=== PATIENT | female | born 1975 | race Caucasian/White ===

== ENCOUNTER 2016-07-15 13:41 | Emergency (ER) | payer BC ==
[~2016-07-15] VITALS: Ht 162.6 cm; Wt 75.0 kg
[~2016-07-15 13:41] MED LIST: ALBU6.7H INH; CLON0.1T PO; DARU800T PO; EPZITAB3 PO; GABA300C5 PO; LISI-515 PO; MACR100C2 PO; PRAV20TA PO; RITO100 PO; ZOLP1SPR PO
[2016-07-15 13:43] VITALS: BP 115/71; PULSE 71; RESP 12; TEMP 98.4; O2SAT 99
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
[2016-07-15 17:33] LABS: BASOPHIL % 0.3 % (0.0-2.0); EOSINOPHIL # 0.1 TH/MM3 (0-0.4); EOSINOPHIL % 1.8 % (0.0-4.0); HEMATOCRIT 33.3 % (35.0-46.0); HEMO FLAGS DIFF FINAL; LYMPH % 37.5 % (9.0-44.0); LYMPHOCYTE # 2.1 TH/MM3 (1.0-4.8); MEAN CELL VOLUME 86.9 FL (80.0-100.0); MEAN CORPUSCULAR HGB CONC 33.3 % (32.0-36.0); MONO % 6.3 % (0.0-8.0); NEUT % 54.1 % (16.0-70.0); PLATELET COUNT 224 TH/MM3 (150-450); RED BLOOD COUNT 3.83 MIL/MM3 (4.00-5.30); RED CELL DISTRIBUTION WIDTH 16.6 % (11.6-17.2); WHITE BLOOD COUNT 5.6 TH/MM3 (4.0-11.0)
[2016-07-15 17:50] LABS: ALT (GPT) 20 U/L (10-53); ANION GAP 5 MEQ/L (5-15); AST (GOT) 16 U/L (15-37); BICARBONATE 27.8 MEQ/L (21.0-32.0); BLOOD UREA NITROGEN 10 MG/DL (7-18); CHLORIDE 106 MEQ/L (98-107); GLOMERULAR FILTRATION RATE 59 ML/MIN (>89); POTASSIUM 3.9 MEQ/L (3.5-5.1); SODIUM (NA) 139 MEQ/L (136-145)
[2016-07-15 17:53] LABS: ALKALINE PHOSPHATASE 84 U/L (45-117); TOTAL BILIRUBIN ADULT 0.8 MG/DL (0.2-1.0)
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
[2016-07-15 22:48] VITALS: BP 134/86; PULSE 73; RESP 18; TEMP 98; O2SAT 96
[2016-07-15] MEDS ORDERED: ATOR20TA15 PO (23:07)
[2016-07-15] MEDS ORDERED: ACETAMINOPHEN/HYDROcodone 325 MG/5 MG TAB PO ONE (23:30)
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
[2016-07-16] MEDS ORDERED: TRAM50TA PO (00:21)
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
[2016-07-16 07:05] VITALS: BP 128/87
[2016-07-27] MEDS ORDERED: HYDR-3516 PO (13:21)
== END 2016-07-16 07:07 | disposition home or self-care (01) ==
LOC: NEPC 13:41 → NEPB 07-16 07:07
DX: S02.2XXA Fracture of nasal bones, initial encounter for closed fracture (principal); S02.40EA Zygomatic fracture, right side, initial encounter for closed fracture; M54.2 Cervicalgia; R07.89 Other chest pain; R10.9 Unspecified abdominal pain; I10 Essential (primary) hypertension; E78.5 Hyperlipidemia, unspecified; E78.00 Pure hypercholesterolemia, unspecified; Z21 Asymptomatic human immunodeficiency virus [HIV] infection status; Z86.59 Personal history of other mental and behavioral disorders; Z87.09 Personal history of other diseases of the respiratory system; Y04.2XXA Assault by strike against or bumped into by another person, initial encounter
CPT/HCPCS: 70450; 70486; 71010; 72125; 80053; 85025

== ENCOUNTER → 2016-07-27 | Day surgery (SDC) | payer BC ==
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
[~2016-07-27] VITALS: Ht 160 cm; Wt 69.8 kg
[~2016-07-27] MED LIST changes: +ATOR20TA15 PO; +DARU1TAB2 PO; +DIPH25CA PO; +DO NOT ADM ANY ANTICOAGULANT DRUGS XX PRN; +DOLU1TAB PO; +HYDR-3516 PO; +INSULIN HUMAN REGULAR 1,000 UNITS/10 ML VIAL SQ PRN; +KETOROLAC TROMETHAMINE 60 MG/2 ML (IM) VIAL IM ONE; +LACTATED RINGER'S 1000 ML IV SCH; +LEVA750T PO; +LIDOCAINE 2%/EPINEPHrine 1:100,000 30ML MDV ONE; +METOPROLOL TARTRATE 25 MG TAB PO PRN; +MIDAZOLAM HCL 2 MG/2 ML VIAL ONE; +ONDANSETRON HCL 4 MG/2 ML VIAL IV PUSH ONE; -PRAV20TA PO; +PRED10 PO; +PRED20 PO; +PRED50 PO; +PROPOFOL 200 MG/20 ML AMP IV ONE; +SODIUM CHLORID 0.9% 500 ML IV SCH; +SODIUM CHLORIDE 0.9% INJ 100 ML ONE; +TRAM50TA PO; +ZIAG300T3 PO; +ceFAZolin 1,000 MG/NS 100 ML IV SCH; +ceFAZolin INJ 1,000 MG VIAL ONE
[2016-07-27 13:27] VITALS: BP 118/77; PULSE 63; RESP 16; TEMP 98; O2SAT 100
[2016-07-27 13:42] LABS: AUTOMATED NEUTROPHIL # 3.5 TH/MM3 (1.8-7.7); BASOPHIL % 0.5 % (0.0-2.0); EOSINOPHIL # 0.1 TH/MM3 (0-0.4); EOSINOPHIL % 1.7 % (0.0-4.0); HEMATOCRIT 33.7 % (35.0-46.0); HEMO FLAGS DIFF FINAL; LYMPH % 33.2 % (9.0-44.0); LYMPHOCYTE # 2.1 TH/MM3 (1.0-4.8); MEAN CELL VOLUME 87.3 FL (80.0-100.0); MEAN CORPUSCULAR HGB CONC 33.2 % (32.0-36.0); MONO % 9.3 % (0.0-8.0); NEUT % 55.3 % (16.0-70.0); PLATELET COUNT 211 TH/MM3 (150-450); RED BLOOD COUNT 3.86 MIL/MM3 (4.00-5.30); RED CELL DISTRIBUTION WIDTH 16.5 % (11.6-17.2); WHITE BLOOD COUNT 6.3 TH/MM3 (4.0-11.0)
--- NOTE | 2016-07-27 14:49 | HHI.PR ---
Immediate Post Op Note Procedure Date: Jul 27, 2016 Pre Op Diagnosis: bilateral nasal bone fractures Post Op Diagnosis: lillian Surgeon: Phillip Dubois Mat Maker(s): nitin burns Procedure: closed reduction of bilateral nasal bone fractures Complications: none Specimen(s) removed: none Estimated blood loss: minimal Anesthesia: General, Local (2%lidocaine with 1:100,000 epi approx 2.5 cc) Drains: None Patient to: PACU Patient Condition: Good Date/Time of Procedure: SEE SURGICAL CARE RECORD Phillip Dubois DMD Jul 27, 2016 14:49
[2016-07-27 16:15] VITALS: BP 124/80; PULSE 82; RESP 16; TEMP 97; O2SAT 98
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
== END | disposition home or self-care (01) ==
LOC: HSDC 11:21
PROVIDERS: ATTEND Dentist Oral and Maxillofacial Surgery
DX: S02.2XXA Fracture of nasal bones, initial encounter for closed fracture (principal); Y09 Assault by unspecified means
CPT/HCPCS: 00160; 21337; 85025; J0690; J1885; J2250; J2405; J3010; J7120

== ENCOUNTER 2016-09-11 14:29 | Emergency (ER) | payer BC ==
[~2016-09-11] VITALS: Ht 162.6 cm; Wt 69.0 kg
[~2016-09-11 14:29] MED LIST changes: -DARU1TAB2 PO; -DIPH25CA PO; -DO NOT ADM ANY ANTICOAGULANT DRUGS XX PRN; -DOLU1TAB PO; -INSULIN HUMAN REGULAR 1,000 UNITS/10 ML VIAL SQ PRN; -KETOROLAC TROMETHAMINE 60 MG/2 ML (IM) VIAL IM ONE; -LACTATED RINGER'S 1000 ML IV SCH; -LEVA750T PO; -LIDOCAINE 2%/EPINEPHrine 1:100,000 30ML MDV ONE; -MACR100C2 PO; -METOPROLOL TARTRATE 25 MG TAB PO PRN; -MIDAZOLAM HCL 2 MG/2 ML VIAL ONE; -ONDANSETRON HCL 4 MG/2 ML VIAL IV PUSH ONE; -PRED10 PO; -PRED20 PO; -PRED50 PO; -PROPOFOL 200 MG/20 ML AMP IV ONE; -SODIUM CHLORID 0.9% 500 ML IV SCH; -SODIUM CHLORIDE 0.9% INJ 100 ML ONE; -ZIAG300T3 PO; -ZOLP1SPR PO; -ceFAZolin 1,000 MG/NS 100 ML IV SCH; -ceFAZolin INJ 1,000 MG VIAL ONE
[2016-09-11 14:41] VITALS: BP 144/96; PULSE 85; RESP 18; TEMP 98.1; O2SAT 98
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
[2016-09-11] MEDS ORDERED: KETOROLAC TROMETHAMINE 60 MG/2 ML (IM) VIAL IM ONE (16:00)
== END 2016-09-11 16:42 | disposition home or self-care (01) ==
LOC: NEPD 14:29
DX: S46.001A Unspecified injury of muscle(s) and tendon(s) of the rotator cuff of right shoulder, initial encounter (principal); I10 Essential (primary) hypertension; E78.00 Pure hypercholesterolemia, unspecified; Z21 Asymptomatic human immunodeficiency virus [HIV] infection status; Z86.59 Personal history of other mental and behavioral disorders; Z86.79 Personal history of other diseases of the circulatory system; Z87.09 Personal history of other diseases of the respiratory system; Y93.K9 Activity, other involving animal care
CPT/HCPCS: 29240; 96372; J1885

== ENCOUNTER 2016-09-13 00:01 | Inpatient (IN) | payer BC ==
[~2016-09-13] VITALS: Ht 160 cm; Wt 66.0 kg
[2016-09-13 00:03] VITALS: BP 160/76; PULSE 98; RESP 20; TEMP 98; O2SAT 96
[2016-09-13] MEDS ORDERED: ORPHENADRINE INJ 60 MG/2 ML AMP IM ONE (01:45)
[2016-09-13] MEDS ORDERED: KETOROLAC TROMETHAMINE 30 MG/ML (IVP) VIAL IVP ONE (01:45)
[2016-09-13] MEDS ORDERED: SODIUM CHLOR 0.9% 1000 ML INJ 1,000 ML IV ONE (01:45)
[2016-09-13] MEDS ORDERED: IOHEXOL 350 MG/ML 10 ML VIAL (for RAD DIAG) IV ONE (01:59)
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
--- NOTE | 2016-09-13 02:35 | RADRPT ---
EXAM DATE/TIME: 09/13/2016 02:06 [facility] COMPARISON: No previous studies available for comparison. INDICATIONS : Fall from a horse. MEDICAL HISTORY : HIV Hypertension SURGICAL HISTORY : Hysterectomy. Cholecystectomy. ENCOUNTER: Initial ACUITY: 1 day PAIN SCORE: 9/10 LOCATION: Right shoulder FINDINGS: Two view examination of the right shoulder demonstrates no evidence of fracture or dislocation. The glenohumeral and acromioclavicular joints are maintained. Bony mineralization is normal. CONCLUSION: No acute disease. Moises Jackson MD on September 13, 2016 at 2:33 Board Certified Radiologist. This report was verified electronically.
[2016-09-13 02:37] LABS: AUTOMATED NEUTROPHIL # 9.9 TH/MM3 (1.8-7.7); BASOPHIL % 0.1 % (0.0-2.0); EOSINOPHIL % 0.1 % (0.0-4.0); HEMATOCRIT 27.2 % (35.0-46.0); HEMO FLAGS DIFF FINAL; LYMPHOCYTE # 1.5 TH/MM3 (1.0-4.8); MEAN CELL VOLUME 82.1 FL (80.0-100.0); MEAN CORPUSCULAR HEMOGLOBIN 27.9 PG (27.0-34.0); MONO % 5.9 % (0.0-8.0); NEUT % 81.9 % (16.0-70.0); PLATELET COUNT 378 TH/MM3 (150-450); RED BLOOD COUNT 3.32 MIL/MM3 (4.00-5.30); RED CELL DISTRIBUTION WIDTH 14.3 % (11.6-17.2); WHITE BLOOD COUNT 12.2 TH/MM3 (4.0-11.0)
[2016-09-13 02:51] LABS: ALT (GPT) 17 U/L (10-53); ANION GAP 8 MEQ/L (5-15); AST (GOT) 14 U/L (15-37); BICARBONATE 28.5 MEQ/L (21.0-32.0); BLOOD UREA NITROGEN 9 MG/DL (7-18); CHLORIDE 103 MEQ/L (98-107); GLOMERULAR FILTRATION RATE 98 ML/MIN (>89); POTASSIUM 3.3 MEQ/L (3.5-5.1); SODIUM (NA) 139 MEQ/L (136-145)
[2016-09-13 02:52] LABS: ALKALINE PHOSPHATASE 76 U/L (45-117); TOTAL BILIRUBIN ADULT 0.6 MG/DL (0.2-1.0)
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
[2016-09-13] MEDS ORDERED: VANCOMYCIN INJ 1,050 MG in SODIUM CHLOR 0.9% 250 ML INJ 250 ML IV ONE (03:30)
[2016-09-13] MEDS ORDERED: SODIUM CHLORIDE 0.9% FLUSH 10 ML FLUSH IV FLUSH PRN (03:30)
[2016-09-13] MEDS ORDERED: Vancomycin Consult Pharmacy 1 EA OTHER SCH (03:30)
[2016-09-13] MEDS ORDERED: BISACODYL 10 MG SUPP RECTAL PRN (03:30)
[2016-09-13] MEDS: SODIUM CHLOR 0.9% 1000 ML INJ 1,000 ML IV SCH ×3 (03:56→16:29)
[2016-09-13] MEDS ORDERED: ALBUTEROL SULFATE 90 MCG/ACT HFA 18 GM INHALER INH PRN (04:00)
--- NOTE | 2016-09-13 04:01 | HHI.HP ---
HPI Service [facility] Primary Care Physician Moises Phelan MD Admission Diagnosis infection first costochondral joint Diagnoses: (1) Rotator cuff injury Diagnosis: Principal (2) Costochondral joint sprain Diagnosis: Principal (3) Pectoralis muscle strain Diagnosis: Principal (4) Hypokalemia Diagnosis: Principal (5) HIV (human immunodeficiency virus infection) Diagnosis: Principal (6) IVDU (intravenous drug user) Diagnosis: Principal Travel History International Travel<30 Days: No Contact w/Intl Traveler <30 Da: No Traveled to Known Affected Are: No History of Present Illness This is a 40-year-old female with a PMH of HIV (CD4 1092 on 11/20/14), IVDU, Anxiety, Depression, HTN and Hyperlipidemia presented to ER with complaints of right shoulder pain in addition to subjective fever and chills. States she had injury to right shoulder approx 2wk ago while riding a horse, got arm caught in ropes and got dragged a few feet by horse. States she was referred for MRI by PCP however presented to [facility] 09/10/16 w/ worsening pain. Shoulder X-ray reportedly negative and given Rx for Percocet. MRI currently pending, scheduled for this week. Seen in [place] ER 09/11/16 for ongoing pain complaints , concern for rotator cuff injury and instructed to follow w/ PCP and obtain outpatient MRI as scheduled. Today, states pain worse and now w/ fever/chills. Denies recent IVDU, last use 2mo ago. On arrival, BP 144/96, HR 85, O2 sat 98 % on RA, Afebrile. WBC 12.2. K+ 3.3. CRP 15. ESR >140. Shoulder X-ray with no acute findings. On exam, pt noted to have redness/swelling over right clavicle, CT Chest w/ thickening and anterior bulging of medial aspect of right pectoralis muscle likely from injury and increased density around first costochondral junction with questionable fracturing. ER physician spoke with Radiologist who indicated his may be due to early costochondral infection. S/p Vanc in ER. Review of Systems Except as stated in HPI: all other systems reviewed are Neg ROS: 14 point review of systems otherwise negative. Past Family Social History Past Medical History PMH: HIV (CD4 1092 on 11/20/14), IVDU, Anxiety, Depression, HTN and Hyperlipidemia Past Surgical History PAST SURGICAL HISTORY: Cholecystectomy, Hysterectomy, Closed Reduction of Bilateral Nasal Bone Fractures Allergies: Uncoded Allergies: ATRIPLA (Allergy, Severe, 07/27/16) Family History PAST FAMILY HISTORY: Reviewed. No h/o DM or CAD Social History PAST SOCIAL HISTORY: Negative for alcohol or tobacco. Positive for Marijuana, IVDU w/ Dilaudid. Physical Exam Vital Signs Vital Signs Date Time Temp Pulse Resp B/P Pulse Ox O2 Delivery O2 Flow Rate FiO2 09/13/16 00:03 98.0 98 20 160/76 96 Room Air Physical Exam PE: GENERAL: Middle-aged white female in no acute distress. HEENT: PERRLA, EOMI. No scleral icterus or conjunctival pallor. No lid lag or facial droop. CARDIOVASCULAR: Regular rate and rhythm. No obvious murmurs to auscultation. No chest tenderness to palpation. Right clavicle w/ swelling. RESPIRATORY: No obvious rhonchi or wheezing. Clear to auscultation. Breath sounds equal bilaterally. GASTROINTESTINAL: Abdomen soft, non-tender, nondistended. BS normal. MUSCULOSKELETAL: Extremities without clubbing, cyanosis, or edema. No obvious deformities. Decreased ROM of right shoulder due to injury. NEUROLOGICAL: Awake, alert and oriented x4. No focal neurologic deficits. Moving both upper and lower extremities spontaneously. Laboratory Laboratory Tests Test 09/13/16 02:20 White Blood Count 12.2 Red Blood Count 3.32 Hemoglobin 9.3 Hematocrit 27.2 Mean Corpuscular Volume 82.1 Mean Corpuscular Hemoglobin 27.9 Mean Corpuscular Hemoglobin 34.0 Concent Red Cell Distribution Width 14.3 Platelet Count 378 Mean Platelet Volume 8.6 Neutrophils (%) (Auto) 81.9 Lymphocytes (%) (Auto) 12.0 Monocytes (%) (Auto) 5.9 Eosinophils (%) (Auto) 0.1 Basophils (%) (Auto) 0.1 Neutrophils # (Auto) 9.9 Lymphocytes # (Auto) 1.5 Monocytes # (Auto) 0.7 Eosinophils # (Auto) 0.0 Basophils # (Auto) 0.0 CBC Comment DIFF FINAL Differential Comment Erythrocyte Sedimentation Rate GREATER THAN 140 Sodium Level 139 Potassium Level 3.3 Chloride Level 103 Carbon Dioxide Level 28.5 Anion Gap 8 Blood Urea Nitrogen 9 Creatinine 0.66 Estimat Glomerular Filtration 98 Rate Random Glucose 90 Calcium Level 8.6 Total Bilirubin 0.6 Aspartate Amino Transf 14 (AST/SGOT) Alanine Aminotransferase 17 (ALT/SGPT) Alkaline Phosphatase 76 C-Reactive Protein 15.00 Total Protein 7.2 Albumin 2.8 Result Diagram: 09/13/1621909/13/16219 Assessment and Plan Problem List: (1) Rotator cuff injury ICD Code: S46.009A Status: Acute (2) Costochondral joint sprain ICD Code: S23.41XA Status: Acute (3) Pectoralis muscle strain ICD Code: S29.011A Status: Acute (4) Hypokalemia ICD Code: E87.6 Status: Acute (5) HIV (human immunodeficiency virus infection) ICD Code: Z21 Status: Acute (6) IVDU (intravenous drug user) ICD Code: F19.90 Status: Acute Assessment and Plan A/P: 1. Right Rotator Cuff Injury: sustained approx 2wks ago while riding horse, s/ p eval at [facility] w/ Shoulder x-ray reportedly normal, referred by PCP for MRI , not completed as of yet. Seen in ER 09/11/16 for same, suspected rotator cuff injury. Shoulder X-ray w/ no acute findings, images reviewed by me. MRI ordered by ER physician, currently pending. Analgesics/antiemetics. 2. Costochondral Joint Sprain/Infection: CT Chest w/ increased density around first costochondral junction with questionable fracturing at medial first costochondral junction, ER physician spoke with Radiologist who indicated this may be due to early infection/phlegmon. WBC 12, afebrile but subjective fever/ chills. S/p Vanc and Blood Cultures in ER. Will follow up cultures, continue w / IV Abx. May need Gen Sx eval for possible biopsy. 3. Pectoralis Muscle Strain/Injury: s/p reported injury while riding horse, CT Chest w/ thickening/bulging of right pectoralis muscle likely from injury, images reviewed by me. Analgesics/antiemetics. 4. Hypokalemia: K+ 3.3, will replace and recheck. 5. HIV: CD4 1092 on 11/20/14, on HAART, reports compliance. 6. IVDU: w/ Dilaudid, last use 07/15/16. Check U/a, UDS. Ativan if needed. 7. DVT Prophylaxis: SCD/Teds. 8. Social work for d/c planning as needed. 9. Case discussed w/ ER physician at length. Physician Certification 2 Midnight Certification Type: Admission for Inpatient Services Order for Inpatient Services The services are ordered in accordance with Medicare regulations or non- Medicare payer requirements, as applicable. In the case of services not specified as inpatient-only, they are appropriately provided as inpatient services in accordance with the 2-midnight benchmark. Estimated LOS (days): 2 days is the estimated time the patient will need to remain in the hospital, assuming treatment plan goals are met and no additional complications. Post-Hospital Plan: Not yet determined Yissel Poon MD Sep 13, 2016 04:01
[2016-09-13] MEDS: CEFEPIME INJ 1,000 MG in SODIUM CHLORIDE 0.9% INJ 100 ML IV SCH ×2 (06:15→16:18)
[2016-09-13 06:16] LABS: AMPHETAMINE, URINE NEG (NEG); BARBITURATES, URINE NEG (NEG); COCAINE, URINE NEG (NEG)
[2016-09-13 06:32] LABS: BACTERIA, URINE OCC /hpf; BLOOD, URINE NEG (NEG); COMMENT (UR) CULT NOT INDICATED; CULTURE IF INDICATED CULT NOT INDICATED; GLUCOSE,URINE NEG (NEG); KETONE, URINE 40 mg/dL (NEG); MUCUS URINE FEW /lpf (OCC); NITRITE,URINE NEG (NEG); SQUAMOUS EPITHELIAL CELL URINE 21 /hpf (0-5); URINE COLOR YELLOW (YELLW/STRAW)
[2016-09-13 08:00] VITALS: BP 142/88; PULSE 89; RESP 18; TEMP 99.2; O2SAT 97
[2016-09-13] MEDS ORDERED: GADODIAMIDE PF 287 MG/ML 5 ML VIAL (for RAD MRI) IV ONE (08:48)
[2016-09-13] MEDS ORDERED: LISINOPRIL 20 MG TAB PO SCH (09:00)
[2016-09-13] MEDS ORDERED: NON-FORMULARY DRUG (Abacavir-Lamivudine (Epzicom) 1 TAB) PO SCH (09:00)
[2016-09-13] MEDS ORDERED: ABACAVIR SULFATE 300 MG TAB PO SCH (09:00)
[2016-09-13] MEDS ORDERED: RITONAVIR 100 MG TAB PO SCH (09:00)
[2016-09-13] MEDS: GABAPENTIN 300 MG CAP PO SCH ×2 (09:01→21:00)
[2016-09-13] MEDS: cloNIDine HCL 0.1 MG TAB PO SCH ×2 (09:01→21:00)
[2016-09-13] MEDS: SODIUM CHLORIDE 0.9% FLUSH 10 ML FLUSH IV FLUSH SCH ×2 (09:03→21:27)
--- NOTE | 2016-09-13 09:19 | RADRPT ---
EXAM DATE/TIME: 09/13/2016 07:27 [place] COMPARISON: CT THORAX W CONTRAST, September 13, 2016, 1:58. INDICATIONS : Infection first costochondral joint. CONTRAST: 14 cc Omniscan (gadodiamide) IV MEDICAL HISTORY : Hypertension. SURGICAL HISTORY : Cholecystectomy. Hysterectomy. ENCOUNTER: Initial ACUITY: 1 week PAIN SCORE: 7/10 LOCATION: Right shoulder/chest TECHNIQUE: Multiplanar, multisequence MRI examination was performed with and without contrast. FINDINGS: Imaging of the right upper chest demonstrates significant soft tissue edema involving the right chest wall and extending into the supraclavicular soft tissues. There is enhancement of the soft tissues s urrounding the right sternoclavicular joint. There is no evidence of discrete abscess. The marrow dem onstrates normal enhancement without focal abnormality seen to suggest osteomyelitis. The imaged portion of the lung demonstrates layering increased T2 signal identified within the basal aspect of the right lower lung consistent with a small right-sided pleural effusion. CONCLUSION: Extensive soft tissue edema and enhancement consistent with infection surrounding the region of the f irst costochondral margin and sternoclavicular joint. However, no evidence of discrete abscess and no abnormal enhancement of the marrow to suggest osteomyelitis. There is a small right-sided pleural ef fusion noted.. Jessica Bran MD on September 13, 2016 at 9:07 Board Certified Radiologist. This report was verified electronically.
--- NOTE | 2016-09-13 10:35 | HHI.PR ---
Subjective Remarks follow up right shoulder injury/infection 09/13/16-patient seen and examined; still complain of right shoulder pain. Afebrile. MRI shoulder report pending Objective Vitals Vital Signs Date Time Temp Pulse Resp B/P Pulse Ox O2 Delivery O2 Flow Rate FiO2 09/13/16 08:00 99.2 89 18 142/88 97 09/13/16 00:03 98.0 98 20 160/76 96 Room Air Result Diagram: 09/13/16 0220 09/13/16 0220 Imaging Last Impressions Shoulder X-Ray 09/13/16 0000 Signed Impressions: Service Date/Time: Tuesday, September 13, 2016 02:06 - CONCLUSION: No acute disease. Moises Jackson MD Shoulder MRI 09/13/16 0000 Signed Impressions: Service Date/Time: Tuesday, September 13, 2016 07:27 - CONCLUSION: Extensive soft tissue edema and enhancement consistent with infection surrounding the region of the first costochondral margin and sternoclavicular joint. However, no evidence of discrete abscess and no abnormal enhancement of the marrow to suggest osteomyelitis. There is a small right-sided pleural effusion noted.. Jessica Bran MD Chest CT 09/13/16 0000 Signed Impressions: Service Date/Time: Tuesday, September 13, 2016 01:58 - CONCLUSION: 1. Thickening and anterior bulging of the medial aspect of the right pectoralis muscle likely from injury. There is also increased density around the first costochondral junction with some questionable fracturing at the medial first costochondral junction. 2. Minimal right effusion. Moises Jackson MD ADDENDUM: I have been told the patient potentially has inflammatory change in the right upper chest. The soft tissue density at the medial pectoralis muscle and around the first costochondral junction can also be postinflammatory. The increased density also is seen around the medial right clavicle. Involvement of the sternoclavicular joint could be present although the sternoclavicular joints appear relatively symmetric. Early involvement cannot be excluded. A focal fluid collection or abscess is not clearly seen on this examination. Also in reviewing the case the patient does appear to have some minimal loss of height at the superior aspect of T8 although acute fracturing is not seen. There is a Schmorl's node seen at this level. Moises Jackson MD Objective Remarks GENERAL: NAD SKIN: Warm and dry. HEAD: Normocephalic. EYES: No scleral icterus. No injection or drainage. NECK: Supple, trachea midline. No JVD or lymphadenopathy. CARDIOVASCULAR: Regular rate and rhythm without murmurs, gallops, or rubs. RESPIRATORY: Breath sounds equal bilaterally. No accessory muscle use. GASTROINTESTINAL: Abdomen soft, non-tender, nondistended. MUSCULOSKELETAL: No cyanosis, or edema. Limited ROM Right shoulder BACK: Nontender without obvious deformity. No CVA tenderness. A/P Problem List: (1) Rotator cuff injury ICD Code: S46.009A Status: Acute (2) Costochondral joint sprain ICD Code: S23.41XA Status: Acute (3) Pectoralis muscle strain ICD Code: S29.011A Status: Acute (4) Hypokalemia ICD Code: E87.6 Status: Acute (5) HIV (human immunodeficiency virus infection) ICD Code: Z21 Status: Acute (6) IVDU (intravenous drug user) ICD Code: F19.90 Status: Acute Assessment and Plan 40 years old female with 1. Right Rotator Cuff Injury: sustained approx 2wks ago while riding horse, s/ p eval at [facility] w/ Shoulder x-ray reportedly normal, referred by PCP for MRI , not completed as of yet. Seen in ER 09/11/16 for same, suspected rotator cuff injury. Shoulder X-ray w/ no acute findings. MRI shoulder pending. Analgesics /antiemetics. 2. Costochondral Joint Sprain/Infection: CT Chest w/ increased density around first costochondral junction with questionable fracturing at medial first costochondral junction. S/p Vanc and Blood Cultures in ER. Will follow up cultures, continue w/ IV Abx. May need Gen Sx eval for possible biopsy pending Shoulder MRI 3. Pectoralis Muscle Strain/Injury: s/p reported injury while riding horse, CT Chest w/ thickening/bulging of right pectoralis muscle likely from injury. Analgesics/antiemetics. 4. Hypokalemia: Replace electrolyte and monitor 5. HIV: CD4 1092 on 11/20/14, continue HAART 6. IVDU: w/ Dilaudid, last use 07/15/16. UDS noted. Ativan if needed. 7. DVT Prophylaxis: SCD/Teds. 8. Social work for d/c planning as needed. Gigi Meléndez MD Sep 13, 2016 10:35
[2016-09-13 12:00] VITALS: BP 111/63; PULSE 89; RESP 18; TEMP 99; O2SAT 94
[2016-09-13] MEDS: DARUNAVIR 800 MG TAB PO SCH ×2 (12:11→21:00)
[2016-09-13] MEDS: ONDANSETRON HCL 4 MG/2 ML VIAL IVP PRN (13:09)
[2016-09-13 16:00] VITALS: BP 105/64; PULSE 78; RESP 18; TEMP 99.9; O2SAT 99
[2016-09-13 19:30] VITALS: BP 103/62; PULSE 77; RESP 16; TEMP 98.8; O2SAT 98
[2016-09-13] MEDS: ATORVASTATIN 20 MG TAB PO SCH (21:25)
[2016-09-14 00:30] VITALS: BP 117/73; PULSE 83; RESP 16; TEMP 96.7; O2SAT 95
[2016-09-14 03:30] VITALS: BP 115/65; PULSE 84; RESP 17; TEMP 99.5; O2SAT 92
[2016-09-14] MEDS: CEFEPIME INJ 1,000 MG in SODIUM CHLORIDE 0.9% INJ 100 ML IV SCH ×2 (05:11→16:18)
[2016-09-14 06:25] LABS: AUTOMATED NEUTROPHIL # 6.1 TH/MM3 (1.8-7.7); BASOPHIL % 0.3 % (0.0-2.0); EOSINOPHIL # 0.1 TH/MM3 (0-0.4); EOSINOPHIL % 0.9 % (0.0-4.0); HEMATOCRIT 28.4 % (35.0-46.0); HEMO FLAGS DIFF FINAL; LYMPH % 24.6 % (9.0-44.0); LYMPHOCYTE # 2.2 TH/MM3 (1.0-4.8); MEAN CELL VOLUME 84.4 FL (80.0-100.0); MEAN CORPUSCULAR HEMOGLOBIN 27.6 PG (27.0-34.0); MEAN CORPUSCULAR HGB CONC 32.7 % (32.0-36.0); MONO % 7.5 % (0.0-8.0); NEUT % 66.7 % (16.0-70.0); PLATELET COUNT 410 TH/MM3 (150-450); RED BLOOD COUNT 3.36 MIL/MM3 (4.00-5.30); RED CELL DISTRIBUTION WIDTH 14.4 % (11.6-17.2); WHITE BLOOD COUNT 9.1 TH/MM3 (4.0-11.0)
[2016-09-14 06:49] LABS: ALT (GPT) 16 U/L (10-53); ANION GAP 12 MEQ/L (5-15); AST (GOT) 16 U/L (15-37); BICARBONATE 24.8 MEQ/L (21.0-32.0); CHLORIDE 104 MEQ/L (98-107); GLOMERULAR FILTRATION RATE 81 ML/MIN (>89); POTASSIUM 3.8 MEQ/L (3.5-5.1); SODIUM (NA) 141 MEQ/L (136-145)
[2016-09-14 06:51] LABS: ALKALINE PHOSPHATASE 70 U/L (45-117); TOTAL BILIRUBIN ADULT 0.5 MG/DL (0.2-1.0)
[2016-09-14 06:52] LABS: BLOOD UREA NITROGEN 8 MG/DL (7-18)
[2016-09-14 08:00] VITALS: BP 114/65; PULSE 82; RESP 21; TEMP 99.4; O2SAT 92
[2016-09-14] MEDS: SODIUM CHLORIDE 0.9% FLUSH 10 ML FLUSH IV FLUSH SCH ×2 (09:00→21:00)
[2016-09-14] MEDS: cloNIDine HCL 0.1 MG TAB PO SCH ×2 (09:24→21:00)
[2016-09-14] MEDS: GABAPENTIN 300 MG CAP PO SCH ×2 (09:24→21:03)
[2016-09-14] MEDS ORDERED: VANCOMYCIN INJ 1,250 MG in SODIUM CHLOR 0.9% 250 ML INJ 250 ML IV SCH (09:45)
[2016-09-14] MEDS ORDERED: VANCOMYCIN 1,000 MG/NS 250 ML IV SCH ×2 (10:00)
[2016-09-14 12:00] VITALS: BP 103/69; PULSE 79; RESP 18; TEMP 97.7; O2SAT 92
--- NOTE | 2016-09-14 13:02 | HHI.PR ---
Subjective Remarks follow up right shoulder injury/infection 09/13/16-patient seen and examined; still complain of right shoulder pain. Afebrile. MRI shoulder report pending 09/14/16-patient seen and examined; +severe rigth shoulder pain. + 3#4 blood culture. Afebrile Objective Vitals Vital Signs Date Time Temp Pulse Resp B/P Pulse Ox O2 Delivery O2 Flow Rate FiO2 09/14/16 08:00 99.4 82 21 114/65 92 09/14/16 03:30 99.5 84 17 115/65 92 09/14/16 00:30 96.7 83 16 117/73 95 09/13/16 19:30 98.8 77 16 103/62 98 09/13/16 18:24 99 Nasal Cannula 2.00 09/13/16 16:00 99.9 78 18 105/64 99 I/O 09/13/16 09/13/16 09/13/16 09/14/16 09/14/16 09/14/16 07:00 15:00 23:00 07:00 15:00 23:00 Intake Total 480 ml 360 ml 240 ml Balance 480 ml 360 ml 240 ml Intake Oral 480 ml 360 ml 240 ml # Voids 1 3 2 # Bowel Movements 0 0 0 Result Diagram: 09/14/16 0546 09/14/16 0546 Imaging Last Impressions Shoulder X-Ray 09/13/16 0000 Signed Impressions: Service Date/Time: Tuesday, September 13, 2016 02:06 - CONCLUSION: No acute disease. Moises Jackson MD Shoulder MRI 09/13/16 0000 Signed Impressions: Service Date/Time: Tuesday, September 13, 2016 07:27 - CONCLUSION: Extensive soft tissue edema and enhancement consistent with infection surrounding the region of the first costochondral margin and sternoclavicular joint. However, no evidence of discrete abscess and no abnormal enhancement of the marrow to suggest osteomyelitis. There is a small right-sided pleural effusion noted.. Jessica Bran MD Chest CT 09/13/16 0000 Signed Impressions: Service Date/Time: Tuesday, September 13, 2016 01:58 - CONCLUSION: 1. Thickening and anterior bulging of the medial aspect of the right pectoralis muscle likely from injury. There is also increased density around the first costochondral junction with some questionable fracturing at the medial first costochondral junction. 2. Minimal right effusion. Moises Jackson MD ADDENDUM: I have been told the patient potentially has inflammatory change in the right upper chest. The soft tissue density at the medial pectoralis muscle and around the first costochondral junction can also be postinflammatory. The increased density also is seen around the medial right clavicle. Involvement of the sternoclavicular joint could be present although the sternoclavicular joints appear relatively symmetric. Early involvement cannot be excluded. A focal fluid collection or abscess is not clearly seen on this examination. Also in reviewing the case the patient does appear to have some minimal loss of height at the superior aspect of T8 although acute fracturing is not seen. There is a Schmorl's node seen at this level. Moises Jackson MD Objective Remarks GENERAL: NAD SKIN: Warm and dry. HEAD: Normocephalic. EYES: No scleral icterus. No injection or drainage. NECK: Supple, trachea midline. No JVD or lymphadenopathy. CARDIOVASCULAR: Regular rate and rhythm without murmurs, gallops, or rubs. RESPIRATORY: Breath sounds equal bilaterally. No accessory muscle use. GASTROINTESTINAL: Abdomen soft, non-tender, nondistended. MUSCULOSKELETAL: No cyanosis, or edema. Limited ROM Right shoulder BACK: Nontender without obvious deformity. No CVA tenderness. A/P Problem List: (1) Rotator cuff injury ICD Code: S46.009A Status: Acute (2) Costochondral joint sprain ICD Code: S23.41XA Status: Acute (3) Pectoralis muscle strain ICD Code: S29.011A Status: Acute (4) Hypokalemia ICD Code: E87.6 Status: Acute (5) HIV (human immunodeficiency virus infection) ICD Code: Z21 Status: Acute (6) IVDU (intravenous drug user) ICD Code: F19.90 Status: Acute (7) Bacteremia due to Gram-positive bacteria ICD Code: A49.9 Status: Acute Assessment and Plan 40 years old female with 1. Bacteremia: 3#4 positive Blood culture; start Vancomycin and continue with Cefepime. Consult Infectious Disease specialist and repeat Blood culture 2. Right Rotator Cuff Injury: sustained approx 2wks ago while riding horse, s/ p eval at [facility] w/ Shoulder x-ray reportedly normal, referred by PCP for MRI. Shoulder X-ray w/ no acute findings. MRI shoulder noted without any abscess. Analgesics/antiemetics. 3. Costochondral Joint Sprain/Infection: CT Chest w/ increased density around first costochondral junction with questionable fracturing at medial first costochondral junction. S/p Vanc and Blood Cultures in ER. Will follow up cultures, continue w/ IV Abx. Shoulder MRI noted without any abscess 4. Pectoralis Muscle Strain/Injury: s/p reported injury while riding horse, CT Chest w/ thickening/bulging of right pectoralis muscle likely from injury. Analgesics/antiemetics. 5. Hypokalemia: Replace electrolyte and monitor 6. HIV: CD4 1092 on 11/20/14, continue HAART 7. IVDU: w/ Dilaudid, last use 07/15/16. UDS noted. Ativan if needed. 8. DVT Prophylaxis: SCD/Teds. 9. Social work for d/c planning as needed. Gigi Meléndez MD Sep 14, 2016 13:02
[2016-09-14 16:00] VITALS: BP 111/62; PULSE 89; RESP 18; TEMP 98.1; O2SAT 98
[2016-09-14] MEDS: VANCOMYCIN 1,000 MG/NS 250 ML IV SCH ×2 (16:19)
--- NOTE | 2016-09-14 16:42 | PD.ID.CON ---
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 ESR > 140 On vanco, cefepime Admitted to IVDU; last time 6 mos ago Review of Systems Except as stated in HPI: all other systems reviewed are Neg Past Family Social History Allergies: Uncoded Allergies: ATRIPLA (Allergy, Severe, 07/27/16) Past Medical History HIV HTN Past Surgical History hystrectomy Active Ordered Medications Prezista/r ABC Epivir cefepime vanco Family History Non-Contributory. Social History IVDU - injected dilaudid MJ no tobacco occ ETOH Physical Exam Vital Signs Vital Signs Date Time Temp Pulse Resp B/P Pulse Ox O2 Delivery O2 Flow Rate FiO2 09/14/16 08:00 99.4 82 21 114/65 92 09/14/16 03:30 99.5 84 17 115/65 92 09/14/16 00:30 96.7 83 16 117/73 95 09/13/16 19:30 98.8 77 16 103/62 98 09/13/16 18:24 99 Nasal Cannula 2.00 Physical Exam CONSTITUTIONAL/GENERAL: This is an adequately nourished patient, in no apparent distress. TUBES/LINES/DRAINS: SKIN: No jaundice, rashes, or lesions. Ecchymoses on upper extremities. No wounds seen anteriorly. Skin temperature appropriate. Not diaphoretic. HEAD: Atraumatic. Normocephalic. EYES: Pupils equal and round and reactive. Extraocular motions intact. No scleral icterus. No injection or drainage. Fundi not examined. ENT: Hearing grossly normal. Nose without bleeding or purulent drainage. Oral mucosae without visible erythema, exudates, masses, or lesions. Edentulous NECK: Trachea midline. Supple, nontender. No palpable thyroid enlargement or nodularity. CARDIOVASCULAR: Regular rate and rhythm without murmurs, gallops, or rubs. No JVD. Peripheral pulses symmetric. RESPIRATORY/CHEST: Symmetric, unlabored respirations. Clear to auscultation. Breath sounds equal bilaterally. No wheezes, rales, or rhonchi. GASTROINTESTINAL: Abdomen soft, non-tender, nondistended. No hepato-splenomegaly , or palpable masses. No guarding. Bowel sounds present. GENITOURINARY: Without palpable bladder distension. MUSCULOSKELETAL: Extremities without clubbing, cyanosis, or edema. No joint tenderness or effusion noted. No calf tenderness. No mottling or clubbing. Pain to palpation to R stenoclavicular area, R shoulder and upper chest NEUROLOGICAL: Awake and alert. Motor and sensory grossly within normal limits. Follows commands. Cognitively sharp. Moves all extremities. PSYCHIATRIC: No obvious anxiety/depression. no apparent hallucinations or other psychotic thought process. Laboratory Laboratory Tests Test 09/14/16 05:46 White Blood Count 9.1 Red Blood Count 3.36 Hemoglobin 9.3 Hematocrit 28.4 Mean Corpuscular Volume 84.4 Mean Corpuscular Hemoglobin 27.6 Mean Corpuscular Hemoglobin 32.7 Concent Red Cell Distribution Width 14.4 Platelet Count 410 Mean Platelet Volume 9.3 Neutrophils (%) (Auto) 66.7 Lymphocytes (%) (Auto) 24.6 Monocytes (%) (Auto) 7.5 Eosinophils (%) (Auto) 0.9 Basophils (%) (Auto) 0.3 Neutrophils # (Auto) 6.1 Lymphocytes # (Auto) 2.2 Monocytes # (Auto) 0.7 Eosinophils # (Auto) 0.1 Basophils # (Auto) 0.0 CBC Comment DIFF FINAL Differential Comment Sodium Level 141 Potassium Level 3.8 Chloride Level 104 Carbon Dioxide Level 24.8 Anion Gap 12 Blood Urea Nitrogen 8 Creatinine 0.78 Estimat Glomerular Filtration 81 Rate Random Glucose 89 Calcium Level 8.8 Total Bilirubin 0.5 Aspartate Amino Transf 16 (AST/SGOT) Alanine Aminotransferase 16 (ALT/SGPT) Alkaline Phosphatase 70 Total Protein 6.6 Albumin 2.7 Date/Time Procedure Status Source Growth 09/14/16 10:20 Aerobic Blood Culture Received Blood Peripheral Pending 09/14/16 10:20 Anaerobic Blood Culture Received Blood Peripheral Pending 09/13/16 04:05 Aerobic Blood Culture - Preliminary Resulted Blood Peripheral Staph Sp Coagulase Negative 09/13/16 04:05 Anaerobic Blood Culture - Preliminary Resulted Gram Positive Cocci Result Diagram: 09/14/16 0546 09/14/16 0546 Imaging Last Impressions Shoulder X-Ray 09/13/16 0000 Signed Impressions: Service Date/Time: Tuesday, September 13, 2016 02:06 - CONCLUSION: No acute disease. Moises Jackson MD Shoulder MRI 09/13/16 0000 Signed Impressions: Service Date/Time: Tuesday, September 13, 2016 07:27 - CONCLUSION: Extensive soft tissue edema and enhancement consistent with infection surrounding the region of the first costochondral margin and sternoclavicular joint. However, no evidence of discrete abscess and no abnormal enhancement of the marrow to suggest osteomyelitis. There is a small right-sided pleural effusion noted.. Jessica Bran MD Chest CT 09/13/16 0000 Signed Impressions: Service Date/Time: Tuesday, September 13, 2016 01:58 - CONCLUSION: 1. Thickening and anterior bulging of the medial aspect of the right pectoralis muscle likely from injury. There is also increased density around the first costochondral junction with some questionable fracturing at the medial first costochondral junction. 2. Minimal right effusion. Moises Jackson MD ADDENDUM: I have been told the patient potentially has inflammatory change in the right upper chest. The soft tissue density at the medial pectoralis muscle and around the first costochondral junction can also be postinflammatory. The increased density also is seen around the medial right clavicle. Involvement of the sternoclavicular joint could be present although the sternoclavicular joints appear relatively symmetric. Early involvement cannot be excluded. A focal fluid collection or abscess is not clearly seen on this examination. Also in reviewing the case the patient does appear to have some minimal loss of height at the superior aspect of T8 although acute fracturing is not seen. There is a Schmorl's node seen at this level. Moises Jackson MD Assessment and Plan Assessment and Plan HIV dz Coag negative staph bacterm,ia R sternoclavicular joint infection in the settings of IVDU cont vancomycin dc cefelime cont HAART - 2 D echo - consult ortho Jodi Colmenares MD Sep 14, 2016 16:42
[2016-09-14 20:00] VITALS: BP 100/65; PULSE 83; RESP 18; TEMP 96.6; O2SAT 96
[2016-09-14] MEDS: ABACAVIR SULFATE 300 MG TAB PO SCH (21:02)
[2016-09-14] MEDS: DARUNAVIR 800 MG TAB PO SCH (21:02)
[2016-09-14] MEDS: ATORVASTATIN 20 MG TAB PO SCH (21:03)
[2016-09-14] MEDS: RITONAVIR 100 MG TAB PO SCH (21:03)
[2016-09-14] MEDS: LISINOPRIL 20 MG TAB PO SCH (21:03)
[2016-09-14] MEDS: ONDANSETRON HCL 4 MG/2 ML VIAL IVP PRN (21:07)
[2016-09-14] MEDS: SODIUM CHLOR 0.9% 1000 ML INJ 1,000 ML IV SCH (21:44)
[2016-09-15] VITALS: BP 126/78; PULSE 78; RESP 17; TEMP 98.7; O2SAT 94
[2016-09-15] MEDS ORDERED: PHARMACY ORDERED LAB ONE (04:45)
[2016-09-15] MEDS: VANCOMYCIN 1,000 MG/NS 250 ML IV SCH ×2 (05:05)
[2016-09-15] MEDS: ONDANSETRON HCL 4 MG/2 ML VIAL IVP PRN ×2 (06:13→21:07)
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
[2016-09-15 07:57] VITALS: BP 117/64; PULSE 72; RESP 18; TEMP 99; O2SAT 96
[2016-09-15] MEDS: GABAPENTIN 300 MG CAP PO SCH ×2 (07:59→21:12)
[2016-09-15] MEDS: cloNIDine HCL 0.1 MG TAB PO SCH ×2 (07:59→21:12)
[2016-09-15] MEDS: SODIUM CHLORIDE 0.9% FLUSH 10 ML FLUSH IV FLUSH SCH ×2 (08:47→21:00)
--- NOTE | 2016-09-15 10:59 | HHI.PR ---
Subjective Remarks follow up right shoulder injury/infection 09/13/16-patient seen and examined; still complain of right shoulder pain. Afebrile. MRI shoulder report pending 09/14/16-patient seen and examined; +severe rigth shoulder pain. + 3#4 blood culture. Afebrile 09/15/16-patient seen and examined; still complains of right shoulder pain. Afebrile. Objective Vitals Vital Signs Date Time Temp Pulse Resp B/P Pulse Ox O2 Delivery O2 Flow Rate FiO2 09/15/16 07:57 99.0 72 18 117/64 96 09/15/16 00:00 98.7 78 17 126/78 94 09/14/16 20:00 96 Nasal Cannula 2.00 09/14/16 20:00 96.6 83 18 100/65 96 09/14/16 16:00 98.1 89 18 111/62 98 09/14/16 12:00 97.7 79 18 103/69 92 I/O 09/14/16 09/14/16 09/14/16 09/15/16 09/15/16 09/15/16 07:00 15:00 23:00 07:00 15:00 23:00 Intake Total 240 ml 668 ml 637 ml Balance 240 ml 668 ml 637 ml Intake Oral 240 ml 240 ml 240 ml IV Total 428 ml 397 ml # Voids 2 1 3 # Bowel Movements 0 0 0 Result Diagram: 09/14/16 0546 09/14/16 0546 Imaging Last Impressions Shoulder X-Ray 09/13/16 0000 Signed Impressions: Service Date/Time: Tuesday, September 13, 2016 02:06 - CONCLUSION: No acute disease. Moises Jackson MD Shoulder MRI 09/13/16 0000 Signed Impressions: Service Date/Time: Tuesday, September 13, 2016 07:27 - CONCLUSION: Extensive soft tissue edema and enhancement consistent with infection surrounding the region of the first costochondral margin and sternoclavicular joint. However, no evidence of discrete abscess and no abnormal enhancement of the marrow to suggest osteomyelitis. There is a small right-sided pleural effusion noted.. Jessica Bran MD Chest CT 09/13/16 0000 Signed Impressions: Service Date/Time: Tuesday, September 13, 2016 01:58 - CONCLUSION: 1. Thickening and anterior bulging of the medial aspect of the right pectoralis muscle likely from injury. There is also increased density around the first costochondral junction with some questionable fracturing at the medial first costochondral junction. 2. Minimal right effusion. Moises Jackson MD ADDENDUM: I have been told the patient potentially has inflammatory change in the right upper chest. The soft tissue density at the medial pectoralis muscle and around the first costochondral junction can also be postinflammatory. The increased density also is seen around the medial right clavicle. Involvement of the sternoclavicular joint could be present although the sternoclavicular joints appear relatively symmetric. Early involvement cannot be excluded. A focal fluid collection or abscess is not clearly seen on this examination. Also in reviewing the case the patient does appear to have some minimal loss of height at the superior aspect of T8 although acute fracturing is not seen. There is a Schmorl's node seen at this level. Moises Jackson MD Objective Remarks GENERAL: NAD SKIN: Warm and dry. HEAD: Normocephalic. EYES: No scleral icterus. No injection or drainage. NECK: Supple, trachea midline. No JVD or lymphadenopathy. CARDIOVASCULAR: Regular rate and rhythm without murmurs, gallops, or rubs. RESPIRATORY: Breath sounds equal bilaterally. No accessory muscle use. GASTROINTESTINAL: Abdomen soft, non-tender, nondistended. MUSCULOSKELETAL: No cyanosis, or edema. Limited ROM Right shoulder BACK: Nontender without obvious deformity. No CVA tenderness. A/P Problem List: (1) Rotator cuff injury ICD Code: S46.009A Status: Acute (2) Costochondral joint sprain ICD Code: S23.41XA Status: Acute (3) Pectoralis muscle strain ICD Code: S29.011A Status: Acute (4) Hypokalemia ICD Code: E87.6 Status: Acute (5) HIV (human immunodeficiency virus infection) ICD Code: Z21 Status: Acute (6) IVDU (intravenous drug user) ICD Code: F19.90 Status: Acute (7) Bacteremia due to Gram-positive bacteria ICD Code: A49.9 Status: Acute Assessment and Plan 40 years old female with 1. Bacteremia: Currently on Vancomycin and s/p Cefepime. Appreciate input from Infectious Disease specialist and repeat Blood culture report pending. 2D echo pending to r/o endocarditis 2. Right Rotator Cuff Injury: sustained approx 2wks ago while riding horse, s/ p eval at [facility] w/ Shoulder x-ray reportedly normal, referred by PCP for MRI. Shoulder X-ray w/ no acute findings. MRI shoulder noted without any abscess. Appreciate input from orthopedic surgery and continue with Analgesics/ antiemetics. 3. Costochondral Joint Sprain/Infection: CT Chest w/ increased density around first costochondral junction with questionable fracturing at medial first costochondral junction. follow up cultures, continue w/ IV vancomycin. Shoulder MRI noted without any abscess. Appreciate input from orthopedic surgery 4. Pectoralis Muscle Strain/Injury: s/p reported injury while riding horse, CT Chest w/ thickening/bulging of right pectoralis muscle likely from injury. Analgesics/antiemetics. . PT consult to treat 5. Hypokalemia: Resolved. 6. HIV: CD4 1092 on 11/20/14, continue HAART 7. IVDU: w/ Dilaudid, last use 07/15/16. UDS noted. Ativan if needed. In the setting of bacteremia and IVDU, 2-D echo pending to rule out endocarditis 8. DVT Prophylaxis: SCD/Teds. 9. Social work for d/c planning as needed. Gigi Meléndez MD Sep 15, 2016 10:59
[2016-09-15 11:36] VITALS: BP 101/59; PULSE 72; RESP 16; TEMP 98.8; O2SAT 92
--- NOTE | 2016-09-15 13:56 | ECHLIM ---
Study Study Date:09/15/2016 STUDY CONCLUSIONS SUMMARY LEFT VENTRICLE: The cavity size was normal. Wall thickness was normal. Systolic function was normal. The estimated ejection fraction was in the range of 60% to 65%. Wall motion was normal; there were no regional wall motion abnormalities. If LV function is below 40, please consider prescribing an ACEI or ARB or document rationale for non-use. PROCEDURE DATA STUDY STATUS: Elective. Procedure: Transthoracic echocardiography. Image quality was good. Scanning was performed from the parasternal, apical, and subcostal acoustic windows. Study completion: The patient tolerated the procedure well. Transthoracic echocardiography. M-mode, complete 2D, complete spectral Doppler, and color Doppler. Height: Height: 63in. Weight: Weight: 156.7lb. Body mass index: BMI: 27.8kg/m^2. Body surface area: BSA: 1.74m^2. Patient status: Inpatient. CARDIAC ANATOMY LEFT VENTRICLE: The cavity size was normal. Wall thickness was normal. Systolic function was normal. The estimated ejection fraction was in the range of 60% to 65%. Wall motion was normal; there were no regional wall motion abnormalities. AORTIC VALVE: Trileaflet; normal thickness leaflets. Doppler: Transvalvular velocity was within the normal range. There was no stenosis. No regurgitation. AORTA: Aortic root: The aortic root was normal in size. MITRAL VALVE: Structurally normal valve. Doppler: Transvalvular velocity was within the normal range. There was no evidence for stenosis. No regurgitation. LEFT ATRIUM: The atrium was normal in size. RIGHT VENTRICLE: The cavity size was normal. Wall thickness was normal. PULMONIC VALVE: Doppler: Transvalvular velocity was within the normal range. There was no evidence for stenosis. No regurgitation. TRICUSPID VALVE: Structurally normal valve. Doppler: Transvalvular velocity was within the normal range. No regurgitation. PULMONARY ARTERY: The main pulmonary artery was normal-sized. Systolic pressure was within the normal range. RIGHT ATRIUM: The atrium was normal in size. PERICARDIUM: There was no pericardial effusion. SYSTEMIC VEINS: Inferior vena cava: The vessel was normal in size. Patient weight: 156.7lb _Ejection fraction:_ 65-75% _Fractional shortening:_ 32% up to 5Kg 5-11.5Kg 11.6-22.9Kg 23-45Kg 45-57Kg Aortic Root 7-13 <17 13-22 17-27 17-27 LA diam 6-13 <23 24-38 33-47 37-40 RVID 10-17 7-15 7-15 7-18 8-17 LVIDd 12-22 <32 24-38 33-47 37-40 LVPW 2-4 3-6 5-7 6-8 7-8 IVS 2-4 3-6 5-7 6-8 7-8 BASIC MEASUREMENTS ADULT NORMAL Left ventricle LV internal dimension, ED, chordal level, 46 mm 43-52 PLAX LV internal dimension, ES, chordal level, 28 mm 23-38 PLAX Fractional shortening, chordal level, PLAX 39 % >29 LV posterior wall thickness, ED 9.34 mm IVS/LVPW ratio, ED 1.09 <1.3 Ventricular septum Septal thickness, ED 10.2 mm Left atrium Anterior-posterior dimension 37 mm Anterior-posterior dimension index 2.13 cm/m^2 <2.2 LEGEND: Mean values are shown as u=mean value. Asterisk (*) live values outside specified normal range. Prepared and signed by Yousif Gomez [id number]
[2016-09-15] MEDS: SODIUM CHLOR 0.9% 1000 ML INJ 1,000 ML IV SCH (14:26)
[2016-09-15 16:13] VITALS: BP 118/73; PULSE 74; RESP 16; TEMP 97.9; O2SAT 94
[2016-09-15] MEDS: VANCOMYCIN INJ 1,500 MG in SODIUM CHLORID 0.9% 500 ML INJ 500 ML IV SCH (17:00)
[2016-09-15 20:10] VITALS: BP 101/58; PULSE 91; RESP 16; TEMP 99; O2SAT 95
[2016-09-15] MEDS: ABACAVIR SULFATE 300 MG TAB PO SCH (21:08)
[2016-09-15] MEDS: ATORVASTATIN 20 MG TAB PO SCH (21:08)
[2016-09-15] MEDS: DARUNAVIR 800 MG TAB PO SCH (21:08)
[2016-09-15] MEDS: RITONAVIR 100 MG TAB PO SCH (21:11)
[2016-09-15] MEDS: LISINOPRIL 20 MG TAB PO SCH (21:12)
[2016-09-15] MEDS: RESP: ALBUTEROL 2.5 MG/IPRATROPIUM 0.5 MG NEB (PRN) NEB (23:40)
[2016-09-15 23:46] VITALS: O2SAT 90
[2016-09-16] VITALS (7 sets, daily range): BP systolic 102–122; BP diastolic 54–75; PULSE 81–90; RESP 16–18; TEMP 96.8–99; O2SAT 92–99
[2016-09-16] MEDS: SODIUM CHLOR 0.9% 1000 ML INJ 1,000 ML IV SCH ×2 (01:52→17:03)
[2016-09-16] MEDS: VANCOMYCIN INJ 1,500 MG in SODIUM CHLORID 0.9% 500 ML INJ 500 ML IV SCH ×2 (05:48→17:34)
[2016-09-16] MEDS: GABAPENTIN 300 MG CAP PO SCH ×2 (08:16→21:18)
[2016-09-16] MEDS: cloNIDine HCL 0.1 MG TAB PO SCH ×2 (08:20→21:00)
[2016-09-16] MEDS: SODIUM CHLORIDE 0.9% FLUSH 10 ML FLUSH IV FLUSH SCH ×2 (08:22→21:00)
[2016-09-16] MEDS: RESP: ALBUTEROL 2.5 MG/IPRATROPIUM 0.5 MG NEB (PRN) NEB (08:30)
--- NOTE | 2016-09-16 12:11 | HHI.PR ---
Subjective Remarks follow up right shoulder injury/infection 09/13/16-patient seen and examined; still complain of right shoulder pain. Afebrile. MRI shoulder report pending 09/14/16-patient seen and examined; +severe rigth shoulder pain. + 3#4 blood culture. Afebrile 09/15/16-patient seen and examined; still complains of right shoulder pain. Afebrile. 09/16/16-patient seen and examined; afebrile,she was up and ambulated with physical therapy. Patient still complains of right shoulder pain Objective Vitals Vital Signs Date Time Temp Pulse Resp B/P Pulse Ox O2 Delivery O2 Flow Rate FiO2 09/16/16 11:50 96.8 89 17 107/58 92 09/16/16 08:31 99 21 09/16/16 07:43 99.0 85 18 114/61 94 09/16/16 04:40 97.4 90 16 122/75 98 09/16/16 00:20 99.0 89 16 118/67 95 09/15/16 23:46 90 Nasal Cannula 21 09/15/16 20:10 99.0 91 16 101/58 95 09/15/16 16:13 97.9 74 16 118/73 94 I/O 09/15/16 09/15/16 09/15/16 09/16/16 09/16/16 09/16/16 07:00 15:00 23:00 07:00 15:00 23:00 Intake Total 637 ml 480 ml 240 ml Balance 637 ml 480 ml 240 ml Intake Oral 240 ml 480 ml 240 ml IV Total 397 ml # Voids 3 5 5 # Bowel Movements 0 0 0 Result Diagram: 09/14/16 0546 09/16/16 0709 Objective Remarks GENERAL: NAD SKIN: Warm and dry. HEAD: Normocephalic. EYES: No scleral icterus. No injection or drainage. NECK: Supple, trachea midline. No JVD or lymphadenopathy. CARDIOVASCULAR: Regular rate and rhythm without murmurs, gallops, or rubs. RESPIRATORY: Breath sounds equal bilaterally. No accessory muscle use. GASTROINTESTINAL: Abdomen soft, non-tender, nondistended. MUSCULOSKELETAL: No cyanosis, or edema. Limited ROM Right shoulder BACK: Nontender without obvious deformity. No CVA tenderness. A/P Problem List: (1) Rotator cuff injury ICD Code: S46.009A Status: Acute (2) Costochondral joint sprain ICD Code: S23.41XA Status: Acute (3) Pectoralis muscle strain ICD Code: S29.011A Status: Acute (4) Hypokalemia ICD Code: E87.6 Status: Resolved (5) HIV (human immunodeficiency virus infection) ICD Code: Z21 Status: Chronic (6) IVDU (intravenous drug user) ICD Code: F19.90 Status: Chronic (7) Bacteremia due to Gram-positive bacteria ICD Code: A49.9 Status: Acute Assessment and Plan 40 years old female with 1. Bacteremia: Currently on Vancomycin and s/p Cefepime. Appreciate input from Infectious Disease specialist and repeat Blood culture report pending. 2D echo pending to r/o endocarditis 2. Right Rotator Cuff Injury: Shoulder X-ray w/ no acute findings. MRI shoulder noted without any abscess. Appreciate input from orthopedic surgery and continue with Analgesics/antiemetics. 3. Costochondral Joint Sprain/Infection: CT Chest w/ increased density around first costochondral junction with questionable fracturing at medial first costochondral junction. continue w/ IV vancomycin. Shoulder MRI noted without any abscess. Appreciate input from orthopedic surgery 4. Pectoralis Muscle Strain/Injury: s/p reported injury while riding horse, CT Chest w/ thickening/bulging of right pectoralis muscle likely from injury. Analgesics/antiemetics. . PT consult to treat. May consider repeat shoulder MRI 5. Hypokalemia: Resolved. 6. HIV: CD4 1092 on 11/20/14, continue HAART 7. IVDU: w/ Dilaudid, last use 07/15/16. UDS noted. Ativan if needed. In the setting of bacteremia and IVDU, 2-D echo pending to rule out endocarditis 8. DVT Prophylaxis: SCD/Teds. Gigi Meléndez MD Sep 16, 2016 12:11
--- NOTE | 2016-09-16 16:03 | HHI.IDPN ---
Subjective Subjective Remarks co worsening chest pain BC with different strains of coag negative staph afebrile 2 D echo negative Antibiotics vancomycin Allergies: Uncoded Allergies: ATRIPLA (Allergy, Severe, 07/27/16) Objective . Vital Signs Date Time Temp Pulse Resp B/P Pulse Ox O2 Delivery O2 Flow Rate FiO2 09/16/16 15:31 98.9 81 17 116/70 93 09/16/16 11:50 96.8 89 17 107/58 92 09/16/16 08:31 99 21 09/16/16 07:43 99.0 85 18 114/61 94 09/16/16 04:40 97.4 90 16 122/75 98 09/16/16 00:20 99.0 89 16 118/67 95 09/15/16 23:46 90 Nasal Cannula 21 09/15/16 20:10 99.0 91 16 101/58 95 09/15/16 16:13 97.9 74 16 118/73 94 09/15/16 09/15/16 09/16/16 15:00 23:00 07:00 Intake Total 480 ml 240 ml Balance 480 ml 240 ml Intake Oral 480 ml 240 ml # Voids 5 5 # Bowel Movements 0 0 . Laboratory Tests Test 09/16/16 07:09 Creatinine 0.81 MG/DL Estimat Glomerular Filtration 78 ML/MIN Rate Microbiology Date/Time Procedure Status Source Growth 09/14/16 10:05 Aerobic Blood Culture - Preliminary Resulted Blood Peripheral NO GROWTH IN 2 DAYS 09/14/16 10:05 Anaerobic Blood Culture - Preliminary Resulted Blood Peripheral NO GROWTH IN 2 DAYS 09/14/16 10:20 Aerobic Blood Culture - Preliminary Resulted Blood Peripheral NO GROWTH IN 2 DAYS 09/14/16 10:20 Anaerobic Blood Culture - Preliminary Resulted Blood Peripheral NO GROWTH IN 2 DAYS Imaging Last Impressions Shoulder X-Ray 09/13/16 0000 Signed Impressions: Service Date/Time: Tuesday, September 13, 2016 02:06 - CONCLUSION: No acute disease. Moises Jackson MD Shoulder MRI 09/13/16 0000 Signed Impressions: Service Date/Time: Tuesday, September 13, 2016 07:27 - CONCLUSION: Extensive soft tissue edema and enhancement consistent with infection surrounding the region of the first costochondral margin and sternoclavicular joint. However, no evidence of discrete abscess and no abnormal enhancement of the marrow to suggest osteomyelitis. There is a small right-sided pleural effusion noted.. Jessica Bran MD Chest CT 09/13/16 0000 Signed Impressions: Service Date/Time: Tuesday, September 13, 2016 01:58 - CONCLUSION: 1. Thickening and anterior bulging of the medial aspect of the right pectoralis muscle likely from injury. There is also increased density around the first costochondral junction with some questionable fracturing at the medial first costochondral junction. 2. Minimal right effusion. Moises Jackson MD ADDENDUM: I have been told the patient potentially has inflammatory change in the right upper chest. The soft tissue density at the medial pectoralis muscle and around the first costochondral junction can also be postinflammatory. The increased density also is seen around the medial right clavicle. Involvement of the sternoclavicular joint could be present although the sternoclavicular joints appear relatively symmetric. Early involvement cannot be excluded. A focal fluid collection or abscess is not clearly seen on this examination. Also in reviewing the case the patient does appear to have some minimal loss of height at the superior aspect of T8 although acute fracturing is not seen. There is a Schmorl's node seen at this level. Moises Jackson MD Physical Exam CONSTITUTIONAL/GENERAL: This is an adequately nourished patient, in no apparent distress. TUBES/LINES/DRAINS: SKIN: No jaundice, rashes, or lesions. NECK: Trachea midline. Supple, nontender. No palpable thyroid enlargement or nodularity. CARDIOVASCULAR: Regular rate and rhythm without murmurs, gallops, or rubs. No JVD. Peripheral pulses symmetric. RESPIRATORY/CHEST: Symmetric, unlabored respirations. Clear to auscultation. Breath sounds equal bilaterally. No wheezes, rales, or rhonchi. GASTROINTESTINAL: Abdomen soft, non-tender, nondistended. No hepato-splenomegaly , or palpable masses. No guarding. Bowel sounds present. GENITOURINARY: Without palpable bladder distension. MUSCULOSKELETAL: Extremities without clubbing, cyanosis, or edema. No joint tenderness or effusion noted. No calf tenderness. No mottling or clubbing. Much worse pain to palpation to R stenoclavicular area R shoulder and upper chest NEUROLOGICAL: Awake and alert. Motor and sensory grossly within normal limits. Follows commands. Normal speech. Moves all extremities. PSYCHIATRIC: No obvious anxiety/depression. no apparent hallucinations or other psychotic thought process. Assessment & Plan Remarks HIV dz Coag negative staph bacterm,ia - multiple strains, cw contaminant CULTURE GROWING STAPH SP COAGULASE NEGATIVE OTHER THAN S. EPIDERMIDIS AND S. LUGDUNENSIS- - negative 2 D echo R sternoclavicular joint infection in the settings of IVDU cont vancomycin cont HAART - consult IR for bx for culture Jodi Colmenares MD Sep 16, 2016 16:03
[2016-09-16] MEDS: LISINOPRIL 20 MG TAB PO SCH (21:00)
[2016-09-16] MEDS: ABACAVIR SULFATE 300 MG TAB PO SCH (21:18)
[2016-09-16] MEDS: DARUNAVIR 800 MG TAB PO SCH (21:19)
[2016-09-16] MEDS: ATORVASTATIN 20 MG TAB PO SCH (21:19)
[2016-09-16] MEDS: RITONAVIR 100 MG TAB PO SCH (21:19)
[2016-09-16] MEDS: ONDANSETRON HCL 4 MG/2 ML VIAL IVP PRN (21:23)
[2016-09-17 00:45] VITALS: BP 104/71; PULSE 100; RESP 16; TEMP 98; O2SAT 93
[2016-09-17] MEDS ORDERED: KETOROLAC TROMETHAMINE 60 MG/2 ML (IM) VIAL IM ONE (01:15)
[2016-09-17 04:10] VITALS: BP 114/80; PULSE 58; RESP 17; TEMP 97.4; O2SAT 94
[2016-09-17] MEDS ORDERED: PHARMACY ORDERED LAB ONE (04:45)
--- NOTE | 2016-09-17 07:00 | PD.ORT.PN ---
Subjective Subjective Remarks s/p right SC joint infection doing well. pain controlled. reports that Tramadol helping pain. nurse reports patient has pulled IV out and difficult to reaccess IV. reports Pt working on motion Objective Vitals Vital Signs Date Time Temp Pulse Resp B/P Pulse Ox O2 Delivery O2 Flow Rate FiO2 09/17/16 04:10 97.4 58 17 114/80 94 09/17/16 00:45 98.0 100 16 104/71 93 09/16/16 19:43 98.5 83 16 102/54 95 09/16/16 15:31 98.9 81 17 116/70 93 09/16/16 11:50 96.8 89 17 107/58 92 09/16/16 08:31 99 21 09/16/16 07:43 99.0 85 18 114/61 94 I/O 09/16/16 09/16/16 09/16/16 09/17/16 09/17/16 09/17/16 07:00 15:00 23:00 07:00 15:00 23:00 Intake Total 240 ml 480 ml 460 ml 720 ml Balance 240 ml 480 ml 460 ml 720 ml Intake Oral 240 ml 480 ml 460 ml 720 ml # Voids 5 2 3 4 # Bowel Movements 0 0 0 0 Result Diagram: 09/14/16 0546 09/16/16 0709 Imaging Last 72 hours Impressions Shoulder X-Ray 09/13/16 0000 Signed Impressions: Service Date/Time: Tuesday, September 13, 2016 02:06 - CONCLUSION: No acute disease. Moises Jackson MD Shoulder MRI 09/13/16 0000 Signed Impressions: Service Date/Time: Tuesday, September 13, 2016 07:27 - CONCLUSION: Extensive soft tissue edema and enhancement consistent with infection surrounding the region of the first costochondral margin and sternoclavicular joint. However, no evidence of discrete abscess and no abnormal enhancement of the marrow to suggest osteomyelitis. There is a small right-sided pleural effusion noted.. Jessica Bran MD Chest CT 09/13/16 0000 Signed Impressions: Service Date/Time: Tuesday, September 13, 2016 01:58 - CONCLUSION: 1. Thickening and anterior bulging of the medial aspect of the right pectoralis muscle likely from injury. There is also increased density around the first costochondral junction with some questionable fracturing at the medial first costochondral junction. 2. Minimal right effusion. Moises Jackson MD ADDENDUM: I have been told the patient potentially has inflammatory change in the right upper chest. The soft tissue density at the medial pectoralis muscle and around the first costochondral junction can also be postinflammatory. The increased density also is seen around the medial right clavicle. Involvement of the sternoclavicular joint could be present although the sternoclavicular joints appear relatively symmetric. Early involvement cannot be excluded. A focal fluid collection or abscess is not clearly seen on this examination. Also in reviewing the case the patient does appear to have some minimal loss of height at the superior aspect of T8 although acute fracturing is not seen. There is a Schmorl's node seen at this level. Moises Jackson MD Objective Remarks RUE: Tenderness with palpation to Right SC joint. minimal swelling. full passive motion of shoulder. NVI Assessment & Plan Assessment and Plan 1) Right SC joint infection Medical management with antibiotics. If abscess develops surgical debridement may be necessary. Physical therapy for passive and active range of motion of shoulder. continue conservative management Ruddy Gonzalez Sep 17, 2016 07:00
[2016-09-17] MEDS: SODIUM CHLOR 0.9% 1000 ML INJ 1,000 ML IV SCH ×2 (07:21→21:39)
[2016-09-17 08:00] VITALS: BP 119/78; PULSE 93; RESP 18; TEMP 96.7; O2SAT 98
[2016-09-17] MEDS: GABAPENTIN 300 MG CAP PO SCH ×2 (08:47→20:52)
[2016-09-17] MEDS: cloNIDine HCL 0.1 MG TAB PO SCH ×2 (08:47→20:51)
[2016-09-17] MEDS: SODIUM CHLORIDE 0.9% FLUSH 10 ML FLUSH IV FLUSH SCH (08:49)
[2016-09-17] MEDS ORDERED: VANCOMYCIN INJ 1,500 MG in SODIUM CHLORID 0.9% 500 ML INJ 500 ML IV SCH (09:00)
[2016-09-17] MEDS: KETOROLAC TROMETHAMINE 60 MG/2 ML (IM) VIAL IM SCH ×4 (09:44→23:14)
--- NOTE | 2016-09-17 10:24 | HHI.PR ---
Subjective Remarks follow up right shoulder injury/infection 09/13/16-patient seen and examined; still complain of right shoulder pain. Afebrile. MRI shoulder report pending 09/14/16-patient seen and examined; +severe rigth shoulder pain. + 3#4 blood culture. Afebrile 09/15/16-patient seen and examined; still complains of right shoulder pain. Afebrile. 09/16/16-patient seen and examined; afebrile,she was up and ambulated with physical therapy. Patient still complains of right shoulder pain 09/17/16-patient seen and examined; states that Toradol works best for her. Able to move more her right shoulder Objective Vitals Vital Signs Date Time Temp Pulse Resp B/P Pulse Ox O2 Delivery O2 Flow Rate FiO2 09/17/16 08:00 96.7 93 18 119/78 98 09/17/16 04:10 97.4 58 17 114/80 94 09/17/16 00:45 98.0 100 16 104/71 93 09/16/16 19:43 98.5 83 16 102/54 95 09/16/16 15:31 98.9 81 17 116/70 93 09/16/16 11:50 96.8 89 17 107/58 92 I/O 09/16/16 09/16/16 09/16/16 09/17/16 09/17/16 09/17/16 07:00 15:00 23:00 07:00 15:00 23:00 Intake Total 240 ml 480 ml 460 ml 720 ml Balance 240 ml 480 ml 460 ml 720 ml Intake Oral 240 ml 480 ml 460 ml 720 ml # Voids 5 2 3 4 # Bowel Movements 0 0 0 0 Result Diagram: 09/14/16 0546 09/16/16 0709 Imaging Last Impressions Shoulder X-Ray 09/13/16 0000 Signed Impressions: Service Date/Time: Tuesday, September 13, 2016 02:06 - CONCLUSION: No acute disease. Moises Jackson MD Shoulder MRI 09/13/16 0000 Signed Impressions: Service Date/Time: Tuesday, September 13, 2016 07:27 - CONCLUSION: Extensive soft tissue edema and enhancement consistent with infection surrounding the region of the first costochondral margin and sternoclavicular joint. However, no evidence of discrete abscess and no abnormal enhancement of the marrow to suggest osteomyelitis. There is a small right-sided pleural effusion noted.. Jessica Bran MD Chest CT 09/13/16 0000 Signed Impressions: Service Date/Time: Tuesday, September 13, 2016 01:58 - CONCLUSION: 1. Thickening and anterior bulging of the medial aspect of the right pectoralis muscle likely from injury. There is also increased density around the first costochondral junction with some questionable fracturing at the medial first costochondral junction. 2. Minimal right effusion. Moises Jackson MD ADDENDUM: I have been told the patient potentially has inflammatory change in the right upper chest. The soft tissue density at the medial pectoralis muscle and around the first costochondral junction can also be postinflammatory. The increased density also is seen around the medial right clavicle. Involvement of the sternoclavicular joint could be present although the sternoclavicular joints appear relatively symmetric. Early involvement cannot be excluded. A focal fluid collection or abscess is not clearly seen on this examination. Also in reviewing the case the patient does appear to have some minimal loss of height at the superior aspect of T8 although acute fracturing is not seen. There is a Schmorl's node seen at this level. Moises Jackson MD Objective Remarks GENERAL: NAD SKIN: Warm and dry. HEAD: Normocephalic. EYES: No scleral icterus. No injection or drainage. NECK: Supple, trachea midline. No JVD or lymphadenopathy. CARDIOVASCULAR: Regular rate and rhythm without murmurs, gallops, or rubs. RESPIRATORY: Breath sounds equal bilaterally. No accessory muscle use. GASTROINTESTINAL: Abdomen soft, non-tender, nondistended. MUSCULOSKELETAL: No cyanosis, or edema. Limited ROM Right shoulder BACK: Nontender without obvious deformity. No CVA tenderness. A/P Problem List: (1) Rotator cuff injury ICD Code: S46.009A Status: Acute (2) Costochondral joint sprain ICD Code: S23.41XA Status: Acute (3) Pectoralis muscle strain ICD Code: S29.011A Status: Acute (4) Hypokalemia ICD Code: E87.6 Status: Resolved (5) HIV (human immunodeficiency virus infection) ICD Code: Z21 Status: Chronic (6) IVDU (intravenous drug user) ICD Code: F19.90 Status: Chronic (7) Bacteremia due to Gram-positive bacteria ICD Code: A49.9 Status: Acute Assessment and Plan 40 years old female with 1. Bacteremia-gram negative: Currently on Vancomycin and s/p Cefepime. Appreciate input from Infectious Disease specialist and repeat Blood culture NTD. 2D echo r/o endocarditis. IR consulted for Bx for culture 2. Right Rotator Cuff Injury: Shoulder X-ray w/ no acute findings. MRI shoulder noted without any abscess. Appreciate input from orthopedic surgery and continue with Analgesics/antiemetics. 3. Costochondral Joint Sprain/Infection: CT Chest w/ increased density around first costochondral junction with questionable fracturing at medial first costochondral junction. continue w/ IV vancomycin. Shoulder MRI noted without any abscess. Appreciate input from orthopedic surgery. IR consulted for Bx for culture 4. Pectoralis Muscle Strain/Injury: s/p reported injury while riding horse, CT Chest w/ thickening/bulging of right pectoralis muscle likely from injury. Analgesics/antiemetics. . PT consult to treat. May consider repeat shoulder MRI 5. Hypokalemia: Resolved. 6. HIV: CD4 1092 on 11/20/14, continue HAART 7. IVDU: w/ Dilaudid, last use 07/15/16. UDS noted. Ativan if needed. In the setting of bacteremia and IVDU, 2-D echo ruled out endocarditis 8. DVT Prophylaxis: SCD/Teds. Gigi Meléndez MD Sep 17, 2016 10:24
[2016-09-17 12:00] VITALS: BP 98/69; PULSE 84; RESP 18; TEMP 97.6; O2SAT 95
[2016-09-17] MEDS ORDERED: MAGNESIUM HYDROXIDE SUSP 30 ML CUP PO PRN (15:15)
[2016-09-17] MEDS: VANCOMYCIN 1,000 MG/NS 250 ML IV SCH ×2 (15:35)
[2016-09-17 16:00] VITALS: BP 107/66; PULSE 74; RESP 20; TEMP 98.6; O2SAT 89
[2016-09-17 20:00] VITALS: BP 127/64; PULSE 72; RESP 20; TEMP 97.6; O2SAT 93
[2016-09-17] MEDS: DARUNAVIR 800 MG TAB PO SCH (20:51)
[2016-09-17] MEDS: SENNOSIDES 8.6 MG TAB PO SCH (20:52)
[2016-09-17] MEDS: ATORVASTATIN 20 MG TAB PO SCH (20:53)
[2016-09-17] MEDS: LISINOPRIL 20 MG TAB PO SCH (20:53)
[2016-09-17] MEDS: RITONAVIR 100 MG TAB PO SCH (20:54)
[2016-09-17] MEDS: ABACAVIR SULFATE 300 MG TAB PO SCH (20:54)
[2016-09-17] MEDS: ONDANSETRON HCL 4 MG/2 ML VIAL IVP PRN (23:42)
[2016-09-18] MEDS: VANCOMYCIN 1,000 MG/NS 250 ML IV SCH ×4 (03:13→16:09)
[2016-09-18] MEDS: SODIUM CHLORIDE 0.9% FLUSH 10 ML FLUSH IV FLUSH SCH ×3 (03:14→20:35)
[2016-09-18 04:00] VITALS: BP 102/65; PULSE 84; RESP 18; TEMP 98.9; O2SAT 95
[2016-09-18] MEDS: KETOROLAC TROMETHAMINE 60 MG/2 ML (IM) VIAL IM SCH ×3 (06:32→18:05)
[2016-09-18 08:00] VITALS: BP 113/66; PULSE 88; RESP 18; TEMP 98.8; O2SAT 93
[2016-09-18] MEDS: cloNIDine HCL 0.1 MG TAB PO SCH ×2 (08:39→20:33)
[2016-09-18] MEDS: GABAPENTIN 300 MG CAP PO SCH ×2 (08:39→20:34)
[2016-09-18] MEDS: RESP: ALBUTEROL 2.5 MG/IPRATROPIUM 0.5 MG NEB (PRN) NEB (08:43)
--- NOTE | 2016-09-18 11:10 | HHI.PR ---
Subjective Remarks follow up right shoulder injury/infection 09/13/16-patient seen and examined; still complain of right shoulder pain. Afebrile. MRI shoulder report pending 09/14/16-patient seen and examined; +severe rigth shoulder pain. + 3#4 blood culture. Afebrile 09/15/16-patient seen and examined; still complains of right shoulder pain. Afebrile. 09/16/16-patient seen and examined; afebrile,she was up and ambulated with physical therapy. Patient still complains of right shoulder pain 09/17/16-patient seen and examined; states that Toradol works best for her. Able to move more her right shoulder 09/18/16-patient seen and examined, had multiple episodes of loose stool overnight however results in this morning. Currently afebrile. Able to move more right shoulder Objective Vitals Vital Signs Date Time Temp Pulse Resp B/P Pulse Ox O2 Delivery O2 Flow Rate FiO2 09/18/16 08:00 98.8 88 18 113/66 93 09/18/16 04:00 98.9 84 18 102/65 95 09/17/16 20:00 97.6 72 20 127/64 93 09/17/16 16:00 98.6 74 20 107/66 89 09/17/16 12:00 97.6 84 18 98/69 95 I/O 09/17/16 09/17/16 09/17/16 09/18/16 09/18/16 09/18/16 07:00 15:00 23:00 07:00 15:00 23:00 Intake Total 720 ml 1500 ml 780 ml Balance 720 ml 1500 ml 780 ml Intake Oral 720 ml 1500 ml 780 ml # Voids 4 5 1 # Bowel Movements 0 0 5 Result Diagram: 09/14/16 0546 09/18/16 0616 Objective Remarks GENERAL: NAD SKIN: Warm and dry. HEAD: Normocephalic. EYES: No scleral icterus. No injection or drainage. NECK: Supple, trachea midline. No JVD or lymphadenopathy. CARDIOVASCULAR: Regular rate and rhythm without murmurs, gallops, or rubs. RESPIRATORY: Breath sounds equal bilaterally. No accessory muscle use. GASTROINTESTINAL: Abdomen soft, non-tender, nondistended. MUSCULOSKELETAL: No cyanosis, or edema. Limited ROM Right shoulder BACK: Nontender without obvious deformity. No CVA tenderness. A/P Problem List: (1) Rotator cuff injury ICD Code: S46.009A Status: Acute (2) Costochondral joint sprain ICD Code: S23.41XA Status: Acute (3) Pectoralis muscle strain ICD Code: S29.011A Status: Acute (4) Hypokalemia ICD Code: E87.6 Status: Resolved (5) HIV (human immunodeficiency virus infection) ICD Code: Z21 Status: Chronic (6) IVDU (intravenous drug user) ICD Code: F19.90 Status: Chronic (7) Bacteremia due to Gram-positive bacteria ICD Code: A49.9 Status: Acute Assessment and Plan 40 years old female with 1. Bacteremia-gram negative: Currently on Vancomycin and s/p Cefepime. Appreciate input from Infectious Disease specialist and repeat Blood culture NTD. 2D echo r/o endocarditis. May consider IR consultation for Bx for culture 2. Right Rotator Cuff Injury: Improving. Shoulder X-ray w/ no acute findings. MRI shoulder noted without any abscess. Appreciate input from orthopedic surgery and continue with Analgesics/antiemetics. 3. Costochondral Joint Sprain/Infection: CT Chest w/ increased density around first costochondral junction with questionable fracturing at medial first costochondral junction. continue w/ IV vancomycin. Shoulder MRI noted without any abscess. Appreciate input from orthopedic surgery.May consider IR consultation for Bx for culture 4. Pectoralis Muscle Strain/Injury: CT Chest w/ thickening/bulging of right pectoralis muscle likely from injury. Analgesics/antiemetics. . PT consult to treat. 5. Hypokalemia: Resolved. 6. HIV: CD4 1092 on 11/20/14, continue HAART 7. IVDU: w/ Dilaudid, last use 07/15/16. UDS noted. Ativan if needed. 2-D echo ruled out endocarditis 8. DVT Prophylaxis: SCD/Teds. Gigi Meléndez MD Sep 18, 2016 11:10
[2016-09-18] MEDS: SODIUM CHLOR 0.9% 1000 ML INJ 1,000 ML IV SCH (11:29)
[2016-09-18 12:00] VITALS: BP 93/55; PULSE 90; RESP 18; TEMP 97.5; O2SAT 93
[2016-09-18 16:00] VITALS: BP 101/69; PULSE 79; RESP 18; TEMP 97.5; O2SAT 97
[2016-09-18 20:00] VITALS: BP 98/52; PULSE 84; RESP 20; TEMP 96.7; O2SAT 95
[2016-09-18] MEDS: SENNOSIDES 8.6 MG TAB PO SCH (20:00)
[2016-09-18] MEDS: DARUNAVIR 800 MG TAB PO SCH (20:31)
[2016-09-18] MEDS: ABACAVIR SULFATE 300 MG TAB PO SCH (20:33)
[2016-09-18] MEDS: ONDANSETRON HCL 4 MG/2 ML VIAL IVP PRN (20:33)
[2016-09-18] MEDS: LISINOPRIL 20 MG TAB PO SCH (20:34)
[2016-09-18] MEDS: ATORVASTATIN 20 MG TAB PO SCH (20:35)
[2016-09-19] MEDS: KETOROLAC TROMETHAMINE 60 MG/2 ML (IM) VIAL IM SCH ×5 (00:19→19:49)
[2016-09-19] MEDS: RITONAVIR 100 MG TAB PO SCH ×2 (01:03→19:50)
[2016-09-19] MEDS: SODIUM CHLOR 0.9% 1000 ML INJ 1,000 ML IV SCH ×3 (02:15→19:52)
[2016-09-19] MEDS ORDERED: PHARMACY ORDERED LAB ONE (02:45)
[2016-09-19 04:00] VITALS: BP 101/61; PULSE 85; RESP 24; TEMP 99; O2SAT 95
[2016-09-19] MEDS: VANCOMYCIN 1,000 MG/NS 250 ML IV SCH ×2 (05:35)
[2016-09-19 06:31] LABS: VANCOMYCIN TROUGH 15.4 MCG/ML (5.0-10.0)
[2016-09-19 07:28] VITALS: BP 99/55; PULSE 92; RESP 17; TEMP 98.3; O2SAT 92
[2016-09-19] MEDS: SODIUM CHLORIDE 0.9% FLUSH 10 ML FLUSH IV FLUSH SCH ×2 (09:00→19:51)
[2016-09-19] MEDS: cloNIDine HCL 0.1 MG TAB PO SCH ×2 (09:00→19:50)
[2016-09-19] MEDS: GABAPENTIN 300 MG CAP PO SCH ×2 (09:16→19:50)
[2016-09-19 12:00] VITALS: BP 118/73; PULSE 100; RESP 18; TEMP 101.8; O2SAT 94
--- NOTE | 2016-09-19 12:19 | HHI.PR ---
Subjective Remarks follow up right shoulder injury/infection 09/13/16-patient seen and examined; still complain of right shoulder pain. Afebrile. MRI shoulder report pending 09/14/16-patient seen and examined; +severe rigth shoulder pain. + 3#4 blood culture. Afebrile 09/15/16-patient seen and examined; still complains of right shoulder pain. Afebrile. 09/16/16-patient seen and examined; afebrile,she was up and ambulated with physical therapy. Patient still complains of right shoulder pain 09/17/16-patient seen and examined; states that Toradol works best for her. Able to move more her right shoulder 09/18/16-patient seen and examined, had multiple episodes of loose stool overnight however results in this morning. Currently afebrile. Able to move more right shoulder 09/19/16-patient seen and examined, complains of chills and multiple episodes diarrhea Objective Vitals Vital Signs Date Time Temp Pulse Resp B/P Pulse Ox O2 Delivery O2 Flow Rate FiO2 09/19/16 07:28 98.3 92 17 99/55 92 09/19/16 04:00 99.0 85 24 101/61 95 09/18/16 20:00 96.7 84 20 98/52 95 09/18/16 16:00 97.5 79 18 101/69 97 I/O 09/18/16 09/18/16 09/18/16 09/19/16 09/19/16 09/19/16 07:00 15:00 23:00 07:00 15:00 23:00 Intake Total 780 ml 1320 ml 780 ml 400 ml Balance 780 ml 1320 ml 780 ml 400 ml Intake Oral 780 ml 1320 ml 780 ml IV Total 400 ml # Voids 1 7 1 # Bowel Movements 5 0 1 Result Diagram: 09/19/16 0526 Imaging Last Impressions Shoulder X-Ray 09/13/16 0000 Signed Impressions: Service Date/Time: Tuesday, September 13, 2016 02:06 - CONCLUSION: No acute disease. Moises Jackson MD Shoulder MRI 09/13/16 0000 Signed Impressions: Service Date/Time: Tuesday, September 13, 2016 07:27 - CONCLUSION: Extensive soft tissue edema and enhancement consistent with infection surrounding the region of the first costochondral margin and sternoclavicular joint. However, no evidence of discrete abscess and no abnormal enhancement of the marrow to suggest osteomyelitis. There is a small right-sided pleural effusion noted.. Jessica Bran MD Chest CT 09/13/16 0000 Signed Impressions: Service Date/Time: Tuesday, September 13, 2016 01:58 - CONCLUSION: 1. Thickening and anterior bulging of the medial aspect of the right pectoralis muscle likely from injury. There is also increased density around the first costochondral junction with some questionable fracturing at the medial first costochondral junction. 2. Minimal right effusion. Moises Jackson MD ADDENDUM: I have been told the patient potentially has inflammatory change in the right upper chest. The soft tissue density at the medial pectoralis muscle and around the first costochondral junction can also be postinflammatory. The increased density also is seen around the medial right clavicle. Involvement of the sternoclavicular joint could be present although the sternoclavicular joints appear relatively symmetric. Early involvement cannot be excluded. A focal fluid collection or abscess is not clearly seen on this examination. Also in reviewing the case the patient does appear to have some minimal loss of height at the superior aspect of T8 although acute fracturing is not seen. There is a Schmorl's node seen at this level. Moises Jackson MD Objective Remarks GENERAL: NAD SKIN: Warm and dry. HEAD: Normocephalic. EYES: No scleral icterus. No injection or drainage. NECK: Supple, trachea midline. No JVD or lymphadenopathy. CARDIOVASCULAR: Regular rate and rhythm without murmurs, gallops, or rubs. RESPIRATORY: Breath sounds equal bilaterally. No accessory muscle use. GASTROINTESTINAL: Abdomen soft, non-tender, nondistended. MUSCULOSKELETAL: No cyanosis, or edema. Limited ROM Right shoulder BACK: Nontender without obvious deformity. No CVA tenderness. A/P Problem List: (1) Rotator cuff injury ICD Code: S46.009A Status: Acute (2) Costochondral joint sprain ICD Code: S23.41XA Status: Acute (3) Pectoralis muscle strain ICD Code: S29.011A Status: Acute (4) Hypokalemia ICD Code: E87.6 Status: Resolved (5) HIV (human immunodeficiency virus infection) ICD Code: Z21 Status: Chronic (6) IVDU (intravenous drug user) ICD Code: F19.90 Status: Chronic (7) Bacteremia due to Gram-positive bacteria ICD Code: A49.9 Status: Acute (8) Diarrhea ICD Code: R19.7 Status: Acute Assessment and Plan 40 years old female with 1. Bacteremia-gram negative: Currently on Vancomycin and s/p Cefepime. Appreciate input from Infectious Disease specialist and repeat Blood culture NTD. 2D echo r/o endocarditis. May consider IR consultation for Bx for culture 2. Right Rotator Cuff Injury: Improving. Shoulder X-ray w/ no acute findings. MRI shoulder noted without any abscess. Appreciate input from orthopedic surgery and continue with Analgesics/antiemetics. 3. Costochondral Joint Sprain/Infection: CT Chest w/ increased density around first costochondral junction with questionable fracturing at medial first costochondral junction. continue w/ IV vancomycin. Shoulder MRI noted without any abscess. Appreciate input from orthopedic surgery.May consider IR consultation for Bx for culture 4. Pectoralis Muscle Strain/Injury: CT Chest w/ thickening/bulging of right pectoralis muscle likely from injury. Analgesics/antiemetics. . PT consult to treat. 5. Hypokalemia: Resolved. 6. HIV: CD4 1092 on 11/20/14, continue HAART 7. IVDU: w/ Dilaudid, last use 07/15/16. UDS noted. Ativan if needed. 2-D echo ruled out endocarditis 8. DVT Prophylaxis: SCD/Teds. 9. Diarrhea: Rule out C. difficile C. difficile PCR and treat accordingly Gigi Meléndez MD Sep 19, 2016 12:19
[2016-09-19] MEDS: ACETAMINOPHEN 325 MG TAB PO PRN (12:36)
[2016-09-19] MEDS: LACTOBACILLUS ACIDOPHILUS TAB PO SCH ×2 (12:36→16:50)
[2016-09-19 16:00] VITALS: BP 96/59; PULSE 78; RESP 16; TEMP 98.9; O2SAT 93
[2016-09-19] MEDS: DARUNAVIR 800 MG TAB PO SCH (19:49)
[2016-09-19] MEDS: ATORVASTATIN 20 MG TAB PO SCH (19:50)
[2016-09-19] MEDS: ABACAVIR SULFATE 300 MG TAB PO SCH (19:50)
[2016-09-19] MEDS: LISINOPRIL 20 MG TAB PO SCH (19:51)
[2016-09-19] MEDS: SENNOSIDES 8.6 MG TAB PO SCH (19:51)
[2016-09-19 20:00] VITALS: BP 95/58; PULSE 85; RESP 18; TEMP 97.7; O2SAT 95
[2016-09-20] VITALS (7 sets, daily range): BP systolic 92–132; BP diastolic 54–66; PULSE 63–87; RESP 16–18; TEMP 97.9–102.4; O2SAT 92–97
[2016-09-20] MEDS: KETOROLAC TROMETHAMINE 60 MG/2 ML (IM) VIAL IM SCH ×4 (00:48→19:50)
[2016-09-20] MEDS: VANCOMYCIN INJ 1,250 MG in SODIUM CHLOR 0.9% 250 ML INJ 250 ML IV SCH (05:02)
[2016-09-20] MEDS: cloNIDine HCL 0.1 MG TAB PO SCH ×2 (09:00→19:52)
[2016-09-20] MEDS: GABAPENTIN 300 MG CAP PO SCH ×2 (09:23→19:51)
[2016-09-20] MEDS: SODIUM CHLORIDE 0.9% FLUSH 10 ML FLUSH IV FLUSH SCH ×2 (09:23→19:51)
[2016-09-20] MEDS: LACTOBACILLUS ACIDOPHILUS TAB PO SCH ×3 (09:23→18:15)
--- NOTE | 2016-09-20 11:33 | HHI.PR ---
Subjective Remarks follow up right shoulder injury/infection 09/13/16-patient seen and examined; still complain of right shoulder pain. Afebrile. MRI shoulder report pending 09/14/16-patient seen and examined; +severe rigth shoulder pain. + 3#4 blood culture. Afebrile 09/15/16-patient seen and examined; still complains of right shoulder pain. Afebrile. 09/16/16-patient seen and examined; afebrile,she was up and ambulated with physical therapy. Patient still complains of right shoulder pain 09/17/16-patient seen and examined; states that Toradol works best for her. Able to move more her right shoulder 09/18/16-patient seen and examined, had multiple episodes of loose stool overnight however results in this morning. Currently afebrile. Able to move more right shoulder 09/19/16-patient seen and examined, complains of chills and multiple episodes diarrhea 09/20/16-patient seen and examined, still with multiple episode of diarrhea. Currently afebrile however patient is complaining of feeling chills and sweaty Objective Vitals Vital Signs Date Time Temp Pulse Resp B/P Pulse Ox O2 Delivery O2 Flow Rate FiO2 09/20/16 08:32 98.2 83 18 110/55 96 09/20/16 04:00 98.4 77 18 114/66 95 09/20/16 00:00 98.9 80 18 100/59 95 09/19/16 20:00 97.7 85 18 95/58 95 09/19/16 16:00 98.9 78 16 96/59 93 09/19/16 12:00 101.8 100 18 118/73 94 I/O 09/19/16 09/19/16 09/19/16 09/20/16 09/20/16 09/20/16 07:00 15:00 23:00 07:00 15:00 23:00 Intake Total 780 ml 760 ml 1420 ml Balance 780 ml 760 ml 1420 ml Intake Oral 780 ml 360 ml 720 ml IV Total 400 ml 700 ml # Voids 1 3 6 # Bowel Movements 1 1 0 Result Diagram: 09/20/16 0627 Objective Remarks GENERAL: NAD SKIN: Warm and dry. HEAD: Normocephalic. EYES: No scleral icterus. No injection or drainage. NECK: Supple, trachea midline. No JVD or lymphadenopathy. CARDIOVASCULAR: Regular rate and rhythm without murmurs, gallops, or rubs. RESPIRATORY: Breath sounds equal bilaterally. No accessory muscle use. GASTROINTESTINAL: Abdomen soft, non-tender, nondistended. MUSCULOSKELETAL: No cyanosis, or edema. Limited ROM Right shoulder BACK: Nontender without obvious deformity. No CVA tenderness. A/P Problem List: (1) Rotator cuff injury ICD Code: S46.009A Status: Acute (2) Costochondral joint sprain ICD Code: S23.41XA Status: Acute (3) Pectoralis muscle strain ICD Code: S29.011A Status: Acute (4) Hypokalemia ICD Code: E87.6 Status: Resolved (5) HIV (human immunodeficiency virus infection) ICD Code: Z21 Status: Chronic (6) IVDU (intravenous drug user) ICD Code: F19.90 Status: Chronic (7) Bacteremia due to Gram-positive bacteria ICD Code: A49.9 Status: Acute (8) Diarrhea ICD Code: R19.7 Status: Acute Assessment and Plan 40 years old female with 1. Bacteremia-gram negative: Currently on Vancomycin and s/p Cefepime. Appreciate input from Infectious Disease specialist and repeat Blood culture NTD. 2D echo r/o endocarditis. 2. Right Rotator Cuff Injury: Improving. Shoulder X-ray w/ no acute findings. MRI shoulder noted without any abscess. Appreciate input from orthopedic surgery and continue with Analgesics/antiemetics. 3. Costochondral Joint Sprain/Infection: CT Chest w/ increased density around first costochondral junction with questionable fracturing at medial first costochondral junction. continue w/ IV vancomycin. Shoulder MRI noted without any abscess. Appreciate input from orthopedic surgery. 4. Pectoralis Muscle Strain/Injury: CT Chest w/ thickening/bulging of right pectoralis muscle likely from injury. Analgesics/antiemetics. . PT consult to treat. 5. Hypokalemia: Resolved. 6. HIV: CD4 1092 on 11/20/14, continue HAART 7. IVDU: w/ Dilaudid, last use 07/15/16. UDS noted. Ativan if needed. 2-D echo ruled out endocarditis 8. DVT Prophylaxis: SCD/Teds. 9. Diarrhea: C. difficile PCR pending and treat accordingly Gigi Meléndez MD Sep 20, 2016 11:33
[2016-09-20] MEDS: ACETAMINOPHEN 325 MG TAB PO PRN (13:01)
[2016-09-20] MEDS: ONDANSETRON HCL 4 MG/2 ML VIAL IVP PRN ×2 (13:54→21:33)
[2016-09-20] MEDS: SODIUM CHLOR 0.9% 1000 ML INJ 1,000 ML IV SCH (18:48)
[2016-09-20] MEDS: ABACAVIR SULFATE 300 MG TAB PO SCH (19:50)
[2016-09-20] MEDS: RITONAVIR 100 MG TAB PO SCH (19:50)
[2016-09-20] MEDS: DARUNAVIR 800 MG TAB PO SCH (19:51)
[2016-09-20] MEDS: SENNOSIDES 8.6 MG TAB PO SCH (19:51)
[2016-09-20] MEDS: ATORVASTATIN 20 MG TAB PO SCH (19:51)
[2016-09-20] MEDS: LISINOPRIL 20 MG TAB PO SCH (19:52)
[2016-09-21] VITALS (9 sets, daily range): BP systolic 103–140; BP diastolic 59–78; PULSE 70–110; RESP 16–22; TEMP 96.2–103.9; O2SAT 93–98
[2016-09-21] MEDS: KETOROLAC TROMETHAMINE 60 MG/2 ML (IM) VIAL IM SCH ×2 (00:44→05:37)
[2016-09-21 01:50] LABS: C. DIFF EPI 027 PRESUMPTIVE NEGATIVE (NEGATIVE); C. DIFF TOXIN PCR NEGATIVE (NEGATIVE)
[2016-09-21] MEDS: VANCOMYCIN INJ 1,250 MG in SODIUM CHLOR 0.9% 250 ML INJ 250 ML IV SCH (05:38)
--- NOTE | 2016-09-21 07:32 | PD.ORT.PN ---
Subjective Subjective Remarks s/p right SC joint infection doing well. pain controlled. reports that Tramadol helping pain. working with PT. states steadily improving Objective Vitals Vital Signs Date Time Temp Pulse Resp B/P Pulse Ox O2 Delivery O2 Flow Rate FiO2 09/21/16 04:00 98.3 70 19 127/78 98 09/21/16 00:00 97.7 80 19 116/75 94 09/20/16 20:00 98.6 79 16 92/55 92 09/20/16 15:42 97.9 87 16 92/54 94 09/20/16 13:00 99.3 09/20/16 12:30 102.4 63 18 132/57 97 09/20/16 08:32 98.2 83 18 110/55 96 I/O 09/20/16 09/20/16 09/20/16 09/21/16 09/21/16 09/21/16 07:00 15:00 23:00 07:00 15:00 23:00 Intake Total 1420 ml 720 ml 283 ml 642 ml Balance 1420 ml 720 ml 283 ml 642 ml Intake Oral 720 ml 720 ml IV Total 700 ml 283 ml 642 ml # Voids 6 4 4 # Bowel Movements 0 3 Result Diagram: 09/20/16 0627 Imaging Last 72 hours Impressions Shoulder X-Ray 09/13/16 0000 Signed Impressions: Service Date/Time: Tuesday, September 13, 2016 02:06 - CONCLUSION: No acute disease. Moises Jackson MD Shoulder MRI 09/13/16 0000 Signed Impressions: Service Date/Time: Tuesday, September 13, 2016 07:27 - CONCLUSION: Extensive soft tissue edema and enhancement consistent with infection surrounding the region of the first costochondral margin and sternoclavicular joint. However, no evidence of discrete abscess and no abnormal enhancement of the marrow to suggest osteomyelitis. There is a small right-sided pleural effusion noted.. Jessica Bran MD Chest CT 09/13/16 0000 Signed Impressions: Service Date/Time: Tuesday, September 13, 2016 01:58 - CONCLUSION: 1. Thickening and anterior bulging of the medial aspect of the right pectoralis muscle likely from injury. There is also increased density around the first costochondral junction with some questionable fracturing at the medial first costochondral junction. 2. Minimal right effusion. Moises Jackson MD ADDENDUM: I have been told the patient potentially has inflammatory change in the right upper chest. The soft tissue density at the medial pectoralis muscle and around the first costochondral junction can also be postinflammatory. The increased density also is seen around the medial right clavicle. Involvement of the sternoclavicular joint could be present although the sternoclavicular joints appear relatively symmetric. Early involvement cannot be excluded. A focal fluid collection or abscess is not clearly seen on this examination. Also in reviewing the case the patient does appear to have some minimal loss of height at the superior aspect of T8 although acute fracturing is not seen. There is a Schmorl's node seen at this level. Moises Jackson MD Objective Remarks RUE: Tenderness with palpation to Right SC joint. minimal swelling. full passive motion of shoulder. NVI Assessment & Plan Assessment and Plan 1) Right SC joint infection Medical management with antibiotics. If abscess develops surgical debridement may be necessary. Physical therapy for passive and active range of motion of shoulder. continue conservative management Ruddy Gonzalez Sep 21, 2016 07:32
[2016-09-21] MEDS: cloNIDine HCL 0.1 MG TAB PO SCH ×2 (08:48→21:00)
[2016-09-21] MEDS: LACTOBACILLUS ACIDOPHILUS TAB PO SCH ×3 (08:50→16:53)
[2016-09-21] MEDS: GABAPENTIN 300 MG CAP PO SCH (08:50)
[2016-09-21] MEDS: SODIUM CHLORIDE 0.9% FLUSH 10 ML FLUSH IV FLUSH SCH (09:00)
--- NOTE | 2016-09-21 10:31 | HHI.PR ---
Subjective Remarks follow up right shoulder injury/infection 09/13/16-patient seen and examined; still complain of right shoulder pain. Afebrile. MRI shoulder report pending 09/14/16-patient seen and examined; +severe rigth shoulder pain. + 3#4 blood culture. Afebrile 09/15/16-patient seen and examined; still complains of right shoulder pain. Afebrile. 09/16/16-patient seen and examined; afebrile,she was up and ambulated with physical therapy. Patient still complains of right shoulder pain 09/17/16-patient seen and examined; states that Toradol works best for her. Able to move more her right shoulder 09/18/16-patient seen and examined, had multiple episodes of loose stool overnight however results in this morning. Currently afebrile. Able to move more right shoulder 09/19/16-patient seen and examined, complains of chills and multiple episodes diarrhea 09/20/16-patient seen and examined, still with multiple episode of diarrhea. Currently afebrile however patient is complaining of feeling chills and sweaty 09/21/16-patient seen and examined, afebrile. Diarrheal episode improved. Patient able to move more right upper arm Objective Vitals Vital Signs Date Time Temp Pulse Resp B/P Pulse Ox O2 Delivery O2 Flow Rate FiO2 09/21/16 07:18 97.3 71 16 114/69 94 09/21/16 04:00 98.3 70 19 127/78 98 09/21/16 00:00 97.7 80 19 116/75 94 09/20/16 20:00 98.6 79 16 92/55 92 09/20/16 15:42 97.9 87 16 92/54 94 09/20/16 13:00 99.3 09/20/16 12:30 102.4 63 18 132/57 97 I/O 09/20/16 09/20/16 09/20/16 09/21/16 09/21/16 09/21/16 07:00 15:00 23:00 07:00 15:00 23:00 Intake Total 1420 ml 720 ml 283 ml 642 ml Balance 1420 ml 720 ml 283 ml 642 ml Intake Oral 720 ml 720 ml IV Total 700 ml 283 ml 642 ml # Voids 6 4 4 # Bowel Movements 0 3 Result Diagram: 09/20/16 0627 Imaging Last Impressions Shoulder X-Ray 09/13/16 0000 Signed Impressions: Service Date/Time: Tuesday, September 13, 2016 02:06 - CONCLUSION: No acute disease. Moises Jackson MD Shoulder MRI 09/13/16 0000 Signed Impressions: Service Date/Time: Tuesday, September 13, 2016 07:27 - CONCLUSION: Extensive soft tissue edema and enhancement consistent with infection surrounding the region of the first costochondral margin and sternoclavicular joint. However, no evidence of discrete abscess and no abnormal enhancement of the marrow to suggest osteomyelitis. There is a small right-sided pleural effusion noted.. Jessica Bran MD Chest CT 09/13/16 0000 Signed Impressions: Service Date/Time: Tuesday, September 13, 2016 01:58 - CONCLUSION: 1. Thickening and anterior bulging of the medial aspect of the right pectoralis muscle likely from injury. There is also increased density around the first costochondral junction with some questionable fracturing at the medial first costochondral junction. 2. Minimal right effusion. Moises Jackson MD ADDENDUM: I have been told the patient potentially has inflammatory change in the right upper chest. The soft tissue density at the medial pectoralis muscle and around the first costochondral junction can also be postinflammatory. The increased density also is seen around the medial right clavicle. Involvement of the sternoclavicular joint could be present although the sternoclavicular joints appear relatively symmetric. Early involvement cannot be excluded. A focal fluid collection or abscess is not clearly seen on this examination. Also in reviewing the case the patient does appear to have some minimal loss of height at the superior aspect of T8 although acute fracturing is not seen. There is a Schmorl's node seen at this level. Moises Jackson MD Objective Remarks GENERAL: NAD SKIN: Warm and dry. HEAD: Normocephalic. EYES: No scleral icterus. No injection or drainage. NECK: Supple, trachea midline. No JVD or lymphadenopathy. CARDIOVASCULAR: Regular rate and rhythm without murmurs, gallops, or rubs. RESPIRATORY: Breath sounds equal bilaterally. No accessory muscle use. GASTROINTESTINAL: Abdomen soft, non-tender, nondistended. MUSCULOSKELETAL: No cyanosis, or edema. Increase ROM Right shoulder BACK: Nontender without obvious deformity. No CVA tenderness. Procedures none A/P Problem List: (1) Rotator cuff injury ICD Code: S46.009A Status: Acute (2) Costochondral joint sprain ICD Code: S23.41XA Status: Acute (3) Pectoralis muscle strain ICD Code: S29.011A Status: Acute (4) Hypokalemia ICD Code: E87.6 Status: Resolved (5) HIV (human immunodeficiency virus infection) ICD Code: Z21 Status: Chronic (6) IVDU (intravenous drug user) ICD Code: F19.90 Status: Chronic (7) Bacteremia due to Gram-positive bacteria ICD Code: A49.9 Status: Acute (8) Diarrhea ICD Code: R19.7 Status: Resolved Assessment and Plan 40 years old female with 1. Bacteremia-gram negative: Currently on Vancomycin and s/p Cefepime. Appreciate input from Infectious Disease specialist and repeat Blood culture NTD 5 days. 2D echo r/o endocarditis. 2. Right Rotator Cuff Injury: Improving. Shoulder X-ray w/ no acute findings. MRI shoulder noted without any abscess. Appreciate input from orthopedic surgery and continue with Analgesics/antiemetics. 3. Costochondral Joint Sprain/Infection: CT Chest w/ increased density around first costochondral junction with questionable fracturing at medial first costochondral junction. continue w/ IV vancomycin and repeat culture negative to date 5 days. Shoulder MRI noted without any abscess. Appreciate input from orthopedic surgery as well as infectious disease specialist 4. Pectoralis Muscle Strain/Injury: Improving with Analgesics/antiemetics. . PT to treat. 5. Hypokalemia: Resolved. 6. HIV: CD4 1092 on 11/20/14, continue HAART 7. IVDU: w/ Dilaudid, last use 07/15/16. UDS noted. Ativan if needed. 2-D echo ruled out endocarditis 8. DVT Prophylaxis: SCD/Teds. 9. Diarrhea: C. difficile PCR negative Gigi Meléndez MD Sep 21, 2016 10:31
[2016-09-21] MEDS: SODIUM CHLOR 0.9% 1000 ML INJ 1,000 ML IV SCH (11:27)
[2016-09-21 12:28] LABS: AUTOMATED NEUTROPHIL # 2.5 TH/MM3 (1.8-7.7); BASOPHIL % 0.3 % (0.0-2.0); EOSINOPHIL # 0.2 TH/MM3 (0-0.4); EOSINOPHIL % 4.7 % (0.0-4.0); HEMATOCRIT 27.2 % (35.0-46.0); HEMO FLAGS DIFF FINAL; LYMPH % 31.3 % (9.0-44.0); LYMPHOCYTE # 1.4 TH/MM3 (1.0-4.8); MEAN CELL VOLUME 83.3 FL (80.0-100.0); MEAN CORPUSCULAR HEMOGLOBIN 27.6 PG (27.0-34.0); MEAN CORPUSCULAR HGB CONC 33.2 % (32.0-36.0); MONO % 9.7 % (0.0-8.0); PLATELET COUNT 508 TH/MM3 (150-450); RED BLOOD COUNT 3.26 MIL/MM3 (4.00-5.30); RED CELL DISTRIBUTION WIDTH 14.7 % (11.6-17.2); WHITE BLOOD COUNT 4.6 TH/MM3 (4.0-11.0)
[2016-09-21] MEDS: ACETAMINOPHEN 325 MG TAB PO PRN ×2 (12:46→20:57)
[2016-09-21 13:05] LABS: POTASSIUM 4.5 MEQ/L (3.5-5.1)
--- NOTE | 2016-09-21 15:22 | PD.RAD ---
Post Procedure Progress Note Pre Procedure Diagnosis: (1) Sternoclavicular joint pain (2) HIV (human immunodeficiency virus infection) Post Procedure Diagnosis: (1) Sternoclavicular joint pain (2) HIV (human immunodeficiency virus infection) (3) Bacteremia due to Gram-positive bacteria Procedure Date: Sep 21, 2016 Supervising Radiologist: Hung Sheridan Proceduralist/Assist: Digna Mcelroy, RT(R)(CV), Bozena Craig RT(R) Anesthesia: Local Plan of Activity Patient to Unit: Nursing Unit Patient Condition: Good See PACS Report for procedural detail/treatment Drainage Procedure Procedure 1 Imaging Guidance: Fluoroscopy, Ultrasound Procedure Type: Aspiration (Right SC jt region) Findings: No drainable fluid identified. Complex area in region of SC jt aspirate and placed in sterile container for C&S Hung Sheridan MD Sep 21, 2016 15:22
[2016-09-21] MEDS: SENNOSIDES 8.6 MG TAB PO SCH (20:00)
[2016-09-21] MEDS: LISINOPRIL 20 MG TAB PO SCH (21:00)
--- NOTE | 2016-09-21 22:02 | RADRPT ---
EXAM DATE/TIME: 09/21/2016 21:32 [facility] COMPARISON: CT THORAX W CONTRAST, September 13, 2016, 1:58. INDICATIONS : Fever Previous fall from horse, right side chest pain MEDICAL HISTORY : HIV Hypertension SURGICAL HISTORY : Hysterectomy. Cholecystectomy. ENCOUNTER: Initial ACUITY: 4 - 6 days PAIN SCORE: 8/10 LOCATION: Bilateral chest FINDINGS: The lungs are clear. No pleural effusion. No pneumothorax. Mild haziness projects over the right uppe r lung related to chest wall swelling. CONCLUSION: No evidence of acute cardiopulmonary disease. Right upper chest wall anterior soft tissue swelling. Moises Miller MD on September 21, 2016 at 21:59 Board Certified Radiologist. This report was verified electronically.
[2016-09-22] VITALS (10 sets, daily range): BP systolic 91–115; BP diastolic 51–72; PULSE 84–104; RESP 17–20; TEMP 98.7–102.2; O2SAT 90–96
[2016-09-22] MEDS: RITONAVIR 100 MG TAB PO SCH ×2 (00:27→20:56)
[2016-09-22] MEDS: ABACAVIR SULFATE 300 MG TAB PO SCH ×2 (00:27→20:56)
[2016-09-22] MEDS: GABAPENTIN 300 MG CAP PO SCH ×3 (00:28→20:56)
[2016-09-22] MEDS: ATORVASTATIN 20 MG TAB PO SCH ×2 (00:28→20:56)
[2016-09-22] MEDS: DARUNAVIR 800 MG TAB PO SCH ×2 (00:29→20:56)
[2016-09-22] MEDS: SODIUM CHLORIDE 0.9% FLUSH 10 ML FLUSH IV FLUSH SCH ×3 (00:29→20:57)
[2016-09-22 01:08] LABS: BLOOD, URINE NEG (NEG); GLUCOSE,URINE NEG (NEG); KETONE, URINE NEG (NEG); NITRITE,URINE NEG (NEG); RENAL EPITHELIAL CELLS <1 /hpf; SQUAMOUS EPITHELIAL CELL URINE <1 /hpf (0-5); URINE COLOR LIGHT-YELLOW (YELLW/STRAW)
[2016-09-22 01:10] LABS: COMMENT (UR) CULT NOT INDICATED; CULTURE IF INDICATED CULT NOT INDICATED
[2016-09-22] MEDS: SODIUM CHLOR 0.9% 1000 ML INJ 1,000 ML IV SCH ×2 (01:45→16:22)
[2016-09-22] MEDS: ACETAMINOPHEN 325 MG TAB PO PRN ×3 (04:00→17:40)
[2016-09-22] MEDS: VANCOMYCIN INJ 1,250 MG in SODIUM CHLOR 0.9% 250 ML INJ 250 ML IV SCH (05:58)
--- NOTE | 2016-09-22 06:33 | PD.ORT.PN ---
Subjective Subjective Remarks Madai continues to complain of pain around her right clavicle. She had an aspiration of the sternoclavicular joint yesterday. She has pain with shoulder motion or palpation of the sternoclavicular joint. she does not feel that the pain is improving. Objective Vitals Vital Signs Date Time Temp Pulse Resp B/P Pulse Ox O2 Delivery O2 Flow Rate FiO2 09/22/16 05:57 99.9 09/22/16 04:34 102.2 91 19 104/72 94 09/22/16 02:20 101.5 09/22/16 00:59 101.1 09/22/16 00:44 84 17 102/66 94 09/21/16 22:59 100.8 09/21/16 20:00 103.5 09/21/16 19:00 103.9 95 16 109/68 95 09/21/16 16:05 98.5 100 16 103/59 93 09/21/16 11:50 100.8 94 18 118/76 96 09/21/16 07:18 97.3 71 16 114/69 94 I/O 09/21/16 09/21/16 09/21/16 09/22/16 09/22/16 09/22/16 07:00 15:00 23:00 07:00 15:00 23:00 Intake Total 642 ml 1611 ml 480 ml Balance 642 ml 1611 ml 480 ml Intake Oral 960 ml 480 ml IV Total 642 ml 651 ml # Voids 4 4 4 # Bowel Movements 3 0 Result Diagram: 09/21/16 1210 09/21/16 1210 Imaging Last 72 hours Impressions Shoulder X-Ray 09/13/16 0000 Signed Impressions: Service Date/Time: Tuesday, September 13, 2016 02:06 - CONCLUSION: No acute disease. Moises Jackson MD Shoulder MRI 09/13/16 0000 Signed Impressions: Service Date/Time: Tuesday, September 13, 2016 07:27 - CONCLUSION: Extensive soft tissue edema and enhancement consistent with infection surrounding the region of the first costochondral margin and sternoclavicular joint. However, no evidence of discrete abscess and no abnormal enhancement of the marrow to suggest osteomyelitis. There is a small right-sided pleural effusion noted.. Jessica Bran MD Chest CT 09/13/16 0000 Signed Impressions: Service Date/Time: Tuesday, September 13, 2016 01:58 - CONCLUSION: 1. Thickening and anterior bulging of the medial aspect of the right pectoralis muscle likely from injury. There is also increased density around the first costochondral junction with some questionable fracturing at the medial first costochondral junction. 2. Minimal right effusion. Moises Jackson MD ADDENDUM: I have been told the patient potentially has inflammatory change in the right upper chest. The soft tissue density at the medial pectoralis muscle and around the first costochondral junction can also be postinflammatory. The increased density also is seen around the medial right clavicle. Involvement of the sternoclavicular joint could be present although the sternoclavicular joints appear relatively symmetric. Early involvement cannot be excluded. A focal fluid collection or abscess is not clearly seen on this examination. Also in reviewing the case the patient does appear to have some minimal loss of height at the superior aspect of T8 although acute fracturing is not seen. There is a Schmorl's node seen at this level. Moises Jackson MD Objective Remarks RUE: Tenderness with palpation to Right SC joint. Mild swelling swelling. Pain with active and passive motion of shoulder. NVI. Skin is intact Assessment & Plan Assessment and Plan Right SC joint infection--not improving significantly clinically with antibiotics --Nothing by mouth after midnight--possible surgery tomorrow if no clinical improvement --Physical therapy for passive and active range of motion of shoulder. Mayank Ureña MD Sep 22, 2016 06:33
[2016-09-22] MEDS: LACTOBACILLUS ACIDOPHILUS TAB PO SCH ×3 (08:24→17:40)
[2016-09-22] MEDS: cloNIDine HCL 0.1 MG TAB PO SCH ×2 (08:25→20:56)
--- NOTE | 2016-09-22 10:45 | HHI.PR ---
Subjective Remarks follow up right shoulder injury/infection 09/13/16-patient seen and examined; still complain of right shoulder pain. Afebrile. MRI shoulder report pending 09/14/16-patient seen and examined; +severe rigth shoulder pain. + 3#4 blood culture. Afebrile 09/15/16-patient seen and examined; still complains of right shoulder pain. Afebrile. 09/16/16-patient seen and examined; afebrile,she was up and ambulated with physical therapy. Patient still complains of right shoulder pain 09/17/16-patient seen and examined; states that Toradol works best for her. Able to move more her right shoulder 09/18/16-patient seen and examined, had multiple episodes of loose stool overnight however results in this morning. Currently afebrile. Able to move more right shoulder 09/19/16-patient seen and examined, complains of chills and multiple episodes diarrhea 09/20/16-patient seen and examined, still with multiple episode of diarrhea. Currently afebrile however patient is complaining of feeling chills and sweaty 09/21/16-patient seen and examined, afebrile. Diarrheal episode improved. Patient able to move more right upper arm 09/22/16-patient seen and examined, continue to complain of right shoulder pain. She had aspiration of sternoclavicular joints yesterday 09/21/16. MAXIMUM TEMPERATURE 102.2 at 4 PM however currently afebrile. Objective Vitals Vital Signs Date Time Temp Pulse Resp B/P Pulse Ox O2 Delivery O2 Flow Rate FiO2 09/22/16 08:00 98.7 84 18 91/51 94 09/22/16 05:57 99.9 09/22/16 04:34 102.2 91 19 104/72 94 09/22/16 02:20 101.5 09/22/16 00:59 101.1 09/22/16 00:44 84 17 102/66 94 09/21/16 22:59 100.8 09/21/16 20:00 103.5 09/21/16 19:00 103.9 95 16 109/68 95 09/21/16 16:05 98.5 100 16 103/59 93 09/21/16 11:50 100.8 94 18 118/76 96 I/O 09/21/16 09/21/16 09/21/16 09/22/16 09/22/16 09/22/16 07:00 15:00 23:00 07:00 15:00 23:00 Intake Total 642 ml 1611 ml 480 ml Balance 642 ml 1611 ml 480 ml Intake Oral 960 ml 480 ml IV Total 642 ml 651 ml # Voids 4 4 4 # Bowel Movements 3 0 Result Diagram: 09/21/16 1210 09/22/16 0652 Imaging Last Impressions Chest X-Ray 09/21/16 0000 Signed Impressions: Service Date/Time: Wednesday, September 21, 2016 21:32 - CONCLUSION: No evidence of acute cardiopulmonary disease. Right upper chest wall anterior soft tissue swelling. Moises Miller MD Shoulder X-Ray 09/13/16 0000 Signed Impressions: Service Date/Time: Tuesday, September 13, 2016 02:06 - CONCLUSION: No acute disease. Moises Jackson MD Shoulder MRI 09/13/16 0000 Signed Impressions: Service Date/Time: Tuesday, September 13, 2016 07:27 - CONCLUSION: Extensive soft tissue edema and enhancement consistent with infection surrounding the region of the first costochondral margin and sternoclavicular joint. However, no evidence of discrete abscess and no abnormal enhancement of the marrow to suggest osteomyelitis. There is a small right-sided pleural effusion noted.. Jessica Bran MD Chest CT 09/13/16 0000 Signed Impressions: Service Date/Time: Tuesday, September 13, 2016 01:58 - CONCLUSION: 1. Thickening and anterior bulging of the medial aspect of the right pectoralis muscle likely from injury. There is also increased density around the first costochondral junction with some questionable fracturing at the medial first costochondral junction. 2. Minimal right effusion. Moises Jackson MD ADDENDUM: I have been told the patient potentially has inflammatory change in the right upper chest. The soft tissue density at the medial pectoralis muscle and around the first costochondral junction can also be postinflammatory. The increased density also is seen around the medial right clavicle. Involvement of the sternoclavicular joint could be present although the sternoclavicular joints appear relatively symmetric. Early involvement cannot be excluded. A focal fluid collection or abscess is not clearly seen on this examination. Also in reviewing the case the patient does appear to have some minimal loss of height at the superior aspect of T8 although acute fracturing is not seen. There is a Schmorl's node seen at this level. Moises Jackson MD Objective Remarks GENERAL: NAD SKIN: Warm and dry. HEAD: Normocephalic. EYES: No scleral icterus. No injection or drainage. NECK: Supple, trachea midline. No JVD or lymphadenopathy. CARDIOVASCULAR: Regular rate and rhythm without murmurs, gallops, or rubs. RESPIRATORY: Breath sounds equal bilaterally. No accessory muscle use. GASTROINTESTINAL: Abdomen soft, non-tender, nondistended. MUSCULOSKELETAL: No cyanosis, or edema. Increase ROM Right shoulder BACK: Nontender without obvious deformity. No CVA tenderness. Procedures none A/P Problem List: (1) Rotator cuff injury ICD Code: S46.009A Status: Acute (2) Costochondral joint sprain ICD Code: S23.41XA Status: Acute (3) Pectoralis muscle strain ICD Code: S29.011A Status: Acute (4) Hypokalemia ICD Code: E87.6 Status: Resolved (5) HIV (human immunodeficiency virus infection) ICD Code: Z21 Status: Chronic (6) IVDU (intravenous drug user) ICD Code: F19.90 Status: Chronic (7) Bacteremia due to Gram-positive bacteria ICD Code: A49.9 Status: Acute (8) Diarrhea ICD Code: R19.7 Status: Resolved Assessment and Plan 40 years old female with 1. Bacteremia-gram negative: Currently on Vancomycin and s/p Cefepime. Appreciate input from Infectious Disease specialist and repeat Blood culture NTD 5 days. 2D echo r/o endocarditis. Status post aspiration sternoclavicular joints 09/21/16 pending culture report 2. Right Rotator Cuff Injury: Shoulder X-ray w/ no acute findings. MRI shoulder noted without any abscess. Appreciate input from orthopedic surgery and continue with Analgesics/antiemetics. 3. Costochondral Joint Sprain/Infection: CT Chest w/ increased density around first costochondral junction with questionable fracturing at medial first costochondral junction. continue w/ IV vancomycin and repeat culture negative to date 6 days. Shoulder MRI noted without any abscess and patient is status post aspiration sternoclavicular joints 09/21/16 pending report. Appreciate input from orthopedic surgery as well as infectious disease specialist. Per orthopedic surgery if no improvement, patient may likely be taken to the OR on 09/23/16 for possible evaluation for incision and drainage 4. Pectoralis Muscle Strain/Injury: Improving with Analgesics/antiemetics. . PT to treat. 5. Hypokalemia: Resolved. 6. HIV: CD4 1092 on 11/20/14, continue HAART 7. IVDU: w/ Dilaudid, last use 07/15/16. UDS noted. Ativan if needed. 2-D echo ruled out endocarditis 8. DVT Prophylaxis: SCD/Teds. 9. Diarrhea: C. difficile PCR negative. Improving Gigi Meléndez MD Sep 22, 2016 10:45
--- NOTE | 2016-09-22 12:41 | RADRPT ---
EXAM DATE/TIME: 09/21/2016 14:21 [facility] COMPARISON: No previous studies available for comparison. INDICATIONS : Patient with sternoclavicular joint infection in need of aspiration. MEDICAL HISTORY : HIV, IVDU, HTN, HLD SURGICAL HISTORY : Cholecystectomy, Hysterectomy ENCOUNTER: Initial ACUITY: 3 weeks PAIN SCORE: 10/10 LOCATION: Right Shoulder FLUORO TIME: 0.4 minutes IMAGE SERIES: 2 DEVICE(S): 18 gauge needle was placed into the right SC joint. RESPONSE: Pre procedure pain level was 10/10 Post procedure pain level was 10/10 FLUID: Total volume of0.5 cc of clear redtissue and fluid was removed. Fluid specimen was submitted to the lab for evaluation. PROCEDURE : 1. Fluoroscopically guided right sternoclavicular aspiration. The risks, benefits and alternatives to the procedure were explained and verbal and written consent w as obtained. The site was prepped in sterile fashion. Full sterile technique was used, including ca p, mask, sterile gloves and gown and a large sterile sheet. Hand hygiene and 2% chlorhexidine and/or betadine/alcohol prep was utilized per protocol for cutaneous antisepsis. The skin and subcutaneous tissues were infiltrated with local anesthetic solution. Ultrasound fluoroscopic guidance was used to identified the right sternoclavicular joint. On ultrasou nd, there was no discrete fluid collection some complex hypoechoic region in the vicinity of the join t. This area was targeted. FNA was obtained and sent to laboratory for analysis. The patient tolerat ed the procedure well and there were no complications. CONCLUSION: Uncomplicated aspiration as above. Hung Sheridan MD on September 22, 2016 at 12:38 Board Certified Radiologist. This report was verified electronically.
[2016-09-22] MEDS: RESP: ALBUTEROL 2.5 MG/IPRATROPIUM 0.5 MG NEB (PRN) NEB ×2 (16:29→21:57)
[2016-09-22] MEDS: SENNOSIDES 8.6 MG TAB PO SCH (20:57)
[2016-09-22] MEDS: LISINOPRIL 20 MG TAB PO SCH (20:57)
[2016-09-23] VITALS (11 sets, daily range): BP systolic 103–129; BP diastolic 57–81; PULSE 95–110; RESP 17–22; TEMP 98.1–104; O2SAT 93–96
[2016-09-23] MEDS: ACETAMINOPHEN 325 MG TAB PO PRN ×3 (00:26→17:57)
[2016-09-23] MEDS ORDERED: PHARMACY ORDERED LAB ONE (04:45)
[2016-09-23] MEDS: VANCOMYCIN INJ 1,250 MG in SODIUM CHLOR 0.9% 250 ML INJ 250 ML IV SCH (04:49)
[2016-09-23] MEDS: SODIUM CHLOR 0.9% 1000 ML INJ 1,000 ML IV SCH ×2 (05:14→20:26)
--- NOTE | 2016-09-23 07:09 | PD.ORT.PN ---
Subjective Subjective Remarks s/p right SC joint infection doing well. pain controlled.. working with PT. states pain is not improving Objective Vitals Vital Signs Date Time Temp Pulse Resp B/P Pulse Ox O2 Delivery O2 Flow Rate FiO2 09/23/16 04:43 101.5 09/23/16 04:42 102.0 96 17 109/63 95 09/23/16 02:22 99.9 09/23/16 01:24 103.6 09/23/16 01:19 103.6 09/23/16 00:31 104.0 09/23/16 00:30 103.9 110 17 118/59 95 09/22/16 20:06 100.6 104 20 107/57 95 09/22/16 16:29 90 21 09/22/16 16:22 99.4 97 20 101/55 96 09/22/16 12:00 99.7 96 18 115/66 95 09/22/16 08:00 98.7 84 18 91/51 94 I/O 09/22/16 09/22/16 09/22/16 09/23/16 09/23/16 09/23/16 07:00 15:00 23:00 07:00 15:00 23:00 Intake Total 480 ml 240 ml Balance 480 ml 240 ml Intake Oral 480 ml 240 ml # Voids 2 2 2 # Bowel Movements 1 1 0 Result Diagram: 09/21/16 1210 09/22/16 0652 Imaging Last 72 hours Impressions Shoulder X-Ray 09/13/16 0000 Signed Impressions: Service Date/Time: Tuesday, September 13, 2016 02:06 - CONCLUSION: No acute disease. Moises Jackson MD Shoulder MRI 09/13/16 0000 Signed Impressions: Service Date/Time: Tuesday, September 13, 2016 07:27 - CONCLUSION: Extensive soft tissue edema and enhancement consistent with infection surrounding the region of the first costochondral margin and sternoclavicular joint. However, no evidence of discrete abscess and no abnormal enhancement of the marrow to suggest osteomyelitis. There is a small right-sided pleural effusion noted.. Jessica Bran MD Chest CT 09/13/16 0000 Signed Impressions: Service Date/Time: Tuesday, September 13, 2016 01:58 - CONCLUSION: 1. Thickening and anterior bulging of the medial aspect of the right pectoralis muscle likely from injury. There is also increased density around the first costochondral junction with some questionable fracturing at the medial first costochondral junction. 2. Minimal right effusion. Moises Jackson MD ADDENDUM: I have been told the patient potentially has inflammatory change in the right upper chest. The soft tissue density at the medial pectoralis muscle and around the first costochondral junction can also be postinflammatory. The increased density also is seen around the medial right clavicle. Involvement of the sternoclavicular joint could be present although the sternoclavicular joints appear relatively symmetric. Early involvement cannot be excluded. A focal fluid collection or abscess is not clearly seen on this examination. Also in reviewing the case the patient does appear to have some minimal loss of height at the superior aspect of T8 although acute fracturing is not seen. There is a Schmorl's node seen at this level. Moises Jackson MD Objective Remarks RUE: Tenderness with palpation to Right SC joint. Mild swelling swelling. Pain with active and passive motion of shoulder. NVI. Skin is intact Assessment & Plan Assessment and Plan Right SC joint infection--not improving significantly clinically with antibiotics --plan for possible surgery today if OR schedule allows. if not, then tomorrow Ruddy Gonzalez Sep 23, 2016 07:09
[2016-09-23] MEDS: cloNIDine HCL 0.1 MG TAB PO SCH ×2 (08:00→21:00)
[2016-09-23] MEDS: LACTOBACILLUS ACIDOPHILUS TAB PO SCH ×3 (08:00→17:57)
[2016-09-23] MEDS: GABAPENTIN 300 MG CAP PO SCH ×2 (08:01→21:00)
[2016-09-23] MEDS: ONDANSETRON HCL 4 MG/2 ML VIAL IVP PRN ×2 (08:08→15:36)
[2016-09-23] MEDS ORDERED: SODIUM CHLOR 0.9% 250 ML INJ 250 ML IV ONE (08:30)
[2016-09-23] MEDS ORDERED: ONDANSETRON HCL 4 MG/2 ML VIAL IV PUSH ONE (08:30)
[2016-09-23] MEDS ORDERED: PROPOFOL 200 MG/20 ML AMP IV ONE (08:30)
[2016-09-23] MEDS: SODIUM CHLORIDE 0.9% FLUSH 10 ML FLUSH IV FLUSH SCH ×2 (09:00→22:08)
[2016-09-23] MEDS ORDERED: GENTAMICIN SULFATE 80 MG/2 ML VIAL ONE (11:49)
[2016-09-23] MEDS ORDERED: ceFAZolin 2 GM PREMIX 50 ML ONE (11:53)
--- NOTE | 2016-09-23 12:06 | HHI.PR ---
Subjective Remarks follow up right shoulder injury/infection 09/13/16-patient seen and examined; still complain of right shoulder pain. Afebrile. MRI shoulder report pending 09/14/16-patient seen and examined; +severe rigth shoulder pain. + 3#4 blood culture. Afebrile 09/15/16-patient seen and examined; still complains of right shoulder pain. Afebrile. 09/16/16-patient seen and examined; afebrile,she was up and ambulated with physical therapy. Patient still complains of right shoulder pain 09/17/16-patient seen and examined; states that Toradol works best for her. Able to move more her right shoulder 09/18/16-patient seen and examined, had multiple episodes of loose stool overnight however results in this morning. Currently afebrile. Able to move more right shoulder 09/19/16-patient seen and examined, complains of chills and multiple episodes diarrhea 09/20/16-patient seen and examined, still with multiple episode of diarrhea. Currently afebrile however patient is complaining of feeling chills and sweaty 09/21/16-patient seen and examined, afebrile. Diarrheal episode improved. Patient able to move more right upper arm 09/22/16-patient seen and examined, continue to complain of right shoulder pain. She had aspiration of sternoclavicular joints yesterday 09/21/16. MAXIMUM TEMPERATURE 102.2 at 4 PM however currently afebrile. 09/23/16-patient seen and examined, spiking fevers. Currently nothing by mouth pending right shoulder joint possible debridement and irrigation Objective Vitals Vital Signs Date Time Temp Pulse Resp B/P Pulse Ox O2 Delivery O2 Flow Rate FiO2 09/23/16 11:52 100.5 100 18 103/57 93 09/23/16 08:15 Room Air 09/23/16 08:00 102.1 99 18 129/81 96 09/23/16 04:43 101.5 09/23/16 04:42 102.0 96 17 109/63 95 09/23/16 02:22 99.9 09/23/16 01:24 103.6 09/23/16 01:19 103.6 09/23/16 00:31 104.0 09/23/16 00:30 103.9 110 17 118/59 95 09/22/16 20:06 100.6 104 20 107/57 95 09/22/16 16:29 90 21 09/22/16 16:22 99.4 97 20 101/55 96 I/O 09/22/16 09/22/16 09/22/16 09/23/16 09/23/16 09/23/16 07:00 15:00 23:00 07:00 15:00 23:00 Intake Total 480 ml 240 ml Balance 480 ml 240 ml Intake Oral 480 ml 240 ml # Voids 2 2 2 # Bowel Movements 1 1 0 Result Diagram: 09/21/16 1210 09/22/16 0652 Objective Remarks GENERAL: NAD SKIN: Warm and dry. HEAD: Normocephalic. EYES: No scleral icterus. No injection or drainage. NECK: Supple, trachea midline. No JVD or lymphadenopathy. CARDIOVASCULAR: Regular rate and rhythm without murmurs, gallops, or rubs. RESPIRATORY: Breath sounds equal bilaterally. No accessory muscle use. GASTROINTESTINAL: Abdomen soft, non-tender, nondistended. MUSCULOSKELETAL: No cyanosis, or edema. Increase ROM Right shoulder BACK: Nontender without obvious deformity. No CVA tenderness. Procedures none A/P Problem List: (1) Rotator cuff injury ICD Code: S46.009A Status: Acute (2) Costochondral joint sprain ICD Code: S23.41XA Status: Acute (3) Pectoralis muscle strain ICD Code: S29.011A Status: Acute (4) Hypokalemia ICD Code: E87.6 Status: Resolved (5) HIV (human immunodeficiency virus infection) ICD Code: Z21 Status: Chronic (6) IVDU (intravenous drug user) ICD Code: F19.90 Status: Chronic (7) Bacteremia due to Gram-positive bacteria ICD Code: A49.9 Status: Acute (8) Diarrhea ICD Code: R19.7 Status: Resolved Assessment and Plan 40 years old female with 1. Bacteremia-gram negative: Currently on Vancomycin and s/p Cefepime. Appreciate input from Infectious Disease specialist and repeat Blood culture NTD 1 day. 2D echo r/o endocarditis. Status post aspiration sternoclavicular joints 09/21/16 pending culture report. Patient spiking fevers, chest x-ray, UA or negative 09/22/16 pending repeat blood culture. 2. Right Rotator Cuff Injury: Shoulder X-ray w/ no acute findings. MRI shoulder noted without any abscess. Appreciate input from orthopedic surgery however plan to take patient to the OR today for possible treatment and drainage ; continue with Analgesics/antiemetics. 3. Costochondral Joint Sprain/Infection: CT Chest w/ increased density around first costochondral junction with questionable fracturing at medial first costochondral junction. continue w/ IV vancomycin and repeat culture negative to date 6 days. Shoulder MRI noted without any abscess and patient is status post aspiration sternoclavicular joints 09/21/16 pending report. Appreciate input from orthopedic surgery as well as infectious disease specialist. Patient heading to the OR today 09/23/16 for possible debridement and drainage 4. Pectoralis Muscle Strain/Injury: Improving with Analgesics/antiemetics. Patient heading to the OR today 09/23/16 for possible debridement and drainage 5. Hypokalemia: Resolved. 6. HIV: CD4 1092 on 11/20/14, continue HAART 7. IVDU: w/ Dilaudid, last use 07/15/16. UDS noted. 2-D echo ruled out endocarditis 8. DVT Prophylaxis: SCD/Teds. 9. Diarrhea: C. difficile PCR negative. Improving Gigi Meléndez MD Sep 23, 2016 12:06
[2016-09-23] MEDS ORDERED: SODIUM CHLORIDE 0.9% FLUSH 5 ML FLUSH IVF PRN (12:15)
[2016-09-23] MEDS ORDERED: diphenhydrAMINE HCL 25 MG CAP PO PRN (12:15)
[2016-09-23] MEDS ORDERED: MORPHINE SULFATE 4 MG/ML INJ IV PUSH PRN (12:15)
[2016-09-23] MEDS: VANCOMYCIN HCL 1000 MG VIAL ONE ×2 (12:38→12:43)
--- NOTE | 2016-09-23 12:50 | PD.OP ---
cc: Mayank Machado MD Operative Report Date of Surgery: Sep 23, 2016 Preoperative Diagnosis: Right sternoclavicular joint infection Postoperative Diagnosis: Procedure: Irrigation debridement of right sternoclavicular joint with partial resection of distal clavicle Anesthesia: LMA Surgeon: Mayank Machado Pens And Pencils Repairer(s): SHAWNA Biswas PA-C The surgical procedure was assisted by my physician psychiatric assistant. My P.A. presence was necessary throughout this case for the manipulation and positioning of the surgical extremity. My P.A. was assisting me throughout the duration of this procedure. The skill set of a physician psychiatric assistant was medically necessary to complete this procedure. During the surgical case the surgical instrument repair specialist was working at the back table and the physician psychiatric assistant was directly assisting me. Operation and Findings: Madai was admitted to the hospital with complaints of right shoulder and clavicle pain. MRI revealed some infection of the sternal clavicular joint. Patient failed a course of nonoperative treatment with antibiotics. Informed as it was obtained as marked. She is brought to operating. She is given IV sedation and general anesthesia. The sternoclavicular region was prepped with alcohol Hibiclens and draped in usual sterile fashion. Timeout procedure was performed. Procedure began with a 3 inch incision over the right sternal clavicular joint. Subcutaneous tissue dissected with Bovie. The sternoclavicular joint was opened. There was purulent drainage present. Culture swabs were obtained from this fluid. Additional tissue cultures were obtained from the capsule of the joint which was also thickened and appeared to be infected. The joint was thoroughly irrigated. There did appear to be some abnormal bone around the distal clavicle. Using a Rounger the distal clavicle was debrided. Wound was now thoroughly irrigated. A drain was placed deep. Capsule was closed with 3- 0 PDS, subcutaneous tissues closed with 3-0 PDS, and skin was closed with tramaine. Dressings were applied. Patient was awakened and transferred to recovery in stable condition. Needle and Sponge counts were correct. Mayank Machado MD Sep 23, 2016 12:50
[2016-09-23] MEDS ORDERED: fentaNYL CITRATE 250 MCG/5 ML AMP ONE (13:13)
[2016-09-23] MEDS ORDERED: *morphine SULFATE 8 MG/ML PERIprocedure ONLY ONE (13:16)
[2016-09-23] MEDS: ACETAMINOPHEN/HYDROcodone 325 MG/10 MG TAB PO PRN ×2 (15:36→22:09)
[2016-09-23] MEDS: SENNOSIDES 8.6 MG TAB PO SCH (20:00)
[2016-09-23] MEDS: LISINOPRIL 20 MG TAB PO SCH (21:00)
[2016-09-23] MEDS ORDERED: SODIUM CHLORIDE 0.9% FLUSH 5 ML FLUSH IVF SCH (21:00)
[2016-09-23] MEDS: ABACAVIR SULFATE 300 MG TAB PO SCH (22:06)
[2016-09-23] MEDS: ATORVASTATIN 20 MG TAB PO SCH (22:07)
[2016-09-23] MEDS: RITONAVIR 100 MG TAB PO SCH (22:07)
[2016-09-23] MEDS: DARUNAVIR 800 MG TAB PO SCH (22:07)
--- NOTE | 2016-09-23 22:50 | HHI.IDPN ---
Subjective Subjective Remarks Delayed entry: pt was seen around 1800 Progress, event noted Pt initially was improving on empiric abx however got worse and cont to have relentless pain Aspiration clx neg @ 48 hrs S/p I+D today for D rMccall pt states dramatic improvement Op report reviewed: purulence was noted in sternoclavicular joint Also pt is having a fever up to 103 F in the last 24 hrs Antibiotics vancomycin HAART: epivir, prezista, abacavir Past Medical History HIV Allergies: Uncoded Allergies: ATRIPLA (Allergy, Severe, 07/27/16) Objective . Vital Signs Date Time Temp Pulse Resp B/P Pulse Ox O2 Delivery O2 Flow Rate FiO2 09/23/16 19:58 98.1 95 18 111/65 95 09/23/16 16:41 103.0 103 22 117/68 96 09/23/16 14:00 Nasal Cannula 2.00 09/23/16 13:40 98 16 110/58 94 Nasal Cannula 2 09/23/16 13:30 98 16 98/60 93 Nasal Cannula 2 09/23/16 13:15 99 16 109/66 91 Nasal Cannula 2 09/23/16 13:08 98.6 105 16 115/57 94 Nasal Cannula 2 09/23/16 11:52 100.5 100 18 103/57 93 09/23/16 08:15 Room Air 09/23/16 08:00 102.1 99 18 129/81 96 09/23/16 04:43 101.5 09/23/16 04:42 102.0 96 17 109/63 95 09/23/16 02:22 99.9 09/23/16 01:24 103.6 09/23/16 01:19 103.6 09/23/16 00:31 104.0 09/23/16 00:30 103.9 110 17 118/59 95 09/22/16 09/22/16 09/23/16 15:00 23:00 07:00 Intake Total 480 ml 240 ml Balance 480 ml 240 ml Intake Oral 480 ml 240 ml # Voids 2 2 2 # Bowel Movements 1 1 0 . Laboratory Tests Test 09/22/16 06:52 Creatinine 1.22 MG/DL Estimat Glomerular Filtration 48 ML/MIN Rate Microbiology Date/Time Procedure Status Source Growth 09/21/16 14:38 Gram Stain - Final Resulted Wound Other 09/21/16 14:38 Wound Culture - Preliminary Resulted Wound Other NO GROWTH IN 48 HOURS. 09/22/16 04:50 Aerobic Blood Culture - Preliminary Resulted Blood Peripheral NO GROWTH IN 1 DAY 09/22/16 04:50 Anaerobic Blood Culture - Preliminary Resulted Blood Peripheral NO GROWTH IN 1 DAY 09/22/16 04:56 Aerobic Blood Culture - Preliminary Resulted Blood Peripheral NO GROWTH IN 1 DAY 09/22/16 04:56 Anaerobic Blood Culture - Preliminary Resulted Blood Peripheral NO GROWTH IN 1 DAY 09/23/16 12:45 Gram Stain Received Wound Other Pending 09/23/16 12:45 Wound Culture Received Wound Other Pending 09/23/16 12:45 Acid Fast Stain Received Wound Other Pending 09/23/16 12:45 Mycobacterial Culture Received Wound Other Pending 09/23/16 12:45 Fungal Smear Received Wound Other Pending 09/23/16 12:45 Fungal Culture Received Wound Other Pending 09/23/16 12:45 Gram Stain Received Wound Other Pending 09/23/16 12:45 Wound Culture Received Wound Other Pending 09/23/16 12:45 Acid Fast Stain Received Wound Other Pending 09/23/16 12:45 Mycobacterial Culture Received Wound Other Pending 09/23/16 12:45 Fungal Smear Received Wound Other Pending 09/23/16 12:45 Fungal Culture Received Wound Other Pending Imaging Last Impressions Joint Aspiration/Injection 09/21/16 1103 Signed Impressions: Service Date/Time: Wednesday, September 21, 2016 14:21 - CONCLUSION: Uncomplicated aspiration as above. Hung Sheridan MD Chest X-Ray 09/21/16 0000 Signed Impressions: Service Date/Time: Wednesday, September 21, 2016 21:32 - CONCLUSION: No evidence of acute cardiopulmonary disease. Right upper chest wall anterior soft tissue swelling. Moises Miller MD Shoulder X-Ray 09/13/16 0000 Signed Impressions: Service Date/Time: Tuesday, September 13, 2016 02:06 - CONCLUSION: No acute disease. Moises Jackson MD Shoulder MRI 09/13/16 0000 Signed Impressions: Service Date/Time: Tuesday, September 13, 2016 07:27 - CONCLUSION: Extensive soft tissue edema and enhancement consistent with infection surrounding the region of the first costochondral margin and sternoclavicular joint. However, no evidence of discrete abscess and no abnormal enhancement of the marrow to suggest osteomyelitis. There is a small right-sided pleural effusion noted.. Jessica Bran MD Chest CT 09/13/16 0000 Signed Impressions: Service Date/Time: Tuesday, September 13, 2016 01:58 - CONCLUSION: 1. Thickening and anterior bulging of the medial aspect of the right pectoralis muscle likely from injury. There is also increased density around the first costochondral junction with some questionable fracturing at the medial first costochondral junction. 2. Minimal right effusion. Moises Jackson MD ADDENDUM: I have been told the patient potentially has inflammatory change in the right upper chest. The soft tissue density at the medial pectoralis muscle and around the first costochondral junction can also be postinflammatory. The increased density also is seen around the medial right clavicle. Involvement of the sternoclavicular joint could be present although the sternoclavicular joints appear relatively symmetric. Early involvement cannot be excluded. A focal fluid collection or abscess is not clearly seen on this examination. Also in reviewing the case the patient does appear to have some minimal loss of height at the superior aspect of T8 although acute fracturing is not seen. There is a Schmorl's node seen at this level. Moises Jackson MD Physical Exam CONSTITUTIONAL/GENERAL: This is an adequately nourished patient, in no apparent distress. TUBES/LINES/DRAINS: SKIN: No jaundice, rashes, or lesions. NECK: Trachea midline. Supple, nontender. No palpable thyroid enlargement or nodularity. CHEST: surg dressing in place over R chest CARDIOVASCULAR: Regular rate and rhythm without murmurs, gallops, or rubs. No JVD. Peripheral pulses symmetric. RESPIRATORY/CHEST: Symmetric, unlabored respirations. Clear to auscultation. Breath sounds equal bilaterally. No wheezes, rales, or rhonchi. GASTROINTESTINAL: Abdomen soft, non-tender, nondistended. No hepato-splenomegaly , or palpable masses. No guarding. Bowel sounds present. GENITOURINARY: Without palpable bladder distension. MUSCULOSKELETAL: Extremities without clubbing, cyanosis, or edema NEUROLOGICAL: Awake and alert. Motor and sensory grossly within normal limits. Follows commands. Normal speech. Moves all extremities. PSYCHIATRIC: No obvious anxiety/depression. no apparent hallucinations or other psychotic thought process. Assessment & Plan Remarks HIV dz Coag negative staph bacterm,ia - multiple strains, cw contaminant CULTURE GROWING STAPH SP COAGULASE NEGATIVE OTHER THAN S. EPIDERMIDIS AND S. LUGDUNENSIS- - negative 2 D echo R sternoclavicular septic joint infection in the settings of IVDU - sp I+D cont vancomycin cont HAART - fu op culture Jodi Colmenares MD Sep 23, 2016 22:50
[2016-09-24] VITALS: BP 150/67; PULSE 86; RESP 19; TEMP 98.6; O2SAT 97
[2016-09-24] MEDS: ONDANSETRON HCL 4 MG/2 ML VIAL IVP PRN (00:09)
[2016-09-24] MEDS: VANCOMYCIN 1,000 MG/NS 250 ML IV SCH ×4 (01:56→14:19)
[2016-09-24 04:00] VITALS: BP 132/68; PULSE 96; RESP 19; TEMP 101.2; O2SAT 93
[2016-09-24] MEDS: ACETAMINOPHEN 325 MG TAB PO PRN ×2 (06:09→23:47)
--- NOTE | 2016-09-24 06:31 | PD.ORT.PN ---
Subjective Subjective Remarks POD 1 s/p I&D right SC joint doign well. pain improving. reports pain meds making her nauseaous Objective Vitals Vital Signs Date Time Temp Pulse Resp B/P Pulse Ox O2 Delivery O2 Flow Rate FiO2 09/24/16 04:00 101.2 96 19 132/68 93 09/24/16 00:00 98.6 86 19 150/67 97 09/23/16 19:58 98.1 95 18 111/65 95 09/23/16 16:41 103.0 103 22 117/68 96 09/23/16 14:00 Nasal Cannula 2.00 09/23/16 13:40 98 16 110/58 94 Nasal Cannula 2 09/23/16 13:30 98 16 98/60 93 Nasal Cannula 2 09/23/16 13:15 99 16 109/66 91 Nasal Cannula 2 09/23/16 13:08 98.6 105 16 115/57 94 Nasal Cannula 2 09/23/16 11:52 100.5 100 18 103/57 93 09/23/16 08:15 Room Air 09/23/16 08:00 102.1 99 18 129/81 96 I/O 09/23/16 09/23/16 09/23/16 09/24/16 09/24/16 09/24/16 07:00 15:00 23:00 07:00 15:00 23:00 Intake Total 350 ml 240 ml 600 ml Output Total 20 ml 0 ml 0 ml Balance 330 ml 240 ml 600 ml Intake Oral 240 ml 600 ml IV Total 150 ml Other 200 ml Drainage Total 0 ml 0 ml 0 ml Estimated Blood Loss 20 ml # Voids 2 4 1 3 # Bowel Movements 0 1 0 2 Result Diagram: 09/21/16 1210 09/22/16 0652 Imaging Last 72 hours Impressions Shoulder X-Ray 09/13/16 0000 Signed Impressions: Service Date/Time: Tuesday, September 13, 2016 02:06 - CONCLUSION: No acute disease. Moises Jackson MD Shoulder MRI 09/13/16 0000 Signed Impressions: Service Date/Time: Tuesday, September 13, 2016 07:27 - CONCLUSION: Extensive soft tissue edema and enhancement consistent with infection surrounding the region of the first costochondral margin and sternoclavicular joint. However, no evidence of discrete abscess and no abnormal enhancement of the marrow to suggest osteomyelitis. There is a small right-sided pleural effusion noted.. Jessica Bran MD Chest CT 09/13/16 0000 Signed Impressions: Service Date/Time: Tuesday, September 13, 2016 01:58 - CONCLUSION: 1. Thickening and anterior bulging of the medial aspect of the right pectoralis muscle likely from injury. There is also increased density around the first costochondral junction with some questionable fracturing at the medial first costochondral junction. 2. Minimal right effusion. Moises Jackson MD ADDENDUM: I have been told the patient potentially has inflammatory change in the right upper chest. The soft tissue density at the medial pectoralis muscle and around the first costochondral junction can also be postinflammatory. The increased density also is seen around the medial right clavicle. Involvement of the sternoclavicular joint could be present although the sternoclavicular joints appear relatively symmetric. Early involvement cannot be excluded. A focal fluid collection or abscess is not clearly seen on this examination. Also in reviewing the case the patient does appear to have some minimal loss of height at the superior aspect of T8 although acute fracturing is not seen. There is a Schmorl's node seen at this level. Moises Jackson MD Objective Remarks RUE: dressings clean and dry. +drain. Assessment & Plan Assessment and Plan 1) Right SC joint infection s/p I&d and clavicle resection - POD 1 -WBAT -PT for motion -maintain drain x 3 days -monitor cultures -dressing changes POD 2 Ruddy Gonzalez Sep 24, 2016 06:31
[2016-09-24 07:35] VITALS: BP 107/57; PULSE 85; RESP 17; TEMP 96.4; O2SAT 94
[2016-09-24] MEDS: LACTOBACILLUS ACIDOPHILUS TAB PO SCH ×3 (08:04→16:49)
[2016-09-24] MEDS: GABAPENTIN 300 MG CAP PO SCH ×2 (08:04→20:49)
[2016-09-24] MEDS: cloNIDine HCL 0.1 MG TAB PO SCH ×2 (08:05→20:49)
[2016-09-24] MEDS: SODIUM CHLORIDE 0.9% FLUSH 10 ML FLUSH IV FLUSH SCH ×2 (08:06→20:50)
--- NOTE | 2016-09-24 10:08 | HHI.PR ---
Subjective Remarks follow up right shoulder injury/infection 09/13/16-patient seen and examined; still complain of right shoulder pain. Afebrile. MRI shoulder report pending 09/14/16-patient seen and examined; +severe rigth shoulder pain. + 3#4 blood culture. Afebrile 09/15/16-patient seen and examined; still complains of right shoulder pain. Afebrile. 09/16/16-patient seen and examined; afebrile,she was up and ambulated with physical therapy. Patient still complains of right shoulder pain 09/17/16-patient seen and examined; states that Toradol works best for her. Able to move more her right shoulder 09/18/16-patient seen and examined, had multiple episodes of loose stool overnight however results in this morning. Currently afebrile. Able to move more right shoulder 09/19/16-patient seen and examined, complains of chills and multiple episodes diarrhea 09/20/16-patient seen and examined, still with multiple episode of diarrhea. Currently afebrile however patient is complaining of feeling chills and sweaty 09/21/16-patient seen and examined, afebrile. Diarrheal episode improved. Patient able to move more right upper arm 09/22/16-patient seen and examined, continue to complain of right shoulder pain. She had aspiration of sternoclavicular joints yesterday 09/21/16. MAXIMUM TEMPERATURE 102.2 at 4 PM however currently afebrile. 09/23/16-patient seen and examined, spiking fevers. Currently nothing by mouth pending right shoulder joint possible debridement and irrigation 09/24/16-patient seen and examined, reports significant improvement of right shoulder pain since the surgery yesterday. Although She is currently afebrile, patient continued to spike fevers Objective Vitals Vital Signs Date Time Temp Pulse Resp B/P Pulse Ox O2 Delivery O2 Flow Rate FiO2 09/24/16 07:35 96.4 85 17 107/57 94 09/24/16 04:00 101.2 96 19 132/68 93 09/24/16 00:00 98.6 86 19 150/67 97 09/23/16 19:58 98.1 95 18 111/65 95 09/23/16 16:41 103.0 103 22 117/68 96 09/23/16 14:00 Nasal Cannula 2.00 09/23/16 13:40 98 16 110/58 94 Nasal Cannula 2 09/23/16 13:30 98 16 98/60 93 Nasal Cannula 2 09/23/16 13:15 99 16 109/66 91 Nasal Cannula 2 09/23/16 13:08 98.6 105 16 115/57 94 Nasal Cannula 2 09/23/16 11:52 100.5 100 18 103/57 93 I/O 09/23/16 09/23/16 09/23/16 09/24/16 09/24/16 09/24/16 07:00 15:00 23:00 07:00 15:00 23:00 Intake Total 350 ml 240 ml 600 ml Output Total 20 ml 0 ml 0 ml Balance 330 ml 240 ml 600 ml Intake Oral 240 ml 600 ml IV Total 150 ml Other 200 ml Drainage Total 0 ml 0 ml 0 ml Estimated Blood Loss 20 ml # Voids 2 4 1 3 # Bowel Movements 0 1 0 2 Result Diagram: 09/21/16 1210 09/24/16 0547 Objective Remarks GENERAL: NAD SKIN: Warm and dry. HEAD: Normocephalic. EYES: No scleral icterus. No injection or drainage. NECK: Supple, trachea midline. No JVD or lymphadenopathy. CARDIOVASCULAR: Regular rate and rhythm without murmurs, gallops, or rubs. RESPIRATORY: Breath sounds equal bilaterally. No accessory muscle use. GASTROINTESTINAL: Abdomen soft, non-tender, nondistended. MUSCULOSKELETAL: No cyanosis, or edema. Increase ROM Right shoulder BACK: Nontender without obvious deformity. No CVA tenderness. Procedures Irrigation debridement of right sternoclavicular joint with partial resection of distal clavicle 09/23/16 A/P Problem List: (1) Rotator cuff injury ICD Code: S46.009A Status: Acute (2) Costochondral joint sprain ICD Code: S23.41XA Status: Acute (3) Pectoralis muscle strain ICD Code: S29.011A Status: Acute (4) Hypokalemia ICD Code: E87.6 Status: Resolved (5) HIV (human immunodeficiency virus infection) ICD Code: Z21 Status: Chronic (6) IVDU (intravenous drug user) ICD Code: F19.90 Status: Chronic (7) Bacteremia due to Gram-positive bacteria ICD Code: A49.9 Status: Acute (8) Diarrhea ICD Code: R19.7 Status: Resolved Assessment and Plan 40 years old female with 1. Bacteremia-gram negative: Currently on Vancomycin and s/p Cefepime. Appreciate input from Infectious Disease specialist and repeat Blood culture NTD 2 day. 2D echo r/o endocarditis. Status post aspiration sternoclavicular joints 09/21/16 2. Right Rotator Cuff Injury: Shoulder X-ray w/ no acute findings. MRI shoulder noted without any abscess. Patient is now status post Irrigation debridement of right sternoclavicular joint with partial resection of distal clavicle 09/23/16; continue with Analgesics/antiemetics. 3. Costochondral Joint Sprain/Infection: CT Chest w/ increased density around first costochondral junction with questionable fracturing at medial first costochondral junction. continue w/ IV vancomycin and repeat culture negative to date 6 days. Shoulder MRI noted without any abscess and patient is status post aspiration sternoclavicular joints 09/21/16 pending report. Appreciate input from orthopedic surgery as well as infectious disease specialist. Patient is now status post Irrigation debridement of right sternoclavicular joint with partial resection of distal clavicle 09/23/16 pending wound culture report 4. Pectoralis Muscle Strain/Injury: Improving with Analgesics/antiemetics. Patient is now status post Irrigation debridement of right sternoclavicular joint with partial resection of distal clavicle 09/23/16 5. Hypokalemia: Resolved. 6. HIV: CD4 1092 on 11/20/14, continue HAART 7. IVDU: w/ Dilaudid, last use 07/15/16. UDS noted. 2-D echo ruled out endocarditis 8. DVT Prophylaxis: SCD/Teds. 9. Diarrhea: C. difficile PCR negative. Resolved Gigi Meléndez MD Sep 24, 2016 10:08
[2016-09-24 11:35] VITALS: BP 98/58; PULSE 76; RESP 17; TEMP 98.3; O2SAT 94
[2016-09-24 15:24] VITALS: BP 137/60; PULSE 79; RESP 17; TEMP 98.7; O2SAT 93
[2016-09-24] MEDS: LEVOFLOXACIN 750 MG TAB PO SCH (16:48)
[2016-09-24] MEDS: CEFEPIME INJ 2,000 MG in SODIUM CHLORIDE 0.9% INJ 100 ML IV SCH ×2 (19:42→23:47)
[2016-09-24 20:40] VITALS: BP 122/71; PULSE 84; RESP 17; TEMP 99.5; O2SAT 95
[2016-09-24] MEDS: ABACAVIR SULFATE 300 MG TAB PO SCH (20:48)
[2016-09-24] MEDS: SENNOSIDES 8.6 MG TAB PO SCH (20:49)
[2016-09-24] MEDS: LISINOPRIL 20 MG TAB PO SCH (20:49)
[2016-09-24] MEDS: ATORVASTATIN 20 MG TAB PO SCH (20:49)
[2016-09-24] MEDS: DARUNAVIR 800 MG TAB PO SCH (20:49)
[2016-09-24] MEDS: RITONAVIR 100 MG TAB PO SCH (20:49)
--- NOTE | 2016-09-24 23:02 | HHI.IDPN ---
Subjective Subjective Remarks Delayed entry: pt was seen today around 1500 better fever improved less chest pain clx growing Pseudomonas Antibiotics vancomycin HAART: epivir, prezista, abacavir Past Medical History HIV Allergies: Uncoded Allergies: ATRIPLA (Allergy, Severe, 07/27/16) Objective . Vital Signs Date Time Temp Pulse Resp B/P Pulse Ox O2 Delivery O2 Flow Rate FiO2 09/24/16 20:40 99.5 84 17 122/71 95 09/24/16 17:47 18 09/24/16 15:24 98.7 79 17 137/60 93 09/24/16 11:35 98.3 76 17 98/58 94 09/24/16 09:05 18 09/24/16 07:35 96.4 85 17 107/57 94 09/24/16 04:00 101.2 96 19 132/68 93 09/24/16 00:00 98.6 86 19 150/67 97 09/23/16 09/23/16 09/24/16 15:00 23:00 07:00 Intake Total 350 ml 240 ml 600 ml Output Total 20 ml 0 ml 0 ml Balance 330 ml 240 ml 600 ml Intake Oral 240 ml 600 ml IV Total 150 ml Other 200 ml Drainage Total 0 ml 0 ml 0 ml Estimated Blood Loss 20 ml # Voids 4 1 3 # Bowel Movements 1 0 2 . Laboratory Tests Test 09/24/16 05:47 Creatinine 0.96 MG/DL Estimat Glomerular Filtration 63 ML/MIN Rate Microbiology Date/Time Procedure Status Source Growth 09/22/16 04:50 Aerobic Blood Culture - Preliminary Resulted Blood Peripheral NO GROWTH IN 2 DAYS 09/22/16 04:50 Anaerobic Blood Culture - Preliminary Resulted Blood Peripheral NO GROWTH IN 2 DAYS 09/22/16 04:56 Aerobic Blood Culture - Preliminary Resulted Blood Peripheral NO GROWTH IN 2 DAYS 09/22/16 04:56 Anaerobic Blood Culture - Preliminary Resulted Blood Peripheral NO GROWTH IN 2 DAYS 09/23/16 12:45 Gram Stain - Final Resulted Wound Other 09/23/16 12:45 Wound Culture - Preliminary Resulted Pseudomonas Species 09/23/16 12:45 Acid Fast Stain - Final Resulted Wound Other NO ACID FAST BACILLI SEEN 09/23/16 12:45 Mycobacterial Culture Resulted Wound Other Pending 09/23/16 12:45 Fungal Smear - Final Resulted Wound Other NO FUNGAL ELEMENTS SEEN. 09/23/16 12:45 Fungal Culture Resulted Wound Other Pending 09/23/16 12:45 Gram Stain - Final Resulted Wound Other 09/23/16 12:45 Wound Culture - Preliminary Resulted Pseudomonas Species 09/23/16 12:45 Acid Fast Stain - Final Resulted Wound Other NO ACID FAST BACILLI SEEN 09/23/16 12:45 Mycobacterial Culture Resulted Wound Other Pending 09/23/16 12:45 Fungal Smear - Final Resulted Wound Other NO FUNGAL ELEMENTS SEEN. 09/23/16 12:45 Fungal Culture Resulted Wound Other Pending Imaging Last Impressions Joint Aspiration/Injection 09/21/16 1103 Signed Impressions: Service Date/Time: Wednesday, September 21, 2016 14:21 - CONCLUSION: Uncomplicated aspiration as above. Hung Sheridan MD Chest X-Ray 09/21/16 0000 Signed Impressions: Service Date/Time: Wednesday, September 21, 2016 21:32 - CONCLUSION: No evidence of acute cardiopulmonary disease. Right upper chest wall anterior soft tissue swelling. Moises Miller MD Shoulder X-Ray 09/13/16 0000 Signed Impressions: Service Date/Time: Tuesday, September 13, 2016 02:06 - CONCLUSION: No acute disease. Moises Jackson MD Shoulder MRI 09/13/16 0000 Signed Impressions: Service Date/Time: Tuesday, September 13, 2016 07:27 - CONCLUSION: Extensive soft tissue edema and enhancement consistent with infection surrounding the region of the first costochondral margin and sternoclavicular joint. However, no evidence of discrete abscess and no abnormal enhancement of the marrow to suggest osteomyelitis. There is a small right-sided pleural effusion noted.. Jessica Bran MD Chest CT 09/13/16 0000 Signed Impressions: Service Date/Time: Tuesday, September 13, 2016 01:58 - CONCLUSION: 1. Thickening and anterior bulging of the medial aspect of the right pectoralis muscle likely from injury. There is also increased density around the first costochondral junction with some questionable fracturing at the medial first costochondral junction. 2. Minimal right effusion. Moises Jackson MD ADDENDUM: I have been told the patient potentially has inflammatory change in the right upper chest. The soft tissue density at the medial pectoralis muscle and around the first costochondral junction can also be postinflammatory. The increased density also is seen around the medial right clavicle. Involvement of the sternoclavicular joint could be present although the sternoclavicular joints appear relatively symmetric. Early involvement cannot be excluded. A focal fluid collection or abscess is not clearly seen on this examination. Also in reviewing the case the patient does appear to have some minimal loss of height at the superior aspect of T8 although acute fracturing is not seen. There is a Schmorl's node seen at this level. Moises Jackson MD Physical Exam CONSTITUTIONAL/GENERAL: This is an adequately nourished patient, in no apparent distress. TUBES/LINES/DRAINS: SKIN: No jaundice, rashes, or lesions. CHEST: surg dressing in place over R chest CARDIOVASCULAR: Regular rate and rhythm without murmurs, gallops, or rubs. No JVD. Peripheral pulses symmetric. RESPIRATORY/CHEST: Symmetric, unlabored respirations. Clear to auscultation. Breath sounds equal bilaterally. No wheezes, rales, or rhonchi. GASTROINTESTINAL: Abdomen soft, non-tender, nondistended. No hepato-splenomegaly , or palpable masses. No guarding. Bowel sounds present. MUSCULOSKELETAL: Extremities without clubbing, cyanosis, or edema NEUROLOGICAL: Awake and alert. Motor and sensory grossly within normal limits. Follows commands. Normal speech. Moves all extremities. PSYCHIATRIC: No obvious anxiety/depression. no apparent hallucinations or other psychotic thought process. Assessment & Plan Remarks HIV dz, on therapy Coag negative staph bacterm,ia - multiple strains, cw contaminant CULTURE GROWING STAPH SP COAGULASE NEGATIVE OTHER THAN S. EPIDERMIDIS AND S. LUGDUNENSIS- - negative 2 D echo R sternoclavicular septic joint infection in the settings of IVDU, PSAE - sp I+D dc vancomycin - start cefepime, levaquine cont HAART Jodi Colmenares MD Sep 24, 2016 23:02
[2016-09-24] MEDS: SODIUM CHLOR 0.9% 1000 ML INJ 1,000 ML IV SCH (23:48)
[2016-09-25 00:40] VITALS: BP 101/50; PULSE 82; RESP 17; TEMP 102.2; O2SAT 95
[2016-09-25 04:25] VITALS: BP 105/63; PULSE 77; RESP 17; TEMP 98.8; O2SAT 96
--- NOTE | 2016-09-25 06:34 | PD.ORT.PN ---
Subjective Subjective Remarks POD 2 s/p I&D right SC joint doing well. pain improving. out of bed to bathroom Objective Vitals Vital Signs Date Time Temp Pulse Resp B/P Pulse Ox O2 Delivery O2 Flow Rate FiO2 09/25/16 04:25 98.8 77 17 105/63 96 09/25/16 00:40 102.2 82 17 101/50 95 09/24/16 20:40 99.5 84 17 122/71 95 09/24/16 20:00 95 Room Air 09/24/16 17:47 18 09/24/16 15:24 98.7 79 17 137/60 93 09/24/16 11:35 98.3 76 17 98/58 94 09/24/16 09:05 18 09/24/16 07:35 96.4 85 17 107/57 94 I/O 09/24/16 09/24/16 09/24/16 09/25/16 09/25/16 09/25/16 07:00 15:00 23:00 07:00 15:00 23:00 Intake Total 600 ml 220 ml 372 ml Output Total 0 ml 0 ml Balance 600 ml 220 ml 372 ml Intake Oral 600 ml 220 ml 240 ml IV Total 132 ml Drainage Total 0 ml 0 ml # Voids 3 3 2 # Bowel Movements 2 1 0 Result Diagram: 09/21/16 1210 09/24/16 0547 Imaging Last 72 hours Impressions Shoulder X-Ray 09/13/16 0000 Signed Impressions: Service Date/Time: Tuesday, September 13, 2016 02:06 - CONCLUSION: No acute disease. Moises Jackson MD Shoulder MRI 09/13/16 0000 Signed Impressions: Service Date/Time: Tuesday, September 13, 2016 07:27 - CONCLUSION: Extensive soft tissue edema and enhancement consistent with infection surrounding the region of the first costochondral margin and sternoclavicular joint. However, no evidence of discrete abscess and no abnormal enhancement of the marrow to suggest osteomyelitis. There is a small right-sided pleural effusion noted.. Jessica Bran MD Chest CT 09/13/16 0000 Signed Impressions: Service Date/Time: Tuesday, September 13, 2016 01:58 - CONCLUSION: 1. Thickening and anterior bulging of the medial aspect of the right pectoralis muscle likely from injury. There is also increased density around the first costochondral junction with some questionable fracturing at the medial first costochondral junction. 2. Minimal right effusion. Moises Jackson MD ADDENDUM: I have been told the patient potentially has inflammatory change in the right upper chest. The soft tissue density at the medial pectoralis muscle and around the first costochondral junction can also be postinflammatory. The increased density also is seen around the medial right clavicle. Involvement of the sternoclavicular joint could be present although the sternoclavicular joints appear relatively symmetric. Early involvement cannot be excluded. A focal fluid collection or abscess is not clearly seen on this examination. Also in reviewing the case the patient does appear to have some minimal loss of height at the superior aspect of T8 although acute fracturing is not seen. There is a Schmorl's node seen at this level. Moises Jackson MD Objective Remarks RUE: dressings clean and dry. +drain. Assessment & Plan Assessment and Plan 1) Right SC joint infection s/p I&d and clavicle resection - POD 2 -WBAT -PT for motion -maintain drain x 3 days; plan for DC of drain tomorrow -monitor cultures -dressing changes POD 2 Ruddy Gonzalez Sep 25, 2016 06:34
[2016-09-25 07:30] VITALS: BP 102/57; PULSE 75; RESP 17; TEMP 97.9; O2SAT 93
[2016-09-25] MEDS: cloNIDine HCL 0.1 MG TAB PO SCH ×2 (09:00→21:00)
[2016-09-25] MEDS: SODIUM CHLORIDE 0.9% FLUSH 10 ML FLUSH IV FLUSH SCH ×2 (09:00→21:00)
[2016-09-25] MEDS: CEFEPIME INJ 2,000 MG in SODIUM CHLORIDE 0.9% INJ 100 ML IV SCH ×3 (09:00→23:58)
[2016-09-25] MEDS: GABAPENTIN 300 MG CAP PO SCH ×2 (09:00→21:13)
[2016-09-25] MEDS: LACTOBACILLUS ACIDOPHILUS TAB PO SCH ×3 (09:00→17:23)
--- NOTE | 2016-09-25 09:26 | HHI.PR ---
Subjective Remarks follow up right shoulder injury/infection 09/13/16-patient seen and examined; still complain of right shoulder pain. Afebrile. MRI shoulder report pending 09/14/16-patient seen and examined; +severe rigth shoulder pain. + 3#4 blood culture. Afebrile 09/15/16-patient seen and examined; still complains of right shoulder pain. Afebrile. 09/16/16-patient seen and examined; afebrile,she was up and ambulated with physical therapy. Patient still complains of right shoulder pain 09/17/16-patient seen and examined; states that Toradol works best for her. Able to move more her right shoulder 09/18/16-patient seen and examined, had multiple episodes of loose stool overnight however results in this morning. Currently afebrile. Able to move more right shoulder 09/19/16-patient seen and examined, complains of chills and multiple episodes diarrhea 09/20/16-patient seen and examined, still with multiple episode of diarrhea. Currently afebrile however patient is complaining of feeling chills and sweaty 09/21/16-patient seen and examined, afebrile. Diarrheal episode improved. Patient able to move more right upper arm 09/22/16-patient seen and examined, continue to complain of right shoulder pain. She had aspiration of sternoclavicular joints yesterday 09/21/16. MAXIMUM TEMPERATURE 102.2 at 4 PM however currently afebrile. 09/23/16-patient seen and examined, spiking fevers. Currently nothing by mouth pending right shoulder joint possible debridement and irrigation 09/24/16-patient seen and examined, reports significant improvement of right shoulder pain since the surgery yesterday. Although She is currently afebrile, patient continued to spike fevers 09/25/16-patient seen and examined; Tmax 102.2 @00:40AM however currently afebrile. Patient states she's not feeling well and complains of soreness to her right shoulder. She complains of total body achiness Objective Vitals Vital Signs Date Time Temp Pulse Resp B/P Pulse Ox O2 Delivery O2 Flow Rate FiO2 09/25/16 07:30 97.9 75 17 102/57 93 09/25/16 04:25 98.8 77 17 105/63 96 09/25/16 00:40 102.2 82 17 101/50 95 09/24/16 20:40 99.5 84 17 122/71 95 09/24/16 20:00 95 Room Air 09/24/16 17:47 18 09/24/16 15:24 98.7 79 17 137/60 93 09/24/16 11:35 98.3 76 17 98/58 94 I/O 09/24/16 09/24/16 09/24/16 09/25/16 09/25/16 09/25/16 07:00 15:00 23:00 07:00 15:00 23:00 Intake Total 600 ml 220 ml 372 ml 376 ml Output Total 0 ml 0 ml 0 ml Balance 600 ml 220 ml 372 ml 376 ml Intake Oral 600 ml 220 ml 240 ml 120 ml IV Total 132 ml 256 ml Drainage Total 0 ml 0 ml 0 ml # Voids 3 3 2 1 # Bowel Movements 2 1 0 1 Result Diagram: 09/21/16 1210 09/24/16 0547 Imaging Last Impressions Joint Aspiration/Injection 09/21/16 1103 Signed Impressions: Service Date/Time: Wednesday, September 21, 2016 14:21 - CONCLUSION: Uncomplicated aspiration as above. Hung hSeridan MD Chest X-Ray 09/21/16 0000 Signed Impressions: Service Date/Time: Wednesday, September 21, 2016 21:32 - CONCLUSION: No evidence of acute cardiopulmonary disease. Right upper chest wall anterior soft tissue swelling. Moises Miller MD Shoulder X-Ray 09/13/16 0000 Signed Impressions: Service Date/Time: Tuesday, September 13, 2016 02:06 - CONCLUSION: No acute disease. Moises Jackson MD Shoulder MRI 09/13/16 0000 Signed Impressions: Service Date/Time: Tuesday, September 13, 2016 07:27 - CONCLUSION: Extensive soft tissue edema and enhancement consistent with infection surrounding the region of the first costochondral margin and sternoclavicular joint. However, no evidence of discrete abscess and no abnormal enhancement of the marrow to suggest osteomyelitis. There is a small right-sided pleural effusion noted.. Jessica Bran MD Chest CT 09/13/16 0000 Signed Impressions: Service Date/Time: Tuesday, September 13, 2016 01:58 - CONCLUSION: 1. Thickening and anterior bulging of the medial aspect of the right pectoralis muscle likely from injury. There is also increased density around the first costochondral junction with some questionable fracturing at the medial first costochondral junction. 2. Minimal right effusion. Moises Jackson MD ADDENDUM: I have been told the patient potentially has inflammatory change in the right upper chest. The soft tissue density at the medial pectoralis muscle and around the first costochondral junction can also be postinflammatory. The increased density also is seen around the medial right clavicle. Involvement of the sternoclavicular joint could be present although the sternoclavicular joints appear relatively symmetric. Early involvement cannot be excluded. A focal fluid collection or abscess is not clearly seen on this examination. Also in reviewing the case the patient does appear to have some minimal loss of height at the superior aspect of T8 although acute fracturing is not seen. There is a Schmorl's node seen at this level. Moises Jackson MD Objective Remarks GENERAL: NAD SKIN: Warm and dry. HEAD: Normocephalic. EYES: No scleral icterus. No injection or drainage. NECK: Supple, trachea midline. No JVD or lymphadenopathy. CARDIOVASCULAR: Regular rate and rhythm without murmurs, gallops, or rubs. RESPIRATORY: Breath sounds equal bilaterally. No accessory muscle use. GASTROINTESTINAL: Abdomen soft, non-tender, nondistended. MUSCULOSKELETAL: No cyanosis, or edema. dressing over right shoulder with drain in place. Limited ROM and tender TP BACK: Nontender without obvious deformity. No CVA tenderness. Procedures Irrigation debridement of right sternoclavicular joint with partial resection of distal clavicle 09/23/16 A/P Problem List: (1) Rotator cuff injury ICD Code: S46.009A Status: Acute (2) Costochondral joint sprain ICD Code: S23.41XA Status: Acute (3) Pectoralis muscle strain ICD Code: S29.011A Status: Acute (4) Hypokalemia ICD Code: E87.6 Status: Resolved (5) HIV (human immunodeficiency virus infection) ICD Code: Z21 Status: Chronic (6) IVDU (intravenous drug user) ICD Code: F19.90 Status: Chronic (7) Bacteremia due to Gram-positive bacteria ICD Code: A49.9 Status: Acute (8) Diarrhea ICD Code: R19.7 Status: Resolved (9) Pseudomonas infection ICD Code: B96.5 Status: Acute Assessment and Plan 40 years old female with 1. Bacteremia-gram negative: Currently on Cefepime IV and Levaquin by mouth. Appreciate input from Infectious Disease specialist and repeat Blood culture NTD 3 days however wound culture positive for Pseudomonas. 2D echo r/o endocarditis. Status post aspiration sternoclavicular joints 09/21/16 2. Right Rotator Cuff Injury: Initial MRI shoulder noted without any abscess. Patient is now status post Irrigation debridement of right sternoclavicular joint with partial resection of distal clavicle 09/23/16 with wound culture positive for Pseudomonas; continue with Analgesics/antiemetics. 3. Costochondral Joint Sprain/Infection/Pseudomonas wound infection: Initial Shoulder MRI noted without any abscess and patient is status post aspiration sternoclavicular joints 09/21/16 with wound culture positive for Pseudomonas. Appreciate input from orthopedic surgery as well as infectious disease specialist. Patient is now status post Irrigation debridement of right sternoclavicular joint with partial resection of distal clavicle 09/23/16 with wound culture positive for Pseudomonas. Continue with cefepime 2 g IV every 8 and Levaquin 750 mg daily per infectious disease specialist 4. Pectoralis Muscle Strain/Injury: Improving with Analgesics/antiemetics. Patient is now status post Irrigation debridement of right sternoclavicular joint with partial resection of distal clavicle 09/23/16 5. Hypokalemia: Resolved. 6. HIV: CD4 1092 on 11/20/14, continue HAART 7. IVDU: w/ Dilaudid, last use 07/15/16. UDS noted. 2-D echo ruled out endocarditis 8. DVT Prophylaxis: SCD/Teds. 9. Diarrhea: C. difficile PCR negative. Resolved Gigi Meléndez MD Sep 25, 2016 09:26
[2016-09-25 11:21] VITALS: BP 94/54; PULSE 71; RESP 17; TEMP 98.5; O2SAT 92
[2016-09-25] MEDS ORDERED: PHARMACY ORDERED LAB ONE (12:45)
[2016-09-25 15:19] VITALS: BP 95/54; PULSE 67; RESP 17; TEMP 99.4; O2SAT 95
[2016-09-25] MEDS: SODIUM CHLOR 0.9% 1000 ML INJ 1,000 ML IV SCH (15:33)
[2016-09-25] MEDS: LEVOFLOXACIN 750 MG TAB PO SCH (17:22)
[2016-09-25] MEDS: LISINOPRIL 20 MG TAB PO SCH (21:00)
[2016-09-25] MEDS: ABACAVIR SULFATE 300 MG TAB PO SCH (21:12)
[2016-09-25] MEDS: RITONAVIR 100 MG TAB PO SCH (21:12)
[2016-09-25] MEDS: ATORVASTATIN 20 MG TAB PO SCH (21:13)
[2016-09-25] MEDS: DARUNAVIR 800 MG TAB PO SCH (21:13)
[2016-09-25] MEDS: SENNOSIDES 8.6 MG TAB PO SCH (21:13)
[2016-09-25 22:09] VITALS: BP 102/58; PULSE 55; RESP 16; TEMP 96.6; O2SAT 97
[2016-09-26] VITALS: BP 96/51; PULSE 64; RESP 18; TEMP 98.8; O2SAT 94
[2016-09-26] MEDS: RESP: ALBUTEROL 2.5 MG/IPRATROPIUM 0.5 MG NEB (PRN) NEB (00:14)
[2016-09-26 00:15] VITALS: O2SAT 92
[2016-09-26] MEDS: SODIUM CHLOR 0.9% 1000 ML INJ 1,000 ML IV SCH (05:51)
[2016-09-26 06:00] LABS: AUTOMATED NEUTROPHIL # 1.4 TH/MM3 (1.8-7.7); BASOPHIL % 0.5 % (0.0-2.0); EOSINOPHIL % 1.3 % (0.0-4.0); HEMATOCRIT 27.7 % (35.0-46.0); HEMO FLAGS DIFF FINAL; LYMPH % 42.9 % (9.0-44.0); LYMPHOCYTE # 1.5 TH/MM3 (1.0-4.8); MEAN CELL VOLUME 82.8 FL (80.0-100.0); MEAN CORPUSCULAR HEMOGLOBIN 26.6 PG (27.0-34.0); MEAN CORPUSCULAR HGB CONC 32.1 % (32.0-36.0); MONO % 14.2 % (0.0-8.0); NEUT % 41.1 % (16.0-70.0); PLATELET COUNT 431 TH/MM3 (150-450); RED BLOOD COUNT 3.34 MIL/MM3 (4.00-5.30); RED CELL DISTRIBUTION WIDTH 15.4 % (11.6-17.2); WHITE BLOOD COUNT 3.4 TH/MM3 (4.0-11.0)
[2016-09-26 06:14] LABS: BICARBONATE 21.3 MEQ/L (21.0-32.0); POTASSIUM 3.6 MEQ/L (3.5-5.1)
--- NOTE | 2016-09-26 07:23 | HHI.PR ---
Subjective Remarks Follow up for right shoulder injury/infection. 09/13/16-patient seen and examined; still complain of right shoulder pain. Afebrile. MRI shoulder report pending 09/14/16-patient seen and examined; +severe rigth shoulder pain. + 3#4 blood culture. Afebrile 09/15/16-patient seen and examined; still complains of right shoulder pain. Afebrile. 09/16/16-patient seen and examined; afebrile,she was up and ambulated with physical therapy. Patient still complains of right shoulder pain 09/17/16-patient seen and examined; states that Toradol works best for her. Able to move more her right shoulder 09/18/16-patient seen and examined, had multiple episodes of loose stool overnight however results in this morning. Currently afebrile. Able to move more right shoulder 09/19/16-patient seen and examined, complains of chills and multiple episodes diarrhea 09/20/16-patient seen and examined, still with multiple episode of diarrhea. Currently afebrile however patient is complaining of feeling chills and sweaty 09/21/16-patient seen and examined, afebrile. Diarrheal episode improved. Patient able to move more right upper arm 09/22/16-patient seen and examined, continue to complain of right shoulder pain. She had aspiration of sternoclavicular joints yesterday 09/21/16. MAXIMUM TEMPERATURE 102.2 at 4 PM however currently afebrile. 09/23/16-patient seen and examined, spiking fevers. Currently nothing by mouth pending right shoulder joint possible debridement and irrigation 09/24/16-patient seen and examined, reports significant improvement of right shoulder pain since the surgery yesterday. Although She is currently afebrile, patient continued to spike fevers 09/25/16-patient seen and examined; Tmax 102.2 @00:40AM however currently afebrile. Patient states she's not feeling well and complains of soreness to her right shoulder. She complains of total body achiness 09/26/16-patient seen and examined, AFVSS. Last fever at 00:40 AM on 09/25. C/o continued soreness in the right shoulder this AM. Well controlled with pain medication. Otherwise feeling well. Ambulating. Denies any CP/SOB. Objective Vitals Vital Signs Date Time Temp Pulse Resp B/P Pulse Ox O2 Delivery O2 Flow Rate FiO2 09/26/16 00:15 92 21 09/26/16 00:00 98.8 64 18 96/51 94 09/25/16 22:09 96.6 55 16 102/58 97 09/25/16 20:00 97 Room Air 09/25/16 18:52 18 09/25/16 15:19 99.4 67 17 95/54 95 09/25/16 11:21 98.5 71 17 94/54 92 09/25/16 07:30 97.9 75 17 102/57 93 I/O 09/25/16 09/25/16 09/25/16 09/26/16 09/26/16 09/26/16 07:00 15:00 23:00 07:00 15:00 23:00 Intake Total 376 ml 480 ml 146 ml Output Total 0 ml Balance 376 ml 480 ml 146 ml Intake Oral 120 ml 480 ml IV Total 256 ml 146 ml Drainage Total 0 ml # Voids 1 2 1 # Bowel Movements 1 1 Result Diagram: 09/26/16 0511 09/26/16 0511 Objective Remarks GENERAL: lying in bed. In NAD. SKIN: Warm and dry. No rash or lesions. HEAD: Normocephalic. EYES: No scleral icterus. No injection or drainage. NECK: Supple, trachea midline. No JVD or lymphadenopathy. CARDIOVASCULAR: Regular rate and rhythm without murmurs, gallops, or rubs. RESPIRATORY: Breath sounds equal bilaterally. No accessory muscle use. Anterior breath sounds CTAB. GASTROINTESTINAL: Abdomen soft, non-tender, nondistended. +bs. MUSCULOSKELETAL: No cyanosis, or edema. Dressing over right shoulder with hemovac in place. No drainage noted. Wound site c/d/i. BACK: Nontender without obvious deformity. No CVA tenderness. Procedures Irrigation debridement of right sternoclavicular joint with partial resection of distal clavicle 09/23/16 A/P Problem List: (1) Rotator cuff injury ICD Code: S46.009A Status: Acute (2) Costochondral joint sprain ICD Code: S23.41XA Status: Acute (3) Pectoralis muscle strain ICD Code: S29.011A Status: Acute (4) Hypokalemia ICD Code: E87.6 Status: Resolved (5) HIV (human immunodeficiency virus infection) ICD Code: Z21 Status: Chronic (6) IVDU (intravenous drug user) ICD Code: F19.90 Status: Chronic (7) Bacteremia due to Gram-positive bacteria ICD Code: A49.9 Status: Acute (8) Diarrhea ICD Code: R19.7 Status: Resolved (9) Pseudomonas infection ICD Code: B96.5 Status: Acute Assessment and Plan 40 years old female with 1. Costochondral Joint Sprain/Infection/Pseudomonas wound infection: Initial Shoulder MRI noted without any abscess and patient is status post aspiration sternoclavicular joints 09/21/16 with wound culture positive for Pseudomonas. Appreciate input from orthopedic surgery as well as infectious disease specialist. Patient is now status post Irrigation debridement of right sternoclavicular joint with partial resection of distal clavicle 09/23/16 with wound culture positive for Pseudomonas. Continue with cefepime 2 g IV every 8 and Levaquin 750 mg daily (09/24-). Anticipate will need at least 3 weeks total antibiotic therapy. Defer to ID. 2. Right Rotator Cuff Injury: Initial MRI shoulder noted without any abscess. Patient is now status post Irrigation debridement of right sternoclavicular joint with partial resection of distal clavicle 09/23/16 with wound culture positive for Pseudomonas; continue with Analgesics/antiemetics. 3. Bacteremia-coag negative staph, consistent with contaminant: Antibiotics, as above. Appreciate input from Infectious Disease specialist and repeat Blood culture NTD 3 days however wound culture positive for Pseudomonas. 2D echo r/o endocarditis. Status post aspiration sternoclavicular joints 09/21/16 4. Pectoralis Muscle Strain/Injury: Improving with Analgesics/antiemetics. Patient is now status post Irrigation debridement of right sternoclavicular joint with partial resection of distal clavicle 09/23/16 5. Hypokalemia: Resolved. 6. HIV: CD4 1092 on 11/20/14, continue HAART 7. IVDU: w/ Dilaudid, last use 07/15/16. UDS noted. 2-D echo ruled out endocarditis 8. DVT Prophylaxis: Ambulatory. SCD/Teds. 9. Diarrhea: C. difficile PCR negative. Resolved Remi Ruiz MD R3 Sep 26, 2016 07:23
[2016-09-26 08:00] VITALS: BP 93/52; PULSE 70; RESP 18; TEMP 98.8; O2SAT 94
[2016-09-26] MEDS: CEFEPIME INJ 2,000 MG in SODIUM CHLORIDE 0.9% INJ 100 ML IV SCH ×2 (08:21→14:53)
[2016-09-26] MEDS: LACTOBACILLUS ACIDOPHILUS TAB PO SCH ×3 (08:22→17:05)
[2016-09-26] MEDS: GABAPENTIN 300 MG CAP PO SCH ×2 (08:26→20:29)
[2016-09-26] MEDS: cloNIDine HCL 0.1 MG TAB PO SCH ×2 (08:27→20:26)
[2016-09-26] MEDS: SODIUM CHLORIDE 0.9% FLUSH 10 ML FLUSH IV FLUSH SCH ×2 (08:29→20:28)
[2016-09-26 12:00] VITALS: BP 98/59; PULSE 73; RESP 19; TEMP 98.9; O2SAT 94
[2016-09-26] MEDS: LEVOFLOXACIN 750 MG TAB PO SCH (14:54)
[2016-09-26 16:00] VITALS: BP 91/57; PULSE 82; RESP 18; TEMP 98.6; O2SAT 94
[2016-09-26] MEDS: SENNOSIDES 8.6 MG TAB PO SCH (20:00)
[2016-09-26 20:20] VITALS: BP 102/60; PULSE 66; RESP 16; TEMP 96.9; O2SAT 95
[2016-09-26] MEDS: ATORVASTATIN 20 MG TAB PO SCH (20:28)
[2016-09-26] MEDS: LISINOPRIL 20 MG TAB PO SCH (20:29)
[2016-09-26] MEDS: ABACAVIR SULFATE 300 MG TAB PO SCH (20:31)
[2016-09-26] MEDS: RITONAVIR 100 MG TAB PO SCH (20:31)
[2016-09-26] MEDS: DARUNAVIR 800 MG TAB PO SCH (20:31)
[2016-09-26] MEDS: ONDANSETRON HCL 4 MG/2 ML VIAL IVP PRN (20:35)
[2016-09-27] MEDS: CEFEPIME INJ 2,000 MG in SODIUM CHLORIDE 0.9% INJ 100 ML IV SCH ×4 (00:19→23:03)
[2016-09-27 00:40] VITALS: BP 100/62; PULSE 79; RESP 16; TEMP 96.8; O2SAT 97
[2016-09-27 04:00] VITALS: BP 98/61; PULSE 80; RESP 16; TEMP 97.5; O2SAT 95
[2016-09-27 05:50] LABS: AUTOMATED NEUTROPHIL # 1.7 TH/MM3 (1.8-7.7); BASOPHIL % 0.9 % (0.0-2.0); EOSINOPHIL # 0.1 TH/MM3 (0-0.4); EOSINOPHIL % 2.6 % (0.0-4.0); HEMATOCRIT 27.5 % (35.0-46.0); HEMO FLAGS DIFF FINAL; LYMPH % 45.9 % (9.0-44.0); LYMPHOCYTE # 1.9 TH/MM3 (1.0-4.8); MEAN CELL VOLUME 82.9 FL (80.0-100.0); MEAN CORPUSCULAR HEMOGLOBIN 26.8 PG (27.0-34.0); MEAN CORPUSCULAR HGB CONC 32.3 % (32.0-36.0); MONO % 11.5 % (0.0-8.0); NEUT % 39.1 % (16.0-70.0); PLATELET COUNT 415 TH/MM3 (150-450); RED BLOOD COUNT 3.32 MIL/MM3 (4.00-5.30); RED CELL DISTRIBUTION WIDTH 15.1 % (11.6-17.2); WHITE BLOOD COUNT 4.2 TH/MM3 (4.0-11.0)
[2016-09-27 06:01] LABS: BICARBONATE 20.3 MEQ/L (21.0-32.0); POTASSIUM 3.9 MEQ/L (3.5-5.1)
[2016-09-27] MEDS: ONDANSETRON HCL 4 MG/2 ML VIAL IVP PRN ×3 (06:04→22:27)
[2016-09-27 08:00] VITALS: BP 95/58; PULSE 70; RESP 18; TEMP 96.2; O2SAT 95
[2016-09-27] MEDS: LACTOBACILLUS ACIDOPHILUS TAB PO SCH ×3 (08:21→18:23)
[2016-09-27] MEDS: SODIUM CHLORIDE 0.9% FLUSH 10 ML FLUSH IV FLUSH SCH ×2 (08:24→20:57)
[2016-09-27] MEDS: cloNIDine HCL 0.1 MG TAB PO SCH ×2 (08:25→20:54)
[2016-09-27] MEDS: GABAPENTIN 300 MG CAP PO SCH ×2 (08:25→20:56)
[2016-09-27] MEDS: SODIUM CHLOR 0.9% 1000 ML INJ 1,000 ML IV SCH (08:25)
--- NOTE | 2016-09-27 08:50 | HHI.PR ---
Subjective Remarks The patient Was seen and examined this morning. Her vitals are stable and she is afebrile. She is resting comfortably this am. Does not want to participate in exam because she states shes tired and did not get much rest last night. She denies CP or difficulty breathing. No complaints or concerns this am. Objective Vital Signs Date Time Temp Pulse Resp B/P Pulse Ox O2 Delivery O2 Flow Rate FiO2 09/27/16 04:00 97.5 80 16 98/61 95 09/27/16 00:40 96.8 79 16 100/62 97 09/26/16 20:20 96.9 66 16 102/60 95 09/26/16 16:00 98.6 82 18 91/57 94 09/26/16 15:53 18 09/26/16 12:00 98.9 73 19 98/59 94 I/O 09/26/16 09/26/16 09/26/16 09/27/16 09/27/16 09/27/16 07:00 15:00 23:00 07:00 15:00 23:00 Intake Total 120 ml 1000 ml 620 ml Output Total 0 ml 0 ml 0 ml Balance 120 ml 1000 ml 620 ml Intake Oral 120 ml 1000 ml 620 ml Drainage Total 0 ml 0 ml 0 ml # Voids 2 6 3 # Bowel Movements 0 0 Result Diagram: 09/27/16 0443 09/27/16 0443 Imaging Last Impressions Joint Aspiration/Injection 09/21/16 1103 Signed Impressions: Service Date/Time: Wednesday, September 21, 2016 14:21 - CONCLUSION: Uncomplicated aspiration as above. Hung Sheridan MD Chest X-Ray 09/21/16 0000 Signed Impressions: Service Date/Time: Wednesday, September 21, 2016 21:32 - CONCLUSION: No evidence of acute cardiopulmonary disease. Right upper chest wall anterior soft tissue swelling. Moises Miller MD Shoulder X-Ray 09/13/16 0000 Signed Impressions: Service Date/Time: Tuesday, September 13, 2016 02:06 - CONCLUSION: No acute disease. Moises Jackson MD Shoulder MRI 09/13/16 0000 Signed Impressions: Service Date/Time: Tuesday, September 13, 2016 07:27 - CONCLUSION: Extensive soft tissue edema and enhancement consistent with infection surrounding the region of the first costochondral margin and sternoclavicular joint. However, no evidence of discrete abscess and no abnormal enhancement of the marrow to suggest osteomyelitis. There is a small right-sided pleural effusion noted.. Jessica Bran MD Chest CT 09/13/16 0000 Signed Impressions: Service Date/Time: Tuesday, September 13, 2016 01:58 - CONCLUSION: 1. Thickening and anterior bulging of the medial aspect of the right pectoralis muscle likely from injury. There is also increased density around the first costochondral junction with some questionable fracturing at the medial first costochondral junction. 2. Minimal right effusion. Moises Jackson MD ADDENDUM: I have been told the patient potentially has inflammatory change in the right upper chest. The soft tissue density at the medial pectoralis muscle and around the first costochondral junction can also be postinflammatory. The increased density also is seen around the medial right clavicle. Involvement of the sternoclavicular joint could be present although the sternoclavicular joints appear relatively symmetric. Early involvement cannot be excluded. A focal fluid collection or abscess is not clearly seen on this examination. Also in reviewing the case the patient does appear to have some minimal loss of height at the superior aspect of T8 although acute fracturing is not seen. There is a Schmorl's node seen at this level. Moises Jackson MD Procedures Irrigation debridement of right sternoclavicular joint with partial resection of distal clavicle 09/23/16 Objective Remarks GENERAL: lying in bed. In NAD. SKIN: Warm and dry. No rash or lesions. HEAD: Normocephalic. EYES: No scleral icterus. No injection or drainage. NECK: Supple, trachea midline. No JVD or lymphadenopathy. CARDIOVASCULAR: Regular rate and rhythm without murmurs, gallops, or rubs. RESPIRATORY: Breath sounds equal bilaterally. No accessory muscle use. Anterior breath sounds CTAB. MUSCULOSKELETAL: No cyanosis, or edema. Dressing over right shoulder with hemovac in place. No drainage noted. Wound site c/d/i. A/P Problem List: (1) Human immunodeficiency virus (HIV) positive ICD Code: V08 (2) Chronic pain ICD Code: 780.99 (3) Pectoralis muscle strain ICD Code: S29.011A (4) Diarrhea ICD Code: R19.7 (5) Pseudomonas infection ICD Code: B96.5 (6) IVDU (intravenous drug user) ICD Code: F19.90 Assessment and Plan 40 years old female with 1. Costochondral Joint Sprain/Infection/Pseudomonas wound infection: Initial Shoulder MRI noted without any abscess and patient is status post aspiration sternoclavicular joints 09/21/16 with wound culture positive for Pseudomonas. Appreciate input from orthopedic surgery as well as infectious disease specialist. Patient is now status post Irrigation debridement of right sternoclavicular joint with partial resection of distal clavicle 09/23/16 with wound culture positive for Pseudomonas. Continue with cefepime 2 g IV every 8 and Levaquin 750 mg daily (09/24-). Anticipate will need at least 3 weeks total antibiotic therapy. Defer to ID. 2. Right Rotator Cuff Injury: Initial MRI shoulder noted without any abscess. Patient is now status post Irrigation debridement of right sternoclavicular joint with partial resection of distal clavicle 09/23/16 with wound culture positive for Pseudomonas; continue with Analgesics/antiemetics. 3. Bacteremia-coag negative staph, consistent with contaminant: Antibiotics, as above. Appreciate input from Infectious Disease specialist and repeat Blood culture NTD 3 days however wound culture positive for Pseudomonas. 2D echo r/o endocarditis. Status post aspiration sternoclavicular joints 09/21/16 4. Pectoralis Muscle Strain/Injury: Improving with Analgesics/antiemetics. Patient is now status post Irrigation debridement of right sternoclavicular joint with partial resection of distal clavicle 09/23/16 5. Hypokalemia: Resolved. 6. HIV: CD4 1092 on 11/20/14, continue HAART 7. IVDU: w/ Dilaudid, last use 07/15/16. UDS noted. 2-D echo ruled out endocarditis 8. DVT Prophylaxis: Ambulatory. SCD/Teds. 9. Diarrhea: C. difficile PCR negative. Resolved Discharge Planning D/C pending: clearance by ID with d.c abx recommendations, clearance by ortho. D /C complicated by the fact the patient likely will require prolonged iV abx and has a recent hx of IV drug use. Chantelle Mayen MD R3 Sep 27, 2016 08:49
[2016-09-27 12:00] VITALS: BP 98/60; PULSE 89; RESP 18; TEMP 97.4; O2SAT 96
[2016-09-27] MEDS: LEVOFLOXACIN 750 MG TAB PO SCH (14:34)
[2016-09-27 16:00] VITALS: BP 94/57; PULSE 72; RESP 18; TEMP 96.2; O2SAT 95
[2016-09-27] MEDS: SENNOSIDES 8.6 MG TAB PO SCH (20:00)
[2016-09-27 20:35] VITALS: BP 95/59; PULSE 76; RESP 16; TEMP 96.5; O2SAT 97
[2016-09-27] MEDS: ATORVASTATIN 20 MG TAB PO SCH (20:54)
[2016-09-27] MEDS: LISINOPRIL 20 MG TAB PO SCH (20:54)
[2016-09-27] MEDS: DARUNAVIR 800 MG TAB PO SCH (20:55)
[2016-09-27] MEDS: ABACAVIR SULFATE 300 MG TAB PO SCH (20:56)
[2016-09-27] MEDS: RITONAVIR 100 MG TAB PO SCH (20:56)
[2016-09-28 00:15] VITALS: BP 94/60; PULSE 80; RESP 16; TEMP 96.8; O2SAT 97
[2016-09-28] MEDS: SODIUM CHLOR 0.9% 1000 ML INJ 1,000 ML IV SCH ×2 (00:45→22:38)
[2016-09-28 04:30] VITALS: BP 103/59; PULSE 80; RESP 15; TEMP 97.1; O2SAT 97
[2016-09-28] MEDS: GABAPENTIN 300 MG CAP PO SCH ×2 (07:36→20:40)
[2016-09-28] MEDS: LACTOBACILLUS ACIDOPHILUS TAB PO SCH ×3 (07:36→18:48)
[2016-09-28] MEDS: cloNIDine HCL 0.1 MG TAB PO SCH ×2 (07:36→20:40)
[2016-09-28 07:37] VITALS: BP 113/63; PULSE 80; RESP 16; TEMP 96.1; O2SAT 96
[2016-09-28] MEDS: CEFEPIME INJ 2,000 MG in SODIUM CHLORIDE 0.9% INJ 100 ML IV SCH ×3 (08:54→22:38)
[2016-09-28] MEDS: SODIUM CHLORIDE 0.9% FLUSH 10 ML FLUSH IV FLUSH SCH ×2 (09:00→20:41)
[2016-09-28 11:26] LABS: AUTOMATED NEUTROPHIL # 3.1 TH/MM3 (1.8-7.7); BASOPHIL # 0.1 TH/MM3 (0-0.2); BASOPHIL % 1.2 % (0.0-2.0); EOSINOPHIL # 0.3 TH/MM3 (0-0.4); EOSINOPHIL % 4.6 % (0.0-4.0); HEMATOCRIT 28.2 % (35.0-46.0); HEMO FLAGS DIFF FINAL; LYMPH % 32.9 % (9.0-44.0); LYMPHOCYTE # 1.9 TH/MM3 (1.0-4.8); MEAN CELL VOLUME 82.1 FL (80.0-100.0); MEAN CORPUSCULAR HEMOGLOBIN 26.6 PG (27.0-34.0); MEAN CORPUSCULAR HGB CONC 32.4 % (32.0-36.0); MONO % 8.2 % (0.0-8.0); NEUT % 53.1 % (16.0-70.0); PLATELET COUNT 392 TH/MM3 (150-450); RED BLOOD COUNT 3.44 MIL/MM3 (4.00-5.30); WHITE BLOOD COUNT 5.9 TH/MM3 (4.0-11.0)
[2016-09-28 11:49] LABS: POTASSIUM 3.7 MEQ/L (3.5-5.1)
[2016-09-28 12:17] VITALS: BP 94/51; PULSE 72; RESP 16; TEMP 97.5; O2SAT 94
[2016-09-28] MEDS ORDERED: traZODone HCL 50 MG TAB PO PRN (12:30)
--- NOTE | 2016-09-28 12:34 | HHI.PR ---
Subjective Remarks Here related to a costochondral joint infection. Complaints of pain and insomnia today. Pain treatments are already at an appropriate level. We discussed resuming her home treatment of trazodone. Objective Vital Signs Date Time Temp Pulse Resp B/P Pulse Ox O2 Delivery O2 Flow Rate FiO2 09/28/16 08:00 16 09/28/16 07:37 96.1 80 16 113/63 96 09/28/16 04:30 97.1 80 15 103/59 97 09/28/16 00:15 96.8 80 16 94/60 97 09/27/16 20:35 96.5 76 16 95/59 97 09/27/16 16:00 96.2 72 18 94/57 95 I/O 09/27/16 09/27/16 09/27/16 09/28/16 09/28/16 09/28/16 07:00 15:00 23:00 07:00 15:00 23:00 Intake Total 620 ml 960 ml 480 ml 480 ml Output Total 0 ml 0 ml 0 ml 0 ml Balance 620 ml 960 ml 480 ml 480 ml Intake Oral 620 ml 960 ml 480 ml 480 ml Drainage Total 0 ml 0 ml 0 ml 0 ml # Voids 3 3 3 4 # Bowel Movements 0 2 2 0 Result Diagram: 09/28/16 1052 09/28/16 1052 Procedures Irrigation debridement of right sternoclavicular joint with partial resection of distal clavicle 09/23/16 Objective Remarks GENERAL: NAD, A&Ox3 SKIN: Warm and dry. HEAD: Normocephalic. EYES: No scleral icterus. No injection or drainage. NECK: Supple, trachea midline. No JVD or lymphadenopathy. CARDIOVASCULAR: Regular rate and rhythm without murmurs, gallops, or rubs. RESPIRATORY: Breath sounds equal bilaterally. No accessory muscle use. GASTROINTESTINAL: Abdomen soft, non-tender, nondistended. MUSCULOSKELETAL: No cyanosis, or edema. Right superior chest has a well healing surgical wound. BACK: Nontender without obvious deformity. No CVA tenderness. Medications and IVs Administered Medications Medications (Trade) Dose Ordered Sig/Yolande Route PRN Reason Start Time Stop Time Status Last Admin Dose Admin Sodium Chloride (NS 1000 ml Inj) 1,000 ml @ 70 mls/hr [id number] IV 09/13/16 03:24 09/26/16 05:51 Sodium Chloride (NS Flush) 2 ml UNSCH PRN IV FLUSH FLUSH AFTER USING IV ACCESS 09/13/16 03:30 09/23/16 15:36 Sodium Chloride (NS Flush) 2 ml BID IV FLUSH 09/13/16 09:00 09/28/16 09:00 Ondansetron HCl (Zofran Inj) 4 mg Q6H PRN IVP NAUSEA OR VOMITING 09/13/16 03:30 09/27/16 22:27 Bisacodyl (Dulcolax Supp) 10 mg DAILY PRN RECTAL CONSTIPATION 09/13/16 03:30 09/15/16 07:58 Acetaminophen (Tylenol) 650 mg Q6H PRN PO FEVER/PAIN SCALE 1 TO 2 09/13/16 03:30 09/24/16 23:47 Albuterol Sulfate (Ventolin Hfa Inh) 2 puff Q4H PRN INH SHORTNESS OF BREATH 09/13/16 04:00 09/15/16 23:00 Atorvastatin Calcium (Lipitor) 20 mg HS PO 09/13/16 21:00 09/25/16 21:13 Clonidine (Catapres) 0.1 mg BID PO 09/13/16 09:00 09/25/16 09:00 Gabapentin (Neurontin) 300 mg BID PO 09/13/16 09:00 09/25/16 21:13 Lamivudine (Epivir) 300 mg HS PO 09/14/16 21:00 09/27/16 20:55 Abacavir Sulfate (Ziagen) 600 mg HS PO 09/14/16 21:00 09/27/16 20:56 Ritonavir (Norvir) 100 mg HS PO 09/14/16 21:00 09/27/16 20:56 Lisinopril (Prinivil) 20 mg HS PO 09/14/16 21:00 09/24/16 20:49 Darunavir (Prezista) 800 mg HS PO 09/14/16 21:00 09/27/16 20:55 Sennosides (Senokot) 2 mg DAILY@2000 PO 09/17/16 20:00 09/25/16 21:13 Magnesium Hydroxide (Milk Of Magnesia Liq) 30 ml DAILY PRN PO BOWEL MOVEMENT 09/17/16 15:15 09/17/16 15:36 Lactobacillus Acidophilus (Lactinex) 1 tab TID PO 09/19/16 13:00 09/28/16 08:56 Oxycodone HCl (Roxicodone) 5 mg Q4H PRN PO pain 1-5 09/24/16 06:45 09/24/16 11:18 Oxycodone HCl 10 mg 10 mg Q4H PRN PO pain 6-10 09/24/16 06:45 09/28/16 06:59 Cefepime HCl/ Sodium Chloride (Maxipime Inj/NS Inj) 100 ml @ 200 mls/hr Q8H IV 09/24/16 16:00 09/28/16 08:54 Levofloxacin (Levaquin) 750 mg Q24H PO 09/24/16 15:00 09/27/16 14:34 A/P Problem List: (1) HIV (human immunodeficiency virus infection) ICD Code: Z21 (2) Diarrhea ICD Code: R19.7 (3) Sternoclavicular joint pain ICD Code: M25.519 (4) Pseudomonas infection ICD Code: B96.5 (5) Hypokalemia ICD Code: E87.6 (6) Pectoralis muscle strain ICD Code: S29.011A (7) Costochondral joint sprain ICD Code: S23.41XA (8) Rotator cuff injury ICD Code: S46.009A (9) Insomnia ICD Code: G47.00 Assessment and Plan Costochondral Infection (right) Pseudomonal wound infection (right sternoclavicular joint debridement) Pectoralis Muscle Strain Cefepime Levaquin 3 weeks of antibiotics planned per ID PRN pain treatments] No endocarditis on echo from 09/14 Hypokalemia Resolved. Follow potassium levels HIV Continue HAART treatments CD4 1092 on 11/20/14 Hx of IV Drug Abuse Abuse of Dilaudid in the past Risk for discharge with IV access Insomnia Chronic problem Trazodone resumed Diarrhea Resolved DVT Prophylaxis SCDs Ambulatory Discharge Planning May need IV antibiotics, but has a history of IV drug abuse. Thuan Aguero MD Sep 28, 2016 12:34
[2016-09-28] MEDS: LEVOFLOXACIN 750 MG TAB PO SCH (15:00)
[2016-09-28 15:46] VITALS: BP 106/59; PULSE 79; RESP 16; TEMP 96.1; O2SAT 95
--- NOTE | 2016-09-28 19:27 | HHI.PR ---
Addendum to Inpatient Note Additional Information chart reviewed afebrile PAOLO Sandoval anticipate dc on po abx (levaquine) x 4 weeks from day of surgery avoid IV abx 2/2 Jodi Mcrae MD Sep 28, 2016 19:27
[2016-09-28] MEDS: SENNOSIDES 8.6 MG TAB PO SCH (20:00)
[2016-09-28] MEDS: ONDANSETRON HCL 4 MG/2 ML VIAL IVP PRN (20:08)
[2016-09-28] MEDS: ABACAVIR SULFATE 300 MG TAB PO SCH (20:39)
[2016-09-28] MEDS: RITONAVIR 100 MG TAB PO SCH (20:39)
[2016-09-28] MEDS: DARUNAVIR 800 MG TAB PO SCH (20:39)
[2016-09-28] MEDS: ATORVASTATIN 20 MG TAB PO SCH (20:40)
[2016-09-28] MEDS: LISINOPRIL 20 MG TAB PO SCH (20:41)
[2016-09-28 22:27] VITALS: BP 99/55; PULSE 84; RESP 18; TEMP 97.4; O2SAT 98
[2016-09-29 00:12] VITALS: BP 103/56; PULSE 82; RESP 17; TEMP 97.6; O2SAT 96
[2016-09-29] MEDS: SODIUM CHLOR 0.9% 1000 ML INJ 1,000 ML IV SCH (06:18)
[2016-09-29 08:00] VITALS: BP 101/57; PULSE 84; RESP 17; TEMP 96.2; O2SAT 94
[2016-09-29] MEDS: GABAPENTIN 300 MG CAP PO SCH (08:58)
[2016-09-29] MEDS: SODIUM CHLORIDE 0.9% FLUSH 10 ML FLUSH IV FLUSH SCH (08:58)
[2016-09-29] MEDS: cloNIDine HCL 0.1 MG TAB PO SCH (08:58)
[2016-09-29] MEDS: CEFEPIME INJ 2,000 MG in SODIUM CHLORIDE 0.9% INJ 100 ML IV SCH ×2 (08:59→15:49)
[2016-09-29] MEDS: LACTOBACILLUS ACIDOPHILUS TAB PO SCH ×3 (09:00→18:00)
[2016-09-29] MEDS ORDERED: methylPREDNISolone SOD SUCC 125 MG/2 ML VIAL IV PUSH ONE (09:45)
[2016-09-29] MEDS ORDERED: CETIRIZINE HCL 10 MG TAB PO ONE (10:00)
[2016-09-29 12:00] VITALS: BP 97/60; PULSE 71; RESP 16; TEMP 98.9; O2SAT 94
--- NOTE | 2016-09-29 13:47 | HHI.PR ---
Subjective Remarks Follow-up for infection Patient complaining about a rash on her back and neck. Otherwise no complaints. Denies any shortness of breathing, chest pain or palpitations. No acute events overnight. She remained afebrile. Objective Vitals Vital Signs Date Time Temp Pulse Resp B/P Pulse Ox O2 Delivery O2 Flow Rate FiO2 09/29/16 12:00 98.9 71 16 97/60 94 09/29/16 11:20 18 09/29/16 08:50 94 Room Air 09/29/16 08:00 96.2 84 17 101/57 94 09/29/16 00:12 97.6 82 17 103/56 96 09/28/16 22:27 97.4 84 18 99/55 98 09/28/16 15:46 96.1 79 16 106/59 95 I/O 09/28/16 09/28/16 09/28/16 09/29/16 09/29/16 09/29/16 07:00 15:00 23:00 07:00 15:00 23:00 Intake Total 480 ml 480 ml 0 ml 500 ml Output Total 0 ml Balance 480 ml 480 ml 0 ml 500 ml Intake Oral 480 ml 480 ml 280 ml IV Total 0 ml 220 ml Drainage Total 0 ml # Voids 4 5 2 # Bowel Movements 0 0 Result Diagram: 09/28/16 1052 09/28/16 1052 Objective Remarks GENERAL: in NAD SKIN: Macular rash on the neck area and the back. NECK: Supple, trachea midline. No JVD or lymphadenopathy. CARDIOVASCULAR: Regular rate and rhythm without murmurs, gallops, or rubs. wound on chest dry clean and intact with tramaine in place. No drainage noted. Erythema around the tramaine. RESPIRATORY: Breath sounds equal bilaterally. No accessory muscle use. GASTROINTESTINAL: Abdomen soft, non-tender, nondistended. Procedures Irrigation debridement of right sternoclavicular joint with partial resection of distal clavicle 09/23/16 Medications and IVs Current Medications Ketorolac Tromethamine (Toradol Inj) 30 mg ONCE ONCE IVP Last administered on 09/13/16 02:25; Start 09/13/16 at 01:45; Stop 09/13/16 at 01:46; Status DC Orphenadrine Citrate 60 mg 60 mg ONCE ONCE IM Last administered on 09/13/16 02 :24; Start 09/13/16 at 01:45; Stop 09/13/16 at 01:46; Status DC Sodium Chloride (NS 1000 ml Inj) 1,000 ml @ 999 mls/hr BOLUS ONCE IV Last administered on 09/13/16 02:24; Start 09/13/16 at 01:45; Stop 09/13/16 at 02:45; Status DC Iohexol 70 ml 70 ml STK-MED ONCE IV Last administered on 09/13/16 01:59; Start 09/13/16 at 01:59; Stop 09/13/16 at 02:00; Status DC Vancomycin HCl 1050 mg/Sodium Chloride 260.5 ml @ 250 mls/hr ONCE ONCE IV Last administered on 09/13/16 04:31; Start 09/13/16 at 03:30; Stop 09/13/16 at 04: 32; Status DC Pharmacy Profile Note 0 ml @ 0 mls/hr UNSCH OTHER ; Start 09/13/16 at 03:30; Stop 09/24/16 at 14:43; Status DC Cefepime HCl 1000 mg/Sodium Chloride 100 ml @ 200 mls/hr Q12H IV Last administered on 09/14/16 16:18; Start 09/13/16 at 04:00; Stop 09/14/16 at 22:58 ; Status DC Sodium Chloride (NS 1000 ml Inj) 1,000 ml @ 70 mls/hr [id number] IV Last administered on 09/29/16 06:18; Start 09/13/16 at 03:24 Sodium Chloride (NS Flush) 2 ml UNSCH PRN IV FLUSH FLUSH AFTER USING IV ACCESS Last administered on 09/23/16 15:36; Start 09/13/16 at 03:30 Sodium Chloride (NS Flush) 2 ml BID IV FLUSH Last administered on 09/28/16 09: 00; Start 09/13/16 at 09:00 Ondansetron HCl (Zofran Inj) 4 mg Q6H PRN IVP NAUSEA OR VOMITING Last administered on 09/28/16 20:08; Start 09/13/16 at 03:30 Bisacodyl (Dulcolax Supp) 10 mg DAILY PRN RECTAL CONSTIPATION Last administered on 09/15/16 07:58; Start 09/13/16 at 03:30 Acetaminophen (Tylenol) 650 mg Q6H PRN PO FEVER/PAIN SCALE 1 TO 2 Last administered on 09/24/16 23:47; Start 09/13/16 at 03:30 Oxycodone HCl (Roxicodone) 10 mg Q4H PRN PO PAIN SCALE 6 TO 10 Last administered on 09/23/16 08:06; Start 09/13/16 at 03:30; Stop 09/23/16 at 12:49 ; Status DC Oxycodone HCl (Roxicodone) 5 mg Q4H PRN PO PAIN SCALE 3 TO 5; Start 09/13/16 at 03:30; Stop 09/23/16 at 12:49; Status DC Albuterol Sulfate (Ventolin Hfa Inh) 2 puff Q4H PRN INH SHORTNESS OF BREATH Last administered on 09/15/16 23:00; Start 09/13/16 at 04:00 Atorvastatin Calcium (Lipitor) 20 mg HS PO Last administered on 09/25/16 21:13 ; Start 09/13/16 at 21:00 Clonidine (Catapres) 0.1 mg BID PO Last administered on 09/25/16 09:00; Start 09/13/16 at 09:00 Darunavir (Prezista) 800 mg BID PO Last administered on 09/13/16 12:11; Start 09/13/16 at 09:00; Stop 09/14/16 at 14:33; Status DC Gabapentin (Neurontin) 300 mg BID PO Last administered on 09/25/16 21:13; Start 09/13/16 at 09:00 Lisinopril (Prinivil) 20 mg DAILY PO Last administered on 09/13/16 09:01; Start 09/13/16 at 09:00; Stop 09/14/16 at 09:28; Status DC Ritonavir (Norvir) 100 mg DAILY PO Last administered on 09/13/16 12:11; Start 09/13/16 at 09:00; Stop 09/14/16 at 09:25; Status DC Non-Formulary Medication 1 tab DAILY PO ; Start 09/13/16 at 09:00; Status UNV Lamivudine (Epivir) 300 mg DAILY PO Last administered on 09/13/16 12:10; Start 09/13/16 at 09:00; Stop 09/14/16 at 09:20; Status DC Abacavir Sulfate (Ziagen) 600 mg DAILY PO Last administered on 09/13/16 12:10; Start 09/13/16 at 09:00; Stop 09/14/16 at 09:21; Status DC Gadodiamide (Omniscan Pf Inj) 14 ml STK-MED ONCE IV Last administered on 08:48; Start 09/13/16 at 08:48; Stop 09/13/16 at 08:49; Status DC Lamivudine (Epivir) 300 mg HS PO Last administered on 09/28/16 20:39; Start at 21:00 Abacavir Sulfate (Ziagen) 600 mg HS PO Last administered on 09/28/16 20:39; Start 09/14/16 at 21:00 Ritonavir (Norvir) 100 mg HS PO Last administered on 09/28/16 20:39; Start 03/23 at 21:00 Lisinopril 20 mg 20 mg HS PO Last administered on 09/24/16 20:49; Start at 21:00 Vancomycin HCl 1250 mg/Sodium Chloride 262.5 ml @ 262.5 mls/ hr Q24H IV ; Start 09/14/16 at 09:45; Status UNV Vancomycin HCl/ Sodium Chloride (Vancomycin Inj/ NS 250 ml Inj) 250 ml @ 250 mls/hr Q12H IV ; Start 09/14/16 at 10:00; Stop 09/14/16 at 14:43; Status DC Miscellaneous Information SPECIFIC LAB TO BE ... ONCE ONCE .XX Last administered on 09/15/16 04:45; Start 09/15/16 at 04:45; Stop 09/15/16 at 04:46 ; Status DC Darunavir 800 mg 800 mg HS PO Last administered on 09/28/16 20:39; Start 09/14 at 21:00 Vancomycin HCl 1000 mg/Sodium Chloride 250 ml @ 250 mls/hr Q12H IV Last administered on 09/15/16 05:05; Start 09/14/16 at 17:00; Stop 09/15/16 at 08:41 ; Status DC Vancomycin HCl/ Sodium Chloride (Vancomycin Inj/ NS 500 ml Inj) 515 ml @ 250 mls/hr Q12H IV Last administered on 09/16/16 17:34; Start 09/15/16 at 17:00; Stop 09/17/16 at 05:58; Status DC Miscellaneous Information SPECIFIC LAB TO BE DRAWN:VANCOMYCIN TROUGH DATE TO... ONCE ONCE .XX Last administered on 09/17/16 04:45; Start 09/17/16 at 04:45; Stop 09/17/16 at 04:46; Status DC Albuterol/ Ipratropium (Duoneb Neb) 1 ampule Q4HR NEB PRN NEB SOB/WHEEZING Last administered on 09/26/16 00:14; Start 09/15/16 at 23:15 Ketorolac Tromethamine 15 mg 15 mg ONCE ONCE IM Last administered on 01:10; Start 09/17/16 at 01:15; Stop 09/17/16 at 01:16; Status DC Vancomycin HCl/ Sodium Chloride (Vancomycin Inj/ NS 500 ml Inj) 515 ml @ 250 mls/hr Q12H IV Last administered on 09/17/16 09:43; Start 09/17/16 at 09:00; Stop 09/17/16 at 09:50; Status DC Ketorolac Tromethamine 30 mg 30 mg Q6HR IM Last administered on 09/21/16 05:37 ; Start 09/17/16 at 09:30; Stop 09/21/16 at 10:00; Status DC Vancomycin HCl/ Sodium Chloride (Vancomycin Inj/ NS 250 ml Inj) 250 ml @ 250 mls/hr Q12H IV Last administered on 09/19/16 05:35; Start 09/17/16 at 15:00; Stop 09/19/16 at 09:02; Status DC Miscellaneous Information SPECIFIC LAB TO BE DRAWN:VANCOMYCIN TROUGH DATE TO... ONCE ONCE .XX ; Start 09/19/16 at 02:45; Stop 09/19/16 at 02:46; Status DC Sennosides (Senokot) 2 mg DAILY@2000 PO Last administered on 09/25/16 21:13; Start 09/17/16 at 20:00 Magnesium Hydroxide 30 ml 30 ml DAILY PRN PO BOWEL MOVEMENT Last administered on 09/17/16 15:36; Start 09/17/16 at 15:15 Vancomycin HCl/ Sodium Chloride (Vancomycin Inj/ NS 250 ml Inj) 262.5 ml @ 262.5 mls/ hr Q24H IV Last administered on 09/23/16 04:49; Start 09/20/16 at 05:00; Stop 09/23/16 at 09:23; Status DC Miscellaneous Information SPECIFIC LAB TO BE ALEX... ONCE ONCE .XX Last administered on 09/23/16 04:35; Start 09/23/16 at 04:45; Stop 09/23/16 at 04:46 ; Status DC Lactobacillus Acidophilus 1 tab 1 tab TID PO Last administered on 09/29/16 13: 35; Start 09/19/16 at 13:00 Vancomycin HCl/ Sodium Chloride (Vancomycin Inj/ NS 250 ml Inj) 250 ml @ 250 mls/hr Q12H IV Last administered on 09/24/16 14:19; Start 09/24/16 at 01:00; Stop 09/24/16 at 14:43; Status DC Miscellaneous Information SPECIFIC LAB TO BE DRAWN:VANCOMYCIN TROUGH DATE TO... ONCE ONCE .XX ; Start 09/25/16 at 12:45; Stop 09/25/16 at 12:46; Status Cancel Gentamicin Sulfate (Gentamicin Inj) 240 mg STK-MED ONCE .ROUTE Last administered on 09/23/16 12:31; Start 09/23/16 at 11:49; Stop 09/23/16 at 11:50 ; Status DC Vancomycin HCl 1000 mg 1,000 mg STK-MED ONCE .ROUTE Last administered on 12:43; Start 09/23/16 at 11:53; Stop 09/23/16 at 11:54; Status DC Cefazolin Sodium/ Dextrose (Ancef 2 Gm Premix) 50 ml @ As Directed STK-MED ONCE .ROUTE ; Start 09/23/16 at 11:53; Stop 09/23/16 at 11:54; Status DC IV Flush (NS Flush) 2 ml UNSCH PRN IVF FLUSH AFTER USING IV ACCESS; Start 09/23 at 12:15; Stop 09/23/16 at 12:49; Status DC IV Flush (NS Flush) 2 ml BID IVF ; Start 09/23/16 at 21:00; Stop 09/23/16 at 21: 00; Status DC Acetaminophen/ Hydrocodone Bitart ([place] 10-325 Mg) 1 tab Q3H PRN PO pain 2<10 Last administered on 09/23/16 22:09; Start 09/23/16 at 12:15; Stop 09/24/16 at 06:34; Status DC Diphenhydramine HCl (Benadryl) 25 mg Q6H PRN PO ITCHING Last administered on 06:18; Start 09/23/16 at 12:15 Morphine Sulfate (Morphine Inj) 4 mg Q3H PRN IV PUSH break thru pain; Start at 12:15 Fentanyl Citrate (fentaNYL INJ) 250 mcg STK-MED ONCE .ROUTE ; Start 09/23/16 at 13:13; Stop 09/23/16 at 13:25; Status DC Morphine Sulfate (*morphine INJ PERIprocedure ONLY) 8 mg STK-MED ONCE .ROUTE Last administered on 09/23/16 13:16; Start 09/23/16 at 13:16; Stop 09/23/16 at 13:26; Status DC Oxycodone HCl (Roxicodone) 5 mg Q4H PRN PO pain 1-5 Last administered on 11:18; Start 09/24/16 at 06:45 Oxycodone HCl 10 mg 10 mg Q4H PRN PO pain 6-10 Last administered on 09/29/16 10:20; Start 09/24/16 at 06:45 Cefepime HCl/ Sodium Chloride (Maxipime Inj/NS Inj) 100 ml @ 200 mls/hr Q8H IV Last administered on 09/29/16 08:59; Start 09/24/16 at 16:00 Levofloxacin (Levaquin) 750 mg Q24H PO Last administered on 09/28/16 15:00; Start 09/24/16 at 15:00 Trazodone HCl (Desyrel) 50 mg HS PRN PO insomnia; Start 09/28/16 at 12:30 Methylprednisolone Sodium Succinate (SoluMEDROL INJ) 60 mg ONCE ONCE IV PUSH Last administered on 09/29/16 10:17; Start 09/29/16 at 09:45; Stop 09/29/16 at 09:58; Status DC Cetirizine HCl (ZyrTEC) 10 mg ONCE ONCE PO Last administered on 09/29/16t 10: 16; Start 09/29/16 at 10:00; Stop 09/29/16 at 10:01; Status DC A/P Problem List: (1) Rotator cuff injury ICD Code: S46.009A Status: Acute (2) Costochondral joint sprain ICD Code: S23.41XA Status: Acute (3) Pectoralis muscle strain ICD Code: S29.011A Status: Acute (4) Hypokalemia ICD Code: E87.6 Status: Resolved (5) HIV (human immunodeficiency virus infection) ICD Code: Z21 Status: Chronic (6) IVDU (intravenous drug user) ICD Code: F19.90 Status: Chronic (7) Bacteremia due to Gram-positive bacteria ICD Code: A49.9 Status: Acute (8) Diarrhea ICD Code: R19.7 Status: Resolved (9) Pseudomonas infection ICD Code: B96.5 Status: Acute Assessment and Plan Costochondral Infection (right) Pseudomonal wound infection (right sternoclavicular joint debridement) Pectoralis Muscle Strain -Patient on cefepime and Levaquin. Per infectious disease patient will be discharged on by mouth Levaquin. Dealt with Dr. Colmenares in regards to the length of cefepime treatment. -No endocarditis on echo from 09/14 Contact dermatitis -Most likely secondary to the detergent on the sheets. -Improved with Benadryl. -We'll give steroids and continue the Benadryl. Will also start Zyrtec. Hypokalemia -Resolved. HIV Continue HAART treatments CD4 1092 on 11/20/14 Hx of IV Drug Abuse Abuse of Dilaudid in the past Insomnia Chronic problem Trazodone resumed Diarrhea Resolved Discharge Planning Once patient is off of IV antibiotics can be discharged home. Chastity Ocasio MD Sep 29, 2016 13:47
[2016-09-29] MEDS: LEVOFLOXACIN 750 MG TAB PO SCH (15:47)
--- NOTE | 2016-09-29 15:51 | HHI.PR ---
Addendum to Inpatient Note Additional Information dw Dr Gonzalez to dc pt home on PO levaquine 750 mg dailyly x 6 wks from the day of surgery : thru November 04 PO report showed R sternoclavicular joint with purulent drainage present and some abnormal bone around the distal clavicle. Jodi Colmenares MD Sep 29, 2016 15:50
[2016-09-29] MEDS ORDERED: LEVA750T PO (15:57)
[2016-09-29] MEDS ORDERED: PRED50 PO (15:57)
[2016-09-29] MEDS ORDERED: TRAM50TA PO (15:57)
[2016-09-29] MEDS ORDERED: DIPH25CA PO (15:57)
--- NOTE | 2016-09-29 15:58 | HHI.DCPOC ---
Discharge Care Plan Diagnosis: (1) Infection (2) Pseudomonas infection Goals to Promote Your Health * To prevent worsening of your condition and complications * To maintain your health at the optimal level Directions to Meet Your Goals Take your medications as prescribed Follow your dietary instruction Follow activity as directed Keep your appointments as scheduled Take your immunizations and boosters as scheduled If your symptoms worsen call your PCP, if no PCP go to Urgent Care Center or Emergency Room Smoking is Dangerous to Your Health. Avoid second hand smoke Call the 24-hour hour crisis hotline for domestic abuse at Chastity Ocasio MD Sep 29, 2016 15:58
--- NOTE | 2016-09-29 15:58 | HHI.DS ---
Discharge Summary Admission Date Sep 13, 2016 at 03:24 Discharge Date: Sep 29, 2016 Admitting Diagnosis infection first costochondral joint (1) sternoclavicular joint infection Diagnosis: Principal (2) Rotator cuff injury ICD Code: S46.009A Diagnosis: Secondary (3) HIV (human immunodeficiency virus infection) ICD Code: Z21 Diagnosis: Secondary (4) IVDU (intravenous drug user) ICD Code: F19.90 Diagnosis: Secondary (5) Bacteremia due to Gram-positive bacteria ICD Code: A49.9 (6) Pseudomonas infection ICD Code: B96.5 Diagnosis: Principal Procedures Irrigation debridement of right sternoclavicular joint with partial resection of distal clavicle 09/23/16 Brief History - From Admission This is a 40-year-old female with a PMH of HIV (CD4 1092 on 11/20/14), IVDU, Anxiety, Depression, HTN and Hyperlipidemia presented to ER with complaints of right shoulder pain in addition to subjective fever and chills. States she had injury to right shoulder approx 2wk ago while riding a horse, got arm caught in ropes and got dragged a few feet by horse. States she was referred for MRI by PCP however presented to [facility] 09/10/16 w/ worsening pain. Shoulder X-ray reportedly negative and given Rx for Percocet. MRI currently pending, scheduled for this week. Seen in [place] ER 09/11/16 for ongoing pain complaints , concern for rotator cuff injury and instructed to follow w/ PCP and obtain outpatient MRI as scheduled. Today, states pain worse and now w/ fever/chills. Denies recent IVDU, last use 2mo ago. On arrival, BP 144/96, HR 85, O2 sat 98 % on RA, Afebrile. WBC 12.2. K+ 3.3. CRP 15. ESR >140. Shoulder X-ray with no acute findings. On exam, pt noted to have redness/swelling over right clavicle, CT Chest w/ thickening and anterior bulging of medial aspect of right pectoralis muscle likely from injury and increased density around first costochondral junction with questionable fracturing. ER physician spoke with Radiologist who indicated his may be due to early costochondral infection. S/p Vanc in ER. CBC/BMP: 09/28/16 1052 09/28/16 1052 Significant Findings Laboratory Tests Test 09/27/16 09/28/16 04:43 10:52 Red Blood Count 3.32 MIL/MM3 3.44 MIL/MM3 (4.00-5.30) (4.00-5.30) Hemoglobin 8.9 GM/DL 9.1 GM/DL (11.6-15.3) (11.6-15.3) Hematocrit 27.5 % 28.2 % (35.0-46.0) (35.0-46.0) Mean Corpuscular Hemoglobin 26.8 PG 26.6 PG (27.0-34.0) (27.0-34.0) Lymphocytes (%) (Auto) 45.9 % (9.0-44.0) Monocytes (%) (Auto) 11.5 % 8.2 % (0.0-8.0) (0.0-8.0) Neutrophils # (Auto) 1.7 TH/MM3 (1.8-7.7) Carbon Dioxide Level 20.3 MEQ/L (21.0-32.0) Estimat Glomerular Filtration 71 ML/MIN (>89) 69 ML/MIN (>89) Rate Eosinophils (%) (Auto) 4.6 % (0.0-4.0) Imaging Last Impressions Joint Aspiration/Injection 09/21/16 1103 Signed Impressions: Service Date/Time: Wednesday, September 21, 2016 14:21 - CONCLUSION: Uncomplicated aspiration as above. Hung Sheridan MD Chest X-Ray 09/21/16 0000 Signed Impressions: Service Date/Time: Wednesday, September 21, 2016 21:32 - CONCLUSION: No evidence of acute cardiopulmonary disease. Right upper chest wall anterior soft tissue swelling. Moises Miller MD Shoulder X-Ray 09/13/16 0000 Signed Impressions: Service Date/Time: Tuesday, September 13, 2016 02:06 - CONCLUSION: No acute disease. Moises Jackson MD Shoulder MRI 09/13/16 0000 Signed Impressions: Service Date/Time: Tuesday, September 13, 2016 07:27 - CONCLUSION: Extensive soft tissue edema and enhancement consistent with infection surrounding the region of the first costochondral margin and sternoclavicular joint. However, no evidence of discrete abscess and no abnormal enhancement of the marrow to suggest osteomyelitis. There is a small right-sided pleural effusion noted.. Jessica Bran MD Chest CT 09/13/16 0000 Signed Impressions: Service Date/Time: Tuesday, September 13, 2016 01:58 - CONCLUSION: 1. Thickening and anterior bulging of the medial aspect of the right pectoralis muscle likely from injury. There is also increased density around the first costochondral junction with some questionable fracturing at the medial first costochondral junction. 2. Minimal right effusion. Moises Jackson MD ADDENDUM: I have been told the patient potentially has inflammatory change in the right upper chest. The soft tissue density at the medial pectoralis muscle and around the first costochondral junction can also be postinflammatory. The increased density also is seen around the medial right clavicle. Involvement of the sternoclavicular joint could be present although the sternoclavicular joints appear relatively symmetric. Early involvement cannot be excluded. A focal fluid collection or abscess is not clearly seen on this examination. Also in reviewing the case the patient does appear to have some minimal loss of height at the superior aspect of T8 although acute fracturing is not seen. There is a Schmorl's node seen at this level. Moises Jackson MD PE at Discharge GENERAL: in NAD SKIN: Macular rash on the neck area and the back. NECK: Supple, trachea midline. No JVD or lymphadenopathy. CARDIOVASCULAR: Regular rate and rhythm without murmurs, gallops, or rubs. wound on chest dry clean and intact with tramaine in place. No drainage noted. Erythema around the tramaine. RESPIRATORY: Breath sounds equal bilaterally. No accessory muscle use. GASTROINTESTINAL: Abdomen soft, non-tender, nondistended. Hospital Course Costochondral Infection (right) Pseudomonal wound infection (right sternoclavicular joint debridement) Pectoralis Muscle Strain -During the hospital course patient was put on cefepime and Levaquin. Per infectious disease patient will be discharged on by mouth Levaquin until October. -No endocarditis on echo from 09/14 -on september 23, 2016 patient had Irrigation debridement of right sternoclavicular joint with partial resection of distal clavicle culture grew pseudomonas. Contact dermatitis -Most likely secondary to the detergent on the sheets. -Improved with Benadryl. -she was put on steroids, Benadryl and Zyrtec Hypokalemia -Resolved. HIV Continue HAART treatments CD4 1092 on 11/20/14 Hx of IV Drug Abuse Abuse of Dilaudid in the past Insomnia Chronic problem Trazodone resumed Diarrhea Resolved in hospital on own. Pt Condition on Discharge: Good Discharge Disposition: Discharge Home Discharge Time: > 30 minutes Discharge Instructions DIET: Follow Instructions for: As Tolerated, No Restrictions Activities you can perform: Regular-No Restrictions Follow up Referrals: Orthopedics - 1 Week with Mayank Ureña MD PCP Follow-up - 1 Week New Medications: Prednisone (Prednisone) 50 Mg Tab 50 MG PO DAILY Rash #5 Ref 0 TAB Tramadol (Tramadol) 50 Mg Tab 50 MG PO Q8H PRN PAIN #10 Ref 0 TAB Diphenhydramine (Diphenhydramine) 25 Mg Cap 25 MG PO Q6H PRN ITCHING #15 Ref 0 CAP Levofloxacin (Levaquin) 750 Mg Tab 750 MG PO Q24H antibitoics should be through November 04, 2016. infection #36 Ref 0 TAB Continued Medications: Abacavir-Lamivudine (Epzicom) 600-300 Mg Tab 1 TAB PO HS Hazardous agent; use appropriate precautions for handling & disposal. Mgmt Viral Infection #30 Ref 0 TAB Albuterol 6.7 GM Inh (Proventil Hfa 6.7 GM Inh) 90 Mcg/Act Aer 2 PUFF INH Q4-6H PRN SHORTNESS OF BREATH #1 Ref 0 INHALER Atorvastatin (Atorvastatin) 20 Mg Tab 20 MG PO HS Cholesterol Management #30 Ref 0 TAB Clonidine (Clonidine) 0.1 Mg Tab 0.1 MG PO BID Blood Pressure Management #60 Ref 0 TAB Darunavir (Prezista) 800 Mg Tab 800 MG PO BID Mgmt Viral Infection #30 Ref 0 TAB Gabapentin (Gabapentin) 300 Mg Cap 300 MG PO BID #60 Ref 0 CAP Lisinopril (Lisinopril) 20 Mg Tab 20 MG PO HS #30 Ref 0 TAB Ritonavir (Norvir) 100 Mg Cap 100 MG PO HS Mgmt Viral Infection #180 Ref 0 CAP Discontinued Medications: Hydrocodone-Acetaminophen (Hydrocodone-Acetaminophen) 5-325 mg Tab 1 TAB PO Q6H PRN PAIN Ref 0 TAB Tramadol (Tramadol) 50 Mg Tab 50 MG PO Q6H PRN PAIN #10 TAB Chastity Ocasio MD Sep 29, 2016 15:58
[2016-09-29 16:00] VITALS: BP 98/54; PULSE 80; RESP 17; TEMP 96.7; O2SAT 93
[2016-10-02] MEDS ORDERED: LEVOFLOXACIN 750 MG TAB PO SCH (12:00)
== END 2016-09-29 18:39 | disposition home or self-care (01) | DRG 517 ==
LOC: NEPE 00:01 → NEDA 03:24 → N06B 06:54 → N07B 09-28 22:01
PROVIDERS: ADMIT Family Medicine; ATTEND Family Medicine
PROC: 0R9E3ZX Drainage of Right Sternoclavicular Joint, Percutaneous Approach, Diagnostic (ICD-10-PCS; 2016-09-21)
PROC: 3E1U38Z Irrigation of Joints using Irrigating Substance, Percutaneous Approach (ICD-10-PCS; 2016-09-23)
PROC: 0PB90ZZ Excision of Right Clavicle, Open Approach (ICD-10-PCS; principal; 2016-09-23 12:16)
DX: M00.811 Arthritis due to other bacteria, right shoulder (principal); I10 Essential (primary) hypertension; B96.5 Pseudomonas (aeruginosa) (mallei) (pseudomallei) as the cause of diseases classified elsewhere; S43.61XA Sprain of right sternoclavicular joint, initial encounter; S46.811A Strain of other muscles, fascia and tendons at shoulder and upper arm level, right arm, initial encounter; E87.6 Hypokalemia; F32.9 Major depressive disorder, single episode, unspecified; E78.5 Hyperlipidemia, unspecified; Z21 Asymptomatic human immunodeficiency virus [HIV] infection status; F43.10 Post-traumatic stress disorder, unspecified; G47.00 Insomnia, unspecified; L25.8 Unspecified contact dermatitis due to other agents; R19.7 Diarrhea, unspecified; Z79.899 Other long term (current) drug therapy; V80.010A Animal-rider injured by fall from or being thrown from horse in noncollision accident, initial encounter; Y93.52 Activity, horseback riding
CPT/HCPCS: 20605; 29240; 71010; 71260; 73030; 73223; 76937; 80048; 80053; 80202; 80307; 81001; 82565; 85025; 85652; 86140; 86403; 87015; 87040; 87070; 87077; 87102; 87116; 87176; 87186; 87205; 87206; 87493; 93308; 94640; 94664; 96361; 96372; 96374; A9579; J0690; J0692; J1580; J1885; J2270; J2360; J2405; J2930; J3010; J3370; J7030; J7040; J7050; Q9967

== ENCOUNTER 2016-10-01 19:51 | Inpatient (IN) | payer BC ==
[~2016-10-01] VITALS: Ht 170.2 cm; Wt 73.0 kg
[~2016-10-01 19:51] MED LIST changes: +DIPH25CA PO; -HYDR-3516 PO; +LEVA750T PO; +PRED50 PO
[2016-10-01 20:18] VITALS: BP 110/65; PULSE 87; RESP 15; TEMP 99.6; O2SAT 99
[2016-10-01] MEDS ORDERED: methylPREDNISolone SOD SUCC 125 MG/2 ML VIAL IV PUSH ONE (21:30)
[2016-10-01] MEDS ORDERED: diphenhydrAMINE HCL 50 MG/ML VIAL IV PUSH ONE (21:30)
--- NOTE | 2016-10-01 21:33 | PD ---
HPI Chief Complaint: Skin Problem Time Seen by Provider: 21:20 Travel History International Travel<30 days: No Contact w/Intl Traveler<30days: No Traveled to known affect area: No History of Present Illness HPI This is a 41-year-old female with history of IV drug abuse, HIV who was recently discharged on October 01 after being admitted on September 13 for a costochondral infection. Wound culture grew out Pseudomonas. She was started on 6 week course of Levaquin 750 mg, first dose provided on September 24, last dose is supposed to be an November 04. She developed a pruritic rash on her back on her last day of hospitalization which per chart review was felt to be a contact dermatitis from her bedsheets. She was started on prednisone, Benadryl which she has been using as prescribed. Since then the rash has worsened, now has spread to her abdomen, extremities, chest, face. The rash is very pruritic, unrelieved with the use of Benadryl and prednisone. She voices slight dyspnea as well. Denies any swelling of lips, tongue, throat, fevers or chills, chest pain, abdominal pain, nausea or vomiting. She has been using the Levaquin as prescribed. She has no other complaints at this time. PFSH Past Medical History Arthritis: No Asthma: No Autoimmune Disease: No Blood Disorders: Yes (HIV) Anxiety: Yes Depression: Yes Heart Rhythm Problems: No Cancer: No Cardiovascular Problems: Yes (HTN) High Cholesterol: Yes Chemotherapy: No Chest Pain: No Congestive Heart Failure: No COPD: No Cerebrovascular Accident: No Diabetes: No Diminished Hearing: No Endocrine: No Gastrointestinal Disorders: No GERD: No Genitourinary: No Headaches: No Hiatal Hernia: No Hypertension: Yes Immune Disorder: Yes (HIV) Implanted Vascular Access Dvce: No Kidney Stones: No Musculoskeletal: No Neurologic: No Psychiatric: Yes (PTSD) Reproductive: No Respiratory: Yes (BRONCHITIS) Immunizations Current: Yes Migraines: No Radiation Therapy: No Renal Failure: No Seizures: No Sickle Cell Disease: No Sleep Apnea: No Thyroid Disease: No Ulcer: No : 5 Para: 3 Miscarriage: 1 : 1 Past Surgical History Abdominal Surgery: Yes (keith) AICD: No Arteriovenous Shunt: No Cardiac Surgery: No Cholecystectomy: Yes Ear Surgery: No Endocrine Surgery: No Eye Surgery: No Genitourinary Surgery: No Gynecologic Surgery: Yes (HYSTERECTOMY) Hysterectomy: Yes Insulin Pump: No Joint Replacement: No Neurologic Surgery: No Oral Surgery: Yes (PARTIAL UPPER PLACED) Pacemaker: No Thoracic Surgery: No Other Surgery: Yes Social History Alcohol Use: No Tobacco Use: No (never) Substance Use: Yes (marijuana and injected dilaudid 07/25) Allergies-Medications (Allergen,Severity, Reaction): Uncoded Allergies: ATRIPLA (Allergy, Severe, 07/27/16) Reported Meds & Prescriptions Reported Meds & Active Scripts Active Prednisone 50 Mg Tab 50 Mg PO DAILY Diphenhydramine (Diphenhydramine HCl) 25 Mg Cap 25 Mg PO Q6H PRN Tramadol (Tramadol HCl) 50 Mg Tab 50 Mg PO Q8H PRN Levaquin (Levofloxacin) 750 Mg Tab 750 Mg PO Q24H antibitoics should be through November 04, 2016. Reported Atorvastatin (Atorvastatin Calcium) 20 Mg Tab 20 Mg PO HS Norvir (Ritonavir) 100 Mg Cap 100 Mg PO HS Lisinopril 20 Mg Tab 20 Mg PO HS Gabapentin 300 Mg Cap 300 Mg PO BID Prezista (Darunavir) 800 Mg Tab 800 Mg PO BID Clonidine (Clonidine HCl) 0.1 Mg Tab 0.1 Mg PO BID Proventil Hfa 6.7 GM Inh (Albuterol Sulfate) 90 Mcg/Act Aer 2 Puff INH Q4-6H PRN Epzicom (Abacavir-Lamivudine) 600-300 Mg Tab 1 Tab PO HS Hazardous agent; use appropriate precautions for handling & disposal. Review of Systems Except as stated in HPI: all other systems reviewed are Neg Physical Exam Narrative GENERAL: Well-developed well-nourished female in no acute distress SKIN: Warm and dry. Postoperative incision noted to the right upper chest wall , tramaine in place, no wound dehiscence or drainage. There is a widespread macular erythematous rash noted on the torso, extremities, face. No vesicles, no pustules, no petechiae or purpura. HEAD: Atraumatic. Normocephalic. EYES: Pupils equal and round. No scleral icterus. No injection or drainage. ENT: No nasal bleeding or discharge. Mucous membranes pink and moist. NECK: Trachea midline. No JVD. CARDIOVASCULAR: Regular rate and rhythm. No murmur appreciated. RESPIRATORY: No accessory muscle use. Clear to auscultation. Breath sounds equal bilaterally. GASTROINTESTINAL: Abdomen soft, non-tender, nondistended. Hepatic and splenic margins not palpable. MUSCULOSKELETAL: No obvious deformities. No edema. NEUROLOGICAL: Awake and alert. No obvious cranial nerve deficits. Motor grossly within normal limits. Normal speech. Data Data Last Documented VS Vital Signs Date Time Temp Pulse Resp B/P Pulse Ox O2 Delivery O2 Flow Rate FiO2 10/01/16 20:18 99.6 87 15 110/65 99 Room Air Orders Complete Blood Count With Diff (10/01/16 21:29) Basic Metabolic Panel (Bmp) (10/01/16 21:29) Iv Access Insert/Monitor (10/01/16 21:29) Methylprednisolone So Succ Inj (Solumedr (10/01/16 21:30) Diphenhydramine Inj (Benadryl Inj) (10/01/16 21:30) Ecg Monitoring (10/01/16 21:29) Famotidine Inj (Pepcid Inj) (10/01/16 21:45) Chest, Pa & Lat (10/01/16 ) Hepatic Functional Panel (10/01/16 21:39) Cefepime Inj (Maxipime Inj) (10/01/16 22:30) Admit Order (Ed Use Only) (10/02/16 00:44) Labs Laboratory Tests Test 10/01/16 22:50 White Blood Count 10.3 TH/MM3 Red Blood Count 3.60 MIL/MM3 Hemoglobin 9.6 GM/DL Hematocrit 29.5 % Mean Corpuscular Volume 82.1 FL Mean Corpuscular Hemoglobin 26.8 PG Mean Corpuscular Hemoglobin 32.6 % Concent Red Cell Distribution Width 15.8 % Platelet Count 440 TH/MM3 Mean Platelet Volume 9.6 FL Neutrophils (%) (Auto) 84.3 % Lymphocytes (%) (Auto) 9.7 % Monocytes (%) (Auto) 4.9 % Eosinophils (%) (Auto) 0.8 % Basophils (%) (Auto) 0.3 % Neutrophils # (Auto) 8.7 TH/MM3 Lymphocytes # (Auto) 1.0 TH/MM3 Monocytes # (Auto) 0.5 TH/MM3 Eosinophils # (Auto) 0.1 TH/MM3 Basophils # (Auto) 0.0 TH/MM3 CBC Comment DIFF FINAL Differential Comment Sodium Level 143 MEQ/L Potassium Level 3.9 MEQ/L Chloride Level 110 MEQ/L Carbon Dioxide Level 24.9 MEQ/L Anion Gap 8 MEQ/L Blood Urea Nitrogen 18 MG/DL Creatinine 0.83 MG/DL Estimat Glomerular Filtration 75 ML/MIN Rate Random Glucose 114 MG/DL Calcium Level 9.4 MG/DL Total Bilirubin 0.4 MG/DL Direct Bilirubin 0.1 MG/DL Indirect Bilirubin 0.3 MG/DL Aspartate Amino Transf 11 U/L (AST/SGOT) Alanine Aminotransferase 20 U/L (ALT/SGPT) Alkaline Phosphatase 67 U/L Total Protein 7.7 GM/DL Albumin 3.2 GM/DL [facility] Medical Decision Making Medical Screen Exam Complete: Yes Emergency Medical Condition: Yes Medical Record Reviewed: Yes Differential Diagnosis Allergic reaction to Levaquin, contact dermatitis, pityriasis, DRESS, Andre Wayne's Narrative Course This is a 41-year-old female who was discharged 2 days ago after being hospitalized for a costochondral infection, wound culture grew out pseudomonas, currently on a 6 week course of Levaquin. She developed a pruritic rash on her back and her last hospitalization, was started on prednisone and Benadryl, the rash is now significantly worsened and involves her whole torso, extremities and face. On examination she has an erythematous morbilliform rash. IV will be established, she'll be given Benadryl, Solu-Medrol and famotidine. Basic lab work will be ordered. She will be placed on ECG monitoring. The patient was moved from the "fast track" area to a medical bed for more appropriate management. I discussed with my attending Dr. Meredith who agrees with plan of care. The patient will be given a dose of IV cefepime and she will be admitted for further evaluation, possibly infectious disease consult for medication adjustment. Upon reevaluation after the administration of H1/H2 antihistamines and Solu-Medrol, the pruritic rash remains unchanged. Discussed with Dr. Palacios who is agreeable with admission. Diagnosis Primary Impression: Allergic reaction Qualified Code: T78.40XA - Allergic reaction, initial encounter Admitting Information Admitting Physician Requests: Qamar Up Oct 01, 2016 21:33
[2016-10-01] MEDS ORDERED: FAMOTIDINE 20 MG/2 ML VIAL IV PUSH ONE (21:45)
--- NOTE | 2016-10-01 22:01 | RADRPT ---
EXAM DATE/TIME: 10/01/2016 21:42 [facility] COMPARISON: CHEST SINGLE AP, September 21, 2016, 21:32. INDICATIONS : Shortness of breath. Following rotator cuff surgery 2 days ago. MEDICAL HISTORY : None. SURGICAL HISTORY : None. ENCOUNTER: Initial ACUITY: 1 day PAIN SCORE: 0/10 LOCATION: Bilateral chest FINDINGS: The lungs are clear without infiltrate, nodule, or mass. There is no appreciable pleural effusion fo r technique. Heart and mediastinum are unremarkable. CONCLUSION: No acute cardiopulmonary disease. Dewey Corona MD on October 01, 2016 at 21:58 Board Certified Radiologist. This report was verified electronically.
[2016-10-01] MEDS ORDERED: CEFEPIME INJ 2,000 MG in SODIUM CHLORIDE 0.9% INJ 100 ML IV ONE (22:30)
[2016-10-01 23:05] LABS: AUTOMATED NEUTROPHIL # 8.7 TH/MM3 (1.8-7.7); BASOPHIL % 0.3 % (0.0-2.0); EOSINOPHIL # 0.1 TH/MM3 (0-0.4); EOSINOPHIL % 0.8 % (0.0-4.0); HEMATOCRIT 29.5 % (35.0-46.0); HEMO FLAGS DIFF FINAL; LYMPH % 9.7 % (9.0-44.0); MEAN CELL VOLUME 82.1 FL (80.0-100.0); MEAN CORPUSCULAR HEMOGLOBIN 26.8 PG (27.0-34.0); MEAN CORPUSCULAR HGB CONC 32.6 % (32.0-36.0); MONO % 4.9 % (0.0-8.0); NEUT % 84.3 % (16.0-70.0); PLATELET COUNT 440 TH/MM3 (150-450); RED CELL DISTRIBUTION WIDTH 15.8 % (11.6-17.2); WHITE BLOOD COUNT 10.3 TH/MM3 (4.0-11.0)
[2016-10-01 23:27] LABS: BICARBONATE 24.9 MEQ/L (21.0-32.0); POTASSIUM 3.9 MEQ/L (3.5-5.1)
[2016-10-01 23:29] LABS: INDIRECT BILIRUBIN 0.3 MG/DL (0.0-0.8); TOTAL BILIRUBIN ADULT 0.4 MG/DL (0.2-1.0)
[2016-10-02] MEDS ORDERED: NALOXONE HCL 0.4 MG/ML AMP IV PRN (01:00)
[2016-10-02] MEDS ORDERED: methylPREDNISolone SOD SUCC 40 MG/1 ML VIAL IV PUSH PRN (01:00)
[2016-10-02] MEDS ORDERED: SODIUM CHLORIDE 0.9% FLUSH 10 ML FLUSH IV FLUSH PRN (01:00)
[2016-10-02 02:31] VITALS: BP 132/90; PULSE 76; RESP 16; O2SAT 94
[2016-10-02] MEDS: diphenhydrAMINE HCL 50 MG/ML VIAL IV PUSH PRN ×4 (02:39→19:48)
--- NOTE | 2016-10-02 04:48 | HHI.HP ---
[facility] Moises Phelan MD Admission Diagnosis allergic reaction Diagnoses: Chief Complaint: itching rash Travel History International Travel<30 Days: No Contact w/Intl Traveler <30 Da: No Traveled to Known Affected Are: No History of Present Illness This is a 41-year-old female with history of IV drug abuse, HIV who was recently discharged on October 01 after being admitted on September 13 for a costochondral infection. Wound culture grew out Pseudomonas. She was started on 6 week course of Levaquin 750 mg, first dose provided on September 24, last dose is supposed to be an November 04. She developed a pruritic rash on her back on her last day of hospitalization which per chart review was felt to be a contact dermatitis from her bedsheets. She was started on prednisone, Benadryl which she has been using as prescribed. Since then the rash has worsened, now has spread to her abdomen, extremities, chest, face. The rash is very pruritic, unrelieved with the use of Benadryl and prednisone. Denies any swelling of lips , tongue, throat, fevers or chills, chest pain, abdominal pain, nausea or vomiting. The only new medications include Levaquin which was started September 24, 2016 and new HIV medication started 2 months ago. Patient does not recall her HIV regimen follows with Dr. Cochran. Review of Systems Except as stated in HPI: all other systems reviewed are Neg Past Family Social History Past Medical History HIV (CD4 1092 on 11/20/14), IVDU, Anxiety, Depression, HTN and Hyperlipidemia Past Surgical History Cholecystectomy, Hysterectomy, Closed Reduction of Bilateral Nasal Bone Fractures Reported Medications Prednisone 50 Mg Tab 50 Mg PO DAILY Diphenhydramine (Diphenhydramine HCl) 25 Mg Cap 25 Mg PO Q6H PRN Tramadol (Tramadol HCl) 50 Mg Tab 50 Mg PO Q8H PRN Levaquin (Levofloxacin) 750 Mg Tab 750 Mg PO Q24H antibitoics should be through November 04, 2016. Atorvastatin (Atorvastatin Calcium) 20 Mg Tab 20 Mg PO HS Norvir (Ritonavir) 100 Mg Cap 100 Mg PO HS Lisinopril 20 Mg Tab 20 Mg PO HS Gabapentin 300 Mg Cap 300 Mg PO BID Prezista (Darunavir) 800 Mg Tab 800 Mg PO BID Clonidine (Clonidine HCl) 0.1 Mg Tab 0.1 Mg PO BID Proventil Hfa 6.7 GM Inh (Albuterol Sulfate) 90 Mcg/Act Aer 2 Puff INH Q4-6H PRN Epzicom (Abacavir-Lamivudine) 600-300 Mg Tab 1 Tab PO HS Hazardous agent; use appropriate precautions for handling & disposal. Allergies: Uncoded Allergies: ATRIPLA (Allergy, Severe, 07/27/16) Active Ordered Medications Current Medications Medications (Trade) Dose Ordered Sig/Yolande Route Start Time Stop Time Status Last Admin (NS Flush) 2 ml UNSCH PRN IV FLUSH 10/02/16 01:00 (NS Flush) 2 ml BID IV FLUSH 10/02/16 09:00 Naloxone HCl 0.4 mg 0.4 mg UNSCH PRN IV 10/02/16 01:00 (Maxipime Inj/NS Inj) 100 ml @ 200 mls/hr Q12H IV 10/02/16 10:00 (Benadryl Inj) 25 mg Q4H PRN IV PUSH 10/02/16 01:00 10/02/16 02:39 (SoluMEDROL INJ) 40 mg Q6HR PRN IV PUSH 10/02/16 01:00 10/02/16 05:24 (Roxicodone) 5 mg Q6H PRN PO 10/02/16 05:00 10/02/16 05:24 Family History Reviewed patient denies medical history includes family medical history including CAD, diabetes or cancer Social History Denies EtOH use or tobacco use Positive for Marijuana, IVDU w/ Dilaudid. Physical Exam Vital Signs Vital Signs Date Time Temp Pulse Resp B/P Pulse Ox O2 Delivery O2 Flow Rate FiO2 10/02/16 02:31 76 16 132/90 94 Room Air 10/01/16 20:18 99.6 87 15 110/65 99 Room Air Physical Exam GENERAL: This is a well-nourished, well-developed patient with extensive macular rash throughout body SKIN: Extensive macular rash throughout body including anterior and posterior thorax, abdomen, bilateral upper extremities, bilateral lower extremities and neck EYES: Extraocular motions intact. No scleral icterus. No injection or drainage. ENT: Nose without bleeding, purulent drainage or septal hematoma. Throat without erythema, tonsillar hypertrophy or exudate. Uvula midline. Airway patent. NECK: Trachea midline. No JVD or lymphadenopathy. Supple, nontender, no meningeal signs. CARDIOVASCULAR: Regular rate and rhythm without murmurs, gallops, or rubs. RESPIRATORY: Clear to auscultation. Breath sounds equal bilaterally. No wheezes , rales, or rhonchi. GASTROINTESTINAL: Abdomen soft, non-tender, nondistended. MUSCULOSKELETAL: Extremities without clubbing, cyanosis, or edema. No joint tenderness, effusion, or edema noted. No calf tenderness. Negative Homans sign bilaterally. NEUROLOGICAL: Awake and alert. Motor and sensory grossly within normal limits. Five out of 5 muscle strength in all muscle groups. Normal speech. Laboratory Laboratory Tests Test 10/01/16 22:50 White Blood Count 10.3 Red Blood Count 3.60 Hemoglobin 9.6 Hematocrit 29.5 Mean Corpuscular Volume 82.1 Mean Corpuscular Hemoglobin 26.8 Mean Corpuscular Hemoglobin 32.6 Concent Red Cell Distribution Width 15.8 Platelet Count 440 Mean Platelet Volume 9.6 Neutrophils (%) (Auto) 84.3 Lymphocytes (%) (Auto) 9.7 Monocytes (%) (Auto) 4.9 Eosinophils (%) (Auto) 0.8 Basophils (%) (Auto) 0.3 Neutrophils # (Auto) 8.7 Lymphocytes # (Auto) 1.0 Monocytes # (Auto) 0.5 Eosinophils # (Auto) 0.1 Basophils # (Auto) 0.0 CBC Comment DIFF FINAL Differential Comment Sodium Level 143 Potassium Level 3.9 Chloride Level 110 Carbon Dioxide Level 24.9 Anion Gap 8 Blood Urea Nitrogen 18 Creatinine 0.83 Estimat Glomerular Filtration 75 Rate Random Glucose 114 Calcium Level 9.4 Total Bilirubin 0.4 Direct Bilirubin 0.1 Indirect Bilirubin 0.3 Aspartate Amino Transf 11 (AST/SGOT) Alanine Aminotransferase 20 (ALT/SGPT) Alkaline Phosphatase 67 Total Protein 7.7 Albumin 3.2 Result Diagram: 10/01/16224910/01/162249 Imaging Last Impressions Chest X-Ray 10/01/16 0000 Signed Impressions: Service Date/Time: September 21:42 - CONCLUSION: No acute cardiopulmonary disease. Dewey Corona MD Assessment and Plan Problem List: (1) Allergic reaction ICD Code: T78.40XA Status: Acute Assessment and Plan This is a 41-year-old female with history of IV drug abuse, HIV who was recently discharged on October 01 after being admitted on September 13 for a costochondral infection. Wound culture grew out Pseudomonas. She was started on 6 week course of Levaquin 750 mg, first dose provided on September. Since then the rash has worsened, now has spread to her abdomen, extremities, chest, face. The rash is very pruritic, unrelieved with the use of Benadryl and prednisone. The only new medications include Levaquin which was started September 24, 2016 and new HIV medication started 2 months ago. Patient does not recall her HIV regimen follows with Dr. Cochran. Allergic reaction Levaquin IV cefepime started emergency Department continue IV cefepime every 12 hours Benadryl 25 mg IV every 4 hours as needed for itching, Solu-Medrol 40 mg IV every 6 hours as needed for itching Close monitoring Consult infectious disease HIV continue home medication Hypertension continue to monitor trend Patient reports she has not been taking her antihypertensive medication as discussed her blood pressure to drop too low Hyperlipidemia continue atorvastatin 20 mg by mouth daily at bedtime DVT prophylaxis with Lovenox Discussed with a provider, nursing and patient Written by Lavinia Munson, acting as scribe for Dr. Palacios on 10/02/16 at 07: 01. This note was transcribed by scribe [Lavinia Munson]. I, Dr. Willie Palacios personally performed the history, physical exam, and medical decision making; and confirmed the accuracy of the information in the transcribed note. Authenticated by Dr. Willie Palacios on 10/02/16 at 07:01. Problem Qualifiers (1) Allergic reaction: Qualified Code: T78.40XA - Allergic reaction, initial encounter Lavinia Munson Oct 02, 2016 04:48 Willie Palacios MD October 15, 2016 20:05
[2016-10-02] MEDS ORDERED: ALBUTEROL SULFATE 90 MCG/ACT HFA 18 GM INHALER INH PRN (07:30)
[2016-10-02 08:24] VITALS: BP 120/60; PULSE 73; RESP 20; TEMP 97.4; O2SAT 97
[2016-10-02] MEDS: ENOXAPARIN SODIUM 40 MG/0.4 ML SYRINGE SQ SCH (08:45)
[2016-10-02] MEDS: DARUNAVIR 800 MG TAB PO SCH ×3 (09:00→21:00)
[2016-10-02] MEDS: SODIUM CHLORIDE 0.9% FLUSH 10 ML FLUSH IV FLUSH SCH ×2 (09:00→21:00)
[2016-10-02] MEDS ORDERED: CEFEPIME INJ 2,000 MG in SODIUM CHLORIDE 0.9% INJ 100 ML IV SCH ×2 (10:00→22:00)
[2016-10-02] MEDS ORDERED: LEVOFLOXACIN 750 MG TAB PO SCH (11:30)
[2016-10-02] MEDS ORDERED: ACETAMINOPHEN 500 MG CPLT PO PRN (11:30)
[2016-10-02] MEDS: traMADol HCL 50 MG TAB PO PRN ×2 (12:12→21:00)
--- NOTE | 2016-10-02 12:28 | HHI.PR ---
Subjective Remarks f/u for rash patient asking for something for itchiness. she denied any SOB, CP, palpitations. Objective Vitals Vital Signs Date Time Temp Pulse Resp B/P Pulse Ox O2 Delivery O2 Flow Rate FiO2 10/02/16 08:24 97.4 73 20 120/60 97 10/02/16 02:31 76 16 132/90 94 Room Air 10/01/16 20:18 99.6 87 15 110/65 99 Room Air Result Diagram: 10/01/16224910/01/162249 Objective Remarks GENERAL: in NAD SKIN: diffuse urticaric rash on entire body, HEAD: Normocephalic. EYES: No scleral icterus. No injection or drainage. NECK: Supple, trachea midline. No JVD or lymphadenopathy. CARDIOVASCULAR: Regular rate and rhythm without murmurs, gallops, or rubs. RESPIRATORY: Breath sounds equal bilaterally. No accessory muscle use. GASTROINTESTINAL: Abdomen soft, non-tender, nondistended. MUSCULOSKELETAL: No cyanosis, or edema. BACK: Nontender without obvious deformity. No CVA tenderness. Medications and IVs Current Medications Methylprednisolone Sodium Succinate (SoluMEDROL INJ) 125 mg ONCE ONCE IV PUSH Last administered on 10/01/16 23:04; Start 10/01/16 at 21:30; Stop 10/01/16 at 21:31; Status DC Diphenhydramine HCl (Benadryl Inj) 50 mg ONCE ONCE IV PUSH Last administered on 10/01/16 23:04; Start 10/01/16 at 21:30; Stop 10/01/16 at 21:31; Status DC Famotidine 20 mg 20 mg ONCE ONCE IV PUSH Last administered on 10/01/16 23:04 ; Start 10/01/16 at 21:45; Stop 10/01/16 at 21:55; Status DC Cefepime HCl/ Sodium Chloride (Maxipime Inj/NS Inj) 100 ml @ 200 mls/hr ONCE ONCE IV Last administered on 10/01/16 23:43; Start 10/01/16 at 22:30; Stop at 22:59; Status DC Sodium Chloride (NS Flush) 2 ml UNSCH PRN IV FLUSH FLUSH AFTER USING IV ACCESS ; Start 10/02/16 at 01:00 Sodium Chloride (NS Flush) 2 ml BID IV FLUSH ; Start 10/02/16 at 09:00 Naloxone HCl 0.4 mg 0.4 mg UNSCH PRN IV SEE LABEL COMMENTS; Start 10/02/16 at 01:00 Cefepime HCl/ Sodium Chloride (Maxipime Inj/NS Inj) 100 ml @ 200 mls/hr Q12H IV Last administered on 10/02/16 10:08; Start 10/02/16 at 10:00; Stop at 11:26; Status DC Diphenhydramine HCl (Benadryl Inj) 25 mg Q4H PRN IV PUSH itching Last administered on 10/02/16 10:07; Start 10/02/16 at 01:00 Methylprednisolone Sodium Succinate (SoluMEDROL INJ) 40 mg Q6HR PRN IV PUSH itching/ allergic rxn Last administered on 10/02/16 05:24; Start 10/02/16 at 01 :00; Stop 10/02/16 at 11:28; Status DC Oxycodone HCl (Roxicodone) 5 mg Q6H PRN PO pain >5 Last administered on 05:24; Start 10/02/16 at 05:00; Stop 10/02/16 at 11:26; Status DC Enoxaparin Sodium (Lovenox Inj) 40 mg Q24H SQ Last administered on 10/02/16 08 :45; Start 10/02/16 at 08:00 Albuterol Sulfate (Ventolin Hfa Inh) 2 puff Q2HR PRN INH SHORTNESS OF BREATH; Start 10/02/16 at 07:30 Atorvastatin Calcium (Lipitor) 20 mg HS PO ; Start 10/02/16 at 21:00 Darunavir (Prezista) 800 mg BID PO ; Start 10/02/16 at 09:00 Ritonavir (Norvir) 100 mg HS PO ; Start 10/02/16 at 21:00 Tramadol HCl (Ultram) 50 mg Q8H PRN PO PAIN SCALE 1 TO 4 Last administered on 12:12; Start 10/02/16 at 07:00 Non-Formulary Medication 1 tab HS PO ; Start 10/02/16 at 21:00; Status UNV Abacavir Sulfate (Ziagen) 600 mg HS PO ; Start 10/02/16 at 21:00 Lamivudine (Epivir) 300 mg HS PO ; Start 10/02/16 at 21:00 Levofloxacin (Levaquin) 750 mg Q24H PO ; Start 10/02/16 at 11:30; Stop 10/02/16 at 11:55; Status DC Methylprednisolone Sodium Succinate (SoluMEDROL INJ) 60 mg Q6HR IV PUSH ; Start 10/02/16 at 12:00 Cetirizine HCl (ZyrTEC) 10 mg DAILY PO ; Start 10/02/16 at 13:00 Acetaminophen 500 mg 500 mg Q4H PRN PO pain 1-10; Start 10/02/16 at 11:30 Cefepime HCl/ Sodium Chloride (Maxipime Inj/NS Inj) 100 ml @ 200 mls/hr Q12H IV ; Start 10/02/16 at 22:00 A/P Problem List: (1) Allergic reaction ICD Code: T78.40XA Status: Acute Assessment and Plan This is a 41-year-old female with history of IV drug abuse, HIV who was recently discharged on October 01 after being admitted on September 13 for a costochondral infection. Wound culture grew out Pseudomonas. She was started on 6 week course of Levaquin 750 mg, first dose provided on September. Since then the rash has worsened, now has spread to her abdomen, extremities, chest, face. The rash is very pruritic, unrelieved with the use of Benadryl and prednisone. The only new medications include Levaquin which was started September 24, 2016 and new HIV medication started 2 months ago. Patient does not recall her HIV regimen follows with Dr. Cochran. Allergic reaction maybe 2nd to Levaquin since rash worsened with levaquin. IV cefepime started emergency Department continue IV cefepime every 12 hours Benadryl 25 mg IV every 4 hours as needed for itching, schedule solumedrol. add zyrtec and give vistril PRN, Close monitoring Consult infectious disease d/w Dr. Colmenares over phone. HIV continue home medication Hypertension continue to monitor trend Patient reports she has not been taking her antihypertensive medication as discussed her blood pressure to drop too low Hyperlipidemia continue atorvastatin 20 mg by mouth daily at bedtime DVT prophylaxis with Lovenox Problem Qualifiers (1) Allergic reaction: Qualified Code: T78.40XA - Allergic reaction, initial encounter Chastity Ocasio MD Oct 02, 2016 12:28
[2016-10-02 12:30] VITALS: BP 129/65; PULSE 55; RESP 18; TEMP 98; O2SAT 95
[2016-10-02] MEDS: methylPREDNISolone SOD SUCC 40 MG/1 ML VIAL IV PUSH SCH ×2 (12:56→18:20)
[2016-10-02] MEDS: CETIRIZINE HCL 10 MG TAB PO SCH (12:56)
--- NOTE | 2016-10-02 13:31 | PD.ID.CON ---
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 s/p I& D by Dr Ureña 09/23 was d/c 2 days ago now back twith pruritic rash It started on the day of d/c' and nback then she was receiving bothe levaquine and cefepiemiShe was d/c solely on levaquine and the rash cont to get worse and spread fro just the baqck to the chest, stomach, extrememties She denies oral lesions No fever Pain is improving in R clavilcle She toojk levaquine last time yday am No improvement in the rash yet Review of Systems Except as stated in HPI: all other systems reviewed are Neg Past Family Social History Allergies: Uncoded Allergies: ATRIPLA (Allergy, Severe, 07/27/16) Past Medical History HIV HTN R clavicle osteo Past Surgical History sternaclavicular joint s/p I& D by Dr Ureña 09/23 hystrectomy Active Ordered Medications Medications where reviewed in EMR Antibiotics Include: ziagen epivir prezista norvir Family History Non-Contributory. Social History IVDU - injected dilaudid MJ no tobacco occ ETOH Physical Exam Vital Signs Vital Signs Date Time Temp Pulse Resp B/P Pulse Ox O2 Delivery O2 Flow Rate FiO2 10/02/16 12:30 98.0 55 18 129/65 95 10/02/16 08:24 97.4 73 20 120/60 97 10/02/16 02:31 76 16 132/90 94 Room Air 10/01/16 20:18 99.6 87 15 110/65 99 Room Air Physical Exam CONSTITUTIONAL/GENERAL: This is an adequately nourished patient, in no apparent distress. TUBES/LINES/DRAINS: SKIN: No jaundice, Severe morbiliform rash involving back, chest, abdomen, extremeties It s confulent in some areas Skin temperature appropriate. Not diaphoretic. HEAD: Atraumatic. Normocephalic. EYES: Pupils equal and round and reactive. Extraocular motions intact. No scleral icterus. No injection or drainage. Fundi not examined. ENT: Hearing grossly normal. Nose without bleeding or purulent drainage. Oral mucosaer moist without visible erythema, exudates, masses, or lesions. NECK: Trachea midline. Supple, nontender. CARDIOVASCULAR: Regular rate and rhythm without murmurs, gallops, or rubs. No JVD. Peripheral pulses symmetric. RESPIRATORY/CHEST: Symmetric, unlabored respirations. Clear to auscultation. Breath sounds equal bilaterally. No wheezes, rales, or rhonchi. GASTROINTESTINAL: Abdomen soft, non-tender, nondistended. No hepato-splenomegaly , or palpable masses. No guarding. Bowel sounds present. GENITOURINARY: Without palpable bladder distension. Villarreal catheter in place. MUSCULOSKELETAL: Extremities without clubbing, cyanosis, or edema. No joint tenderness or effusion noted. No calf tenderness. No mottling or clubbing. Incision over R clavicle is well approximated clean minimal swelling present, no rednes no drainage LYMPHATICS: No palpable cervical or supraclavicular adenopathy. NEUROLOGICAL: Awake and alert. Motor and sensory grossly within normal limits. Follows commands. Normal speech. Moves all extremities. PSYCHIATRIC: No obvious anxiety/depression. no apparent hallucinations or other psychotic thought process. Laboratory Laboratory Tests Test 10/01/16 22:50 White Blood Count 10.3 Red Blood Count 3.60 Hemoglobin 9.6 Hematocrit 29.5 Mean Corpuscular Volume 82.1 Mean Corpuscular Hemoglobin 26.8 Mean Corpuscular Hemoglobin 32.6 Concent Red Cell Distribution Width 15.8 Platelet Count 440 Mean Platelet Volume 9.6 Neutrophils (%) (Auto) 84.3 Lymphocytes (%) (Auto) 9.7 Monocytes (%) (Auto) 4.9 Eosinophils (%) (Auto) 0.8 Basophils (%) (Auto) 0.3 Neutrophils # (Auto) 8.7 Lymphocytes # (Auto) 1.0 Monocytes # (Auto) 0.5 Eosinophils # (Auto) 0.1 Basophils # (Auto) 0.0 CBC Comment DIFF FINAL Differential Comment Sodium Level 143 Potassium Level 3.9 Chloride Level 110 Carbon Dioxide Level 24.9 Anion Gap 8 Blood Urea Nitrogen 18 Creatinine 0.83 Estimat Glomerular Filtration 75 Rate Random Glucose 114 Calcium Level 9.4 Total Bilirubin 0.4 Direct Bilirubin 0.1 Indirect Bilirubin 0.3 Aspartate Amino Transf 11 (AST/SGOT) Alanine Aminotransferase 20 (ALT/SGPT) Alkaline Phosphatase 67 Total Protein 7.7 Albumin 3.2 Result Diagram: 10/01/16224910/01/16 2250 Imaging Last Impressions Chest X-Ray 10/01/16 0000 Signed Impressions: Service Date/Time: September 21:42 - CONCLUSION: No acute cardiopulmonary disease. Dewey Corona MD Assessment and Plan Assessment and Plan IVDU R clavicle osteomyelitis, SC joint infection, PSAE solis S Allergic reaction in the foorm of pruritic rash - levaquine vs (less likely) cefepime Start azactam PICC anticipate abx thru 11/04 as previously prescribed No oral options since levaquine is most likely offeding medx cont pt's home HAART monitor rash pt can be d/c'd once rash improved and IV abx arrangement s are done per protocol Discussed Condition With Jodi Barillas MD Oct 02, 2016 13:31
[2016-10-02 15:32] VITALS: BP 130/74; PULSE 84; RESP 18; TEMP 97.8; O2SAT 96
[2016-10-02 17:00] VITALS: BP 129/86; PULSE 57; RESP 18; TEMP 97.1; O2SAT 97
[2016-10-02] MEDS: AZTREONAM INJ 2,000 MG in SODIUM CHLORIDE 0.9% INJ 100 ML IV SCH ×2 (17:28→21:01)
[2016-10-02 20:00] VITALS: BP 143/77; PULSE 73; RESP 16; TEMP 97.4; O2SAT 98
[2016-10-02] MEDS: ABACAVIR SULFATE 300 MG TAB PO SCH (21:00)
[2016-10-02] MEDS: ATORVASTATIN 20 MG TAB PO SCH (21:00)
[2016-10-02] MEDS: RITONAVIR 100 MG TAB PO SCH (21:00)
[2016-10-02] MEDS ORDERED: NON-FORMULARY DRUG (Abacavir-Lamivudine (Epzicom) 1 TAB) PO SCH (21:00)
[2016-10-03] VITALS (7 sets, daily range): BP systolic 120–139; BP diastolic 55–94; PULSE 61–80; RESP 16–20; TEMP 96.2–98.2; O2SAT 95–98
[2016-10-03] MEDS: diphenhydrAMINE HCL 50 MG/ML VIAL IV PUSH PRN ×5 (00:07→20:22)
[2016-10-03] MEDS: methylPREDNISolone SOD SUCC 40 MG/1 ML VIAL IV PUSH SCH ×5 (00:08→23:29)
[2016-10-03] MEDS: AZTREONAM INJ 2,000 MG in SODIUM CHLORIDE 0.9% INJ 100 ML IV SCH ×4 (02:44→20:18)
[2016-10-03 07:31] LABS: AUTOMATED NEUTROPHIL # 8.6 TH/MM3 (1.8-7.7); BASOPHIL # 0.1 TH/MM3 (0-0.2); BASOPHIL % 0.5 % (0.0-2.0); EOSINOPHIL % 0.3 % (0.0-4.0); HEMATOCRIT 32.8 % (35.0-46.0); HEMO FLAGS DIFF FINAL; LYMPH % 13.6 % (9.0-44.0); LYMPHOCYTE # 1.5 TH/MM3 (1.0-4.8); MEAN CELL VOLUME 83.2 FL (80.0-100.0); MEAN CORPUSCULAR HEMOGLOBIN 26.6 PG (27.0-34.0); MONO % 4.9 % (0.0-8.0); NEUT % 80.7 % (16.0-70.0); PLATELET COUNT 410 TH/MM3 (150-450); RED BLOOD COUNT 3.94 MIL/MM3 (4.00-5.30); RED CELL DISTRIBUTION WIDTH 15.7 % (11.6-17.2); WHITE BLOOD COUNT 10.7 TH/MM3 (4.0-11.0)
[2016-10-03 07:58] LABS: BICARBONATE 21.9 MEQ/L (21.0-32.0); POTASSIUM 4.6 MEQ/L (3.5-5.1)
[2016-10-03] MEDS: ENOXAPARIN SODIUM 40 MG/0.4 ML SYRINGE SQ SCH (09:17)
[2016-10-03] MEDS: DARUNAVIR 800 MG TAB PO SCH ×2 (09:18→20:19)
[2016-10-03] MEDS: CETIRIZINE HCL 10 MG TAB PO SCH (09:18)
[2016-10-03] MEDS: SODIUM CHLORIDE 0.9% FLUSH 10 ML FLUSH IV FLUSH SCH ×2 (09:19→20:19)
--- NOTE | 2016-10-03 09:37 | HHI.PR ---
Subjective Remarks f/u for allergic reaction most likely due to antibiotics. Patient continues to c/o itchiness and rash but it has improved drastically. Asking for Roxicodone for her chronic right shoulder pain. She stated she is not taking any medication as outpatient for it and that we gave it to her during her last admission. Objective Vitals Vital Signs Date Time Temp Pulse Resp B/P Pulse Ox O2 Delivery O2 Flow Rate FiO2 10/03/16 04:00 96.4 61 18 133/55 96 10/03/16 00:00 98.2 62 20 136/74 96 10/02/16 20:00 97.4 73 16 143/77 98 10/02/16 17:00 97.1 57 18 129/86 97 10/02/16 15:32 97.8 84 18 130/74 96 10/02/16 12:30 98.0 55 18 129/65 95 Result Diagram: 10/03/1660410/03/16 06 Objective Remarks GENERAL: in NAD SKIN: diffuse urticaric rash on entire body with drastically improvements. CARDIOVASCULAR: Regular rate and rhythm without murmurs, gallops, or rubs. wound on chest dry clean and intact. RESPIRATORY: Breath sounds equal bilaterally. No accessory muscle use. GASTROINTESTINAL: Abdomen soft, non-tender, nondistended. MUSCULOSKELETAL: No cyanosis, or edema. BACK: Nontender without obvious deformity. No CVA tenderness. Medications and IVs Current Medications Methylprednisolone Sodium Succinate (SoluMEDROL INJ) 125 mg ONCE ONCE IV PUSH Last administered on 10/01/16 23:04; Start 10/01/16 at 21:30; Stop 10/01/16 at 21:31; Status DC Diphenhydramine HCl (Benadryl Inj) 50 mg ONCE ONCE IV PUSH Last administered on 10/01/16 23:04; Start 10/01/16 at 21:30; Stop 10/01/16 at 21:31; Status DC Famotidine 20 mg 20 mg ONCE ONCE IV PUSH Last administered on 10/01/16 23:04 ; Start 10/01/16 at 21:45; Stop 10/01/16 at 21:55; Status DC Cefepime HCl/ Sodium Chloride (Maxipime Inj/NS Inj) 100 ml @ 200 mls/hr ONCE ONCE IV Last administered on 10/01/16 23:43; Start 10/01/16 at 22:30; Stop at 22:59; Status DC Sodium Chloride (NS Flush) 2 ml UNSCH PRN IV FLUSH FLUSH AFTER USING IV ACCESS Last administered on 10/03/16 06:51; Start 10/02/16 at 01:00 Sodium Chloride (NS Flush) 2 ml BID IV FLUSH Last administered on 10/03/16 09: 19; Start 10/02/16 at 09:00 Naloxone HCl 0.4 mg 0.4 mg UNSCH PRN IV SEE LABEL COMMENTS; Start 10/02/16 at 01:00 Cefepime HCl/ Sodium Chloride (Maxipime Inj/NS Inj) 100 ml @ 200 mls/hr Q12H IV Last administered on 10/02/16 10:08; Start 10/02/16 at 10:00; Stop at 11:26; Status DC Diphenhydramine HCl (Benadryl Inj) 25 mg Q4H PRN IV PUSH itching Last administered on 10/03/16 06:51; Start 10/02/16 at 01:00 Methylprednisolone Sodium Succinate (SoluMEDROL INJ) 40 mg Q6HR PRN IV PUSH itching/ allergic rxn Last administered on 10/02/16 05:24; Start 10/02/16 at 01 :00; Stop 10/02/16 at 11:28; Status DC Oxycodone HCl (Roxicodone) 5 mg Q6H PRN PO pain >5 Last administered on 05:24; Start 10/02/16 at 05:00; Stop 10/02/16 at 11:26; Status DC Enoxaparin Sodium (Lovenox Inj) 40 mg Q24H SQ Last administered on 10/03/16 09 :17; Start 10/02/16 at 08:00 Albuterol Sulfate (Ventolin Hfa Inh) 2 puff Q2HR PRN INH SHORTNESS OF BREATH; Start 10/02/16 at 07:30 Atorvastatin Calcium (Lipitor) 20 mg HS PO ; Start 10/02/16 at 21:00 Darunavir (Prezista) 800 mg BID PO ; Start 10/02/16 at 09:00 Ritonavir (Norvir) 100 mg HS PO ; Start 10/02/16 at 21:00 Tramadol HCl (Ultram) 50 mg Q8H PRN PO PAIN SCALE 1 TO 4 Last administered on 21:00; Start 10/02/16 at 07:00 Non-Formulary Medication 1 tab HS PO ; Start 10/02/16 at 21:00; Status UNV Abacavir Sulfate (Ziagen) 600 mg HS PO ; Start 10/02/16 at 21:00 Lamivudine (Epivir) 300 mg HS PO ; Start 10/02/16 at 21:00 Levofloxacin (Levaquin) 750 mg Q24H PO ; Start 10/02/16 at 11:30; Stop 10/02/16 at 11:55; Status DC Methylprednisolone Sodium Succinate (SoluMEDROL INJ) 60 mg Q6HR IV PUSH Last administered on 10/03/16 06:49; Start 10/02/16 at 12:00 Cetirizine HCl (ZyrTEC) 10 mg DAILY PO Last administered on 10/03/16 09:18; Start 10/02/16 at 13:00 Acetaminophen 500 mg 500 mg Q4H PRN PO pain 1-10; Start 10/02/16 at 11:30 Cefepime HCl/ Sodium Chloride (Maxipime Inj/NS Inj) 100 ml @ 200 mls/hr Q12H IV ; Start 10/02/16 at 22:00; Stop 10/02/16 at 22:00; Status DC Hydroxyzine Pamoate 25 mg 25 mg Q6H PRN PO itchiness; Start 10/02/16 at 12:45 Aztreonam/Sodium Chloride (Azactam Inj/NS Inj) 100 ml @ 200 mls/hr Q6H IV Last administered on 10/03/16 09:17; Start 10/02/16 at 14:00 Pneumococcal Polyvalent Vaccine (Pneumovax-23 Inj) 25 mcg ONCE ONCE IM Last administered on 10/03/16 09:19; Start 10/03/16 at 10:00; Stop 10/03/16 at 10:01 Influenza Virus Vaccine (Flu (Quadrivalent) Vaccine Inj) 0.5 ml ONCE ONCE IM ; Start 10/03/16 at 10:00; Stop 10/03/16 at 10:00; Status DC A/P Problem List: (1) Allergic reaction ICD Code: T78.40XA Status: Acute Assessment and Plan This is a 41-year-old female with history of IV drug abuse, HIV who was recently discharged on October 01 after being admitted on September 13 for a costochondral infection. Wound culture grew out Pseudomonas. She was started on 6 week course of Levaquin 750 mg, first dose provided on September. Since then the rash has worsened, now has spread to her abdomen, extremities, chest, face. The rash is very pruritic, unrelieved with the use of Benadryl and prednisone. The only new medications include Levaquin which was started September 24, 2016 and new HIV medication started 2 months ago. Patient does not recall her HIV regimen follows with Dr. Cochran. Allergic reaction maybe 2nd to Levaquin since rash worsened with levaquin. IV cefepime started emergency Department ID d/c cefepime and on aztreonam. drastic improvement in rash. so continue benadryl 25 mg IV every 4 hours as needed for itching, decrease solumedrol dose, zyrtec and Vistaril PRN, Sternoclavicular joint infection +pseudomonas. levaquin and cefepime d/sindy by ID due to allergic reaction. on aztreonam. per ID will need PICC and aztreonam until November 04, 2016. ? chronic right shoulder pain patient c/o chronic right shoulder pain she is asking for Roxicodone. PATIENT IS NOT ON ANY NARCOTICS OUTPATIENT. DUE TO IVDU I DO NOT RECOMMEND STARTING ANY OPIOIDS DUE TO HER ADDICTION. SHE SHOWS NO SIGNS OF WITHDRAWAL AND IS VERY COMFORTABLE. I will continue with tramadol PRN. HIV continue home medication Hypertension continue to monitor trend Patient reports she has not been taking her antihypertensive medication as discussed her blood pressure to drop too low Hyperlipidemia continue atorvastatin 20 mg by mouth daily at bedtime DVT prophylaxis with Lovenox Problem Qualifiers (1) Allergic reaction: Qualified Code: T78.40XA - Allergic reaction, initial encounter Chastity Ocasio MD Oct 03, 2016 09:37
[2016-10-03] MEDS: traMADol HCL 50 MG TAB PO PRN ×2 (09:58→18:06)
[2016-10-03] MEDS: hydrOXYzine PAMOATE 25 MG CAP PO PRN ×2 (09:58→18:05)
[2016-10-03] MEDS ORDERED: INFLUENZA VIRUS VACCINE (QUADRIVALENT) 0.5 ML SYR IM ONE (10:00)
[2016-10-03] MEDS ORDERED: PNEUMOCOCCAL POLYVALENT INJ 25 MCG/0.5 ML SYR IM ONE (10:00)
--- NOTE | 2016-10-03 16:30 | RADRPT ---
EXAM DATE/TIME: 10/03/2016 15:51 [facility] COMPARISON: CHEST PA & LAT, October 01, 2016, 21:42. INDICATIONS : PICC line placement. MEDICAL HISTORY : None. SURGICAL HISTORY : None. ENCOUNTER: Initial ACUITY: 1 day PAIN SCORE: 5/10 LOCATION: Bilateral chest FINDINGS: The lungs are clear without infiltrate, nodule, or mass. There is no appreciable pleural effusion fo r technique. Heart and mediastinum are unremarkable. Right subclavian PICC line is present with tip overlapping the expected region of the SVC. CONCLUSION: No acute cardiopulmonary disease. Dewey Corona MD on October 03, 2016 at 16:27 Board Certified Radiologist. This report was verified electronically.
[2016-10-03] MEDS ORDERED: SODIUM CHLORIDE 0.9% FLUSH 10 ML FLUSH IV FLUSH PRN (16:45)
[2016-10-03] MEDS ORDERED: PILL SPLITTER OTHER PRN (20:00)
[2016-10-03] MEDS ORDERED: FLUCONAZOLE 100 MG TAB PO ONE (20:00)
[2016-10-03] MEDS: ABACAVIR SULFATE 300 MG TAB PO SCH (20:19)
[2016-10-03] MEDS: RITONAVIR 100 MG TAB PO SCH (20:19)
[2016-10-03] MEDS: ATORVASTATIN 20 MG TAB PO SCH (20:20)
[2016-10-04] MEDS: diphenhydrAMINE HCL 50 MG/ML VIAL IV PUSH PRN ×5 (00:15→21:50)
[2016-10-04] MEDS: AZTREONAM INJ 2,000 MG in SODIUM CHLORIDE 0.9% INJ 100 ML IV SCH ×4 (02:22→21:56)
[2016-10-04] MEDS: traMADol HCL 50 MG TAB PO PRN ×2 (02:22→11:30)
[2016-10-04] MEDS: hydrOXYzine PAMOATE 25 MG CAP PO PRN ×2 (02:26→14:20)
[2016-10-04 03:44] VITALS: BP 138/79; PULSE 57; RESP 17; TEMP 96.4; O2SAT 95
[2016-10-04] MEDS: methylPREDNISolone SOD SUCC 40 MG/1 ML VIAL IV PUSH SCH ×4 (04:46→23:38)
[2016-10-04 07:21] VITALS: BP 130/80; PULSE 80; RESP 19; TEMP 95.9; O2SAT 99
[2016-10-04] MEDS: ENOXAPARIN SODIUM 40 MG/0.4 ML SYRINGE SQ SCH (08:55)
[2016-10-04] MEDS: SODIUM CHLORIDE 0.9% FLUSH 10 ML FLUSH IV FLUSH SCH ×3 (08:56→21:50)
[2016-10-04] MEDS: CETIRIZINE HCL 10 MG TAB PO SCH (08:56)
[2016-10-04] MEDS: DARUNAVIR 800 MG TAB PO SCH ×2 (08:57→21:51)
--- NOTE | 2016-10-04 11:14 | HHI.PR ---
Subjective Remarks c/o itchiness states rash has extended into her legs c/o right shoulder pain refused one of her HIV meds this am stating she only takes it at night at home feels cold and clammy sweaty at night Objective Vitals Vital Signs Date Time Temp Pulse Resp B/P Pulse Ox O2 Delivery O2 Flow Rate FiO2 10/04/16 07:21 95.9 80 19 130/80 99 10/04/16 03:44 96.4 57 17 138/79 95 10/03/16 23:47 98.0 65 16 139/94 95 10/03/16 19:35 97.4 79 18 135/85 97 10/03/16 16:00 96.2 80 18 120/77 96 10/03/16 11:37 96.9 77 18 125/73 97 I/O 10/03/16 10/03/16 10/03/16 10/04/16 10/04/16 10/04/16 07:00 15:00 23:00 07:00 15:00 23:00 Intake Total 960 ml 720 ml 480 ml Balance 960 ml 720 ml 480 ml Intake Oral 960 ml 720 ml 480 ml # Voids 4 2 2 # Bowel Movements 2 Result Diagram: 10/03/16 0605 10/03/16 0605 Imaging Last Impressions Chest X-Ray 10/03/16 0000 Signed Impressions: Service Date/Time: Monday, October 03, 2016 15:51 - CONCLUSION: No acute cardiopulmonary disease. Dewey Corona MD Objective Remarks GENERAL: Mild distress due to shoulder pain and itchiness. No respiratory distress. SKIN: diffuse urticaric rash on entire body with drastically improvements. CARDIOVASCULAR: Regular rate and rhythm without murmurs, gallops, or rubs. wound on chest dry clean and intact. RESPIRATORY: Breath sounds equal bilaterally. No accessory muscle use. No wheezing auscultated. GASTROINTESTINAL: Abdomen soft, non-tender, nondistended. MUSCULOSKELETAL: No cyanosis, or edema. right shoulder tender to palpation and painful to passive or active range of motion. BACK: Nontender without obvious deformity. No CVA tenderness. Medications and IVs Current Medications Medications (Trade) Dose Ordered Sig/Yolande Route Start Time Stop Time Status Last Admin (NS Flush) 2 ml UNSCH PRN IV FLUSH 10/02/16 01:00 10/03/16 06:51 (NS Flush) 2 ml BID IV FLUSH 10/02/16 09:00 10/04/16 08:56 (Narcan Inj) 0.4 mg UNSCH PRN IV 10/02/16 01:00 (Benadryl Inj) 25 mg Q4H PRN IV PUSH 10/02/16 01:00 10/04/16 08:57 (Lovenox Inj) 40 mg Q24H SQ 10/02/16 08:00 10/04/16 08:55 (Ventolin Hfa Inh) 2 puff Q2HR PRN INH 10/02/16 07:30 (Lipitor) 20 mg HS PO 10/02/16 21:00 (Prezista) 800 mg BID PO 10/02/16 09:00 10/03/16 20:19 (Norvir) 100 mg HS PO 10/02/16 21:00 10/03/16 20:19 (Ultram) 50 mg Q8H PRN PO 10/02/16 07:00 10/04/16 02:22 (Ziagen) 600 mg HS PO 10/02/16 21:00 10/03/16 20:19 (Epivir) 300 mg HS PO 10/02/16 21:00 10/03/16 20:19 (ZyrTEC) 10 mg DAILY PO 10/02/16 13:00 10/04/16 08:56 (Tylenol) 500 mg Q4H PRN PO 10/02/16 11:30 Hydroxyzine Pamoate 25 mg 25 mg Q6H PRN PO 10/02/16 12:45 10/04/16 02:26 (Azactam Inj/NS Inj) 100 ml @ 200 mls/hr Q6H IV 10/02/16 14:00 10/04/16 08:55 (SoluMEDROL INJ) 40 mg Q6HR IV PUSH 10/03/16 12:00 10/04/16 04:46 (NS Flush) See Protocol DAILY IV FLUSH 10/04/16 09:00 10/04/16 08:56 (NS Flush) See Protocol UNSCH PRN IV FLUSH 10/03/16 16:45 (Heparin Central Flush) See Protocol DAILY IV FLUSH 10/04/16 09:00 10/04/16 08:56 (Heparin Central Flush) See Protocol UNSCH PRN IV FLUSH 10/03/16 16:45 (NS Flush) UNSCH PRN IV FLUSH 10/03/16 16:45 (Pill Splitter) 1 ea UNSCH PRN OTHER 10/03/16 20:00 Urinary Catheter: No Vascular Central Line Catheter: No A/P Problem List: (1) Allergic reaction ICD Code: T78.40XA Status: Acute Plan: This is a 41-year-old female with history of IV drug abuse, HIV who was recently discharged on October 01 after being admitted on September 13 for a costochondral infection. Wound culture grew out Pseudomonas. She was started on 6 week course of Levaquin 750 mg, first dose provided on September. Since then the rash has worsened, now has spread to her abdomen, extremities, chest, face. The rash is very pruritic, unrelieved with the use of Benadryl and prednisone. The only new medications include Levaquin which was started September 24, 2016 and new HIV medication started 2 months ago. Patient does not recall her HIV regimen follows with Dr. Cochran. Thought to be secondary to Levaquin. IV cefepime was started in the emergency department, ID is continue cefepime and patient now on aztreonam. As per medical records there is improvement of rash. Patient states that rash is now extending into her legs. I will give a 125 mg IV dose of supplemental IV and then increase the dose back to 60 mg IV every 6 hours. Continue Benadryl when necessary for itching. (2) Pseudomonas infection ICD Code: B96.5 Status: Acute Plan: Off the right shoulder joint. Previously on Levaquin and cefepime. ID following. Antibiotics as per ID. Currently on aztreonam. Will need PICC line and aztreonam until 11/04/16. Continue tramadol when necessary for pain control. (3) HIV (human immunodeficiency virus infection) ICD Code: Z21 Status: Chronic Plan: Continue antiretroviral therapy as indicated by ID. (4) HTN (hypertension) ICD Code: I10 Status: Acute Plan: Stable, currently off antihypertensive medications. Patient reported not taking her antihypertensive medications because her blood pressure dropping too low. (5) Hyperlipidemia ICD Code: E78.5 Status: Acute Plan: Patient currently on a statin. However I will hold given current rash and allergic reaction. Patient refused to take the medication. Upon review of old records. The patient's last lipid profile done in this institution was in 2014 and showed elevated triglycerides of 191 with an LDL cholesterol of 105. I will repeat lipid profile Assessment and Plan DVT prophylaxis: SCDs. GI prophylaxis: The patient is on IV steroids, however I do not want to start another medication that could perhaps confound us on finding the offending agent. Discharge Planning Continue to monitor in the medical floor. Problem Qualifiers (1) Allergic reaction: Qualified Code: T78.40XA - Allergic reaction, initial encounter (2) HTN (hypertension): Qualified Code: I15.9 - Secondary hypertension (3) Hyperlipidemia: Qualified Code: E78.5 - Hyperlipidemia, unspecified hyperlipidemia type Brendan Richardson MD Oct 04, 2016 11:14
[2016-10-04 11:25] VITALS: BP 133/80; PULSE 73; RESP 19; TEMP 95.6; O2SAT 96
[2016-10-04] MEDS ORDERED: methylPREDNISolone SOD SUCC 125 MG/2 ML VIAL IV PUSH ONE (12:00)
[2016-10-04] MEDS: KETOROLAC TROMETHAMINE 30 MG/ML (IVP) VIAL IV PUSH PRN ×2 (14:12→21:56)
[2016-10-04 16:00] VITALS: BP 118/74; PULSE 83; RESP 19; TEMP 97.4; O2SAT 95
[2016-10-04 20:15] VITALS: BP 134/80; PULSE 82; RESP 18; TEMP 96.1; O2SAT 98
[2016-10-04] MEDS: ATORVASTATIN 20 MG TAB PO SCH (21:00)
[2016-10-04] MEDS: RITONAVIR 100 MG TAB PO SCH (21:50)
[2016-10-04] MEDS: ABACAVIR SULFATE 300 MG TAB PO SCH (21:51)
[2016-10-04 22:00] VITALS: PULSE 64
[2016-10-05] VITALS (7 sets, daily range): BP systolic 122–148; BP diastolic 70–92; PULSE 52–83; RESP 17–18; TEMP 96.2–97.8; O2SAT 94–100
[2016-10-05] MEDS: traMADol HCL 50 MG TAB PO PRN ×2 (00:37→08:45)
[2016-10-05] MEDS: hydrOXYzine PAMOATE 25 MG CAP PO PRN (00:37)
[2016-10-05] MEDS: AZTREONAM INJ 2,000 MG in SODIUM CHLORIDE 0.9% INJ 100 ML IV SCH ×4 (02:38→21:27)
[2016-10-05] MEDS: diphenhydrAMINE HCL 50 MG/ML VIAL IV PUSH PRN ×3 (06:12→23:13)
[2016-10-05] MEDS: methylPREDNISolone SOD SUCC 40 MG/1 ML VIAL IV PUSH SCH ×4 (06:13→23:12)
[2016-10-05] MEDS: KETOROLAC TROMETHAMINE 30 MG/ML (IVP) VIAL IV PUSH PRN (06:13)
[2016-10-05 07:33] LABS: AUTOMATED NEUTROPHIL # 8.9 TH/MM3 (1.8-7.7); BASOPHIL % 0.3 % (0.0-2.0); HEMATOCRIT 28.7 % (35.0-46.0); HEMO FLAGS DIFF FINAL; LYMPH % 13.2 % (9.0-44.0); LYMPHOCYTE # 1.5 TH/MM3 (1.0-4.8); MEAN CELL VOLUME 82.8 FL (80.0-100.0); MEAN CORPUSCULAR HEMOGLOBIN 26.3 PG (27.0-34.0); MEAN CORPUSCULAR HGB CONC 31.8 % (32.0-36.0); MONO % 6.1 % (0.0-8.0); NEUT % 80.4 % (16.0-70.0); PLATELET COUNT 383 TH/MM3 (150-450); RED BLOOD COUNT 3.47 MIL/MM3 (4.00-5.30); RED CELL DISTRIBUTION WIDTH 16.3 % (11.6-17.2); WHITE BLOOD COUNT 11.1 TH/MM3 (4.0-11.0)
[2016-10-05 08:24] LABS: ALKALINE PHOSPHATASE 56 U/L (45-117); ALT (GPT) 22 U/L (10-53); ANION GAP 5 MEQ/L (5-15); AST (GOT) 10 U/L (15-37); BICARBONATE 27.7 MEQ/L (21.0-32.0); BLOOD UREA NITROGEN 24 MG/DL (7-18); CHLORIDE 111 MEQ/L (98-107); GLOMERULAR FILTRATION RATE 77 ML/MIN (>89); POTASSIUM 3.9 MEQ/L (3.5-5.1); SODIUM (NA) 144 MEQ/L (136-145); TOTAL BILIRUBIN ADULT 0.3 MG/DL (0.2-1.0)
[2016-10-05] MEDS: ENOXAPARIN SODIUM 40 MG/0.4 ML SYRINGE SQ SCH (08:44)
[2016-10-05] MEDS: DARUNAVIR 800 MG TAB PO SCH ×2 (08:45→21:28)
[2016-10-05] MEDS: CETIRIZINE HCL 10 MG TAB PO SCH (08:45)
[2016-10-05] MEDS: SODIUM CHLORIDE 0.9% FLUSH 10 ML FLUSH IV FLUSH SCH ×3 (08:46→21:30)
--- NOTE | 2016-10-05 11:25 | HHI.PR ---
Subjective Remarks resting comfortably. although complaining of generalized itching, rash and some pain to the right shoulder. no fever. d/w the RN. Objective Vitals Vital Signs Date Time Temp Pulse Resp B/P Pulse Ox O2 Delivery O2 Flow Rate FiO2 10/05/16 07:00 96.6 59 18 143/84 94 10/05/16 04:12 97.8 52 18 138/73 96 10/05/16 00:45 96.5 66 17 148/92 98 10/04/16 22:00 64 10/04/16 20:15 96.1 82 18 134/80 98 10/04/16 19:19 Room Air 10/04/16 16:00 97.4 83 19 118/74 95 10/04/16 11:25 95.6 73 19 133/80 96 I/O 10/04/16 10/04/16 10/04/16 10/05/16 10/05/16 10/05/16 07:00 15:00 23:00 07:00 15:00 23:00 Intake Total 480 ml 960 ml 720 ml 480 ml Balance 480 ml 960 ml 720 ml 480 ml Intake Oral 480 ml 960 ml 720 ml 480 ml # Voids 2 3 2 0 # Bowel Movements 2 2 0 Result Diagram: 10/05/16 0640 10/05/16 0640 Imaging Last Impressions Chest X-Ray 10/03/16 0000 Signed Impressions: Service Date/Time: Monday, October 03, 2016 15:51 - CONCLUSION: No acute cardiopulmonary disease. Dewey Corona MD Objective Remarks GENERAL: This is a well-nourished, well-developed patient, in no apparent distress. CARDIOVASCULAR: Regular rate and regular rhythm without murmurs, gallops, or rubs. RESPIRATORY: Clear to auscultation. Breath sounds equal bilaterally. No wheezes , rales, or rhonchi. GASTROINTESTINAL: Abdomen soft, non-tender, nondistended. Normal, active bowel sounds MUSCULOSKELETAL: Extremities without clubbing, cyanosis, or edema. NEURO: Alert & Oriented x4 to person, place, time, situation. Moves all ext x4 skin; rash noted on the abdomen Procedures none Medications and IVs Current Medications Methylprednisolone Sodium Succinate (SoluMEDROL INJ) 125 mg ONCE ONCE IV PUSH Last administered on 10/01/16t 23:04; Start 10/01/16 at 21:30; Stop 10/01/16 at 21:31; Status DC Diphenhydramine HCl (Benadryl Inj) 50 mg ONCE ONCE IV PUSH Last administered on 10/01/16 23:04; Start 10/01/16 at 21:30; Stop 10/01/16 at 21:31; Status DC Famotidine 20 mg 20 mg ONCE ONCE IV PUSH Last administered on 10/01/16 23:04 ; Start 10/01/16 at 21:45; Stop 10/01/16 at 21:55; Status DC Cefepime HCl/ Sodium Chloride (Maxipime Inj/NS Inj) 100 ml @ 200 mls/hr ONCE ONCE IV Last administered on 10/01/16 23:43; Start 10/01/16 at 22:30; Stop at 22:59; Status DC Sodium Chloride (NS Flush) 2 ml UNSCH PRN IV FLUSH FLUSH AFTER USING IV ACCESS Last administered on 10/03/16 06:51; Start 10/02/16 at 01:00 Sodium Chloride (NS Flush) 2 ml BID IV FLUSH Last administered on 10/05/16 08: 46; Start 10/02/16 at 09:00 Naloxone HCl 0.4 mg 0.4 mg UNSCH PRN IV SEE LABEL COMMENTS; Start 10/02/16 at 01:00 Cefepime HCl/ Sodium Chloride (Maxipime Inj/NS Inj) 100 ml @ 200 mls/hr Q12H IV Last administered on 10/02/16 10:08; Start 10/02/16 at 10:00; Stop at 11:26; Status DC Diphenhydramine HCl (Benadryl Inj) 25 mg Q4H PRN IV PUSH itching Last administered on 10/05/16 06:12; Start 10/02/16 at 01:00 Methylprednisolone Sodium Succinate (SoluMEDROL INJ) 40 mg Q6HR PRN IV PUSH itching/ allergic rxn Last administered on 10/02/16 05:24; Start 10/02/16 at 01 :00; Stop 10/02/16 at 11:28; Status DC Oxycodone HCl (Roxicodone) 5 mg Q6H PRN PO pain >5 Last administered on 05:24; Start 10/02/16 at 05:00; Stop 10/02/16 at 11:26; Status DC Enoxaparin Sodium (Lovenox Inj) 40 mg Q24H SQ Last administered on 10/05/16 08: 44; Start 10/02/16 at 08:00 Albuterol Sulfate (Ventolin Hfa Inh) 2 puff Q2HR PRN INH SHORTNESS OF BREATH; Start 10/02/16 at 07:30 Atorvastatin Calcium (Lipitor) 20 mg HS PO ; Start 10/02/16 at 21:00 Darunavir (Prezista) 800 mg BID PO Last administered on 10/04/16 21:51; Start 10/02/16 at 09:00 Ritonavir (Norvir) 100 mg HS PO Last administered on 10/04/16 21:50; Start at 21:00 Tramadol HCl (Ultram) 50 mg Q8H PRN PO PAIN SCALE 1 TO 4 Last administered on 08:45; Start 10/02/16 at 07:00 Non-Formulary Medication 1 tab HS PO ; Start 10/02/16 at 21:00; Status UNV Abacavir Sulfate (Ziagen) 600 mg HS PO Last administered on 10/04/16 21:51; Start 10/02/16 at 21:00 Lamivudine (Epivir) 300 mg HS PO Last administered on 10/04/16 21:51; Start at 21:00 Levofloxacin (Levaquin) 750 mg Q24H PO ; Start 10/02/16 at 11:30; Stop 10/02/16 at 11:55; Status DC Methylprednisolone Sodium Succinate (SoluMEDROL INJ) 60 mg Q6HR IV PUSH Last administered on 10/03/16 06:49; Start 10/02/16 at 12:00; Stop 10/03/16 at 09:37 ; Status DC Cetirizine HCl (ZyrTEC) 10 mg DAILY PO Last administered on 10/05/16 08:45; Start 10/02/16 at 13:00 Acetaminophen 500 mg 500 mg Q4H PRN PO pain 1-10; Start 10/02/16 at 11:30 Cefepime HCl/ Sodium Chloride (Maxipime Inj/NS Inj) 100 ml @ 200 mls/hr Q12H IV ; Start 10/02/16 at 22:00; Stop 10/02/16 at 22:00; Status DC Hydroxyzine Pamoate 25 mg 25 mg Q6H PRN PO itchiness Last administered on 00:37; Start 10/02/16 at 12:45 Aztreonam/Sodium Chloride (Azactam Inj/NS Inj) 100 ml @ 200 mls/hr Q6H IV Last administered on 10/05/16 08:46; Start 10/02/16 at 14:00 Pneumococcal Polyvalent Vaccine (Pneumovax-23 Inj) 25 mcg ONCE ONCE IM Last administered on 10/03/16 09:19; Start 10/03/16 at 10:00; Stop 10/03/16 at 10:01 ; Status DC Influenza Virus Vaccine (Flu (Quadrivalent) Vaccine Inj) 0.5 ml ONCE ONCE IM ; Start 10/03/16 at 10:00; Stop 10/03/16 at 10:00; Status DC Methylprednisolone Sodium Succinate (SoluMEDROL INJ) 40 mg Q6HR IV PUSH Last administered on 10/04/16 04:46; Start 10/03/16 at 12:00; Stop 10/04/16 at 11:55 ; Status DC Sodium Chloride (NS Flush) See Protocol DAILY IV FLUSH Last administered on 08:56; Start 10/04/16 at 09:00 Sodium Chloride (NS Flush) See Protocol UNSCH PRN IV FLUSH SEE PROTOCOL TABLE; Start 10/03/16 at 16:45 Heparin Sodium (Porcine) (Heparin Central Flush) See Protocol DAILY IV FLUSH Last administered on 10/05/16 08:45; Start 10/04/16 at 09:00 Heparin Sodium (Porcine) (Heparin Central Flush) See Protocol UNSCH PRN IV FLUSH SEE PROTOCOL TABLE; Start 10/03/16 at 16:45 Sodium Chloride (NS Flush) UNSCH PRN IV FLUSH SEE PROTOCOL TABLE; Start at 16:45 Fluconazole (Diflucan) 150 mg ONCE ONCE PO Last administered on 10/03/16 20: 19; Start 10/03/16 at 20:00; Stop 10/03/16 at 20:01; Status DC Miscellaneous (Pill Splitter) 1 ea UNSCH PRN OTHER SEE LABEL COMMENTS; Start at 20:00 Methylprednisolone Sodium Succinate (SoluMEDROL INJ) 125 mg ONCE ONCE IV PUSH Last administered on 10/04/16 12:35; Start 10/04/16 at 12:00; Stop 10/04/16 at 12:11; Status DC Methylprednisolone Sodium Succinate (SoluMEDROL INJ) 60 mg Q6HR IV PUSH Last administered on 10/05/16 06:13; Start 10/04/16 at 12:00 Ketorolac Tromethamine (Toradol Inj) 15 mg Q6H PRN IV PUSH BREAKTHROUGH PAIN Last administered on 10/05/16 06:13; Start 10/04/16 at 13:00 A/P Assessment and Plan (1) Allergic reaction This is a 41-year-old female with history of IV drug abuse, HIV who was recently discharged on October 01 after being admitted on September 13 for a costochondral infection. Wound culture grew out Pseudomonas. She was started on 6 week course of Levaquin 750 mg, first dose provided on September. Since then the rash has worsened, now has spread to her abdomen, extremities, chest, face. The rash is very pruritic, unrelieved with the use of Benadryl and prednisone. The only new medications include Levaquin which was started September 24, 2016 and new HIV medication started 2 months ago. Patient does not recall her HIV regimen follows with Dr. Cochran. Thought to be secondary to Levaquin. now on aztreonam. start to taper down the IV steroids. Continue Benadryl when necessary for itching. (2) Pseudomonas infection Previously on Levaquin and cefepime. ID following. Antibiotics as per ID. Currently on aztreonam. Will need PICC line and aztreonam until 11/04/16. Continue with pain control. (3) HIV (human immunodeficiency virus infection) continue antiretroviral therapy as indicated by ID. (4) HTN (hypertension) Stable, currently off antihypertensive medications. Patient reported not taking her antihypertensive medications because her blood pressure dropping too low. (5) Hyperlipidemia Patient currently on a statin. Patient refused to take the medication. Assessment and Plan DVT prophylaxis: SCDs. GI prophylaxis: The patient is on IV steroids, however I do not want to start another medication that could perhaps confound us on finding the offending agent. Discharge Planning discharge within the next one-two days if the rash continues to improve. Marty Espinal MD October 05, 2016 11:25
[2016-10-05] MEDS ORDERED: ACETAMINOPHEN/HYDROcodone 325 MG/5 MG TAB PO PRN (11:30)
[2016-10-05] MEDS: ACETAMINOPHEN/HYDROcodone 325 MG/5 MG TAB PO PRN ×3 (12:34→23:13)
[2016-10-05] MEDS: ATORVASTATIN 20 MG TAB PO SCH (21:00)
[2016-10-05] MEDS: ABACAVIR SULFATE 300 MG TAB PO SCH (21:27)
[2016-10-05] MEDS: RITONAVIR 100 MG TAB PO SCH (21:28)
[2016-10-06] VITALS (7 sets, daily range): BP systolic 120–145; BP diastolic 63–86; PULSE 62–80; RESP 16–18; TEMP 96–98; O2SAT 96–99
[2016-10-06] MEDS: AZTREONAM INJ 2,000 MG in SODIUM CHLORIDE 0.9% INJ 100 ML IV SCH ×4 (01:06→20:20)
[2016-10-06] MEDS: hydrOXYzine PAMOATE 25 MG CAP PO PRN ×2 (02:28→17:12)
[2016-10-06] MEDS: ACETAMINOPHEN/HYDROcodone 325 MG/5 MG TAB PO PRN ×5 (03:50→23:13)
[2016-10-06] MEDS: methylPREDNISolone SOD SUCC 40 MG/1 ML VIAL IV PUSH SCH ×4 (05:14→23:11)
--- NOTE | 2016-10-06 07:06 | PD.ORT.PN ---
Subjective Subjective Remarks Resting comfortably with improved motion of shoulder. Was readmitted due to reaction to antibiotics Objective Vitals Vital Signs Date Time Temp Pulse Resp B/P Pulse Ox O2 Delivery O2 Flow Rate FiO2 10/06/16 04:00 96.7 62 18 138/79 96 10/06/16 00:00 96.0 71 18 145/86 98 10/05/16 21:44 73 10/05/16 20:00 97.3 73 17 133/73 100 10/05/16 18:58 Room Air 10/05/16 15:27 96.2 70 18 131/79 95 10/05/16 11:24 96.8 83 18 122/70 96 I/O 10/05/16 10/05/16 10/05/16 10/06/16 10/06/16 10/06/16 07:00 15:00 23:00 07:00 15:00 23:00 Intake Total 480 ml 720 ml 240 ml 240 ml Balance 480 ml 720 ml 240 ml 240 ml Intake Oral 480 ml 720 ml 240 ml 240 ml # Voids 0 4 1 1 # Bowel Movements 0 1 0 0 Result Diagram: 10/05/16 0640 10/05/16 0640 Objective Remarks Right upper extremity: Incision clean dry and intact with tramaine in place. Moderate tenderness with range of motion of shoulder. Right upper extremity neurovascularly intact Assessment & Plan Assessment and Plan Irrigation debridement of right sternoclavicular joint POD 13 (09/23/2016) Continue antibiotics We'll plan on DC of tramaine on Wednesday Occupational therapy for range of motion of shoulder, weightbearing as tolerated Andrew Swift Jr. October 06, 2016 07:06
[2016-10-06] MEDS: SODIUM CHLORIDE 0.9% FLUSH 10 ML FLUSH IV FLUSH SCH ×3 (09:00→20:20)
[2016-10-06] MEDS: ENOXAPARIN SODIUM 40 MG/0.4 ML SYRINGE SQ SCH (09:11)
[2016-10-06] MEDS: CETIRIZINE HCL 10 MG TAB PO SCH (09:11)
--- NOTE | 2016-10-06 09:13 | HHI.PR ---
Subjective Remarks still with rash and itching over the legs and trunk. no significant change. no other complaints. afebrile. d/w the RN. Objective Vitals Vital Signs Date Time Temp Pulse Resp B/P Pulse Ox O2 Delivery O2 Flow Rate FiO2 10/06/16 08:06 96.1 69 16 129/83 97 10/06/16 07:20 Room Air 10/06/16 04:00 96.7 62 18 138/79 96 10/06/16 00:00 96.0 71 18 145/86 98 10/05/16 21:44 73 10/05/16 20:00 97.3 73 17 133/73 100 10/05/16 18:58 Room Air 10/05/16 15:27 96.2 70 18 131/79 95 10/05/16 11:24 96.8 83 18 122/70 96 I/O 10/05/16 10/05/16 10/05/16 10/06/16 10/06/16 10/06/16 07:00 15:00 23:00 07:00 15:00 23:00 Intake Total 480 ml 720 ml 240 ml 240 ml Balance 480 ml 720 ml 240 ml 240 ml Intake Oral 480 ml 720 ml 240 ml 240 ml # Voids 0 4 1 1 # Bowel Movements 0 1 0 0 Result Diagram: 10/05/16 0640 10/05/16 0640 Imaging Last Impressions Chest X-Ray 10/03/16 0000 Signed Impressions: Service Date/Time: Monday, October 03, 2016 15:51 - CONCLUSION: No acute cardiopulmonary disease. Dewey Corona MD Objective Remarks GENERAL: This is a well-nourished, well-developed patient, in no apparent distress. CARDIOVASCULAR: Regular rate and regular rhythm without murmurs, gallops, or rubs. RESPIRATORY: Clear to auscultation. Breath sounds equal bilaterally. No wheezes , rales, or rhonchi. GASTROINTESTINAL: Abdomen soft, non-tender, nondistended. Normal, active bowel sounds MUSCULOSKELETAL: Extremities without clubbing, cyanosis, or edema. NEURO: Alert & Oriented x4 to person, place, time, situation. Moves all ext x4 skin; rash noted on the abdomen Procedures none Medications and IVs Current Medications Methylprednisolone Sodium Succinate (SoluMEDROL INJ) 125 mg ONCE ONCE IV PUSH Last administered on 10/01/16 23:04; Start 10/01/16 at 21:30; Stop 10/01/16 at 21:31; Status DC Diphenhydramine HCl (Benadryl Inj) 50 mg ONCE ONCE IV PUSH Last administered on 10/01/16 23:04; Start 10/01/16 at 21:30; Stop 10/01/16 at 21:31; Status DC Famotidine 20 mg 20 mg ONCE ONCE IV PUSH Last administered on 10/01/16 23:04 ; Start 10/01/16 at 21:45; Stop 10/01/16 at 21:55; Status DC Cefepime HCl/ Sodium Chloride (Maxipime Inj/NS Inj) 100 ml @ 200 mls/hr ONCE ONCE IV Last administered on 10/01/16 23:43; Start 10/01/16 at 22:30; Stop at 22:59; Status DC Sodium Chloride (NS Flush) 2 ml UNSCH PRN IV FLUSH FLUSH AFTER USING IV ACCESS Last administered on 10/03/16 06:51; Start 10/02/16 at 01:00 Sodium Chloride (NS Flush) 2 ml BID IV FLUSH Last administered on 10/05/16 21: 30; Start 10/02/16 at 09:00 Naloxone HCl 0.4 mg 0.4 mg UNSCH PRN IV SEE LABEL COMMENTS; Start 10/02/16 at 01:00 Cefepime HCl/ Sodium Chloride (Maxipime Inj/NS Inj) 100 ml @ 200 mls/hr Q12H IV Last administered on 10/02/16 10:08; Start 10/02/16 at 10:00; Stop at 11:26; Status DC Diphenhydramine HCl (Benadryl Inj) 25 mg Q4H PRN IV PUSH itching Last administered on 10/05/16 23:13; Start 10/02/16 at 01:00 Methylprednisolone Sodium Succinate (SoluMEDROL INJ) 40 mg Q6HR PRN IV PUSH itching/ allergic rxn Last administered on 10/02/16 05:24; Start 10/02/16 at 01 :00; Stop 10/02/16 at 11:28; Status DC Oxycodone HCl (Roxicodone) 5 mg Q6H PRN PO pain >5 Last administered on 05:24; Start 10/02/16 at 05:00; Stop 10/02/16 at 11:26; Status DC Enoxaparin Sodium (Lovenox Inj) 40 mg Q24H SQ Last administered on 10/05/16 08: 44; Start 10/02/16 at 08:00 Albuterol Sulfate (Ventolin Hfa Inh) 2 puff Q2HR PRN INH SHORTNESS OF BREATH; Start 10/02/16 at 07:30 Atorvastatin Calcium (Lipitor) 20 mg HS PO ; Start 10/02/16 at 21:00 Darunavir (Prezista) 800 mg BID PO Last administered on 10/04/16 21:51; Start 10/02/16 at 09:00; Stop 10/05/16 at 11:21; Status DC Ritonavir (Norvir) 100 mg HS PO Last administered on 10/05/16 21:28; Start at 21:00 Tramadol HCl (Ultram) 50 mg Q8H PRN PO PAIN SCALE 1 TO 4 Last administered on 08:45; Start 10/02/16 at 07:00; Status Hold Non-Formulary Medication 1 tab HS PO ; Start 10/02/16 at 21:00; Status UNV Abacavir Sulfate (Ziagen) 600 mg HS PO Last administered on 10/05/16 21:27; Start 10/02/16 at 21:00 Lamivudine (Epivir) 300 mg HS PO Last administered on 10/05/16 21:28; Start at 21:00 Levofloxacin (Levaquin) 750 mg Q24H PO ; Start 10/02/16 at 11:30; Stop 10/02/16 at 11:55; Status DC Methylprednisolone Sodium Succinate (SoluMEDROL INJ) 60 mg Q6HR IV PUSH Last administered on 10/03/16 06:49; Start 10/02/16 at 12:00; Stop 10/03/16 at 09:37 ; Status DC Cetirizine HCl (ZyrTEC) 10 mg DAILY PO Last administered on 10/05/16 08:45; Start 10/02/16 at 13:00 Acetaminophen 500 mg 500 mg Q4H PRN PO PAIN 1-2; Start 10/02/16 at 11:30 Cefepime HCl/ Sodium Chloride (Maxipime Inj/NS Inj) 100 ml @ 200 mls/hr Q12H IV ; Start 10/02/16 at 22:00; Stop 10/02/16 at 22:00; Status DC Hydroxyzine Pamoate 25 mg 25 mg Q6H PRN PO itchiness Last administered on 02:28; Start 10/02/16 at 12:45 Aztreonam/Sodium Chloride (Azactam Inj/NS Inj) 100 ml @ 200 mls/hr Q6H IV Last administered on 10/06/16 01:06; Start 10/02/16 at 14:00 Pneumococcal Polyvalent Vaccine (Pneumovax-23 Inj) 25 mcg ONCE ONCE IM Last administered on 10/03/16 09:19; Start 10/03/16 at 10:00; Stop 10/03/16 at 10:01 ; Status DC Influenza Virus Vaccine (Flu (Quadrivalent) Vaccine Inj) 0.5 ml ONCE ONCE IM ; Start 10/03/16 at 10:00; Stop 10/03/16 at 10:00; Status DC Methylprednisolone Sodium Succinate (SoluMEDROL INJ) 40 mg Q6HR IV PUSH Last administered on 10/04/16 04:46; Start 10/03/16 at 12:00; Stop 10/04/16 at 11:55 ; Status DC Sodium Chloride (NS Flush) See Protocol DAILY IV FLUSH Last administered on 08:56; Start 10/04/16 at 09:00 Sodium Chloride (NS Flush) See Protocol UNSCH PRN IV FLUSH SEE PROTOCOL TABLE; Start 10/03/16 at 16:45 Heparin Sodium (Porcine) (Heparin Central Flush) See Protocol DAILY IV FLUSH Last administered on 10/05/16 08:45; Start 10/04/16 at 09:00 Heparin Sodium (Porcine) (Heparin Central Flush) See Protocol UNSCH PRN IV FLUSH SEE PROTOCOL TABLE; Start 10/03/16 at 16:45 Sodium Chloride (NS Flush) UNSCH PRN IV FLUSH SEE PROTOCOL TABLE; Start at 16:45 Fluconazole (Diflucan) 150 mg ONCE ONCE PO Last administered on 10/03/16 20: 19; Start 10/03/16 at 20:00; Stop 10/03/16 at 20:01; Status DC Miscellaneous (Pill Splitter) 1 ea UNSCH PRN OTHER SEE LABEL COMMENTS; Start at 20:00 Methylprednisolone Sodium Succinate (SoluMEDROL INJ) 125 mg ONCE ONCE IV PUSH Last administered on 10/04/16 12:35; Start 10/04/16 at 12:00; Stop 10/04/16 at 12:11; Status DC Methylprednisolone Sodium Succinate (SoluMEDROL INJ) 60 mg Q6HR IV PUSH Last administered on 10/05/16 06:13; Start 10/04/16 at 12:00; Stop 10/05/16 at 11:21; Status DC Ketorolac Tromethamine (Toradol Inj) 15 mg Q6H PRN IV PUSH BREAKTHROUGH PAIN Last administered on 10/05/16 06:13; Start 10/04/16 at 13:00 Darunavir (Prezista) 800 mg HS PO Last administered on 10/05/16 21:28; Start at 21:00 Methylprednisolone Sodium Succinate (SoluMEDROL INJ) 40 mg Q6HR IV PUSH Last administered on 10/06/16 05:14; Start 10/05/16 at 12:00 Acetaminophen/ Hydrocodone Bitart ([place] 5-325 Mg) 1 tab Q4H PRN PO PAIN 4-7; Start 10/05/16 at 11:30 Acetaminophen/ Hydrocodone Bitart ([place] 5-325 Mg) 2 tab Q4H PRN PO PAIN 8-10 Last administered on 10/06/16 03:50; Start 10/05/16 at 11:30 A/P Assessment and Plan (1) Allergic reaction This is a 41-year-old female with history of IV drug abuse, HIV who was recently discharged on October 01 after being admitted on September 13 for a costochondral infection. Wound culture grew out Pseudomonas. She was started on 6 week course of Levaquin 750 mg, first dose provided on September. Since then the rash has worsened, now has spread to her abdomen, extremities, chest, face. The rash is very pruritic, unrelieved with the use of Benadryl and prednisone. The only new medications include Levaquin which was started September 24, 2016 and new HIV medication started 2 months ago. Patient does not recall her HIV regimen follows with Dr. Cochran. Thought to be secondary to Levaquin. now on aztreonam. continue IV steroids. Continue Benadryl ; IV and topical -when necessary for itching. (2) Pseudomonas infection Previously on Levaquin and cefepime. ID following. Antibiotics as per ID. Currently on aztreonam. Will need PICC line and aztreonam until 11/04/16. Continue with pain control. (3) HIV (human immunodeficiency virus infection) continue antiretroviral therapy as indicated by ID. (4) HTN (hypertension) Stable, currently off antihypertensive medications. Patient reported not taking her antihypertensive medications because her blood pressure dropping too low. (5) Hyperlipidemia Patient currently on a statin. Patient refused to take the medication. Assessment and Plan DVT prophylaxis: SCDs. Discharge Planning dc home when there's some improvement with the rash and itching. Marty Espinal MD October 06, 2016 09:13
[2016-10-06] MEDS: diphenhydrAMINE HCL 50 MG/ML VIAL IV PUSH PRN ×2 (14:36→20:24)
[2016-10-06] MEDS: diphenhydrAMINE HCL 2%/ZINC ACETATE 0.1% CREAM 30 APPLIC/30 GM TUBE TOPICAL PRN (17:13)
[2016-10-06] MEDS: ATORVASTATIN 20 MG TAB PO SCH (20:24)
[2016-10-06] MEDS: RITONAVIR 100 MG TAB PO SCH (20:24)
[2016-10-06] MEDS: ABACAVIR SULFATE 300 MG TAB PO SCH (20:24)
[2016-10-06] MEDS: DARUNAVIR 800 MG TAB PO SCH (20:25)
[2016-10-07] VITALS (7 sets, daily range): BP systolic 125–140; BP diastolic 72–91; PULSE 70–92; RESP 15–20; TEMP 96–97.3; O2SAT 96–98
[2016-10-07] MEDS: AZTREONAM INJ 2,000 MG in SODIUM CHLORIDE 0.9% INJ 100 ML IV SCH ×4 (01:54→20:21)
[2016-10-07] MEDS: ACETAMINOPHEN/HYDROcodone 325 MG/5 MG TAB PO PRN ×4 (04:43→18:19)
[2016-10-07] MEDS: hydrOXYzine PAMOATE 25 MG CAP PO PRN (04:43)
[2016-10-07] MEDS: diphenhydrAMINE HCL 2%/ZINC ACETATE 0.1% CREAM 30 APPLIC/30 GM TUBE TOPICAL PRN (04:43)
[2016-10-07] MEDS: methylPREDNISolone SOD SUCC 40 MG/1 ML VIAL IV PUSH SCH ×3 (06:16→22:02)
[2016-10-07] MEDS: ENOXAPARIN SODIUM 40 MG/0.4 ML SYRINGE SQ SCH (09:02)
[2016-10-07] MEDS: CETIRIZINE HCL 10 MG TAB PO SCH (09:03)
[2016-10-07] MEDS: SODIUM CHLORIDE 0.9% FLUSH 10 ML FLUSH IV FLUSH SCH ×3 (09:03→20:21)
[2016-10-07] MEDS: diphenhydrAMINE HCL 50 MG/ML VIAL IV PUSH PRN ×2 (09:07→18:18)
--- NOTE | 2016-10-07 11:55 | HHI.FF ---
Infusion Therapy Location of Infusion Therapy: [facility] IV Infusion Order Patient Information Patient Weight 63.4 kg Diagnosis: Diagnosis clavicle osteo, pseudomonas Uncoded Allergies: ATRIPLA (Allergy, Severe, 07/27/16) Administer Medication Azactam 2 gm IV q 6 hrs Start Treatment: October 07, 2016 Stop Treatment: November 04, 2016 Additional Information Venous access: PICC Line Additional Instructions [x] Peripheral flush and dressing changes per protocol [x] Implanted port and central package line relief operator: * Implanted port: 10 ml Normal Saline followed by 5 ml Heparin 100 units/ml Heparin flush after each use and monthly to maintain. [] May leave port accessed during therapy. [] May leave peripheral site accessed for duration of therapy. [x] If patient has SOB or respiratory distress, check oxygen saturation. If less than 90% or clinical signs of respiratory distress, administer oxygen at 2 L/min. via nasal cannula and notify physician. [x] Anaphylaxis/Reaction orders: * Stop infusion. * Keep IV line open with saline flush. * Notify physician. * Monitor vital signs every 15 minutes until symptoms resolve. * Check Oxygen saturation; Oxygen at 2 L/min. via nasal cannula if less than 90% or clinical signs of respiratory distress. * Administer diphenhydramine (Benadryl) 25 mg IV STAT, (unless patient has received as pre-med). May repeat once, if necessary. * Solu-Cortef 250 mg IVP over 30-60 seconds, use 100 mg vials for each dissolution. * Epinephrine (1mg/1 ml) 0.3 mg subcutaneously or IVP now with any signs of respiratory distress. * Check with physician for new additional pre-med orders if patient is re- challenged or re-treated. [x] May remove PICC line when treatment complete, after confirming with Physician. [x] If the patient is admitted to the hospital, the ED, or transferred via [facility] , complete transfer form including medication reconciliation order sheet. Laboratory Tests Weekly Labs: CBC w/diff, Creatinine Jodi Colmenares MD October 07, 2016 11:55
--- NOTE | 2016-10-07 11:56 | HHI.PR ---
Subjective Remarks much better today. rash and itching has much improved. no fever or new complaints. Objective Vitals Vital Signs Date Time Temp Pulse Resp B/P Pulse Ox O2 Delivery O2 Flow Rate FiO2 10/07/16 08:00 96.0 85 20 136/82 96 10/07/16 04:20 96.2 82 16 131/84 98 10/07/16 00:40 97.1 70 16 137/80 96 10/06/16 20:35 97.0 80 16 134/72 97 10/06/16 20:00 97 Room Air 10/06/16 20:00 73 10/06/16 16:30 98.0 74 18 120/63 99 10/06/16 12:00 70 10/06/16 12:00 97.7 70 17 129/69 98 I/O 10/06/16 10/06/16 10/06/16 10/07/16 10/07/16 10/07/16 07:00 15:00 23:00 07:00 15:00 23:00 Intake Total 240 ml 1390 ml 480 ml 480 ml Balance 240 ml 1390 ml 480 ml 480 ml Intake Oral 240 ml 1280 ml 480 ml 480 ml IV Total 110 ml # Voids 1 5 3 4 # Bowel Movements 0 2 0 Result Diagram: 10/05/16 0640 10/05/16 0640 Imaging Last Impressions Chest X-Ray 10/03/16 0000 Signed Impressions: Service Date/Time: Monday, October 03, 2016 15:51 - CONCLUSION: No acute cardiopulmonary disease. Dewey Corona MD Objective Remarks GENERAL: This is a well-nourished, well-developed patient, in no apparent distress. CARDIOVASCULAR: Regular rate and regular rhythm without murmurs, gallops, or rubs. RESPIRATORY: Clear to auscultation. Breath sounds equal bilaterally. No wheezes , rales, or rhonchi. GASTROINTESTINAL: Abdomen soft, non-tender, nondistended. Normal, active bowel sounds MUSCULOSKELETAL: Extremities without clubbing, cyanosis, or edema. NEURO: Alert & Oriented x4 to person, place, time, situation. Moves all ext x4 skin; rash noted on the abdomen Procedures none Medications and IVs Current Medications Methylprednisolone Sodium Succinate (SoluMEDROL INJ) 125 mg ONCE ONCE IV PUSH Last administered on 10/01/16 23:04; Start 10/01/16 at 21:30; Stop 10/01/16 at 21:31; Status DC Diphenhydramine HCl (Benadryl Inj) 50 mg ONCE ONCE IV PUSH Last administered on 10/01/16 23:04; Start 10/01/16 at 21:30; Stop 10/01/16 at 21:31; Status DC Famotidine 20 mg 20 mg ONCE ONCE IV PUSH Last administered on 10/01/16 23:04 ; Start 10/01/16 at 21:45; Stop 10/01/16 at 21:55; Status DC Cefepime HCl/ Sodium Chloride (Maxipime Inj/NS Inj) 100 ml @ 200 mls/hr ONCE ONCE IV Last administered on 10/01/16 23:43; Start 10/01/16 at 22:30; Stop at 22:59; Status DC Sodium Chloride (NS Flush) 2 ml UNSCH PRN IV FLUSH FLUSH AFTER USING IV ACCESS Last administered on 10/03/16 06:51; Start 10/02/16 at 01:00 Sodium Chloride (NS Flush) 2 ml BID IV FLUSH Last administered on 10/07/16 09: 03; Start 10/02/16 at 09:00 Naloxone HCl 0.4 mg 0.4 mg UNSCH PRN IV SEE LABEL COMMENTS; Start 10/02/16 at 01:00 Cefepime HCl/ Sodium Chloride (Maxipime Inj/NS Inj) 100 ml @ 200 mls/hr Q12H IV Last administered on 10/02/16 10:08; Start 10/02/16 at 10:00; Stop at 11:26; Status DC Diphenhydramine HCl (Benadryl Inj) 25 mg Q4H PRN IV PUSH itching Last administered on 10/05/16 23:13; Start 10/02/16 at 01:00; Stop 10/06/16 at 09:11; Status DC Methylprednisolone Sodium Succinate (SoluMEDROL INJ) 40 mg Q6HR PRN IV PUSH itching/ allergic rxn Last administered on 10/02/16 05:24; Start 10/02/16 at 01 :00; Stop 10/02/16 at 11:28; Status DC Oxycodone HCl (Roxicodone) 5 mg Q6H PRN PO pain >5 Last administered on 05:24; Start 10/02/16 at 05:00; Stop 10/02/16 at 11:26; Status DC Enoxaparin Sodium (Lovenox Inj) 40 mg Q24H SQ Last administered on 10/07/16 09: 02; Start 10/02/16 at 08:00 Albuterol Sulfate (Ventolin Hfa Inh) 2 puff Q2HR PRN INH SHORTNESS OF BREATH; Start 10/02/16 at 07:30 Atorvastatin Calcium (Lipitor) 20 mg HS PO Last administered on 10/06/16 20:24 ; Start 10/02/16 at 21:00 Darunavir (Prezista) 800 mg BID PO Last administered on 10/04/16 21:51; Start 10/02/16 at 09:00; Stop 10/05/16 at 11:21; Status DC Ritonavir (Norvir) 100 mg HS PO Last administered on 10/06/16 20:24; Start at 21:00 Tramadol HCl (Ultram) 50 mg Q8H PRN PO PAIN SCALE 1 TO 4 Last administered on 08:45; Start 10/02/16 at 07:00; Status Hold Non-Formulary Medication 1 tab HS PO ; Start 10/02/16 at 21:00; Status UNV Abacavir Sulfate (Ziagen) 600 mg HS PO Last administered on 10/06/16 20:24; Start 10/02/16 at 21:00 Lamivudine (Epivir) 300 mg HS PO Last administered on 10/06/16 20:24; Start at 21:00 Levofloxacin (Levaquin) 750 mg Q24H PO ; Start 10/02/16 at 11:30; Stop 10/02/16 at 11:55; Status DC Methylprednisolone Sodium Succinate (SoluMEDROL INJ) 60 mg Q6HR IV PUSH Last administered on 10/03/16 06:49; Start 10/02/16 at 12:00; Stop 10/03/16 at 09:37 ; Status DC Cetirizine HCl (ZyrTEC) 10 mg DAILY PO Last administered on 10/07/16 09:03; Start 10/02/16 at 13:00 Acetaminophen 500 mg 500 mg Q4H PRN PO PAIN 1-2; Start 10/02/16 at 11:30 Cefepime HCl/ Sodium Chloride (Maxipime Inj/NS Inj) 100 ml @ 200 mls/hr Q12H IV ; Start 10/02/16 at 22:00; Stop 10/02/16 at 22:00; Status DC Hydroxyzine Pamoate 25 mg 25 mg Q6H PRN PO itchiness Last administered on 04:43; Start 10/02/16 at 12:45 Aztreonam/Sodium Chloride (Azactam Inj/NS Inj) 100 ml @ 200 mls/hr Q6H IV Last administered on 10/07/16 09:02; Start 10/02/16 at 14:00 Pneumococcal Polyvalent Vaccine (Pneumovax-23 Inj) 25 mcg ONCE ONCE IM Last administered on 10/03/16 09:19; Start 10/03/16 at 10:00; Stop 10/03/16 at 10:01 ; Status DC Influenza Virus Vaccine (Flu (Quadrivalent) Vaccine Inj) 0.5 ml ONCE ONCE IM ; Start 10/03/16 at 10:00; Stop 10/03/16 at 10:00; Status DC Methylprednisolone Sodium Succinate (SoluMEDROL INJ) 40 mg Q6HR IV PUSH Last administered on 10/04/16 04:46; Start 10/03/16 at 12:00; Stop 10/04/16 at 11:55 ; Status DC Sodium Chloride (NS Flush) See Protocol DAILY IV FLUSH Last administered on 10/07 09:03; Start 10/04/16 at 09:00 Sodium Chloride (NS Flush) See Protocol UNSCH PRN IV FLUSH SEE PROTOCOL TABLE; Start 10/03/16 at 16:45 Heparin Sodium (Porcine) (Heparin Central Flush) See Protocol DAILY IV FLUSH Last administered on 10/07/16 09:03; Start 10/04/16 at 09:00 Heparin Sodium (Porcine) (Heparin Central Flush) See Protocol UNSCH PRN IV FLUSH SEE PROTOCOL TABLE; Start 10/03/16 at 16:45 Sodium Chloride (NS Flush) UNSCH PRN IV FLUSH SEE PROTOCOL TABLE; Start at 16:45 Fluconazole (Diflucan) 150 mg ONCE ONCE PO Last administered on 10/03/16 20: 19; Start 10/03/16 at 20:00; Stop 10/03/16 at 20:01; Status DC Miscellaneous (Pill Splitter) 1 ea UNSCH PRN OTHER SEE LABEL COMMENTS; Start at 20:00 Methylprednisolone Sodium Succinate (SoluMEDROL INJ) 125 mg ONCE ONCE IV PUSH Last administered on 10/04/16 12:35; Start 10/04/16 at 12:00; Stop 10/04/16 at 12:11; Status DC Methylprednisolone Sodium Succinate (SoluMEDROL INJ) 60 mg Q6HR IV PUSH Last administered on 10/05/16 06:13; Start 10/04/16 at 12:00; Stop 10/05/16 at 11:21; Status DC Ketorolac Tromethamine (Toradol Inj) 15 mg Q6H PRN IV PUSH BREAKTHROUGH PAIN Last administered on 10/05/16 06:13; Start 10/04/16 at 13:00 Darunavir (Prezista) 800 mg HS PO Last administered on 10/06/16 20:25; Start at 21:00 Methylprednisolone Sodium Succinate (SoluMEDROL INJ) 40 mg Q6HR IV PUSH Last administered on 10/07/16 11:31; Start 10/05/16 at 12:00 Acetaminophen/ Hydrocodone Bitart ([place] 5-325 Mg) 1 tab Q4H PRN PO PAIN 4-7; Start 10/05/16 at 11:30 Acetaminophen/ Hydrocodone Bitart ([place] 5-325 Mg) 2 tab Q4H PRN PO PAIN 8-10 Last administered on 10/07/16 09:12; Start 10/05/16 at 11:30 Diphenhydramine HCl (Benadryl Inj) 25 mg Q6H PRN IV PUSH itching Last administered on 10/07/16 09:07; Start 10/06/16 at 12:00 Diphenhydramine HCl (Benadryl 2% Cream) 1 applic TID PRN TOPICAL ITCHING Last administered on 10/07/16 04:43; Start 10/06/16 at 09:15 A/P Assessment and Plan (1) Allergic reaction- has much improved This is a 41-year-old female with history of IV drug abuse, HIV who was recently discharged on October 01 after being admitted on September 13 for a costochondral infection. Wound culture grew out Pseudomonas. She was started on 6 week course of Levaquin 750 mg, first dose provided on September. Since then the rash has worsened, now has spread to her abdomen, extremities, chest, face. The only new medications include Levaquin which was started September 24, 2016 and new HIV medication started 2 months ago. Patient does not recall her HIV regimen follows with Dr. Cochran. Thought to be secondary to Levaquin. now on aztreonam. taper down IV steroids. Continue Benadryl ; IV and topical -when necessary for itching. (2) Pseudomonas infection Previously on Levaquin and cefepime. ID following. Antibiotics as per ID. Currently on aztreonam. needs to be on aztreonam until 11/04/16. Continue with pain control. (3) HIV (human immunodeficiency virus infection) continue antiretroviral therapy as indicated by ID. (4) HTN (hypertension) Stable, currently off antihypertensive medications. Patient reported not taking her antihypertensive medications because her blood pressure dropping too low. (5) Hyperlipidemia Patient currently on a statin. Patient refused to take the medication. Assessment and Plan DVT prophylaxis: SCDs. Discharge Planning d/w case management and ; no choice for oral abx. patient lives at [facility]. needs [facility] and on four-time daily IV abx. Marty Espinal MD October 07, 2016 11:56
[2016-10-07] MEDS: ABACAVIR SULFATE 300 MG TAB PO SCH (20:21)
[2016-10-07] MEDS: DARUNAVIR 800 MG TAB PO SCH (20:21)
[2016-10-07] MEDS: RITONAVIR 100 MG TAB PO SCH (20:21)
[2016-10-07] MEDS: ATORVASTATIN 20 MG TAB PO SCH (20:22)
[2016-10-08 00:25] VITALS: BP 134/91; PULSE 84; RESP 16; TEMP 96.9; O2SAT 98
[2016-10-08] MEDS: AZTREONAM INJ 2,000 MG in SODIUM CHLORIDE 0.9% INJ 100 ML IV SCH ×4 (01:12→21:10)
[2016-10-08] MEDS: ACETAMINOPHEN/HYDROcodone 325 MG/5 MG TAB PO PRN ×5 (01:17→18:23)
[2016-10-08 04:30] VITALS: BP 135/85; PULSE 69; RESP 17; TEMP 97; O2SAT 97
[2016-10-08] MEDS: hydrOXYzine PAMOATE 25 MG CAP PO PRN ×2 (06:05→13:58)
[2016-10-08] MEDS: methylPREDNISolone SOD SUCC 40 MG/1 ML VIAL IV PUSH SCH (06:05)
[2016-10-08 08:00] VITALS: BP 142/68; PULSE 65; RESP 20; TEMP 96.9; O2SAT 97
[2016-10-08] MEDS: SODIUM CHLORIDE 0.9% FLUSH 10 ML FLUSH IV FLUSH SCH ×3 (09:00→21:15)
[2016-10-08] MEDS: ENOXAPARIN SODIUM 40 MG/0.4 ML SYRINGE SQ SCH (09:17)
[2016-10-08] MEDS: CETIRIZINE HCL 10 MG TAB PO SCH (09:18)
--- NOTE | 2016-10-08 11:03 | HHI.PR ---
Subjective Remarks resting comfortably with no distress. overall doing fine. has mild itching. otherwise no other complaints. Objective Vitals Vital Signs Date Time Temp Pulse Resp B/P Pulse Ox O2 Delivery O2 Flow Rate FiO2 10/08/16 08:00 96.9 65 20 142/68 97 10/08/16 04:30 97.0 69 17 135/85 97 10/08/16 00:25 96.9 84 16 134/91 98 10/07/16 21:30 96 Room Air 10/07/16 20:20 97.3 92 15 140/91 96 10/07/16 20:00 82 10/07/16 16:00 96.7 75 20 139/77 97 10/07/16 12:00 96.0 85 18 125/72 96 I/O 10/07/16 10/07/16 10/07/16 10/08/16 10/08/16 10/08/16 07:00 15:00 23:00 07:00 15:00 23:00 Intake Total 480 ml 1200 ml 620 ml 620 ml 117 ml Balance 480 ml 1200 ml 620 ml 620 ml 117 ml Intake Oral 480 ml 1200 ml 620 ml 620 ml IV Total 117 ml # Voids 4 3 5 6 # Bowel Movements 0 1 1 0 Result Diagram: 10/05/16 0640 10/05/16 0640 Imaging Last Impressions Chest X-Ray 10/03/16 0000 Signed Impressions: Service Date/Time: Monday, October 03, 2016 15:51 - CONCLUSION: No acute cardiopulmonary disease. Dewey Corona MD Objective Remarks GENERAL: This is a well-nourished, well-developed patient, in no apparent distress. CARDIOVASCULAR: Regular rate and regular rhythm without murmurs, gallops, or rubs. RESPIRATORY: Clear to auscultation. Breath sounds equal bilaterally. No wheezes , rales, or rhonchi. GASTROINTESTINAL: Abdomen soft, non-tender, nondistended. Normal, active bowel sounds MUSCULOSKELETAL: Extremities without clubbing, cyanosis, or edema. NEURO: Alert & Oriented x4 to person, place, time, situation. Moves all ext x4 skin; rash noted on the abdomen Procedures none Medications and IVs Current Medications Methylprednisolone Sodium Succinate (SoluMEDROL INJ) 125 mg ONCE ONCE IV PUSH Last administered on 10/01/16t 23:04; Start 10/01/16 at 21:30; Stop 10/01/16 at 21:31; Status DC Diphenhydramine HCl (Benadryl Inj) 50 mg ONCE ONCE IV PUSH Last administered on 10/01/16 23:04; Start 10/01/16 at 21:30; Stop 10/01/16 at 21:31; Status DC Famotidine 20 mg 20 mg ONCE ONCE IV PUSH Last administered on 10/01/16 23:04 ; Start 10/01/16 at 21:45; Stop 10/01/16 at 21:55; Status DC Cefepime HCl/ Sodium Chloride (Maxipime Inj/NS Inj) 100 ml @ 200 mls/hr ONCE ONCE IV Last administered on 10/01/16 23:43; Start 10/01/16 at 22:30; Stop at 22:59; Status DC Sodium Chloride (NS Flush) 2 ml UNSCH PRN IV FLUSH FLUSH AFTER USING IV ACCESS Last administered on 10/03/16 06:51; Start 10/02/16 at 01:00 Sodium Chloride (NS Flush) 2 ml BID IV FLUSH Last administered on 10/07/16 20: 21; Start 10/02/16 at 09:00 Naloxone HCl 0.4 mg 0.4 mg UNSCH PRN IV SEE LABEL COMMENTS; Start 10/02/16 at 01:00 Cefepime HCl/ Sodium Chloride (Maxipime Inj/NS Inj) 100 ml @ 200 mls/hr Q12H IV Last administered on 10/02/16 10:08; Start 10/02/16 at 10:00; Stop at 11:26; Status DC Diphenhydramine HCl (Benadryl Inj) 25 mg Q4H PRN IV PUSH itching Last administered on 10/05/16 23:13; Start 10/02/16 at 01:00; Stop 10/06/16 at 09:11; Status DC Methylprednisolone Sodium Succinate (SoluMEDROL INJ) 40 mg Q6HR PRN IV PUSH itching/ allergic rxn Last administered on 10/02/16 05:24; Start 10/02/16 at 01 :00; Stop 10/02/16 at 11:28; Status DC Oxycodone HCl (Roxicodone) 5 mg Q6H PRN PO pain >5 Last administered on 05:24; Start 10/02/16 at 05:00; Stop 10/02/16 at 11:26; Status DC Enoxaparin Sodium (Lovenox Inj) 40 mg Q24H SQ Last administered on 10/08/16 09: 17; Start 10/02/16 at 08:00 Albuterol Sulfate (Ventolin Hfa Inh) 2 puff Q2HR PRN INH SHORTNESS OF BREATH; Start 10/02/16 at 07:30 Atorvastatin Calcium (Lipitor) 20 mg HS PO Last administered on 10/07/16 20:22 ; Start 10/02/16 at 21:00 Darunavir (Prezista) 800 mg BID PO Last administered on 10/04/16 21:51; Start 10/02/16 at 09:00; Stop 10/05/16 at 11:21; Status DC Ritonavir (Norvir) 100 mg HS PO Last administered on 10/07/16 20:21; Start at 21:00 Tramadol HCl (Ultram) 50 mg Q8H PRN PO PAIN SCALE 1 TO 4 Last administered on 08:45; Start 10/02/16 at 07:00; Status Hold Non-Formulary Medication 1 tab HS PO ; Start 10/02/16 at 21:00; Status UNV Abacavir Sulfate (Ziagen) 600 mg HS PO Last administered on 10/07/16 20:21; Start 10/02/16 at 21:00 Lamivudine (Epivir) 300 mg HS PO Last administered on 10/07/16 20:22; Start at 21:00 Levofloxacin (Levaquin) 750 mg Q24H PO ; Start 10/02/16 at 11:30; Stop 10/02/16 at 11:55; Status DC Methylprednisolone Sodium Succinate (SoluMEDROL INJ) 60 mg Q6HR IV PUSH Last administered on 10/03/16 06:49; Start 10/02/16 at 12:00; Stop 10/03/16 at 09:37 ; Status DC Cetirizine HCl (ZyrTEC) 10 mg DAILY PO Last administered on 10/08/16 09:18; Start 10/02/16 at 13:00 Acetaminophen 500 mg 500 mg Q4H PRN PO PAIN 1-2; Start 10/02/16 at 11:30 Cefepime HCl/ Sodium Chloride (Maxipime Inj/NS Inj) 100 ml @ 200 mls/hr Q12H IV ; Start 10/02/16 at 22:00; Stop 10/02/16 at 22:00; Status DC Hydroxyzine Pamoate 25 mg 25 mg Q6H PRN PO itchiness Last administered on 06:05; Start 10/02/16 at 12:45 Aztreonam/Sodium Chloride (Azactam Inj/NS Inj) 100 ml @ 200 mls/hr Q6H IV Last administered on 10/08/16 09:17; Start 10/02/16 at 14:00 Pneumococcal Polyvalent Vaccine (Pneumovax-23 Inj) 25 mcg ONCE ONCE IM Last administered on 10/03/16 09:19; Start 10/03/16 at 10:00; Stop 10/03/16 at 10:01 ; Status DC Influenza Virus Vaccine (Flu (Quadrivalent) Vaccine Inj) 0.5 ml ONCE ONCE IM ; Start 10/03/16 at 10:00; Stop 10/03/16 at 10:00; Status DC Methylprednisolone Sodium Succinate (SoluMEDROL INJ) 40 mg Q6HR IV PUSH Last administered on 10/04/16 04:46; Start 10/03/16 at 12:00; Stop 10/04/16 at 11:55 ; Status DC Sodium Chloride (NS Flush) See Protocol DAILY IV FLUSH Last administered on 10/08 09:18; Start 10/04/16 at 09:00 Sodium Chloride (NS Flush) See Protocol UNSCH PRN IV FLUSH SEE PROTOCOL TABLE; Start 10/03/16 at 16:45 Heparin Sodium (Porcine) (Heparin Central Flush) See Protocol DAILY IV FLUSH Last administered on 10/08/16 09:17; Start 10/04/16 at 09:00 Heparin Sodium (Porcine) (Heparin Central Flush) See Protocol UNSCH PRN IV FLUSH SEE PROTOCOL TABLE Last administered on 10/08/16 10:36; Start 10/03/16 at 16:45 Sodium Chloride (NS Flush) UNSCH PRN IV FLUSH SEE PROTOCOL TABLE; Start at 16:45 Fluconazole (Diflucan) 150 mg ONCE ONCE PO Last administered on 10/03/16 20: 19; Start 10/03/16 at 20:00; Stop 10/03/16 at 20:01; Status DC Miscellaneous (Pill Splitter) 1 ea UNSCH PRN OTHER SEE LABEL COMMENTS; Start at 20:00 Methylprednisolone Sodium Succinate (SoluMEDROL INJ) 125 mg ONCE ONCE IV PUSH Last administered on 10/04/16 12:35; Start 10/04/16 at 12:00; Stop 10/04/16 at 12:11; Status DC Methylprednisolone Sodium Succinate (SoluMEDROL INJ) 60 mg Q6HR IV PUSH Last administered on 10/05/16 06:13; Start 10/04/16 at 12:00; Stop 10/05/16 at 11:21; Status DC Ketorolac Tromethamine (Toradol Inj) 15 mg Q6H PRN IV PUSH BREAKTHROUGH PAIN Last administered on 10/05/16 06:13; Start 10/04/16 at 13:00 Darunavir (Prezista) 800 mg HS PO Last administered on 10/07/16 20:21; Start at 21:00 Methylprednisolone Sodium Succinate (SoluMEDROL INJ) 40 mg Q6HR IV PUSH Last administered on 10/07/16 11:31; Start 10/05/16 at 12:00; Stop 10/07/16 at 11:57; Status DC Acetaminophen/ Hydrocodone Bitart ([place] 5-325 Mg) 1 tab Q4H PRN PO PAIN 4-7; Start 10/05/16 at 11:30 Acetaminophen/ Hydrocodone Bitart ([place] 5-325 Mg) 2 tab Q4H PRN PO PAIN 8-10 Last administered on 10/08/16 10:37; Start 10/05/16 at 11:30 Diphenhydramine HCl (Benadryl Inj) 25 mg Q6H PRN IV PUSH itching Last administered on 10/07/16 18:18; Start 10/06/16 at 12:00 Diphenhydramine HCl (Benadryl 2% Cream) 1 applic TID PRN TOPICAL ITCHING Last administered on 10/07/16 04:43; Start 10/06/16 at 09:15 Methylprednisolone Sodium Succinate (SoluMEDROL INJ) 40 mg Q8HR IV PUSH Last administered on 10/08/16t 06:05; Start 10/07/16 at 22:00 A/P Assessment and Plan (1) Allergic reaction- has much improved This is a 41-year-old female with history of IV drug abuse, HIV who was recently discharged on October 01 after being admitted on September 13 for a costochondral infection. Wound culture grew out Pseudomonas. She was started on 6 week course of Levaquin 750 mg, first dose provided on September. Since then the rash has worsened. The only new medications include Levaquin which was started September 24, 2016 and new HIV medication started 2 months ago. Patient does not recall her HIV regimen follows with Dr. Cochran. Thought to be secondary to Levaquin. now on aztreonam. stop IV steroids and switch to po prednisone; will taper off over the next few days. Continue Benadryl ; IV and topical -when necessary for itching. 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 ID evaluation appreciated. needs to be on aztreonam until 11/04/16. Continue with pain control. s/p PICC line insertion. ortho f/u appreciated. consult OT. (3) HIV (human immunodeficiency virus infection) continue antiretroviral therapy as indicated by ID. (4) HTN (hypertension) Stable, currently off antihypertensive medications. Patient reported not taking her antihypertensive medications because her blood pressure dropping too low. (5) Hyperlipidemia Patient currently on a statin. Patient refused to take the medication. Assessment and Plan DVT prophylaxis: SCDs. Discharge Planning d/w the patient, RN and case management. considering the fact [facility]- history of IV drug abuse and four-time dosing of the IV Abx, patient might need to stay inpatient till the end of course of IV Abx therapy. Marty Espinal MD October 08, 2016 11:03
[2016-10-08 12:00] VITALS: BP 135/85; PULSE 114; RESP 20; TEMP 97.2; O2SAT 97
[2016-10-08] MEDS: diphenhydrAMINE HCL 50 MG/ML VIAL IV PUSH PRN (15:54)
[2016-10-08 20:00] VITALS: BP 126/75; PULSE 81; RESP 20; TEMP 97.3; O2SAT 96
[2016-10-08] MEDS: DARUNAVIR 800 MG TAB PO SCH (21:16)
[2016-10-08] MEDS: RITONAVIR 100 MG TAB PO SCH (21:16)
[2016-10-08] MEDS: ATORVASTATIN 20 MG TAB PO SCH (21:16)
[2016-10-08] MEDS: ABACAVIR SULFATE 300 MG TAB PO SCH (21:17)
[2016-10-09] MEDS: diphenhydrAMINE HCL 50 MG/ML VIAL IV PUSH PRN ×2 (00:03→08:50)
[2016-10-09] MEDS: ACETAMINOPHEN/HYDROcodone 325 MG/5 MG TAB PO PRN ×3 (00:04→16:54)
[2016-10-09] MEDS: AZTREONAM INJ 2,000 MG in SODIUM CHLORIDE 0.9% INJ 100 ML IV SCH ×4 (01:52→21:27)
[2016-10-09] MEDS: hydrOXYzine PAMOATE 25 MG CAP PO PRN (06:01)
[2016-10-09 08:25] VITALS: BP 118/79; PULSE 80; RESP 18; TEMP 97.8; O2SAT 98
[2016-10-09] MEDS: ENOXAPARIN SODIUM 40 MG/0.4 ML SYRINGE SQ SCH (08:45)
[2016-10-09] MEDS: predniSONE 20 MG TAB PO SCH (08:46)
[2016-10-09] MEDS: CETIRIZINE HCL 10 MG TAB PO SCH (08:46)
[2016-10-09] MEDS: SODIUM CHLORIDE 0.9% FLUSH 10 ML FLUSH IV FLUSH SCH ×3 (08:47→21:28)
[2016-10-09] MEDS ORDERED: predniSONE 20 MG TAB PO ONE (09:00)
--- NOTE | 2016-10-09 09:31 | HHI.PR ---
Subjective Remarks Records reviewed. Follow up for osteomyelitis and rash. Ms. Ibrahim was initially admitted on 09/13/16 for osteomyelitis of the clavicle/sternoclavicular joint. She underwent irrigation and debridement of the right SC joint by Dr. Ureña on 09/23 and culture grew pseudomonas. Blood cultures positive for staph on 09/13, but repeat cultures have remained negative. The patient was evaluated by infectious disease and placed on Levaquin and cefepime. She was discharged on 09/29 with Levaquin, but returned to the ED on 10/01 with rash likely attributed to the Levaquin. Patient was again evaluated by infectious disease and is currently on Aztreonam until 11/04/16. Patient was transferred to [place] yesterday for completion of antibiotics as she cannot be discharged due to social situation. Patient still complains of rash to her legs and arms. She admits to night sweats but denies any fevers or chills. Denies any vomiting or diarrhea. States her right shoulder is sore from therapy. Objective Vitals Vital Signs Date Time Temp Pulse Resp B/P Pulse Ox O2 Delivery O2 Flow Rate FiO2 10/09/16 08:25 97.8 80 18 118/79 98 10/08/16 20:00 97.3 81 20 126/75 96 10/08/16 12:00 97.2 114 20 135/85 97 I/O 10/08/16 10/08/16 10/08/16 10/09/16 10/09/16 10/09/16 07:00 15:00 23:00 07:00 15:00 23:00 Intake Total 620 ml 717 ml 731 ml 480 ml Balance 620 ml 717 ml 731 ml 480 ml Intake Oral 620 ml 600 ml 480 ml 480 ml IV Total 117 ml 251 ml # Voids 6 4 1 2 # Bowel Movements 0 0 0 Result Diagram: 10/05/16 0640 10/05/16 0640 Objective Remarks GENERAL: Well-nourished, well developed patient no apparent distress. SKIN: Warm and dry. There is splotchy brownish-red discoloration to bilateral anterior thighs. There is a lightly erythematous slightly raised rash to the dorsal left arm. No rash to the back. CARDIOVASCULAR: Regular rate and rhythm. RESPIRATORY: No accessory muscle use. Clear to auscultation. Breath sounds equal bilaterally. GASTROINTESTINAL: Abdomen soft, non-tender, nondistended. NEUROLOGICAL: Awake and alert. Motor grossly within normal limits. Normal speech. PSYCHIATRIC: Appropriate mood and affect; insight and judgment normal. Procedures none Urinary Catheter: No Vascular Central Line Catheter: No A/P Problem List: (1) Allergic reaction ICD Code: T78.40XA Status: Acute (2) Pseudomonas infection ICD Code: B96.5 Status: Acute (3) HIV (human immunodeficiency virus infection) ICD Code: Z21 Status: Chronic (4) Anemia ICD Code: D64.9 Status: Acute (5) Prerenal azotemia ICD Code: R79.89 Status: Acute (6) HTN (hypertension) ICD Code: I10 Status: Acute (7) Hyperlipidemia ICD Code: E78.5 Status: Acute Assessment and Plan This is a 41-year-old female with history of IVDA, HIV who was recently discharged on 10/01/16 after being admitted on 09/13 for a costochondral infection. Wound culture grew out Pseudomonas. She was started on 6 week course of Levaquin 750 mg, first dose administered on 09/24/16. Since then the rash has worsened. The only new medications include Levaquin which was started September 24, 2016 and new HIV medication started 2 months ago[address] Follow[address] with Dr. Cochran. Allergic reaction: Persistent; previous provider stated it had improved yesterday. Thought to be secondary to Levaquin, now on aztreonam. -Patient currently on prednisone 40 mg by mouth daily; will taper off over the next few days provided rash improves. -Patient currently on IV Benadryl and by mouth Vistaril as needed. Discontinue these and start patient on scheduled Benadryl 25 mg by mouth every 6 hours. 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 -Continue Aztreonam until 11/04/16. -Follow CBC and Cr weekly per ID. Will also order LFTs weekly. Labs ordered for 10/16/16. -Ortho consultation appreciated. Per ortho note on 10/06, can be WBAT on the right shoulder. -Continue OT -[place] for pain; will need to wean to completion prior to discharge. -WBC elevated at 13.0 today, likely attributed to steroids. Monitor CBC. HIV (human immunodeficiency virus infection): chronic -Continue antiretroviral therapy as indicated by ID. Anemia: Hemoglobin stable at 9.8. Likely due to chronic disease. Pre-renal azotemia: BUN stable at 24. -Montor BMP periodically. HTN (hypertension): Stable. Patient reported not taking her antihypertensive medications because her blood pressure dropping too low. -Currently off antihypertensive medications. Hyperlipidemia -Continue statin DVT prophylaxis: SCDs, Lovenox. Problem Qualifiers (1) Allergic reaction: Qualified Code: T78.40XA - Allergic reaction, initial encounter (2) HTN (hypertension): Qualified Code: I15.9 - Secondary hypertension (3) Hyperlipidemia: Qualified Code: E78.5 - Hyperlipidemia, unspecified hyperlipidemia type Jennifer Packer October 09, 2016 09:31
[2016-10-09 11:11] LABS: AUTOMATED NEUTROPHIL # 8.9 TH/MM3 (1.8-7.7); BASOPHIL % 0.2 % (0.0-2.0); EOSINOPHIL # 0.9 TH/MM3 (0-0.4); EOSINOPHIL % 6.6 % (0.0-4.0); HEMATOCRIT 29.6 % (35.0-46.0); LYMPH % 18.4 % (9.0-44.0); LYMPHOCYTE # 2.4 TH/MM3 (1.0-4.8); MEAN CORPUSCULAR HEMOGLOBIN 27.5 PG (27.0-34.0); MEAN CORPUSCULAR HGB CONC 33.2 % (32.0-36.0); MONO % 6.1 % (0.0-8.0); NEUT % 68.7 % (16.0-70.0); PLATELET COUNT 343 TH/MM3 (150-450); RED BLOOD COUNT 3.57 MIL/MM3 (4.00-5.30); RED CELL DISTRIBUTION WIDTH 17.4 % (11.6-17.2)
[2016-10-09 11:12] LABS: HEMO FLAGS DIFF FINAL
[2016-10-09 11:20] LABS: POTASSIUM 4.3 MEQ/L (3.5-5.1)
[2016-10-09 11:23] LABS: BICARBONATE 30.5 MEQ/L (21.0-32.0)
--- NOTE | 2016-10-09 11:46 | HHI.PR ---
Addendum to Inpatient Note Additional Information Pt need to complete treatment for her clavicle osteo with azactam as per recommended thru 11/04 CBC, creatinine weekly thru the end of her IV abx to be ordered and followed by MICHAEL will sign off Please call me if any further issues occur Jodi Colmenares MD October 09, 2016 11:46
[2016-10-09] MEDS: diphenhydrAMINE HCL 25 MG CAP PO SCH ×2 (16:52→21:28)
[2016-10-09 20:00] VITALS: BP 120/74; PULSE 94; RESP 18; TEMP 96.2; O2SAT 98
[2016-10-09] MEDS: ABACAVIR SULFATE 300 MG TAB PO SCH (21:00)
[2016-10-09] MEDS: DARUNAVIR 800 MG TAB PO SCH (21:29)
[2016-10-09] MEDS: ATORVASTATIN 20 MG TAB PO SCH (21:29)
[2016-10-09] MEDS: RITONAVIR 100 MG TAB PO SCH (21:29)
[2016-10-10] MEDS: AZTREONAM INJ 2,000 MG in SODIUM CHLORIDE 0.9% INJ 100 ML IV SCH ×4 (02:19→20:07)
[2016-10-10] MEDS: diphenhydrAMINE HCL 25 MG CAP PO SCH ×4 (03:02→20:10)
[2016-10-10 08:00] VITALS: BP 106/85; PULSE 107; RESP 19; TEMP 97.8; O2SAT 97
[2016-10-10] MEDS: predniSONE 20 MG TAB PO SCH (08:45)
[2016-10-10] MEDS: SODIUM CHLORIDE 0.9% FLUSH 10 ML FLUSH IV FLUSH SCH ×3 (08:46→20:10)
[2016-10-10] MEDS: ENOXAPARIN SODIUM 40 MG/0.4 ML SYRINGE SQ SCH (08:46)
[2016-10-10] MEDS: CETIRIZINE HCL 10 MG TAB PO SCH (08:46)
[2016-10-10] MEDS: ACETAMINOPHEN/HYDROcodone 325 MG/5 MG TAB PO PRN ×4 (08:47→21:14)
--- NOTE | 2016-10-10 10:10 | HHI.PR ---
Subjective Remarks Follow up for osteomyelitis and rash. Patient states her rash is the same; it has not worsened but it also has not gotten better. Denies difficulty breathing or swallowing. Objective Vitals Vital Signs Date Time Temp Pulse Resp B/P Pulse Ox O2 Delivery O2 Flow Rate FiO2 10/10/16 08:00 97.8 107 19 106/85 97 10/09/16 20:00 96.2 94 18 120/74 98 I/O 10/09/16 10/09/16 10/09/16 10/10/16 10/10/16 10/10/16 07:00 15:00 23:00 07:00 15:00 23:00 Intake Total 480 ml 2520 ml 240 ml Balance 480 ml 2520 ml 240 ml Intake Oral 480 ml 2520 ml 240 ml # Voids 2 43 2 # Bowel Movements 0 1 0 Result Diagram: 10/09/16 1055 10/09/16 1055 Objective Remarks GENERAL: Well-nourished, well developed patient no apparent distress. SKIN: Warm and dry. There is lightly erythematous papular rash to B/L medial thighs and arms. Well-healed incision over right sternoclavicular joint. No erythema. CARDIOVASCULAR: Regular rate and rhythm. RESPIRATORY: No accessory muscle use. Clear to auscultation. Breath sounds equal bilaterally. GASTROINTESTINAL: Abdomen soft, non-tender, nondistended. NEUROLOGICAL: Awake and alert. Motor grossly within normal limits. Normal speech. Witnessed to ambulating normally in [place]. PSYCHIATRIC: Appropriate mood and affect; insight and judgment normal. Procedures none Urinary Catheter: No Vascular Central Line Catheter: Yes Assessment to: Continue Line: PICC Side: Right Reason for Continuation shelter antibiotics A/P Problem List: (1) Allergic reaction ICD Code: T78.40XA Status: Acute (2) Pseudomonas infection ICD Code: B96.5 Status: Acute (3) HIV (human immunodeficiency virus infection) ICD Code: Z21 Status: Chronic (4) Anemia ICD Code: D64.9 Status: Acute (5) Prerenal azotemia ICD Code: R79.89 Status: Acute (6) HTN (hypertension) ICD Code: I10 Status: Acute (7) Hyperlipidemia ICD Code: E78.5 Status: Acute Assessment and Plan This is a 41-year-old female with history of IVDA, HIV who was recently discharged on 10/01/16 after being admitted on 09/13 for a costochondral infection. Wound culture grew out Pseudomonas. She was started on 6 week course of Levaquin 750 mg, first dose administered on 09/24/16. Since then the rash has worsened. The only new medications include Levaquin which was started September 24, 2016 and new HIV medication started 2 months ago. Follows with Dr. Cochran. Allergic reaction: Stable. Thought to be secondary to Levaquin, now on aztreonam. -Patient currently on prednisone 40 mg by mouth daily. -Continue scheduled Benadryl 25 mg by mouth every 6 hours. -Discussed with Dr. Womack, continue current treatment. 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 -ID consultation appreciated. -Continue Aztreonam until 11/04/16. -Follow CBC and Cr weekly per ID. Will also order LFTs weekly. Labs ordered for 10/16/16. -Call Dr. Colmenares, ID, if further issues occur. -Ortho consultation appreciated. Per ortho note on 10/06, can be WBAT on the right shoulder. -Continue OT -[place] for pain; will need to wean to completion prior to discharge. -WBC elevated at 13.0 on 10/09, likely attributed to steroids. Monitor CBC. HIV (human immunodeficiency virus infection): chronic -Continue antiretroviral therapy as indicated by ID. Anemia: Hemoglobin stable at 9.8. Likely due to chronic disease. Pre-renal azotemia: BUN stable at 24. -Montor BMP periodically. HTN: Stable. Patient reported not taking her antihypertensive medications because her blood pressure dropping too low. -Currently off antihypertensive medications. Hyperlipidemia -Continue statin DVT prophylaxis: SCDs, Lovenox. Problem Qualifiers (1) Allergic reaction: Qualified Code: T78.40XA - Allergic reaction, initial encounter (2) HTN (hypertension): Qualified Code: I15.9 - Secondary hypertension (3) Hyperlipidemia: Qualified Code: E78.5 - Hyperlipidemia, unspecified hyperlipidemia type Jennifer Packer October 10, 2016 10:10
[2016-10-10 20:00] VITALS: BP 118/90; PULSE 92; RESP 20; TEMP 97; O2SAT 98
[2016-10-10] MEDS: ATORVASTATIN 20 MG TAB PO SCH ×2 (20:11→20:13)
[2016-10-10] MEDS: RITONAVIR 100 MG TAB PO SCH (20:11)
[2016-10-10] MEDS: DARUNAVIR 800 MG TAB PO SCH (20:12)
[2016-10-10] MEDS: ABACAVIR SULFATE 300 MG TAB PO SCH (20:12)
[2016-10-11] MEDS: AZTREONAM INJ 2,000 MG in SODIUM CHLORIDE 0.9% INJ 100 ML IV SCH ×4 (02:58→20:36)
[2016-10-11] MEDS: diphenhydrAMINE HCL 25 MG CAP PO SCH ×4 (02:58→20:31)
[2016-10-11 08:00] VITALS: BP 107/74; PULSE 82; RESP 21; TEMP 97.2; O2SAT 98
[2016-10-11] MEDS: predniSONE 20 MG TAB PO SCH (08:05)
[2016-10-11] MEDS: ACETAMINOPHEN/HYDROcodone 325 MG/5 MG TAB PO PRN ×4 (08:05→21:16)
[2016-10-11] MEDS: CETIRIZINE HCL 10 MG TAB PO SCH (08:05)
[2016-10-11] MEDS: ENOXAPARIN SODIUM 40 MG/0.4 ML SYRINGE SQ SCH (08:06)
[2016-10-11] MEDS: SODIUM CHLORIDE 0.9% FLUSH 10 ML FLUSH IV FLUSH SCH ×3 (08:06→20:31)
--- NOTE | 2016-10-11 10:21 | HHI.PR ---
Subjective Remarks Follow up for osteomyelitis and rash. Patient states her R shoulder is sore from overuse. Admits to pruritus with rash, and states rash is worse at night. Admits the coloration of her leg rash is better currently. Denies any SOB, vomiting, or diarrhea. Objective Vitals Vital Signs Date Time Temp Pulse Resp B/P Pulse Ox O2 Delivery O2 Flow Rate FiO2 10/11/16 08:00 97.2 82 21 107/74 98 10/10/16 22:19 18 10/10/16 20:00 97.0 92 20 118/90 98 I/O 10/10/16 10/10/16 10/10/16 10/11/16 10/11/16 10/11/16 07:00 15:00 23:00 07:00 15:00 23:00 Intake Total 240 ml 605 ml 240 ml Output Total 300 ml Balance 240 ml 605 ml -60 ml Intake Oral 240 ml 480 ml 240 ml IV Total 125 ml Output Urine Total 300 ml # Voids 2 7 # Bowel Movements 0 1 Result Diagram: 10/09/16 1055 10/09/16 1055 Objective Remarks GENERAL: Well-nourished, well developed patient no apparent distress. SKIN: Warm and dry. There is a papular rash palpated to B/L forearms, but no erythema present today. No rash present over medial thighs. CARDIOVASCULAR: Regular rate and rhythm. RESPIRATORY: No accessory muscle use. Clear to auscultation. Breath sounds equal bilaterally. GASTROINTESTINAL: Abdomen soft, non-tender, nondistended. NEUROLOGICAL: Awake and alert. Motor grossly within normal limits. Normal speech. Witnessed to be ambulating normally in [place]. Full director radio strength R hand. PSYCHIATRIC: Appropriate mood and affect; insight and judgment normal. Procedures none Urinary Catheter: No Vascular Central Line Catheter: Yes Assessment to: Continue Line: PICC Side: Right Reason for Continuation Long-term antibiotics A/P Problem List: (1) Allergic reaction ICD Code: T78.40XA Status: Acute (2) Pseudomonas infection ICD Code: B96.5 Status: Acute (3) HIV (human immunodeficiency virus infection) ICD Code: Z21 Status: Chronic (4) Anemia ICD Code: D64.9 Status: Acute (5) Prerenal azotemia ICD Code: R79.89 Status: Acute (6) HTN (hypertension) ICD Code: I10 Status: Acute (7) Hyperlipidemia ICD Code: E78.5 Status: Acute Assessment and Plan This is a 41-year-old female with history of IVDA, HIV who was recently discharged on 10/01/16 after being admitted on 09/13 for a costochondral infection. Wound culture grew out Pseudomonas. She was started on 6 week course of Levaquin 750 mg, first dose administered on 09/24/16. Since then the rash has worsened. The only new medications include Levaquin which was started September 24, 2016 and new HIV medication started 2 months ago. Follows with Dr. Cochran. Allergic reaction: Rash improved. Thought to be secondary to Levaquin, now on aztreonam. -Continue prednisone 40 mg by mouth daily. -Continue scheduled Benadryl 25 mg by mouth every 6 hours. 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 -ID consultation appreciated. -Continue Aztreonam until 11/04/16. -Follow CBC and Cr weekly per ID. Will also order LFTs weekly. Labs ordered for 10/16/16. -Call Dr. Colmenares, ID, if further issues occur. -Ortho consultation appreciated. Per ortho note on 10/06, can be WBAT on the right shoulder. -Continue OT -[place] for pain; will need to wean to completion prior to discharge. -WBC elevated at 13.0 on 10/09, likely attributed to steroids. Afebrile. Repeat am CBC. HIV (human immunodeficiency virus infection): chronic -Continue antiretroviral therapy as indicated by ID. Anemia: Hemoglobin stable at 9.8. Likely due to chronic disease. Pre-renal azotemia: BUN stable at 24. -Montor BMP periodically. HTN: Stable. Patient reported not taking her antihypertensive medications because her blood pressure dropping too low. -Currently off antihypertensive medications. Hyperlipidemia -Continue statin DVT prophylaxis: SCDs, Lovenox. Problem Qualifiers (1) Allergic reaction: Qualified Code: T78.40XA - Allergic reaction, initial encounter (2) HTN (hypertension): Qualified Code: I15.9 - Secondary hypertension (3) Hyperlipidemia: Qualified Code: E78.5 - Hyperlipidemia, unspecified hyperlipidemia type Jennifer Packer October 11, 2016 10:21
[2016-10-11] MEDS: ABACAVIR SULFATE 300 MG TAB PO SCH (20:32)
[2016-10-11] MEDS: ATORVASTATIN 20 MG TAB PO SCH (20:32)
[2016-10-11] MEDS: RITONAVIR 100 MG TAB PO SCH (21:00)
[2016-10-11] MEDS: DARUNAVIR 800 MG TAB PO SCH (21:00)
[2016-10-11 23:14] VITALS: BP 108/69; PULSE 107; RESP 18; TEMP 98.5; O2SAT 100
[2016-10-12] MEDS: diphenhydrAMINE HCL 25 MG CAP PO SCH ×4 (02:13→20:19)
[2016-10-12] MEDS: ACETAMINOPHEN/HYDROcodone 325 MG/5 MG TAB PO PRN ×4 (02:14→20:34)
[2016-10-12] MEDS: AZTREONAM INJ 2,000 MG in SODIUM CHLORIDE 0.9% INJ 100 ML IV SCH ×4 (02:16→20:20)
[2016-10-12 05:13] LABS: AUTOMATED NEUTROPHIL # 7.8 TH/MM3 (1.8-7.7); BASOPHIL # 0.1 TH/MM3 (0-0.2); BASOPHIL % 0.5 % (0.0-2.0); EOSINOPHIL # 1.3 TH/MM3 (0-0.4); EOSINOPHIL % 9.1 % (0.0-4.0); HEMATOCRIT 27.4 % (35.0-46.0); LYMPH % 27.2 % (9.0-44.0); LYMPHOCYTE # 3.8 TH/MM3 (1.0-4.8); MEAN CELL VOLUME 84.2 FL (80.0-100.0); MEAN CORPUSCULAR HEMOGLOBIN 28.2 PG (27.0-34.0); MEAN CORPUSCULAR HGB CONC 33.5 % (32.0-36.0); NEUT % 55.2 % (16.0-70.0); PLATELET COUNT 271 TH/MM3 (150-450); RED BLOOD COUNT 3.25 MIL/MM3 (4.00-5.30); RED CELL DISTRIBUTION WIDTH 19.5 % (11.6-17.2); WHITE BLOOD COUNT 14.1 TH/MM3 (4.0-11.0)
[2016-10-12 05:27] LABS: HEMO FLAGS AUTO DIFF
[2016-10-12 06:53] LABS: PLATELET ESTIMATE SMEAR NORMAL (NORMAL); PLATELET MORPHOLOGY NORMAL (NORMAL)
[2016-10-12 06:54] LABS: SCAN/DIFF AUTO DIFF CONFIRMED
[2016-10-12] MEDS ORDERED: DARU1TAB2 PO (06:59)
[2016-10-12] MEDS ORDERED: DOLU1TAB PO (07:03)
[2016-10-12 08:00] VITALS: BP 109/63; PULSE 106; RESP 18; TEMP 97.9; O2SAT 98
[2016-10-12] MEDS: predniSONE 20 MG TAB PO SCH (08:18)
[2016-10-12] MEDS: ENOXAPARIN SODIUM 40 MG/0.4 ML SYRINGE SQ SCH (08:18)
[2016-10-12] MEDS: CETIRIZINE HCL 10 MG TAB PO SCH (08:18)
[2016-10-12] MEDS: SODIUM CHLORIDE 0.9% FLUSH 10 ML FLUSH IV FLUSH SCH ×3 (08:19→20:23)
--- NOTE | 2016-10-12 10:27 | HHI.PR ---
Subjective Remarks Follow up for osteomyelitis and rash. I was informed yesterday that patient was receiving the wrong HIV medications. She now has the bottles of the correct medications which were recently changed prior to her admission. They have been restarted and the others discontinued. She requests something for nausea related to medication use. Objective Vitals Vital Signs Date Time Temp Pulse Resp B/P Pulse Ox O2 Delivery O2 Flow Rate FiO2 10/12/16 08:00 97.9 106 18 109/63 98 10/11/16 23:14 98.5 107 18 108/69 100 I/O 10/11/16 10/11/16 10/11/16 10/12/16 10/12/16 10/12/16 06:59 14:59 22:59 06:59 14:59 22:59 Intake Total 240 ml 300 ml 100 ml Output Total 300 ml Balance -60 ml 300 ml 100 ml Intake Oral 240 ml 250 ml IV Total 50 ml 100 ml Output Urine Total 300 ml # Voids 5 # Bowel Movements 2 Result Diagram: 10/12/16 0430 10/09/16 1055 Objective Remarks GENERAL: Well-nourished, well developed patient no apparent distress. SKIN: Warm and dry. CARDIOVASCULAR: Regular rate and rhythm. RESPIRATORY: No accessory muscle use. Clear to auscultation. Breath sounds equal bilaterally. GASTROINTESTINAL: Abdomen soft, non-tender, nondistended. NEUROLOGICAL: Awake and alert. Motor grossly within normal limits. Normal speech. Witnessed to be ambulating normally in [place]. PSYCHIATRIC: Appropriate mood and affect; insight and judgment normal. Procedures none Urinary Catheter: No Vascular Central Line Catheter: Yes Assessment to: Continue Line: PICC Side: Right A/P Problem List: (1) Allergic reaction ICD Code: T78.40XA Status: Acute (2) Pseudomonas infection ICD Code: B96.5 Status: Acute (3) HIV (human immunodeficiency virus infection) ICD Code: Z21 Status: Chronic (4) Anemia ICD Code: D64.9 Status: Acute (5) Prerenal azotemia ICD Code: R79.89 Status: Acute (6) HTN (hypertension) ICD Code: I10 Status: Acute (7) Hyperlipidemia ICD Code: E78.5 Status: Acute Assessment and Plan This is a 41-year-old female with history of IVDA, HIV who was recently discharged on 10/01/16 after being admitted on 09/13 for a costochondral infection. Wound culture grew out Pseudomonas. She was started on 6 week course of Levaquin 750 mg, first dose administered on 09/24/16. Since then the rash has worsened. The only new medications include Levaquin which was started September 24, 2016 and new HIV medication started 2 months ago[address] Follow[address] with Dr. Cochran. Allergic reaction: Rash improved. Thought to be secondary to Levaquin, now on aztreonam. -Continue prednisone 40 mg by mouth daily. Taper as rash resolves. -Continue scheduled Benadryl 25 mg by mouth every 6 hours. 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 -ID consultation appreciated. -Continue Aztreonam until 11/04/16. -Follow CBC and Cr weekly per ID. Will also order LFTs weekly. Labs ordered for 10/16/16. -Call Dr. Colmenares, ID, if further issues occur. -Ortho consultation appreciated. Per ortho note on 10/06, can be WBAT on the right shoulder. -Continue OT -[place] for pain; will need to wean to completion prior to discharge. -10/12: CBC with elevated WBC count of 14.1. No elevation in neutrophils. Afebrile. Likely attributed to steroid use. Dr. Womack aware. HIV (human immunodeficiency virus infection): chronic -Continue antiretroviral therapy, medications have been appropriately changed to patient's home regimen recently changed by Dr. Cochran. PO Zofran ordered for nausea. Anemia: Hemoglobin stable at 9.2. Likely due to chronic disease. Pre-renal azotemia: BUN stable at 24. -Montor BMP periodically. HTN: Stable. Patient reported not taking her antihypertensive medications because her blood pressure dropping too low. -Currently off antihypertensive medications. Hyperlipidemia -Continue statin DVT prophylaxis: SCDs, Lovenox. Problem Qualifiers (1) Allergic reaction: Qualified Code: T78.40XA - Allergic reaction, initial encounter (2) HTN (hypertension): Qualified Code: I15.9 - Secondary hypertension (3) Hyperlipidemia: Qualified Code: E78.5 - Hyperlipidemia, unspecified hyperlipidemia type Jennifer Packer October 12, 2016 10:27
[2016-10-12] MEDS ORDERED: DOLUTEGRAVIR SODIUM 50 MG TAB PO SCH (11:00)
[2016-10-12] MEDS ORDERED: COBICISTAT PO SCH (12:00)
[2016-10-12] MEDS ORDERED: [UNRECOGNIZED DRUG - OTHER] PO SCH (12:00)
[2016-10-12] MEDS ORDERED: DARUNAVIR PO SCH (12:00)
[2016-10-12 20:00] VITALS: BP 99/66; PULSE 113; RESP 20; TEMP 96; O2SAT 98
[2016-10-12] MEDS: ABACAVIR SULFATE 300 MG TAB PO SCH (20:19)
[2016-10-12] MEDS: DOLUTEGRAVIR SODIUM 50 MG TAB PO SCH (20:19)
[2016-10-12] MEDS: COBICISTAT PO SCH (20:23)
[2016-10-12] MEDS: DARUNAVIR PO SCH (20:23)
[2016-10-12] MEDS: [UNRECOGNIZED DRUG - OTHER] PO SCH (20:23)
[2016-10-12] MEDS: ATORVASTATIN 20 MG TAB PO SCH (20:29)
[2016-10-12] MEDS: ONDANSETRON ODT 4 MG TAB PO PRN (20:32)
[2016-10-13] MEDS: diphenhydrAMINE HCL 25 MG CAP PO SCH ×4 (02:24→21:15)
[2016-10-13] MEDS: AZTREONAM INJ 2,000 MG in SODIUM CHLORIDE 0.9% INJ 100 ML IV SCH ×4 (02:24→21:17)
[2016-10-13] MEDS: SODIUM CHLORIDE 0.9% FLUSH 10 ML FLUSH IV FLUSH SCH ×3 (07:21→21:16)
[2016-10-13] MEDS: predniSONE 20 MG TAB PO SCH (07:22)
[2016-10-13] MEDS: ACETAMINOPHEN/HYDROcodone 325 MG/5 MG TAB PO PRN ×3 (07:22→18:09)
[2016-10-13] MEDS: ENOXAPARIN SODIUM 40 MG/0.4 ML SYRINGE SQ SCH (07:22)
[2016-10-13] MEDS: CETIRIZINE HCL 10 MG TAB PO SCH (07:22)
[2016-10-13 08:00] VITALS: BP 105/68; PULSE 83; RESP 18; TEMP 98; O2SAT 99
--- NOTE | 2016-10-13 13:23 | HHI.PR ---
Subjective Remarks Patient seen and examined today for follow-up on osteomyelitis and rash. Patient states that she is doing much better. She is able to use her arm more. Rash is improving. Patient is asking if she can leave the hospital to go to her daughter's graduation and then returned to the hospital. Patient was counseled extensively on leaving the hospital, will need to be AGAINST MEDICAL ADVICE due to her needing continue management with IV antibiotics until 11/04. Patient does understand Objective Vitals Vital Signs Date Time Temp Pulse Resp B/P Pulse Ox O2 Delivery O2 Flow Rate FiO2 10/13/16 08:00 98.0 83 18 105/68 99 10/12/16 20:00 96.0 113 20 99/66 98 I/O 10/12/16 10/12/16 10/12/16 10/13/16 10/13/16 10/13/16 06:59 14:59 22:59 06:59 14:59 22:59 Intake Total 100 ml 240 ml 240 ml Balance 100 ml 240 ml 240 ml Intake Oral 240 ml 240 ml IV Total 100 ml # Voids 3 2 1 # Bowel Movements 0 0 Result Diagram: 10/12/16 0430 10/09/16 1055 Objective Remarks GENERAL: Well-developed, well-nourished, in no acute distress. alert and orientated HEENT: Head is normocephalic without any lesions or masses noted. Facial features are symmetric. Eyes: Extraocular muscles are intact. Conjunctivae were clear. NECK: Supple without any masses. Trachea midline no deviation. No JVD, CARDIAC: Regular rhythm, regular rate. S1/S2 are heard. No murmurs gallops or rubs. LUNGS: Clear to auscultation bilaterally. No wheeze, rhonchi or rales. No use of accessory muscles on inspiration or expiration. ABDOMEN: Soft, nontender. Nondistended. Bowel sounds heard in all 4 quadrants. No organomegaly or masses. Negative rebound, negative guarding EXTREMITIES: No edema, pulses are equal bilaterally. No cyanosis or clubbing NEUROLOGY: Mood and affect appear appropriate. Cranial nerves II through XII grossly intact moving all extremities, speech is clear Procedures none Urinary Catheter: No Vascular Central Line Catheter: Yes Assessment to: Continue Date of Insertion: Oct 03, 2016 Line: PICC Side: Right A/P Assessment and Plan This is a 41-year-old female with history of IVDA, HIV who was recently discharged on 10/01/16 after being admitted on 09/13 for a costochondral infection. Wound culture grew out Pseudomonas. She was started on 6 week course of Levaquin 750 mg, first dose administered on 09/24/16. Since then the rash has worsened. The only new medications include Levaquin which was started September 24, 2016 and new HIV medication started 2 months ago[address] Follow[address] with [address]. Cochran. 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 ID consultation performed and recommending continuation Azactam until 11/04/16 Follow CBC , CRP, Creat, LFT weekly Status post irrigation/debridement of right sternoclavicular joint Orthopedic indicates occupational therapy for range of motion and weightbearing as tolerated [place] for pain; will need to wean to completion prior to discharge. Hypersensitivity reaction with rash improved Thought to be secondary to Levaquin Continue to wean prednisone 40 mg by mouth daily Continue scheduled Benadryl 25 mg by mouth every 6 hours. HIV (human immunodeficiency virus infection): chronic Continue antiretroviral therapy, home medications have been ordered and adjusted for recent outpatient change Anemia: Hemoglobin stable, Likely due to chronic disease. Continue monitor CBC Pre-renal azotemia: BUN stable at 24. [place] renal functions HTN: Stable. Records indicate patient was not taking her home medications due to low blood pressure Currently off blood pressure medication blood pressure stable Hyperlipidemia Continue statin, patient is refusing medication DVT prophylaxis: Patient ambulating, continue Lovenox. Discharge Planning Discharge home after completion of IV antibiotics Dylan Kebede October 13, 2016 13:23
[2016-10-13 20:00] VITALS: BP 128/79; PULSE 98; RESP 17; TEMP 95.8; O2SAT 98
[2016-10-13] MEDS: [UNRECOGNIZED DRUG - OTHER] PO SCH (21:00)
[2016-10-13] MEDS: DARUNAVIR PO SCH (21:00)
[2016-10-13] MEDS ORDERED: traMADol HCL 50 MG TAB PO PRN (21:00)
[2016-10-13] MEDS: COBICISTAT PO SCH (21:00)
[2016-10-13] MEDS: ATORVASTATIN 20 MG TAB PO SCH ×2 (21:14→21:18)
[2016-10-13] MEDS: ABACAVIR SULFATE 300 MG TAB PO SCH (21:15)
[2016-10-13] MEDS: DOLUTEGRAVIR SODIUM 50 MG TAB PO SCH (21:15)
[2016-10-13] MEDS: ONDANSETRON ODT 4 MG TAB PO PRN (22:49)
[2016-10-14] MEDS: diphenhydrAMINE HCL 25 MG CAP PO SCH ×4 (04:43→18:51)
[2016-10-14] MEDS: AZTREONAM INJ 2,000 MG in SODIUM CHLORIDE 0.9% INJ 100 ML IV SCH ×4 (04:43→18:51)
[2016-10-14] MEDS: ACETAMINOPHEN/HYDROcodone 325 MG/5 MG TAB PO PRN ×4 (06:41→18:53)
[2016-10-14 08:00] VITALS: BP 94/83; PULSE 93; RESP 20; TEMP 96.3; O2SAT 95
--- NOTE | 2016-10-14 08:33 | PD.ORT.PN ---
Subjective Subjective Remarks Resting comfortably with improved motion of shoulder. Objective Vitals Vital Signs Date Time Temp Pulse Resp B/P Pulse Ox O2 Delivery O2 Flow Rate FiO2 10/13/16 20:00 95.8 98 17 128/79 98 I/O 10/13/16 10/13/16 10/13/16 10/14/16 10/14/16 10/14/16 06:59 14:59 22:59 06:59 14:59 22:59 Intake Total 240 ml 600 ml 240 ml Balance 240 ml 600 ml 240 ml Intake Oral 240 ml 600 ml 240 ml # Voids 1 4 2 2 # Bowel Movements 0 0 0 Result Diagram: 10/12/16 0430 Objective Remarks Right upper extremity: Incision healed. Mild swelling surrounding the incision site. Range of motion of the shoulder is passively 120 of abduction 160 for flexion. Mild tenderness through range of motion of the shoulder. Distally intact sensation of the radial ulnar and median nerve distributions with good capillary refills. She is able to extend her fingers and make a fist Assessment & Plan Assessment and Plan Irrigation debridement of right sternoclavicular joint (09/23/2016) Continue antibiotics Occupational therapy for range of motion of shoulder, weightbearing as tolerated No further orthopedic follow-up needed Andrew Swift Jr. October 14, 2016 08:33
[2016-10-14] MEDS: SODIUM CHLORIDE 0.9% FLUSH 10 ML FLUSH IV FLUSH SCH ×3 (09:00→18:52)
[2016-10-14] MEDS: CETIRIZINE HCL 10 MG TAB PO SCH (09:13)
[2016-10-14] MEDS: ENOXAPARIN SODIUM 40 MG/0.4 ML SYRINGE SQ SCH (09:14)
[2016-10-14] MEDS: predniSONE 10 MG TAB PO SCH (09:14)
--- NOTE | 2016-10-14 10:58 | HHI.PR ---
Subjective Remarks Patient seen and examined today for follow-up on osteomyelitis. Patient denies any new complaints. Patient undergoing IV antibiotic management. No change in clinical status Objective Vitals Vital Signs Date Time Temp Pulse Resp B/P Pulse Ox O2 Delivery O2 Flow Rate FiO2 10/14/16 08:00 96.3 93 20 94/83 95 10/13/16 20:00 95.8 98 17 128/79 98 I/O 10/13/16 10/13/16 10/13/16 10/14/16 10/14/16 10/14/16 07:00 15:00 23:00 07:00 15:00 23:00 Intake Total 240 ml 600 ml 240 ml Balance 240 ml 600 ml 240 ml Intake Oral 240 ml 600 ml 240 ml # Voids 1 4 2 2 # Bowel Movements 0 0 0 Result Diagram: 10/12/16 0430 Objective Remarks GENERAL: Well-developed, well-nourished, in no acute distress. alert and orientated HEENT: Head is normocephalic without any lesions or masses noted. Facial features are symmetric. Eyes: Extraocular muscles are intact. Conjunctivae were clear. NECK: Supple without any masses. Trachea midline no deviation. No JVD, CARDIAC: Regular rhythm, regular rate. S1/S2 are heard. No murmurs gallops or rubs. LUNGS: Clear to auscultation bilaterally. No wheeze, rhonchi or rales. No use of accessory muscles on inspiration or expiration. ABDOMEN: Soft, nontender. Nondistended. Bowel sounds heard in all 4 quadrants. No organomegaly or masses. Negative rebound, negative guarding EXTREMITIES: No edema, pulses are equal bilaterally. No cyanosis or clubbing NEUROLOGY: Mood and affect appear appropriate. Cranial nerves II through XII grossly intact moving all extremities, speech is clear Procedures none Urinary Catheter: No Vascular Central Line Catheter: Yes Assessment to: Continue Date of Insertion: Oct 03, 2016 Line: PICC Side: Right A/P Assessment and Plan This is a 41-year-old female with history of IVDA, HIV who was recently discharged on 10/01/16 after being admitted on 09/13 for a costochondral infection. Wound culture grew out Pseudomonas. She was started on 6 week course of Levaquin 750 mg, first dose administered on 09/24/16. Since then the rash has worsened. The only new medications include Levaquin which was started September 24, 2016 and new HIV medication started 2 months ago. Follows with Dr. Cochran. 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 ID consultation performed and recommending continuation Azactam until 11/04/16 Follow CBC , CRP, Creat, LFT weekly Status post irrigation/debridement of right sternoclavicular joint Orthopedic indicates occupational therapy for range of motion and weightbearing as tolerated, discussed with orthopedist today who indicates that there is nothing else they can offer at this time [place], tramadol for pain; will need to wean to completion prior to discharge. Hypersensitivity reaction with rash improved Thought to be secondary to Levaquin Continue to taper prednisone Continue scheduled Benadryl 25 mg by mouth every 6 hours. HIV (human immunodeficiency virus infection): chronic Continue antiretroviral therapy, home medications have been ordered and adjusted for recent outpatient change Anemia: Hemoglobin stable, Likely due to chronic disease. Continue monitor CBC Pre-renal azotemia: BUN stable at 24. [place] renal functions HTN: Stable. Records indicate patient was not taking her home medications due to low blood pressure Currently off blood pressure medication blood pressure stable Hyperlipidemia Continue statin, patient is refusing medication DVT prophylaxis: Patient ambulating, continue Lovenox. Discharge Planning Discharge home after completion of IV antibiotics Dylan Kebede October 14, 2016 10:58
[2016-10-14] MEDS: DOLUTEGRAVIR SODIUM 50 MG TAB PO SCH (18:51)
[2016-10-14] MEDS: ABACAVIR SULFATE 300 MG TAB PO SCH (18:51)
[2016-10-14] MEDS: DARUNAVIR PO SCH (18:52)
[2016-10-14] MEDS: COBICISTAT PO SCH (18:52)
[2016-10-14] MEDS: [UNRECOGNIZED DRUG - OTHER] PO SCH (18:52)
[2016-10-15] MEDS: ACETAMINOPHEN/HYDROcodone 325 MG/5 MG TAB PO PRN ×2 (01:07→09:03)
[2016-10-15] MEDS: AZTREONAM INJ 2,000 MG in SODIUM CHLORIDE 0.9% INJ 100 ML IV SCH ×4 (01:09→21:44)
[2016-10-15] MEDS: diphenhydrAMINE HCL 25 MG CAP PO SCH ×4 (02:07→21:41)
[2016-10-15 08:00] VITALS: BP 106/72; PULSE 88; RESP 16; TEMP 98.4; O2SAT 98
[2016-10-15] MEDS: ENOXAPARIN SODIUM 40 MG/0.4 ML SYRINGE SQ SCH (08:48)
[2016-10-15] MEDS: CETIRIZINE HCL 10 MG TAB PO SCH (08:51)
[2016-10-15] MEDS: SODIUM CHLORIDE 0.9% FLUSH 10 ML FLUSH IV FLUSH SCH ×3 (08:51→21:43)
[2016-10-15] MEDS: predniSONE 10 MG TAB PO SCH (08:57)
--- NOTE | 2016-10-15 09:42 | HHI.PR ---
Subjective Remarks Patient seen and examined today for follow-up on osteomyelitis. Patient indicates that with reduction of pain medication she can actually feel her pain more when she is exerting herself or movement. She indicates that she overdid it yesterday with occupational therapy and she has had more pain since then. Objective Vitals I/O 10/14/16 10/14/16 10/14/16 10/15/16 10/15/16 10/15/16 06:59 14:59 22:59 06:59 14:59 22:59 Intake Total 240 ml 690 ml 600 ml 480 ml Balance 240 ml 690 ml 600 ml 480 ml Intake Oral 240 ml 690 ml 600 ml 480 ml # Voids 2 3 3 2 # Bowel Movements 0 0 0 0 Result Diagram: 10/12/16 0430 Objective Remarks GENERAL: Well-developed, well-nourished, in no acute distress. alert and orientated HEENT: Head is normocephalic without any lesions or masses noted. Facial features are symmetric. Eyes: Extraocular muscles are intact. Conjunctivae were clear. NECK: Supple without any masses. Trachea midline no deviation. No JVD, CARDIAC: Regular rhythm, regular rate. S1/S2 are heard. No murmurs gallops or rubs. LUNGS: Clear to auscultation bilaterally. No wheeze, rhonchi or rales. No use of accessory muscles on inspiration or expiration. ABDOMEN: Soft, nontender. Nondistended. Bowel sounds heard in all 4 quadrants. No organomegaly or masses. Negative rebound, negative guarding EXTREMITIES: No edema, pulses are equal bilaterally. No cyanosis or clubbing NEUROLOGY: Mood and affect appear appropriate. Cranial nerves II through XII grossly intact moving all extremities, speech is clear Procedures none Urinary Catheter: No Vascular Central Line Catheter: No Date of Insertion: Oct 03, 2016 Line: PICC Side: Right A/P Assessment and Plan This is a 41-year-old female with history of IVDA, HIV who was recently discharged on 10/01/16 after being admitted on 09/13 for a costochondral infection. Wound culture grew out Pseudomonas. She was started on 6 week course of Levaquin 750 mg, first dose administered on 09/24/16. Since then the rash has worsened. The only new medications include Levaquin which was started September 24, 2016 and new HIV medication started 2 months ago[address] Follow[address] with Dr. Cochran. 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 ID consultation performed and recommending continuation Azactam until 11/04/16 Follow CBC , CRP, Creat, LFT weekly Status post irrigation/debridement of right sternoclavicular joint Orthopedic indicates occupational therapy for range of motion and weightbearing as tolerated, discussed with orthopedist today who indicates that there is nothing else they can offer at this time [place], tramadol for pain; will need to wean to completion prior to discharge. Hypersensitivity reaction with rash improved Thought to be secondary to Levaquin Continue to taper prednisone Continue Benadryl 25 mg by mouth every 6 hours. HIV (human immunodeficiency virus infection): chronic Continue antiretroviral therapy, home medications have been ordered and adjusted for recent outpatient change Anemia: Hemoglobin stable, Likely due to chronic disease. Continue monitor CBC Pre-renal azotemia: BUN stable at 24. [place] renal functions HTN: Stable. Records indicate patient was not taking her home medications due to low blood pressure Currently off blood pressure medication blood pressure stable Hyperlipidemia Continue statin, patient is refusing medication DVT prophylaxis: Patient ambulating, continue Lovenox. Discharge Planning Discharge home after completion of IV antibiotics Dylan Kebede October 15, 2016 09:42
[2016-10-15 20:00] VITALS: BP 127/91; PULSE 97; RESP 20; TEMP 96.4; O2SAT 100
[2016-10-15] MEDS: DARUNAVIR PO SCH (21:00)
[2016-10-15] MEDS: ATORVASTATIN 20 MG TAB PO SCH (21:00)
[2016-10-15] MEDS: COBICISTAT PO SCH (21:00)
[2016-10-15] MEDS: [UNRECOGNIZED DRUG - OTHER] PO SCH (21:00)
[2016-10-15] MEDS: ABACAVIR SULFATE 300 MG TAB PO SCH (21:42)
[2016-10-15] MEDS: DOLUTEGRAVIR SODIUM 50 MG TAB PO SCH (21:42)
[2016-10-15] MEDS: ONDANSETRON ODT 4 MG TAB PO PRN (21:42)
[2016-10-16] MEDS: AZTREONAM INJ 2,000 MG in SODIUM CHLORIDE 0.9% INJ 100 ML IV SCH ×3 (02:30→14:36)
[2016-10-16] MEDS: diphenhydrAMINE HCL 25 MG CAP PO SCH ×3 (02:30→14:36)
[2016-10-16 08:00] VITALS: BP 134/84; PULSE 100; RESP 18; TEMP 97; O2SAT 98
[2016-10-16] MEDS: SODIUM CHLORIDE 0.9% FLUSH 10 ML FLUSH IV FLUSH SCH ×2 (09:00)
[2016-10-16] MEDS: predniSONE 10 MG TAB PO SCH (09:35)
[2016-10-16] MEDS: ENOXAPARIN SODIUM 40 MG/0.4 ML SYRINGE SQ SCH (09:35)
[2016-10-16] MEDS: CETIRIZINE HCL 10 MG TAB PO SCH (09:35)
--- NOTE | 2016-10-16 10:32 | HHI.PR ---
Subjective Remarks Patient seen and examined today in follow-up for osteomyelitis. Patient denies any new complaints. Patient undergoing IV antibiotic treatment. Objective Vitals Vital Signs Date Time Temp Pulse Resp B/P Pulse Ox O2 Delivery O2 Flow Rate FiO2 10/15/16 20:00 96.4 97 20 127/91 100 I/O 10/15/16 10/15/16 10/15/16 10/16/16 10/16/16 10/16/16 07:00 15:00 23:00 07:00 15:00 23:00 Intake Total 480 ml 255 ml 480 ml 420 ml Balance 480 ml 255 ml 480 ml 420 ml Intake Oral 480 ml 480 ml 120 ml IV Total 255 ml 300 ml # Voids 2 3 3 # Bowel Movements 0 2 Result Diagram: 10/12/16 0430 Objective Remarks GENERAL: Well-developed, well-nourished, in no acute distress. alert and orientated HEENT: Head is normocephalic without any lesions or masses noted. Facial features are symmetric. Eyes: Extraocular muscles are intact. Conjunctivae were clear. NECK: Supple without any masses. Trachea midline no deviation. No JVD, CARDIAC: Regular rhythm, regular rate. S1/S2 are heard. No murmurs gallops or rubs. LUNGS: Clear to auscultation bilaterally. No wheeze, rhonchi or rales. No use of accessory muscles on inspiration or expiration. ABDOMEN: Soft, nontender. Nondistended. Bowel sounds heard in all 4 quadrants. No organomegaly or masses. Negative rebound, negative guarding EXTREMITIES: No edema, pulses are equal bilaterally. No cyanosis or clubbing NEUROLOGY: Mood and affect appear appropriate. Cranial nerves II through XII grossly intact moving all extremities, speech is clear Procedures none Urinary Catheter: No Vascular Central Line Catheter: Yes Assessment to: Continue Date of Insertion: Oct 03, 2016 Line: PICC Side: Right A/P Assessment and Plan This is a 41-year-old female with history of IVDA, HIV who was recently discharged on 10/01/16 after being admitted on 09/13 for a costochondral infection. Wound culture grew out Pseudomonas. She was started on 6 week course of Levaquin 750 mg, first dose administered on 09/24/16. Since then the rash has worsened. The only new medications include Levaquin which was started September 24, 2016 and new HIV medication started 2 months ago[address] Follow[address] with Dr. Cochran. 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 ID consultation performed and recommending continuation Azactam until 11/04/16 Follow CBC , CRP, Creat, LFT weekly Status post irrigation/debridement of right sternoclavicular joint Orthopedic indicates occupational therapy for range of motion and weightbearing as tolerated, discussed with orthopedist today who indicates that there is nothing else they can offer at this time [place], tramadol for pain; will need to wean to completion prior to discharge. We'll contact infectious diseases see if the patient is a candidate to receive antibiotics at home Hypersensitivity reaction with rash improved Thought to be secondary to Levaquin Continue to taper prednisone Continue Benadryl 25 mg by mouth every 6 hours. HIV (human immunodeficiency virus infection): chronic Continue antiretroviral therapy, home medications have been ordered and adjusted for recent outpatient change Anemia: Hemoglobin stable, Likely due to chronic disease. Continue monitor CBC Pre-renal azotemia: BUN stable at 24. [place] renal functions HTN: Stable. Records indicate patient was not taking her home medications due to low blood pressure Currently off blood pressure medication blood pressure stable Hyperlipidemia Continue statin, patient is refusing medication DVT prophylaxis: Patient ambulating, continue Lovenox. Discharge Planning We'll discuss with gearcase assembler see if patient is candidate to continue antibiotics at home Dylan Kebede October 16, 2016 10:32
--- NOTE | 2016-10-16 13:27 | HHI.FF ---
Face to Face Verification Diagnosis: (1) sternoclavicular joint infection Home Health Nursing Order: Medical education IV medication administration (education and training on self administration.) I have seen patient Madai Ibrahim on 10/16/16. My clinical findings support the need for the requested home health care services because: Infection w/ risk of complications Injectable med education/admin I certify that my clinical findings support that this patient is homebound because: Need for psychosocial assistance Dylan Kebede October 16, 2016 13:27
[2016-10-16] MEDS ORDERED: PRED10 PO (13:34)
[2016-10-16] MEDS ORDERED: ATOR20TA15 PO (13:34)
[2016-10-16] MEDS ORDERED: ZIAG300T3 PO (13:34)
[2016-10-16] MEDS ORDERED: DOLU1TAB PO (13:34)
[2016-10-16] MEDS ORDERED: PRED20 PO (13:34)
[2016-10-16] MEDS ORDERED: DARU1TAB2 PO (13:34)
[2016-10-16] MEDS ORDERED: ALBU6.7H INH (13:34)
[2016-10-16] MEDS ORDERED: DIPH25CA PO (13:34)
--- NOTE | 2016-10-16 14:40 | HHI.DS ---
Discharge Summary Admission Date Oct 02, 2016 at 13:54 Discharge Date: October 16, 2016 Admitting Diagnosis allergic reaction (1) Allergic reaction ICD Code: T78.40XA (2) Pseudomonas infection ICD Code: B96.5 (3) HIV (human immunodeficiency virus infection) ICD Code: Z21 (4) Anemia ICD Code: D64.9 (5) Prerenal azotemia ICD Code: R79.89 (6) HTN (hypertension) ICD Code: I10 (7) Hyperlipidemia ICD Code: E78.5 (8) sternoclavicular joint infection (9) Bacteremia due to Gram-positive bacteria ICD Code: A49.9 Procedures none Brief History - From Admission This is a 41-year-old female with history of IV drug abuse, HIV who was recently discharged on October 01 after being admitted on September 13 for a costochondral infection. Wound culture grew out Pseudomonas. She was started on 6 week course of Levaquin 750 mg, first dose provided on September 24, last dose is supposed to be an November 04. She developed a pruritic rash on her back on her last day of hospitalization which per chart review was felt to be a contact dermatitis from her bedsheets. She was started on prednisone, Benadryl which she has been using as prescribed. Since then the rash has worsened, now has spread to her abdomen, extremities, chest, face. The rash is very pruritic, unrelieved with the use of Benadryl and prednisone. Denies any swelling of lips , tongue, throat, fevers or chills, chest pain, abdominal pain, nausea or vomiting. The only new medications include Levaquin which was started September 24, 2016 and new HIV medication started 2 months ago. Patient does not recall her HIV regimen follows with Dr. Cochran. CBC/BMP: 10/12/16 0430 Imaging Last Impressions Chest X-Ray 10/03/16 0000 Signed Impressions: Service Date/Time: Monday, October 03, 2016 15:51 - CONCLUSION: No acute cardiopulmonary disease. Dewey Corona MD PE at Discharge GENERAL: Well-developed, well-nourished, in no acute distress. alert and orientated HEENT: Head is normocephalic without any lesions or masses noted. Facial features are symmetric. Eyes: Extraocular muscles are intact. Conjunctivae were clear. NECK: Supple without any masses. Trachea midline no deviation. No JVD, CARDIAC: Regular rhythm, regular rate. S1/S2 are heard. No murmurs gallops or rubs. LUNGS: Clear to auscultation bilaterally. No wheeze, rhonchi or rales. No use of accessory muscles on inspiration or expiration. ABDOMEN: Soft, nontender. Nondistended. Bowel sounds heard in all 4 quadrants. No organomegaly or masses. Negative rebound, negative guarding EXTREMITIES: No edema, pulses are equal bilaterally. No cyanosis or clubbing NEUROLOGY: Mood and affect appear appropriate. Cranial nerves II through XII grossly intact moving all extremities, speech is clear Hospital Course 41-year-old female who presented to hospital after being discharged on October 01 for being admitted from September 13 for costochondral infection. The wound did grow Pseudomonas at that time she was started on 6 week course of Levaquin and she is supposed to be on until November 04. However she developed a pruritic rash on her back. The patient started on prednisone, Benadryl. The rash had worsened and spread to her abdomen extremities chest and face. The patient was admitted for further evaluation and management. 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 Is recommended by infectious disease of the patient remain on Azactam until 11/04/16. The patient had a PICC line placed and was transferred to [place] for continued management and care. Patient continued having IV antibiotics delivered. Her rash did improve on a daily basis. Patient is clinically stable this time. Infectious disease did make recommendations for outpatient IV antibiotics. Case management was consulted who has made arrangements with home health care to deliver such antibiotics. Patient has been arranged outpatient follow-up, safe discharge with outpatient IV antibiotics. Patient will follow-up with primary medical doctor. Discharge planning accordingly Pt Condition on Discharge: Stable Discharge Disposition: Discharge Home Discharge Time: > 30 minutes Discharge Instructions DIET: Follow Instructions for: Heart Healthy Diet Activities you can perform: Weight Bearing as [place] Follow up Referrals: PCP Follow-up - 1 Week New Medications: Abacavir (Ziagen) 300 Mg Tab 600 MG PO HS Hives Days 30 TAB Atorvastatin (Atorvastatin) 20 Mg Tab 20 MG PO HS hyperlipidemia Days 30 TAB Prednisone (Prednisone) 20 Mg Tab 20 MG PO DAILY After completion start prednisone 10 mg daily for 3 days Allergic Reaction Days 3 TAB Prednisone (Prednisone) 10 Mg Tab 10 MG PO DAILY Allergic Reaction Days 3 TAB Continued Medications: Albuterol 6.7 GM Inh (Proventil Hfa 6.7 GM Inh) 90 Mcg/Act Aer 2 PUFF INH Q4-6H PRN SHORTNESS OF BREATH #1 Ref 0 INHALER (This prescription has been renewed) Darunavir-Cobicistat (Prezcobix) 800-150 Mg Tab 1 TAB PO DAILY Mgmt Viral Infection #30 Ref 0 TAB (This prescription has been renewed) Diphenhydramine (Diphenhydramine) 25 Mg Cap 25 MG PO Q6H PRN ITCHING #15 Ref 0 CAP (This prescription has been renewed) Dolutegravir (Tivicay) 50 Mg Tab 50 MG PO DAILY Mgmt Viral Infection #30 Ref 0 TAB (This prescription has been renewed) Discontinued Medications: Abacavir-Lamivudine (Epzicom) 600-300 Mg Tab 1 TAB PO HS Hazardous agent; use appropriate precautions for handling & disposal. Mgmt Viral Infection #30 Ref 0 TAB Atorvastatin (Atorvastatin) 20 Mg Tab 20 MG PO HS Cholesterol Management #30 Ref 0 TAB Clonidine (Clonidine) 0.1 Mg Tab 0.1 MG PO BID Blood Pressure Management #60 Ref 0 TAB Gabapentin (Gabapentin) 300 Mg Cap 300 MG PO BID #60 Ref 0 CAP Levofloxacin (Levaquin) 750 Mg Tab 750 MG PO Q24H antibitoics should be through November 04, 2016. infection #36 Ref 0 TAB Lisinopril (Lisinopril) 20 Mg Tab 20 MG PO HS #30 Ref 0 TAB Prednisone (Prednisone) 50 Mg Tab 50 MG PO DAILY Rash #5 Ref 0 TAB Tramadol (Tramadol) 50 Mg Tab 50 MG PO Q8H PRN PAIN #10 Ref 0 TAB Additional Information Written by Dylan Kebede, acting as scribe for Dr. Tony on 10/16/16 at 14: 36. This note was transcribed by scribe [Dylan Kebede]. I, Dr. Dipak Tony personally performed the history, physical exam, and medical decision making; and confirmed the accuracy of the information in the transcribed note. Authenticated by Dr. Dipak Tony on 10/16/16 at 14:49. Dylan Kebede October 16, 2016 14:40 Dipak Tony MD October 16, 2016 22:49
[2016-10-17] MEDS ORDERED: predniSONE 20 MG TAB PO SCH (09:00)
[2016-10-20] MEDS ORDERED: predniSONE 10 MG TAB PO SCH (09:00)
== END 2016-10-16 16:54 | disposition home or self-care (01) | DRG 606 ==
LOC: NEPD 19:51 → NEDA 10-02 00:46 → NEDH 10-02 04:46 → NEPFCDU 10-02 06:04 → OBSVTOIN 10-02 13:54 → N06A 10-02 16:53 → PH5A 10-08 17:51
PROVIDERS: ADMIT Family Medicine; ATTEND Family Medicine
PROC: 02HV33Z Insertion of Infusion Device into Superior Vena Cava, Percutaneous Approach (ICD-10-PCS; principal; 2016-10-03)
DX: L27.0 Generalized skin eruption due to drugs and medicaments taken internally (principal); B20 Human immunodeficiency virus [HIV] disease; M00.811 Arthritis due to other bacteria, right shoulder; M86.8X8 Other osteomyelitis, other site; F11.20 Opioid dependence, uncomplicated; B96.5 Pseudomonas (aeruginosa) (mallei) (pseudomallei) as the cause of diseases classified elsewhere; T37.8X5A Adverse effect of other specified systemic anti-infectives and antiparasitics, initial encounter; I10 Essential (primary) hypertension; E78.5 Hyperlipidemia, unspecified; G89.29 Other chronic pain; D63.8 Anemia in other chronic diseases classified elsewhere; F12.90 Cannabis use, unspecified, uncomplicated; F32.9 Major depressive disorder, single episode, unspecified; F41.9 Anxiety disorder, unspecified; F43.10 Post-traumatic stress disorder, unspecified; Z23 Encounter for immunization
CPT/HCPCS: 36569; 71010; 71020; 76937; 80048; 80053; 80076; 85025; 90732; 96365; 96375; J0692; J1200; J1642; J1650; J1885; J2920; J2930; J7512; Q0177

== ENCOUNTER 2016-10-31 14:49 | Observation (INO) | payer BC ==
[~2016-10-31] VITALS: Ht 165.1 cm; Wt 65.0 kg
[~2016-10-31 14:49] MED LIST changes: -CLON0.1T PO; +DARU1TAB2 PO; -DARU800T PO; +DOLU1TAB PO; -EPZITAB3 PO; -GABA300C5 PO; -LEVA750T PO; -LISI-515 PO; +PRED10 PO; +PRED20 PO; -PRED50 PO; -RITO100 PO; -TRAM50TA PO; +ZIAG300T3 PO
[2016-10-31 14:53] VITALS: BP 120/80; PULSE 90; TEMP 98.3; O2SAT 97
[2016-10-31] MEDS ORDERED: EPZITAB3 PO (15:36)
[2016-10-31] MEDS ORDERED: DARU800T PO (15:36)
[2016-10-31] MEDS ORDERED: RITO100 PO (15:36)
[2016-10-31] MEDS ORDERED: HYDR-3516 PO (15:36)
--- NOTE | 2016-10-31 15:49 | PD ---
HPI Chief Complaint: Allergic/Adverse Reaction Time Seen by Provider: 15:40 Travel History International Travel<30 days: No Contact w/Intl Traveler<30days: No Traveled to known affect area: No History of Present Illness HPI This is a 41-year-old female with a history of HIV disease, osteomyelitis of the collar bone, who presents here after having an allergic reaction to her aztreonam that was started for her PICC line. Patient states she called her infectious disease doctor who told her to come to the ER and call her immediately. She states it was Dr. Colmenares. We have a call out to Dr. Colmenares. [facility] Past Medical History Arthritis: Yes (knees and hands, HX of carpal tunnel) Asthma: No Autoimmune Disease: No Blood Disorders: Yes (HIV) Anxiety: Yes Depression: Yes Heart Rhythm Problems: No Cancer: No Cardiovascular Problems: Yes (HTN) High Cholesterol: Yes Chemotherapy: No Chest Pain: No Congestive Heart Failure: No COPD: No Cerebrovascular Accident: No Diabetes: No Diminished Hearing: No Endocrine: No Gastrointestinal Disorders: No GERD: No Genitourinary: No Headaches: No Hiatal Hernia: No Hypertension: Yes Immune Disorder: Yes (HIV) Implanted Vascular Access Dvce: No Kidney Stones: No Musculoskeletal: Yes (bone biopsy R clavical) Neurologic: No Psychiatric: Yes (PTSD) Reproductive: No (HYSTERECTOMY, uterine abcesses, HX of HIV) Respiratory: Yes (Chronic BRONCHITIS) Immunizations Current: Yes Migraines: No Radiation Therapy: No Renal Failure: No Seizures: No Sickle Cell Disease: No Sleep Apnea: No Thyroid Disease: No Ulcer: No ?: Not LMP: NO PERIOD : 5 Para: 3 Miscarriage: 1 : 1 Past Surgical History Abdominal Surgery: Yes (colycystectomy ) AICD: No Arteriovenous Shunt: No Cardiac Surgery: No Cholecystectomy: Yes Ear Surgery: No Endocrine Surgery: No Eye Surgery: Yes (orbital sx (dr. anthony)) Genitourinary Surgery: No Gynecologic Surgery: Yes (HYSTERECTOMY) Hysterectomy: Yes Insulin Pump: No Joint Replacement: No Neurologic Surgery: No Oral Surgery: Yes (PARTIAL UPPER PLACED) Pacemaker: No Thoracic Surgery: No Other Surgery: Yes Social History Alcohol Use: No Tobacco Use: No Substance Use: No Allergies-Medications (Allergen,Severity, Reaction): Coded Allergies: Aztreonam (Verified Allergy, Intermediate, RASH, 10/31/16) Levaquin (Verified Allergy, Intermediate, RASH, 10/31/16) Uncoded Allergies: ATRIPLA (Allergy, Severe, 07/27/16) Reported Meds & Prescriptions Reported Meds & Active Scripts Active Prednisone 10 Mg Tab 10 Mg PO DAILY 3 Days Prednisone 20 Mg Tab 20 Mg PO DAILY 3 Days After completion start prednisone 10 mg daily for 3 days Ziagen (Abacavir Sulfate) 300 Mg Tab 600 Mg PO HS 30 Days Tivicay (Dolutegravir Sodium) 50 Mg Tab 50 Mg PO DAILY Diphenhydramine (Diphenhydramine HCl) 25 Mg Cap 25 Mg PO Q6H PRN Proventil Hfa 6.7 GM Inh (Albuterol Sulfate) 90 Mcg/Act Aer 2 Puff INH Q4-6H PRN Reported Prezista (Darunavir) 800 Mg Tab 800 Mg PO DAILY Epzicom (Abacavir-Lamivudine) 600-300 Mg Tab 1 Tab PO DAILY Hazardous agent; use appropriate precautions for handling & disposal. Hydrocodone-Acetaminophen 5-325 mg Tab 1 Tab PO Q6H PRN Norvir (Ritonavir) 100 Mg Cap 100 Mg PO HS Review of Systems Except as stated in HPI: all other systems reviewed are Neg General / Constitutional: No: Fever, Chills HENT: No: Headaches, Lightheadedness, Neck Pain Cardiovascular: No: Chest Pain or Discomfort, Palpitations Respiratory: No: Cough, Shortness of Breath Gastrointestinal: No: Nausea, Vomiting, Abdominal Pain Genitourinary: No: Frequency, Dysuria Musculoskeletal: Positive: Pain, No: Weakness (right clavicle pain) Skin: Positive Itching (diminished diminished), Positive Hives Neurologic: No: Weakness, Dizziness, Headache, Change in Mentation Physical Exam Narrative GENERAL: Well-nourished, well-developed patient may distress.. SKIN: Focused skin assessment warm/dry. HEAD: Normocephalic/atraumatic. EYES: No scleral icterus. No injection or drainage. NECK: Supple, trachea midline. No JVD or lymphadenopathy. CARDIOVASCULAR: Regular rate and rhythm without murmurs, gallops, or rubs. RESPIRATORY: Breath sounds equal bilaterally. No accessory muscle use. GASTROINTESTINAL: Abdomen soft, non-tender, nondistended. MUSCULOSKELETAL: No cyanosis, or edema. NEUROLOGICAL: Awake and alert. Cranial nerves II through XII intact. Motor grossly within normal limits. Five out of 5 muscle strength in all muscle groups. Normal speech. Data Data Last Documented VS Vital Signs Date Time Temp Pulse Resp B/P Pulse Ox O2 Delivery O2 Flow Rate FiO2 10/31/16 14:53 98.3 90 120/80 97 Orders Diet Heart Healthy (10/31/16 Dinner) Admit Order (Ed Use Only) (10/31/16 15:55) MDM Medical Decision Making Medical Screen Exam Complete: Yes Emergency Medical Condition: Yes Differential Diagnosis Allergic reaction phlebitis versus histamine release Narrative Course 41-year-old female history of HIV disease, osteomyelitis of the clavicle, who was sent home with a PICC line and given aztreonam, present here with allergic reaction. She reportedly talked with her infectious disease doctor who referred her back to the ER. She states that the infectious disease doctor was Dr. Colmenares. We put a call out to Dr. Colmenares however Dr. Regalado who is front end drupal developer today. We'll call out to Dr. Regalado as well. Grant was discussed with Dr. Kumar Vasquez, [facility] hospitalist, who will bring the patient in under observation. Diagnosis Primary Impression: Adverse reaction to antibiotic Additional Impressions: sternoclavicular joint infection HIV (human immunodeficiency virus infection) Admitting Information Admitting Physician Requests: Observation Momo Marshall MD October 31, 2016 15:49
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
[2016-10-31] MEDS: SODIUM CHLOR 0.9% 1000 ML INJ 1,000 ML IV SCH (16:35)
[2016-10-31] MEDS ORDERED: NALOXONE HCL 0.4 MG/ML AMP IV PRN (16:45)
[2016-10-31] MEDS ORDERED: SODIUM CHLORIDE 0.9% FLUSH 10 ML FLUSH IV FLUSH PRN (16:45)
[2016-10-31] MEDS ORDERED: ONDANSETRON HCL 4 MG/2 ML VIAL IVP PRN (16:45)
[2016-10-31] MEDS ORDERED: ACETAMINOPHEN 325 MG TAB PO PRN (16:45)
[2016-10-31] MEDS ORDERED: BISACODYL 10 MG SUPP RECTAL PRN (16:45)
[2016-10-31] MEDS ORDERED: SENNOSIDES 8.6 MG TAB PO PRN (16:45)
[2016-10-31] MEDS ORDERED: METOCLOPRAMIDE HCL 10 MG/2 ML VIAL IV PUSH PRN (16:45)
[2016-10-31] MEDS ORDERED: LACTULOSE SYRUP 20 GM/30 ML CUP PO PRN (16:45)
[2016-10-31] MEDS ORDERED: MAGNESIUM HYDROXIDE SUSP 30 ML CUP PO PRN (16:45)
[2016-10-31] MEDS ORDERED: diphenhydrAMINE HCL 50 MG/ML VIAL IV PUSH PRN (17:45)
[2016-10-31 19:29] VITALS: O2SAT 97
[2016-10-31 19:43] VITALS: BP 111/76; PULSE 86; RESP 18; TEMP 97.8; O2SAT 96
[2016-10-31] MEDS ORDERED: MISCELLANEOUS PHARMACY INFORMATION XX PRN (20:00)
[2016-10-31] MEDS ORDERED: ASP: Documented allergy to Penicillins or Cephalosporins PRN (20:00)
[2016-10-31 20:01] VITALS: PULSE 90
--- NOTE | 2016-10-31 20:15 | PD.ID.CON ---
History of Present Illness Service ID Consult Requested By Dr Vasquez Reason for Consult R clavicle osteo allergic reaction to azactam Primary Care Physician Moises Phelan MD Diagnoses: History of Present Illness Pt known to me 41 yo F with HIV dz, compliant twith HAART, pt of Dr Lou developped R clavicle osteomyelitis 2/2 PSAE aw IVDU Pt was developped severe rash to multiple abx including cefepime, levaquine She was d/c'd on IV azactam but apparently developped pruritic rash and tingling of throat aw azactam injection I talked to her nurse from [facility] and she reported that pt was not very compliant either. Pt reports worsening of the pain in her R upper chest and R shoulder and she presented with increased WBC up to 14 K Review of Systems Except as stated in HPI: all other systems reviewed are Neg Past Family Social History Allergies: Coded Allergies: Aztreonam (Verified Allergy, Intermediate, RASH, 10/31/16) Levaquin (Verified Allergy, Intermediate, RASH, 10/31/16) Uncoded Allergies: ATRIPLA (Allergy, Severe, 07/27/16) Past Medical History HIV HTN R clavicle osteo Past Surgical History sternaclavicular joint s/p I& D by Dr Ureña 09/23 hystrectomy Reported Medications ziagen epivir prezista norvir Active Ordered Medications Medications where reviewed in EMR Antibiotics Include: cefepime ordered Family History Non-Contributory. Social History IVDU MJ no tobacco occ ETOH Physical Exam Vital Signs Vital Signs Date Time Temp Pulse Resp B/P Pulse Ox O2 Delivery O2 Flow Rate FiO2 10/31/16 19:43 97.8 86 18 111/76 96 10/31/16 19:29 97 21 10/31/16 14:53 98.3 90 120/80 97 Physical Exam CONSTITUTIONAL/GENERAL: This is an adequately nourished patient, in no apparent distress. TUBES/LINES/DRAINS: SKIN: No jaundice, No rash Skin temperature appropriate. Not diaphoretic. HEAD: Atraumatic. Normocephalic. EYES: Pupils equal and round and reactive. Extraocular motions intact. No scleral icterus. No injection or drainage. Fundi not examined. ENT: Hearing grossly normal. Nose without bleeding or purulent drainage. Oral mucosaer moist without visible erythema, exudates, masses, or lesions. NECK: Trachea midline. Supple, nontender. CARDIOVASCULAR: Regular rate and rhythm without murmurs, gallops, or rubs. No JVD. Peripheral pulses symmetric. RESPIRATORY/CHEST: Symmetric, unlabored respirations. Clear to auscultation. Breath sounds equal bilaterally. No wheezes, rales, or rhonchi. GASTROINTESTINAL: Abdomen soft, non-tender, nondistended. No hepato-splenomegaly , or palpable masses. No guarding. Bowel sounds present. GENITOURINARY: Without palpable bladder distension. Villarreal catheter in place. MUSCULOSKELETAL: Extremities without clubbing, cyanosis, or edema. No joint tenderness or effusion noted. No calf tenderness. No mottling or clubbing. Incision over R clavicle is totally healed R clavicle tender to palpation, but no erythema or edema noted LYMPHATICS: No palpable cervical or supraclavicular adenopathy. NEUROLOGICAL: Awake and alert. Motor and sensory grossly within normal limits. Follows commands. Normal speech. Moves all extremities. PSYCHIATRIC: No obvious anxiety/depression. no apparent hallucinations or other psychotic thought process. Assessment and Plan Assessment and Plan IVDU R clavicle osteomyelitis, SC joint infection, PSAE solis S poor comliance states worsening pain Leukocytopsis Allergic reaction in the foorm of pruritic rash - levaquine vs (less likely) cefepime - new reaction aw azactam HIV disease, on HAART start meropenem 1 gm q 8 to complete ESR, CRP No oral options since levaquine is most likely offeding medx cont pt's home HAART fu WBC pt can be d/c'd once shows tolerance to meropentm and her [facility] arranged Joid Colmenares MD October 31, 2016 20:15
[2016-10-31] MEDS: SODIUM CHLORIDE 0.9% FLUSH 10 ML FLUSH IV FLUSH SCH (20:54)
[2016-10-31] MEDS: MEROPENEM INJ 1,000 MG in SODIUM CHLORIDE 0.9% INJ 100 ML IV SCH (20:56)
[2016-10-31] MEDS ORDERED: DOCUSATE SODIUM 50 MG/SENNA 8.6 MG TAB PO SCH (21:00)
[2016-10-31] MEDS ORDERED: RITONAVIR 100 MG TAB PO SCH (21:00)
[2016-10-31] MEDS ORDERED: CEFEPIME INJ 2,000 MG in SODIUM CHLORIDE 0.9% INJ 100 ML IV SCH (21:00)
[2016-10-31] MEDS: HEPARIN SODIUM - SQ 10,000 UNITS/ML VIAL SQ SCH (21:01)
[2016-10-31 23:24] VITALS: BP 140/75; PULSE 82; RESP 19; TEMP 98.2; O2SAT 100
[2016-11-01 01:20] LABS: BACTERIA, URINE RARE /hpf; BLOOD, URINE NEG (NEG); COMMENT (UR) CULTURE INDICATED; CULTURE IF INDICATED CULTURE INDICATED; GLUCOSE,URINE NEG (NEG); KETONE, URINE TRACE mg/dL (NEG); NITRITE,URINE NEG (NEG); SQUAMOUS EPITHELIAL CELL URINE 11 /hpf (0-5); URINE COLOR YELLOW (YELLW/STRAW)
[2016-11-01] MEDS: SODIUM CHLOR 0.9% 1000 ML INJ 1,000 ML IV SCH (02:35)
[2016-11-01 03:41] VITALS: BP 134/75; PULSE 76; RESP 18; TEMP 98.1; O2SAT 98
[2016-11-01] MEDS: MEROPENEM INJ 1,000 MG in SODIUM CHLORIDE 0.9% INJ 100 ML IV SCH (05:03)
[2016-11-01] MEDS: HEPARIN SODIUM - SQ 10,000 UNITS/ML VIAL SQ SCH (05:03)
[2016-11-01 06:26] LABS: HEMATOCRIT 30.6 % (35.0-46.0); MEAN CELL VOLUME 89.5 FL (80.0-100.0); MEAN CORPUSCULAR HEMOGLOBIN 29.3 PG (27.0-34.0); MEAN CORPUSCULAR HGB CONC 32.7 % (32.0-36.0); PLATELET COUNT 441 TH/MM3 (150-450); RED BLOOD COUNT 3.42 MIL/MM3 (4.00-5.30); RED CELL DISTRIBUTION WIDTH 22.8 % (11.6-17.2); WHITE BLOOD COUNT 3.5 TH/MM3 (4.0-11.0)
[2016-11-01 06:54] LABS: BICARBONATE 28.3 MEQ/L (21.0-32.0); POTASSIUM 3.8 MEQ/L (3.5-5.1)
[2016-11-01 07:10] LABS: HEMO FLAGS AUTO DIFF
[2016-11-01 07:50] VITALS: BP 122/75; PULSE 68; RESP 16; TEMP 97.3; O2SAT 96
[2016-11-01] MEDS: SODIUM CHLORIDE 0.9% FLUSH 10 ML FLUSH IV FLUSH SCH (08:48)
[2016-11-01 08:54] LABS: BANDS 1 % (0-6); EOSINOPHILS 8 % (0-4); POLYS (SEG NEUTROPHILS) 28 % (16-70); WBC DIFF SAMPLE 100
[2016-11-01 08:55] LABS: PLATELET ESTIMATE SMEAR NORMAL (NORMAL); PLATELET MORPHOLOGY NORMAL (NORMAL); SCAN/DIFF FINAL DIFF MANUAL
[2016-11-01 08:59] VITALS: PULSE 69
[2016-11-01] MEDS ORDERED: ABACAVIR SULFATE 300 MG TAB PO SCH (09:00)
[2016-11-01] MEDS ORDERED: DOLUTEGRAVIR SODIUM 50 MG TAB PO SCH (09:00)
[2016-11-01] MEDS ORDERED: DARUNAVIR 800 MG TAB PO SCH (09:00)
--- NOTE | 2016-11-01 11:43 | HHI.PR ---
Addendum to Inpatient Note Additional Information dw RN pt tolerated 2 doses of meropenem wo any c/o will dc on Meropenem ESR markedly improved from > 140 to 25 WBC down to 3.5 will dc pt on Meropnmem thru 11/11 (will add another week 2/2 multiple missed doses) fu with Dr Ureña within 1-2 weeks Jodi Colmenares MD November 01, 2016 11:43
--- NOTE | 2016-11-01 11:46 | HHI.FF ---
Infusion Therapy Location of Infusion Therapy: Home Health Care IV Infusion Order Patient Information Patient Weight 65 kg Diagnosis: Diagnosis clavicle osteo Coded Allergies: Aztreonam (Verified Allergy, Intermediate, RASH, 10/31/16) Levaquin (Verified Allergy, Intermediate, RASH, 10/31/16) Uncoded Allergies: ATRIPLA (Allergy, Severe, 07/27/16) Administer Medication 2 grams IV q 8 hours Meropenem Start Treatment: November 01, 2016 Stop Treatment: Nov 11, 2016 Additional Information Venous access: PICC Line Additional Instructions [x] Peripheral flush and dressing changes per protocol [x] Implanted port and central commercial lines account assistant: * Implanted port: 10 ml Normal Saline followed by 5 ml Heparin 100 units/ml Heparin flush after each use and monthly to maintain. [] May leave port accessed during therapy. [] May leave peripheral site accessed for duration of therapy. [x] If patient has SOB or respiratory distress, check oxygen saturation. If less than 90% or clinical signs of respiratory distress, administer oxygen at 2 L/min. via nasal cannula and notify physician. [x] Anaphylaxis/Reaction orders: * Stop infusion. * Keep IV line open with saline flush. * Notify physician. * Monitor vital signs every 15 minutes until symptoms resolve. * Check Oxygen saturation; Oxygen at 2 L/min. via nasal cannula if less than 90% or clinical signs of respiratory distress. * Administer diphenhydramine (Benadryl) 25 mg IV STAT, (unless patient has received as pre-med). May repeat once, if necessary. * Solu-Cortef 250 mg IVP over 30-60 seconds, use 100 mg vials for each dissolution. * Epinephrine (1mg/1 ml) 0.3 mg subcutaneously or IVP now with any signs of respiratory distress. * Check with physician for new additional pre-med orders if patient is re- challenged or re-treated. [x] May remove PICC line when treatment complete, after confirming with Physician. [x] If the patient is admitted to the hospital, the ED, or transferred via [facility] , complete transfer form including medication reconciliation order sheet. Laboratory Tests Weekly Labs: CBC w/diff, Creatinine, SED Rate Jodi Colmenares MD November 01, 2016 11:46
--- NOTE | 2016-11-01 12:36 | HHI.FF ---
Face to Face Verification Diagnosis: (1) sternoclavicular joint infection (2) Adverse reaction to antibiotic Home Health Nursing Order: Medical education Signs/symptoms of disease process Medication education-adverse effect Nursing assessment with vital signs IV medication administration I have seen patient Madai Ibrahim on 11/01/16. My clinical findings support the need for the requested home health care services because: Med compliance is questionable Injectable med education/admin I certify that my clinical findings support that this patient is homebound because: Need for psychosocial assistance Leighton Arthur November 01, 2016 12:36
--- NOTE | 2016-11-01 12:43 | HHI.PR ---
Subjective Remarks Follow-up for antibiotic reaction. The patient continues to complain of clavicle pain. She denies any fevers or chills. She has received 2 doses of antibiotics. She denies any rash. She has been tolerating diet. She's been ambulatory. She has an appointment to see Dr. Machado on 11/11. Cleared by ID for discharge. She is happy to be discharged today. Objective Vitals Vital Signs Date Time Temp Pulse Resp B/P Pulse Ox O2 Delivery O2 Flow Rate FiO2 11/01/16 08:59 69 11/01/16 07:50 97.3 68 16 122/75 96 11/01/16 03:41 98.1 76 18 134/75 98 10/31/16 23:24 98.2 82 19 140/75 100 10/31/16 20:01 90 10/31/16 19:43 97.8 86 18 111/76 96 10/31/16 19:29 97 21 10/31/16 14:53 98.3 90 120/80 97 I/O 10/31/16 10/31/16 10/31/16 11/01/16 11/01/16 11/01/16 07:00 15:00 23:00 07:00 15:00 23:00 Intake Total 642 ml 240 ml Balance 642 ml 240 ml Intake Oral 442 ml 240 ml IV Total 200 ml # Voids 1 1 Result Diagram: 11/01/16 0610 11/01/16 0608 Objective Remarks GENERAL: Well-developed well-nourished. In no acute distress. SKIN: Warm and dry. No lesions noted. HEENT: Normocephalic. Pupils equal and round. Mucous membranes pink and moist. CARDIOVASCULAR: Regular rate and rhythm. No murmur appreciated. RESPIRATORY: No accessory muscle use. Clear to auscultation. Breath sounds equal bilaterally. GASTROINTESTINAL: Abdomen soft, non-tender, nondistended. Bowel sounds x4. MUSCULOSKELETAL: No obvious deformities. No clubbing or cyanosis. No edema. NEUROLOGICAL: Awake and alert. No focal neurological deficits. Moves upper and lower extremities spontaneously. Normal speech. PSYCHIATRIC: Appropriate mood and affect; insight and judgment normal. A/P Assessment and Plan 40-year-old female with a PMH of HIV (CD4 1092 on 11/20/14), IVDU, Anxiety, Depression, HTN and Hyperlipidemia who presented after a rash with IV home antibiotic administration 1. Adverse drug reaction: who was sent home with a PICC line and given Aztreonam came with Allergic reaction. ID specialist referred her back to ER. She was supposed to continue Aztreonam until November 04. ID consulted, started IV meropenem which the patient has been tolerating. Cleared by ID for discharge. Case management has arranged to continue [facility] antibiotic administration. 2. HIV: Chronic, stable. Continue home HAART. 3. Osteomyelitis of the Clavicle: Afebrile. CRP within normal limits and ESR significantly decreased from previous. Continue antibiotics as above. Continue outpatient orthopedic follow-up. Pain control. Discharge Planning Discharge patient to home with [facility] Condition on discharge: Improved Regular Diet as tolerated Regular activity Rx written: IV meropenem Follow-up with primary care physician and orthopedics Leighton Arthur November 01, 2016 12:43
== END 2016-11-01 15:06 | disposition home or self-care (01) ==
LOC: NEPE 14:49 → NEDA 15:58 → NEPGCP 17:08
PROVIDERS: ADMIT Internal Medicine; ATTEND Internal Medicine
DX: T36.1X5A Adverse effect of cephalosporins and other beta-lactam antibiotics, initial encounter (principal); F41.9 Anxiety disorder, unspecified; F32.9 Major depressive disorder, single episode, unspecified; I10 Essential (primary) hypertension; E78.5 Hyperlipidemia, unspecified; Z21 Asymptomatic human immunodeficiency virus [HIV] infection status; M86.8X8 Other osteomyelitis, other site; M17.0 Bilateral primary osteoarthritis of knee; M19.042 Primary osteoarthritis, left hand; M19.041 Primary osteoarthritis, right hand; E78.00 Pure hypercholesterolemia, unspecified; F19.10 Other psychoactive substance abuse, uncomplicated; Z88.1 Allergy status to other antibiotic agents; Z88.8 Allergy status to other drugs, medicaments and biological substances; Y92.009 Unspecified place in unspecified non-institutional (private) residence as the place of occurrence of the external cause
CPT/HCPCS: 80048; 81001; 85007; 85027; 85652; 86140; 87040; 87086; 99285; G0378; J1644; J2185; J7030

== ENCOUNTER 2017-08-22 05:24 | Inpatient (IN) | payer SELFPAY ==
[2017-08-22] VITALS (10 sets, daily range): BP systolic 90–164; BP diastolic 55–90; PULSE 81–112; RESP 18–20; TEMP 98.8–100.1; O2SAT 97–100
[~2017-08-22] VITALS: Ht 162.6 cm; Wt 78.5 kg
[~2017-08-22 05:24] MED LIST changes: -ATOR20TA15 PO; -DARU1TAB2 PO; +DARU800T2 PO; +EPZITAB3 PO; +HYDR-3516 PO; -PRED10 PO; -PRED20 PO; +RITO100 PO
[2017-08-22] MEDS ORDERED: SODIUM CHLOR 0.9% 1000 ML INJ 1,000 ML IV SCH (05:32)
--- NOTE | 2017-08-22 05:36 | PD ---
HPI Chief Complaint: Facial swelling Time Seen by Provider: 05:32 Travel History International Travel<30 days: No Contact w/Intl Traveler<30days: No Traveled to known affect area: No History of Present Illness HPI 31-year-old female with history of HIV, hepatitis C, ivdu, off antiretroviral therapy since April, follows with Dr. Hartley, presents via EMS for evaluation of facial pain and swelling. She reports that she has had pain and swelling to her left upper eyelid for the past few days. She reports yesterday evening she had a bump on her chin which she poked with a needle. Since then she has had rapidly progressing redness, soft tissue swelling and pain. The pain is a throbbing pain which is constant and worse with palpation. She endorses slight chills as well. Denies nausea vomiting, abdominal pain, dysuria , flank pain, cough, congestion, sore throat. She has no other complaints at this time. PFSH Past Medical History Arthritis: Yes (knees and hands, HX of carpal tunnel) Asthma: No Autoimmune Disease: No Blood Disorders: Yes (HIV) Anxiety: Yes Depression: Yes Heart Rhythm Problems: No Cancer: No Cardiovascular Problems: Yes (HTN) High Cholesterol: Yes Chemotherapy: No Chest Pain: No Congestive Heart Failure: No COPD: No Cerebrovascular Accident: No Diabetes: No Diminished Hearing: No Endocrine: No Gastrointestinal Disorders: No GERD: No Genitourinary: No Headaches: No Hiatal Hernia: No Hypertension: Yes Immune Disorder: Yes (HIV) Implanted Vascular Access Dvce: No Kidney Stones: No Musculoskeletal: Yes (osteomyelites clavicle ) Neurologic: No Psychiatric: Yes (PTSD) Respiratory: Yes (Chronic BRONCHITIS) Immunizations Current: Yes Migraines: No Radiation Therapy: No Renal Failure: No Seizures: No Sickle Cell Disease: No Sleep Apnea: No Thyroid Disease: No Ulcer: No : 5 Para: 3 Miscarriage: 1 : 1 Past Surgical History Abdominal Surgery: Yes (colycystectomy ) AICD: No Arteriovenous Shunt: No Cardiac Surgery: No Cholecystectomy: Yes Ear Surgery: No Endocrine Surgery: No Eye Surgery: Yes (orbital sx (dr. anthony)) Genitourinary Surgery: No Gynecologic Surgery: Yes (HYSTERECTOMY) Hysterectomy: Yes Insulin Pump: No Joint Replacement: No Neurologic Surgery: No Oral Surgery: Yes (PARTIAL UPPER PLACED) Pacemaker: No Thoracic Surgery: No Other Surgery: Yes (full hx, colecystectomy, sx for bone biopsy) Social History Alcohol Use: No Tobacco Use: No Substance Use: No Allergies-Medications (Allergen,Severity, Reaction): Coded Allergies: efavirenz (Verified Allergy, Severe, angioedema, 08/22/17) hives and angioedema "all over" emtricitabine (Verified Allergy, Severe, angioedema, 08/22/17) hives and angioedema "all over" tenofovir (Verified Allergy, Severe, angioedema, 08/22/17) hives and angioedema "all over" aztreonam (Unverified Allergy, Intermediate, RASH, 08/22/17) levofloxacin (Unverified Allergy, Intermediate, RASH, 08/22/17) Reported Meds & Prescriptions Reported Meds & Active Scripts Active Ziagen (Abacavir Sulfate) 300 Mg Tab 600 Mg PO HS 30 Days Tivicay (Dolutegravir Sodium) 50 Mg Tab 50 Mg PO DAILY Diphenhydramine (Diphenhydramine HCl) 25 Mg Cap 25 Mg PO Q6H PRN Proventil Hfa 6.7 GM Inh (Albuterol Sulfate) 90 Mcg/Act Aer 2 Puff INH Q4-6H PRN Reported Prezista (Darunavir) 800 Mg Tab 800 Mg PO DAILY Epzicom (Abacavir-Lamivudine) 600-300 Mg Tab 1 Tab PO DAILY Hazardous agent; use appropriate precautions for handling & disposal. Hydrocodone-Acetaminophen 5-325 mg Tab 1 Tab PO Q6H PRN Norvir (Ritonavir) 100 Mg Cap 100 Mg PO HS Review of Systems Except as stated in HPI: all other systems reviewed are Neg Physical Exam Narrative GENERAL: Well-developed well-nourished female no acute distress SKIN: Warm and dry. Erythema, induration to the left upper eyelid and periorbital region. There is a large area of induration and erythema to the chin. There is an excoriated area that has a small amount of purulent drainage. A wound culture will be obtained. HEAD: Atraumatic. Normocephalic. EYES: Pupils equal and round. No scleral icterus. No injection or drainage. ENT: No nasal bleeding or discharge. Mucous membranes pink and moist. NECK: Trachea midline. No JVD. No lymphadenopathy. Neck supple full range of motion. CARDIOVASCULAR: Regular rate and rhythm. No murmur appreciated. RESPIRATORY: No accessory muscle use. Clear to auscultation. Breath sounds equal bilaterally. GASTROINTESTINAL: Abdomen soft, non-tender, nondistended. Hepatic and splenic margins not palpable. MUSCULOSKELETAL: No obvious deformities. No clubbing. No cyanosis. No edema. NEUROLOGICAL: Awake and alert. No obvious cranial nerve deficits. Motor grossly within normal limits. Normal speech. PSYCHIATRIC: Appropriate mood and affect; insight and judgment normal. Data Data Last Documented VS Vital Signs Date Time Temp Pulse Resp B/P (MAP) Pulse Ox O2 Delivery O2 Flow Rate FiO2 08/22/17 08:16 99.6 95 18 108/60 (76) 98 Room Air Orders Orders Sepsis Workup Initiated (08/22/17 ) Complete Blood Count With Diff (08/22/17 05:32) Comprehensive Metabolic Panel (08/22/17 05:32) Lactic Acid Sepsis Protocol (08/22/17 05:32) Blood Culture (08/22/17 05:32) Wound Culture And Gram Stain (08/22/17 05:32) Iv Access Insert/Monitor (08/22/17 05:32) Oximetry (08/22/17 05:32) Oxygen Administration (08/22/17 05:32) Sodium Chlor 0.9% 1000 Ml Inj (Ns 1000 M (08/22/17 05:32) Vancomycin Inj (Vancomycin Inj) (08/22/17 05:45) Piperacil-Tazo 3.375 Gm Premix (Zosyn 3. (08/22/17 05:45) Ct Facial Bones W Iv Contrast (08/22/17 06:32) Ketorolac Inj (Toradol Inj) (08/22/17 07:30) Iohexol 350 Inj (Omnipaque 350 Inj) (08/22/17 07:34) Admit Order (Ed Use Only) (08/22/17 09:28) Labs Laboratory Tests Test 08/22/17 05:50 08/22/17 07:16 Blood Urea Nitrogen 6 MG/DL Creatinine 1.08 MG/DL Random Glucose 91 MG/DL Total Protein 8.5 GM/DL Albumin 4.0 GM/DL Calcium Level 9.2 MG/DL Alkaline Phosphatase 107 U/L Aspartate Amino Transf (AST/SGOT) 39 U/L Alanine Aminotransferase (ALT/SGPT) 54 U/L Total Bilirubin 1.5 MG/DL Sodium Level 137 MEQ/L Potassium Level 3.8 MEQ/L Chloride Level 102 MEQ/L Carbon Dioxide Level 28.1 MEQ/L Anion Gap 7 MEQ/L Estimat Glomerular Filtration Rate 55 ML/MIN Lactic Acid Level 1.1 mmol/L White Blood Count 10.7 TH/MM3 Red Blood Count 3.83 MIL/MM3 Hemoglobin 11.5 GM/DL Hematocrit 34.8 % Mean Corpuscular Volume 90.9 FL Mean Corpuscular Hemoglobin 30.0 PG Mean Corpuscular Hemoglobin Concent 33.0 % Red Cell Distribution Width 14.7 % Platelet Count 155 TH/MM3 Mean Platelet Volume 10.5 FL Neutrophils (%) (Auto) 70.9 % Lymphocytes (%) (Auto) 19.5 % Monocytes (%) (Auto) 9.1 % Eosinophils (%) (Auto) 0.3 % Basophils (%) (Auto) 0.2 % Neutrophils # (Auto) 8.6 TH/MM3 Lymphocytes # (Auto) 2.4 TH/MM3 Monocytes # (Auto) 1.1 TH/MM3 Eosinophils # (Auto) 0.0 TH/MM3 Basophils # (Auto) 0.0 TH/MM3 CBC Comment AUTO DIFF Differential Comment AUTO DIFF CONFIRMED Platelet Estimate NORMAL Platelet Morphology Comment CLUMPED Red Cell Morphology Comment NORMAL MDM Medical Decision Making Medical Screen Exam Complete: Yes Emergency Medical Condition: Yes Medical Record Reviewed: Yes Differential Diagnosis Facial cellulitis, necrotizing fasciitis, facial abscess, orbital cellulitis, periorbital cellulitis Narrative Course Lab work, CT facial bones have been ordered, blood cultures have been ordered. Wound culture will be obtained. The patient will be given IV fluids, broad- spectrum antibiotics. At the end of my shift the patient was signed out to the oncoming provider pending CT imaging and lab work. Qamar Schultz Aug 22, 2017 05:36
[2017-08-22] MEDS ORDERED: VANCOMYCIN INJ 1,000 MG in SODIUM CHLOR 0.9% 250 ML INJ 250 ML IV ONE (05:45)
[2017-08-22] MEDS ORDERED: PIPERACIL-TAZO 3.375 GM PREMIX 50 ML IV ONE (05:45)
[2017-08-22 06:34] LABS: ALKALINE PHOSPHATASE 107 U/L (45-117); TOTAL BILIRUBIN ADULT 1.5 MG/DL (0.2-1.0); TOTAL PROTEIN 8.5 GM/DL (6.4-8.2)
[2017-08-22 06:42] LABS: ALT (GPT) 54 U/L (10-53); AST (GOT) 39 U/L (15-37); BICARBONATE 28.1 MEQ/L (21.0-32.0); BLOOD UREA NITROGEN 6 MG/DL (7-18); CALCIUM 9.2 MG/DL (8.5-10.1); CHLORIDE 102 MEQ/L (98-107); CREATININE 1.08 MG/DL (0.50-1.00); GLOMERULAR FILTRATION RATE 55 ML/MIN (>89); GLUCOSE,RANDOM 91 MG/DL (74-106); SODIUM (NA) 137 MEQ/L (136-145)
[2017-08-22] MEDS ORDERED: KETOROLAC TROMETHAMINE 30 MG/ML (IVP) VIAL IV PUSH ONE (07:30)
[2017-08-22] MEDS ORDERED: IOHEXOL 350 MG/ML 10 ML VIAL (for RAD DIAG) IVCONTRAST ONE (07:34)
--- NOTE | 2017-08-22 07:41 | RADRPT ---
EXAM DATE/TIME: 08/22/2017 07:22 [facility] COMPARISON: No previous studies available for comparison. INDICATIONS : Facial abscess, pt with sore on her chin, anterior. IV CONTRAST: 90 cc Omnipaque 350 (iohexol) IV RADIATION DOSE: 30.42 CTDIvol (mGy) MEDICAL HISTORY : Hypertension. HIV. Hepatitis C.PTSD,IV drug user SURGICAL HISTORY : Orbital sx ENCOUNTER: Initial ACUITY: 1 day PAIN SCALE: 10/10 LOCATION: facial TECHNIQUE: Volumetric scanning of the facial bones was performed. Using automated exposure control and adjustme nt of the mA and/or kV according to patient size, radiation dose was kept as low as reasonably achiev able to obtain optimal diagnostic quality images. DICOM format image data is available electronicall y for review and comparison. FINDINGS: ORBITS: The orbital and infraorbital osseous structures are intact. The retroconal structures have a normal configuration. No radiopaque foreign bodies are seen. NASAL BONE: The nasal bone and maxillary spine are intact ZYGOMATIC ARCHES: Symmetric without evidence of fracture. SINUSES: The maxillary, ethmoid and frontal sinuses are intact. No air-fluid levels seen. NASAL CAVITY: The nasal septum is intact and midline. The lacrimal ducts are intact. SOFT TISSUES: There is diffuse soft tissue thickening and enhancement overlying anterior mandible. There is no disc rete abscess. No evidence of subcutaneous air. The adjacent osseous structures of the mandible are in tact without evidence of demineralization or destructive process. INTRACRANIAL: No intracranial air seen. CRIBIFORM PLATE: Grossly intact. CONCLUSION: Significant soft tissue edema overlying the midline and bilateral mandible without evidence of discre te abscess. No radiopaque foreign body. No evidence of adjacent osseous destruction.. Jessica Bran MD on August 22, 2017 at 7:34 Board Certified Radiologist. This report was verified electronically.
[2017-08-22 08:02] LABS: AUTOMATED NEUTROPHIL # 8.6 TH/MM3 (1.8-7.7); BASOPHIL % 0.2 % (0.0-2.0); EOSINOPHIL % 0.3 % (0.0-4.0); HEMATOCRIT 34.8 % (35.0-46.0); HEMOGLOBIN 11.5 GM/DL (11.6-15.3); LYMPH % 19.5 % (9.0-44.0); LYMPHOCYTE # 2.4 TH/MM3 (1.0-4.8); MEAN CELL VOLUME 90.9 FL (80.0-100.0); MEAN PLATELET VOLUME 10.5 FL (7.0-11.0); MONO % 9.1 % (0.0-8.0); MONOCYTE # 1.1 TH/MM3 (0-0.9); NEUT % 70.9 % (16.0-70.0); RED BLOOD COUNT 3.83 MIL/MM3 (4.00-5.30); RED CELL DISTRIBUTION WIDTH 14.7 % (11.6-17.2)
--- NOTE | 2017-08-22 08:06 | PD ---
Physical Exam Date Seen by Provider: Aug 22, 2017 Time Seen by Provider: 08:01 Narrative 41 year old female presents to the emergency department for evaluation of facial celluliits. Patient was seen by BIRD Foote and signed out to me awaiting CT facial bones with IV contrast and CBC. Patient has h/o Hepatitis C , IVDU, HIV. She is not currently taking antivirals and states she has been off of them since April. Patuent states she has had erythema to the left orbit for 2 days and erythema/swelling to the chin since yesterday. She states she had a pimple that she poked with a needle and then the infection spread from there. Data Data Last Documented VS Vital Signs Date Time Temp Pulse Resp B/P (MAP) Pulse Ox O2 Delivery O2 Flow Rate FiO2 08/22/17 08:16 99.6 95 18 108/60 (76) 98 Room Air Orders Orders Sepsis Workup Initiated (08/22/17 ) Complete Blood Count With Diff (08/22/17 05:32) Comprehensive Metabolic Panel (08/22/17 05:32) Lactic Acid Sepsis Protocol (08/22/17 05:32) Blood Culture (08/22/17 05:32) Wound Culture And Gram Stain (08/22/17 05:32) Iv Access Insert/Monitor (08/22/17 05:32) Oximetry (08/22/17 05:32) Oxygen Administration (08/22/17 05:32) Sodium Chlor 0.9% 1000 Ml Inj (Ns 1000 M (08/22/17 05:32) Vancomycin Inj (Vancomycin Inj) (08/22/17 05:45) Piperacil-Tazo 3.375 Gm Premix (Zosyn 3. (08/22/17 05:45) Ct Facial Bones W Iv Contrast (08/22/17 06:32) Ketorolac Inj (Toradol Inj) (08/22/17 07:30) Iohexol 350 Inj (Omnipaque 350 Inj) (08/22/17 07:34) Admit Order (Ed Use Only) (08/22/17 09:28) Labs Laboratory Tests Test 08/22/17 05:50 08/22/17 07:16 Blood Urea Nitrogen 6 MG/DL Creatinine 1.08 MG/DL Random Glucose 91 MG/DL Total Protein 8.5 GM/DL Albumin 4.0 GM/DL Calcium Level 9.2 MG/DL Alkaline Phosphatase 107 U/L Aspartate Amino Transf (AST/SGOT) 39 U/L Alanine Aminotransferase (ALT/SGPT) 54 U/L Total Bilirubin 1.5 MG/DL Sodium Level 137 MEQ/L Potassium Level 3.8 MEQ/L Chloride Level 102 MEQ/L Carbon Dioxide Level 28.1 MEQ/L Anion Gap 7 MEQ/L Estimat Glomerular Filtration Rate 55 ML/MIN Lactic Acid Level 1.1 mmol/L White Blood Count 10.7 TH/MM3 Red Blood Count 3.83 MIL/MM3 Hemoglobin 11.5 GM/DL Hematocrit 34.8 % Mean Corpuscular Volume 90.9 FL Mean Corpuscular Hemoglobin 30.0 PG Mean Corpuscular Hemoglobin Concent 33.0 % Red Cell Distribution Width 14.7 % Platelet Count 155 TH/MM3 Mean Platelet Volume 10.5 FL Neutrophils (%) (Auto) 70.9 % Lymphocytes (%) (Auto) 19.5 % Monocytes (%) (Auto) 9.1 % Eosinophils (%) (Auto) 0.3 % Basophils (%) (Auto) 0.2 % Neutrophils # (Auto) 8.6 TH/MM3 Lymphocytes # (Auto) 2.4 TH/MM3 Monocytes # (Auto) 1.1 TH/MM3 Eosinophils # (Auto) 0.0 TH/MM3 Basophils # (Auto) 0.0 TH/MM3 CBC Comment AUTO DIFF Differential Comment AUTO DIFF CONFIRMED Platelet Estimate NORMAL Platelet Morphology Comment CLUMPED Red Cell Morphology Comment NORMAL MDM Supervised Visit with JACQUIE: No Interpretation(s) CT facial bones - CONCLUSION: Significant soft tissue edema overlying the midline and bilateral mandible without evidence of discrete abscess. No radiopaque foreign body. No evidence of adjacent osseous destruction.. Narrative Course 41 year old female presents to the emergency department for evaluation of rapidly spreading facial cellulitis. CBC, CMP, Lactic acid, blood cultures, wound culture, CT facial bones with IV contrast were ordered. Patient was given NS 1 L IV bolus, Vancomycin 1 gm IV, Zosyn 3.375 gm IV, Toradol 30 mg IV. CBC shows no acute abnormalities. CMP shows elevated bilirubin of 1.5, AST 39, ALT 54. Lactic acid is 1.1. CT facial bones with IV contrast shows significant soft tissue edema overlying the midline and bilateral mandible without evidence of discrete abscess. No radiopaque foreign body. No evidence of adjacent osseous destruction. Patient's facial cellulitis is quite significant for starting yesterday. She will be admitted for IV antibiotics. Residents accepted admission. Diagnosis Primary Impression: Facial cellulitis Admitting Information Admitting Physician Requests: Admit Mari Lockwood Aug 22, 2017 08:06
[2017-08-22 08:33] LABS: PLATELET COUNT 155 TH/MM3 (150-450); WHITE BLOOD COUNT 10.7 TH/MM3 (4.0-11.0)
--- NOTE | 2017-08-22 09:20 | HHI.HP ---
[facility] Service Family Medicine Primary Care Physician Moises Phelan MD Admission Diagnosis Facial cellulitis Diagnoses: Chief Complaint: "My face hurts." International Travel<30 Days: No Contact w/Intl Traveler<30days: No Known Affected Area: No History of Present Illness Patient is a 41 y/o F w/hx of HIV (no meds since Apr) presenting w/facial pain and swelling. Last night, noticed visit on her chin and popped it w/a pen, progressed to large infection on chin. No injury or bug bites. Has gotten worse, is draining yellow fluid and is swollen and tender to the touch. No jaw pain. Has been feeling hot/flushed. 2 days ago, noticed a stye form over her eye as well, which has worsened. Denies eye pain, blurry vision, photosensitivity. Complains of site of infection at the left axilla that appeared after shaving. Patient has not tried any medications for these sites of infection. Symptoms have worsened. Also complains of back pain that started last night, is mid lower back over her spine. Lifted something heavy yesterday and that she had just thrown out her back. Painful to palpation. woke her up at night. No lower extremity weakness, urinary incontinence, numbness or tingling, or weakness. Laying down makes it better, bending makes it worse. Has a headache. Does not remember when she received last tetanus shot. Dr. Phelan is her PCP. Dr. Holland manages her HIV. States that she has always seen them both regularly; however, she was incarcerated at the end of last year and because of poor kidney function noted while she was in alf, was taken off all her HIV medication. States that it has taken her some time to get back on her feet but just recently made appointment w/[facility] to get blood work done for doctor. Not taking any other medications. HIV was diagnosed in 2008, does not know last CD4 count. 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 Last CD4 count per our records is 1092, drawn in November 2014. (Nataliya Balderas MD R1) Review of Systems Endocrine: DENIES: Polydipsia, Polyuria Eyes: DENIES: Eye pain, Vision loss Ears, nose, mouth, throat: DENIES: Hearing loss, Throat pain Respiratory: DENIES: Cough Cardiovascular: DENIES: Chest pain, Palpitations Gastrointestinal: DENIES: Abdominal pain, Constipation, Diarrhea, Vomiting Genitourinary: DENIES: Urinary frequency, Urinary incontinence Musculoskeletal: DENIES: Joint pain, Muscle aches Hematologic/lymphatic: DENIES: Bruising Immunologic/allergic: DENIES: Eczema Neurologic: DENIES: Paresthesias, Seizures, Poor Balance Psychiatric: DENIES: Anxiety, Depression (Nataliya Balderas MD R1) Past Family Social History Past Medical History HIV (CD4 1092 on 11/20/14) IVDU Past Surgical History Hysterectomy, cholecystectomy Closed Reduction of Bilateral Nasal Bone Fractures - 2008 (Nataliya Balderas MD R1) Allergies: Coded Allergies: efavirenz (Verified Allergy, Severe, angioedema, 08/22/17) hives and angioedema "all over" emtricitabine (Verified Allergy, Severe, angioedema, 08/22/17) hives and angioedema "all over" tenofovir (Verified Allergy, Severe, angioedema, 08/22/17) hives and angioedema "all over" aztreonam (Unverified Allergy, Intermediate, RASH, 08/22/17) levofloxacin (Unverified Allergy, Intermediate, RASH, 08/22/17) Family History Mom: none Dad: none Social History Lives in a house, staying w/a friend. No smoking or drinking. Hx of Dilaudid IVDU, last use 5 years ago . (Nataliya Balderas MD R1) Physical Exam Vital Signs Vital Signs Date Time Temp Pulse Resp B/P (MAP) Pulse Ox O2 Delivery O2 Flow Rate FiO2 08/22/17 08:16 99.6 95 18 108/60 (76) 98 Room Air 08/22/17 06:15 (100) 08/22/17 06:00 98.8 81 20 164/69 (100) 100 Room Air 08/22/17 05:50 99 Room Air Physical Exam GENERAL: This is a disheveled, flushed, tanned woman who appears older than her age. Sitting uncomfortably in bed. Complaining of pain. SKIN: 3x3 cm site of yellow, draining pustulance from chin. A ring of hyperpigmentation is noted at the site. There is diffuse swelling of the chin toward the jaw. No tenderness of the frontal and maxillary sinuses, no tenderness of the facial bones. 3 x 3 cm indurated, red, warm site at the left axilla. No drainage or fluctuance noted. HEAD: Atraumatic. Normocephalic. No temporal or scalp tenderness. EYES: Pupils equal round and reactive. Extraocular motions intact. No scleral icterus. No injection or drainage. Swelling, redness of the upper left eyelid. Slight conjunctivitis of the eye noted. There is some pustulant drainage coming from the eye's lacrimal duct. ENT: Throat without erythema, tonsillar hypertrophy or exudate. Uvula midline. Airway patent. No oral ulcerations or growths. NECK: Trachea midline. No JVD or lymphadenopathy. Supple, nontender, no meningeal signs. CARDIOVASCULAR: Regular rate and rhythm without murmurs, gallops, or rubs. RESPIRATORY: Clear to auscultation. Breath sounds equal bilaterally. No wheezes , rales, or rhonchi. GASTROINTESTINAL: Abdomen soft, non-tender, nondistended. There is tenderness at the right upper quadrant. Possible hepatomegaly palpated. MUSCULOSKELETAL: Extremities without clubbing, cyanosis, or edema. NEUROLOGICAL: Awake and alert. Cranial nerves II through XII intact. Motor and sensory grossly within normal limits. Five out of 5 muscle strength in all muscle groups. Normal speech. Laboratory Laboratory Tests Test 08/22/17 05:50 08/22/17 07:16 Blood Urea Nitrogen 6 Creatinine 1.08 Random Glucose 91 Total Protein 8.5 Albumin 4.0 Calcium Level 9.2 Alkaline Phosphatase 107 Aspartate Amino Transf (AST/SGOT) 39 Alanine Aminotransferase (ALT/SGPT) 54 Total Bilirubin 1.5 Sodium Level 137 Potassium Level 3.8 Chloride Level 102 Carbon Dioxide Level 28.1 Anion Gap 7 Estimat Glomerular Filtration Rate 55 Lactic Acid Level 1.1 White Blood Count 10.7 Red Blood Count 3.83 Hemoglobin 11.5 Hematocrit 34.8 Mean Corpuscular Volume 90.9 Mean Corpuscular Hemoglobin 30.0 Mean Corpuscular Hemoglobin Concent 33.0 Red Cell Distribution Width 14.7 Platelet Count 155 Mean Platelet Volume 10.5 Neutrophils (%) (Auto) 70.9 Lymphocytes (%) (Auto) 19.5 Monocytes (%) (Auto) 9.1 Eosinophils (%) (Auto) 0.3 Basophils (%) (Auto) 0.2 Neutrophils # (Auto) 8.6 Lymphocytes # (Auto) 2.4 Monocytes # (Auto) 1.1 Eosinophils # (Auto) 0.0 Basophils # (Auto) 0.0 CBC Comment AUTO DIFF Differential Comment AUTO DIFF CONFIRMED Platelet Estimate NORMAL Platelet Morphology Comment CLUMPED Red Cell Morphology Comment NORMAL Date/Time Source Procedure Growth Status 08/22/17 05:50 Blood Peripheral Aerobic Blood Culture Pending Received 08/22/17 05:50 Blood Peripheral Anaerobic Blood Culture Pending Received 08/22/17 05:55 Wound Face Gram Stain - Final Resulted 08/22/17 05:55 Wound Face Wound Culture Pending Resulted (Nataliya Balderas MD R1) Result Diagram: 08/22/17 0716 08/22/17 0550 Caprini VTE Risk Assessment Caprini VTE Risk Assessment: No/Low Risk (score <= 1) Prophylaxis Regimen Total Risk Factor Score Risk Level Prophylaxis Regimen 0-1 Low Early ambulation 2 Moderate Order ONE of the following: *Sequential Compression Device (SCD) *Heparin 5000 units SQ BID 3-4 Higher Order ONE of the following medications: *Heparin 5000 units SQ TID *Enoxaparin/Lovenox 40 mg SQ daily (WT < 150 kg, CrCl > 30 mL/min) *Enoxaparin/Lovenox 30 mg SQ daily (WT < 150 kg, CrCl > 10-29 mL/min) *Enoxaparin/Lovenox 30 mg SQ BID (WT < 150 kg, CrCl > 30 mL/min) AND/OR *Sequential Compression Device (SCD) 5 or more Highest Order ONE of the following medications: *Heparin 5000 units SQ TID (Preferred with Epidurals) *Enoxaparin/Lovenox 40 mg SQ daily (WT < 150 kg, CrCl > 30 mL/min) *Enoxaparin/Lovenox 30 mg SQ daily (WT < 150 kg, CrCl > 10-29 mL/min) *Enoxaparin/Lovenox 30 mg SQ BID (WT < 150 kg, CrCl > 30 mL/min) AND *Sequential Compression Device (SCD) (Nataliya Balderas MD R1) Assessment and Plan Assessment and Plan Patient is a 41-year-old female with a history of HIV who presents with facial cellulitis of her chin, left stye, and left axillary abscess. White count within normal limits, patient received Vanco and Zosyn 1 in the ED. Wound culture obtained from pustulant fluid from chin. Blood culture also obtained. Plan to provide IV vancomycin and Zosyn, consult ID, pain control, warm washcloth to apply to stye, and monitoring of symptoms. Code Status Full (Nataliya Balderas MD R1) Attending Attestation Patient seen and examined. Case reviewed and discussed with the resident team. Agree with plan of care as discussed with me and documented in the resident note. At the time of my exam patient reports no changes since admission. On exam chin cellulites notes, left axilla induration, left eye hordeolum. Cards -- reg, no murmurs. Lungs clear bilaterally, no leg edema Patient with HIV, hep C and h/o IVDU clean for 5 years -- getting re- established with medical care after incarceration. Antibiotics as orders, avoid opiates in this patient with prior opiate addiction. Check viral load for HIV and hep C and full hepatitis panel. (Alma Davis MD) Problem List: (1) Facial cellulitis ICD Codes: L03.211 - Cellulitis of face Status: Acute Plan: Swelling and purulent drainage from the chin Wound culture obtained Vanco 1 g every 24 hours Zosyn 3.375 IV every 6 hours ID consulted for history of HIV (2) Hordeolum externum left eye, unspecified eyelid ICD Codes: H00.016 - Hordeolum externum left eye, unspecified eyelid Plan: Apply warm, moist compresses to eye (3) Lower back pain ICD Codes: M54.5 - Low back pain Plan: No concern for abscess at this time We'll continue to monitor, for now, appears to be secondary to lower back strain May consider imaging his symptoms worsen or progress to neurologic associated change (4) Abscess of left axilla ICD Codes: L02.412 - Cutaneous abscess of left axilla Plan: 3 x 3 mm indurated, warm, red site at the skin in the left axilla Appeared after shaving See above plan, continue antibiotics, will monitor (5) HIV (human immunodeficiency virus infection) ICD Codes: Z21 - Asymptomatic human immunodeficiency virus [HIV] infection status Status: Chronic Plan: Patient states that she was taking 4-5 HIV medications chronically before she was incarcerated, this occurred around April Patient has been off HIV medications since April, has not followed up with any doctor since then ID consulted for treatment recommendations (6) IVDU (intravenous drug user) ICD Codes: F19.90 - Other psychoactive substance use, unspecified, uncomplicated Status: Chronic Plan: History of IV drug use with Dilaudid Last use 5 years ago; however, drug screens from hospitalization in 2017 were + for opiates and amphetamines Obtain drug screen Hepatitis profile (7) FEN Plan: Fluid: PO Electrolytes: as needed Nutrition: Regular DVT prophy: not indicated (Nataliya Balderas MD R1) Physician Certification 2 Midnight Certification Type: Admission for Inpatient Services Order for Inpatient Services The services are ordered in accordance with Medicare regulations or non- Medicare payer requirements, as applicable. In the case of services not specified as inpatient-only, they are appropriately provided as inpatient services in accordance with the 2-midnight benchmark. Estimated LOS (days): 2 2 days is the estimated time the patient will need to remain in the hospital, assuming treatment plan goals are met and no additional complications. Post-Hospital Plan: Not yet determined (Nataliya Balderas MD R1) Nataliya Balderas MD R1 Aug 22, 2017 09:20 Alma Davis MD Aug 22, 2017 13:50
[2017-08-22] MEDS ORDERED: IBUPROFEN 600 MG TAB PO PRN (09:45)
[2017-08-22] MEDS ORDERED: BISACODYL 10 MG SUPP RECTAL PRN (09:45)
[2017-08-22] MEDS ORDERED: SODIUM CHLORIDE 0.9% FLUSH 10 ML FLUSH IV FLUSH PRN (09:45)
[2017-08-22] MEDS ORDERED: MAGNESIUM HYDROXIDE SUSP 30 ML CUP PO PRN (09:45)
[2017-08-22] MEDS ORDERED: SENNOSIDES 8.6 MG TAB PO PRN (09:45)
[2017-08-22] MEDS ORDERED: LACTULOSE SYRUP 20 GM/30 ML CUP PO PRN (09:45)
[2017-08-22] MEDS ORDERED: NALOXONE HCL 0.4 MG/ML AMP IV PUSH PRN (09:45)
[2017-08-22] MEDS ORDERED: Vancomycin Consult Pharmacy 1 EA OTHER SCH (10:45)
[2017-08-22] MEDS: PIPERACIL-TAZO 3.375 GM PREMIX 50 ML IV SCH ×3 (11:57→23:53)
[2017-08-22] MEDS: KETOROLAC TROMETHAMINE 10 MG TAB PO SCH ×3 (11:59→23:52)
[2017-08-22] MEDS: ACETAMINOPHEN 325 MG TAB PO PRN ×2 (12:00→17:18)
[2017-08-22] MEDS ORDERED: SODIUM CHLOR 0.9% 1000 ML INJ 1,000 ML IV ONE (17:30)
[2017-08-22] MEDS: SODIUM CHLOR 0.9% 1000 ML INJ 1,000 ML IV SCH (17:42)
--- NOTE | 2017-08-22 17:56 | MB ---
cc: Simon Gonzalez MD DATE OF CONSULT: 08/22/2017 REQUESTING PHYSICIAN: Nataliya Balderas MD REASON FOR CONSULTATION: History of HIV. Off medication since April. Admitted for facial cellulitis. Recommendations for antibiotics and for HIV management. HISTORY OF PRESENT ILLNESS: This is a 41-year-old white female who is known HIV positive. The patient presented to the emergency department after she developed pain in the face, as well as swelling of the face, fever, chills, nausea and vomiting and joint aches and pains. The patient notes that she popped a pimple at the mid lower chin a couple days ago and then she had spread of erythema and swelling of the face. She used a needle to break the pimple. She presented to the emergency department and was noted to have an excoriated area at the anterior chin and a small amount of purulent drainage. A culture was taken. She was started on broad spectrum antibiotics. This consultation is requested for evaluation and management. The patient's maximum temperature was 100 degrees. Her current temperature is 99.1 and heart rate is 116. White blood cell count is normal. She is currently shivering. She just came from the shower. She took a hot shower when she came up to the room. She notes also having occasional headache. The patient has HIV disease and had been on HIV medications up until 03/2017. She was incarcerated and was found to have renal failure and her HIV medications were stopped in March. She is due to follow up with [facility] for HIV management. Blood cultures have been taken. The results are pending. PAST MEDICAL HISTORY: HIV, IV drug use in the past. The patient notes that she has not used drugs in 5 years. History of clavicle osteomyelitis, hysterectomy, cholecystectomy, hepatitis C. ALLERGIES: LEVAQUIN, AZTREONAM, EFAVIRENZ, EMTRICITABINE, TENOFOVIR. MEDICATIONS: Vancomycin, piperacillin/tazobactam. SOCIAL HISTORY: No tobacco, no alcohol. The patient denied IV drug use to me. However, it is reported that she uses IV Dilaudid, occasional and that she used some time last week per the medical record. FAMILY HISTORY: Noncontributory. REVIEW OF SYSTEMS: GENERAL: Significant for fever and chills. HEAD, EARS, EYES, NOSE AND THROAT: Denies difficulty swallowing or soreness of the throat. Denies visual blurring or diplopia. CARDIOVASCULAR: Denies chest pain. RESPIRATORY: Denies cough or shortness of breath. GASTROINTESTINAL: Positive for nausea, vomiting, abdominal pain. Denies diarrhea. GENITOURINARY: Denies urgency, frequency or dysuria. HEMATOPOIETIC: Denies easy bruising or bleeding. INTEGUMENTARY: Denies skin rash or itching. ENDOCRINE: Denies polyuria. MUSCULOSKELETAL: Significant for diffuse muscle aches and pains and joint aches and pains. NEUROLOGIC: Denies problems of coordination or unsteady gait. PSYCHIATRIC: Denies mood changes. PHYSICAL EXAMINATION: GENERAL: This is a well-developed female, who is awake and alert. She is distressed by chills. VITAL SIGNS: Include temperature 99.9, heart rate 116, blood pressure 98/60. HEENT: Head is atraumatic. The face is swollen. There is edema of the left eyelid, which causes the eye to remain mostly closed. There is mild erythema and edema, left side of the face and the chin has a rounded area of swelling and central aspect has a tiny dark punctate lesion. No palpable induration. The sclerae have no icterus. Pupils reactive. Oropharynx has moist mucosa. NECK: Supple without adenopathy. LYMPH NODES: Left axillary nodule, which is tender. LUNGS: Clear to auscultation. HEART: Regular rate and rhythm without murmurs, rubs or gallops. ABDOMEN: Bowel sounds present. Soft, mild tenderness at the epigastric area. RECTAL: Not performed. EXTREMITIES: No clubbing, cyanosis or edema. SKIN: No diffuse rash. NEUROLOGIC: Nonfocal. PSYCHIATRIC: The patient calm and cooperative. LABORATORY DATA: WBC 10.7, platelets 155, hemoglobin 11.5, 70% neutrophils. Creatinine 1.08, BUN 6, estimated GFR 55, AST 59, ALT 54, total bilirubin 1.5. Maxillofacial CT scan showed soft tissue edema overlying the midline and bilateral mandible without evidence of discrete abscess. IMPRESSION: 1. Sepsis in patient with elevated heart rate, fever, tachycardia. Source likely facial cellulitis. 2. Facial cellulitis. The patient who broke a pustule from the chin. 3. 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 4. Chronic kidney disease. RECOMMENDATIONS: 1. Continue vancomycin. 2. Continue piperacillin/tazobactam. 3. Monitor the blood cultures. 4. Monitor wound culture. 5. Monitor renal function. 6. Hold off on any HIV medications since the patient has had ADVERSE EFFECTS FROM THE HIV TREATMENT. 7. Continue to treat for infection and monitor the cultures and clinical status. 8. Treatment for HIV should be considered as an outpatient. She should follow up with the Health Department to have medicines for HIV reinstated. There is no need to initiate HIV medications at this time. I will follow the patient's progress with you. Simon Gonzalez MD [facility]/[facility] , 05:07 PM , 05:54 PM
[2017-08-22] MEDS: SODIUM CHLORIDE 0.9% FLUSH 10 ML FLUSH IV FLUSH SCH (23:52)
[2017-08-23] VITALS (8 sets, daily range): BP systolic 98–113; BP diastolic 55–68; PULSE 88–108; RESP 17–18; TEMP 98.2–100.4; O2SAT 96–99
[2017-08-23] MEDS: SODIUM CHLOR 0.9% 1000 ML INJ 1,000 ML IV SCH ×4 (03:30→21:40)
[2017-08-23] MEDS: ACETAMINOPHEN 325 MG TAB PO PRN ×2 (04:26→22:45)
[2017-08-23] MEDS ORDERED: VANCOMYCIN INJ 1,250 MG in SODIUM CHLOR 0.9% 250 ML INJ 250 ML IV SCH (05:00)
[2017-08-23] MEDS ORDERED: VANCOMYCIN INJ 1,000 MG in SODIUM CHLOR 0.9% 250 ML INJ 250 ML IV SCH (05:00)
[2017-08-23] MEDS: KETOROLAC TROMETHAMINE 10 MG TAB PO SCH (05:14)
[2017-08-23] MEDS: PIPERACIL-TAZO 3.375 GM PREMIX 50 ML IV SCH ×3 (05:14→16:44)
[2017-08-23 07:02] LABS: AUTOMATED NEUTROPHIL # 7.9 TH/MM3 (1.8-7.7); BASOPHIL % 0.2 % (0.0-2.0); EOSINOPHIL # 0.3 TH/MM3 (0-0.4); EOSINOPHIL % 3.5 % (0.0-4.0); HEMATOCRIT 32.4 % (35.0-46.0); HEMOGLOBIN 11.1 GM/DL (11.6-15.3); LYMPH % 9.9 % (9.0-44.0); LYMPHOCYTE # 0.9 TH/MM3 (1.0-4.8); MEAN CELL VOLUME 90.2 FL (80.0-100.0); MEAN CORPUSCULAR HGB CONC 34.3 % (32.0-36.0); MEAN PLATELET VOLUME 10.9 FL (7.0-11.0); MONO % 2.6 % (0.0-8.0); MONOCYTE # 0.2 TH/MM3 (0-0.9); NEUT % 83.8 % (16.0-70.0); PLATELET COUNT 146 TH/MM3 (150-450); RED BLOOD COUNT 3.59 MIL/MM3 (4.00-5.30); RED CELL DISTRIBUTION WIDTH 14.7 % (11.6-17.2); WHITE BLOOD COUNT 9.5 TH/MM3 (4.0-11.0)
[2017-08-23] MEDS ORDERED: cloNIDine HCL 0.1 MG TAB PO PRN (07:15)
[2017-08-23 07:50] LABS: ALBUMIN 2.4 GM/DL (3.4-5.0); ALKALINE PHOSPHATASE 65 U/L (45-117); ALT (GPT) 33 U/L (10-53); AST (GOT) 22 U/L (15-37); BICARBONATE 22.9 MEQ/L (21.0-32.0); BLOOD UREA NITROGEN 14 MG/DL (7-18); C-REACTIVE PROTEIN 8.15 MG/DL (0.00-0.30); CALCIUM 7.7 MG/DL (8.5-10.1); CHLORIDE 111 MEQ/L (98-107); CREATININE 1.19 MG/DL (0.50-1.00); GLOMERULAR FILTRATION RATE 50 ML/MIN (>89); GLUCOSE,RANDOM 93 MG/DL (74-106); SODIUM (NA) 142 MEQ/L (136-145); TOTAL BILIRUBIN ADULT 1.2 MG/DL (0.2-1.0); TOTAL PROTEIN 5.5 GM/DL (6.4-8.2)
[2017-08-23] MEDS: SODIUM CHLORIDE 0.9% FLUSH 10 ML FLUSH IV FLUSH SCH ×2 (08:29→22:08)
[2017-08-23] MEDS ORDERED: SODIUM CHLOR 0.9% 1000 ML INJ 1,000 ML IV ONE (09:30)
[2017-08-23] MEDS ORDERED: KETOROLAC TROMETHAMINE 10 MG TAB PO PRN (09:30)
[2017-08-23] MEDS ORDERED: ONDANSETRON HCL 4 MG/2 ML VIAL IV PUSH PRN (10:15)
[2017-08-23] MEDS ORDERED: diphenhydrAMINE HCL 25 MG CAP PO ONE (12:00)
--- NOTE | 2017-08-23 13:55 | HHI.FPPN ---
Subjective Remarks Patient was febrile overnight with temperature max of 100.4. Heart rate 80-109. Patient appears flushed this morning and complains of pain and not feeling very well: complains of pain in her legs and in her abdomen states it's diffuse. Denies focal pain in the lower back. States that it is diffuse and chronic. (Nataliya Balderas MD R1) Objective Vitals Vital Signs Date Time Temp Pulse Resp B/P (MAP) Pulse Ox O2 Delivery O2 Flow Rate FiO2 08/23/17 12:00 99.4 107 18 102/64 (77) 99 08/23/17 08:00 98.4 104 18 113/57 (75) 96 08/23/17 06:26 97 08/23/17 06:06 98.3 08/23/17 05:01 100.4 92 18 107/56 (73) 97 08/23/17 01:13 100.2 88 18 98/55 (69) 98 08/22/17 20:50 100.1 107 18 111/68 (82) 98 08/22/17 18:35 109 111/55 (73) 97 08/22/17 18:34 16 08/22/17 18:34 16 08/22/17 17:47 99.9 112 08/22/17 17:17 112 98/63 (75) 08/22/17 16:14 92 18 164/90 (114) 98 08/22/17 16:00 98.9 108 18 90/55 (67) 100 08/22/17 15:00 90 18 142/84 (103) 97 Room Air I/O 08/22/17 08/22/17 08/22/17 08/23/17 08/23/17 08/23/17 07:00 15:00 23:00 07:00 15:00 23:00 Intake Total 1350 ml 1112 ml Balance 1350 ml 1112 ml Intake IV Total 1350 ml 1112 ml # Voids 2 (Nataliya Balderas MD R1) Result Diagram: 08/23/17 0625 08/23/17 0625 Objective Remarks GENERAL: This is a disheveled, flushed, tanned woman who appears older than her age. In position in bed, appears flushed and uncomfortable. Complaining of pain. SKIN: 3x3 cm site of a healing hyperpigmented lesion draining minimal amounts of serous fluid from chin. Swelling of the chin and jaw area has significantly decreased since previous exam. 3 x 3 cm indurated, red, warm site at the left axilla. Is less indurated from previous exam. Redness of the face, neck, upper chest and arms, and belly. No rash. Blanches to touch. HEAD: Atraumatic. Normocephalic. EYES: Extraocular motions intact. No scleral icterus. No injection or drainage. Swelling, redness of the upper left eyelid. Slight conjunctivitis of the eye noted. ENT: Throat without erythema, tonsillar hypertrophy or exudate. Uvula midline. Airway patent. No oral ulcerations or growths. NECK: Trachea midline. No JVD or lymphadenopathy. CARDIOVASCULAR: Regular rate and rhythm without murmurs, gallops, or rubs. RESPIRATORY: Clear to auscultation. GASTROINTESTINAL: Abdomen soft, nondistended. Diffuse tenderness to palpation. No guarding. MUSCULOSKELETAL: Extremities without clubbing, cyanosis, or edema. No tenderness to palpation. NEUROLOGICAL: Awake and alert. No focal deficits. Motor and sensory grossly within normal limits. Normal speech. (Nataliya Balderas MD R1) A/P Assessment and Plan Patient is a 41-year-old female with a history of HIV who presents with facial cellulitis of her chin, left stye, and left axillary abscess. White count within normal limits, patient received Vanco and Zosyn 1 in the ED. Wound culture obtained from pustulant fluid from chin. Blood culture also obtained. IV vancomycin and Zosyn, consult ID, pain control, warm washcloth to apply to stye, and monitoring of symptoms initiated. Patient endorsed increased abdominal pain and lower extremity muscle pain. Abscess and facial cellulitis had significantly improved while on Vanco and Zosyn. However, skin appeared more reddened and patient was more comfortable. Decreased the rate of vancomycin and divided Benadryl. Ordered a CK to rule out myositis. (Nataliya Balderas MD R1) Attending Attestation Patient seen and examined with the resident team. Case reviewed and discussed with the resident team. Agree with exam and plan of care as discussed with me and documented in the resident note. Patient clinically much improved since her admission yesterday in regards to the clinical exam on the face and eyelid. possible reaction to vanco -- will monitor closely as well as renal function as her Cr has trended up a little. (Alma Davis MD) Problem List: (1) Abdominal pain ICD Codes: R10.9 - Unspecified abdominal pain Status: Acute Plan: Appears to be diffuse, tender to palpation, new onset today No elevated white count Order UA (2) Lower extremity pain, bilateral ICD Codes: M79.604 - Pain in right leg; M79.605 - Pain in left leg Status: Acute Plan: Patient endorses diffuse musculoskeletal pain, no associated edema No significant tenderness to palpation History of IV drug use Differential: withdrawal versus myositis versus dehydration Order CK 1 L saline bolus ordered this morning ESR and CRP ordered Continue IV maintenance fluids Has been on Toradol IV for pain. Creatinine is increased to 1.19 today from yesterday (1.08). Will discontinue [place] PRN for pain control (3) Facial cellulitis ICD Codes: L03.211 - Cellulitis of face Status: Acute Plan: Swelling and purulent drainage from the chin Wound culture obtained Blood cultures pending Patient may be having allergic reaction to vancomycin, she appeared significantly flushed and had redness of her upper chest, and upper arms Decrease rate of vancomycin, provide diphenhydramine Zosyn 3.375 IV every 6 hours ID consulted for history of HIV (4) Hordeolum externum left eye, unspecified eyelid ICD Codes: H00.016 - Hordeolum externum left eye, unspecified eyelid Plan: Apply warm, moist compresses to eye (5) Lower back pain ICD Codes: M54.5 - Low back pain Plan: No concern for abscess at this time Diffuse, tender to palpation of the paraspinal muscles Likely musculoskeletal and secondary to lower back strain (6) Abscess of left axilla ICD Codes: L02.412 - Cutaneous abscess of left axilla Plan: 3 x 3 mm indurated, warm, red site at the skin in the left axilla Appeared after shaving See above plan, continue antibiotics, will monitor (7) Hepatitis C ICD Codes: B19.20 - Unspecified viral hepatitis C without hepatic coma Plan: Patient has history per documentation of hepatitis C Patient visit hep C positive per viral panel Await HCV RNA PCR patient will need to follow up with health Department for outpatient treatment (8) HIV (human immunodeficiency virus infection) ICD Codes: Z21 - Asymptomatic human immunodeficiency virus [HIV] infection status Status: Chronic Plan: Patient states that she was taking 4-5 HIV medications chronically before she was incarcerated, this occurred around April Patient has been off HIV medications since April, has not followed up with any doctor since then ID consulted for treatment recommendations (9) IVDU (intravenous drug user) ICD Codes: F19.90 - Other psychoactive substance use, unspecified, uncomplicated Status: Chronic Plan: History of IV drug use with Dilaudid Last use 5 years ago; however, drug screens from hospitalization in 2017 were + for opiates and amphetamines Drug screen positive for opiates and cocaine Clonidine ordered 0.1 mg every 6 hours when necessary for agitation Hepatitis profile pending (10) FEN Plan: Fluid: Maintenance IV fluids Electrolytes: as needed Nutrition: Regular DVT prophy: not indicated (Nataliya Balderas MD R1) Problem Qualifiers (1) Hordeolum externum left eye, unspecified eyelid: Qualified Codes: H00.016 - Hordeolum externum left eye, unspecified eyelid Nataliya Balderas MD R1 Aug 23, 2017 13:55 Alma Davis MD Aug 23, 2017 16:16
[2017-08-23] MEDS ORDERED: ACETAMINOPHEN/HYDROcodone 325 MG/7.5 MG TAB PO PRN (14:45)
[2017-08-23] MEDS: ACETAMINOPHEN/HYDROcodone 325 MG/10 MG TAB PO PRN ×2 (16:42→22:08)
[2017-08-23] MEDS ORDERED: LINEZOLID 600 MG PREMIX 300 ML IV SCH (17:30)
--- NOTE | 2017-08-23 17:53 | HHI.IDPN ---
Note Infectious Disease Note Patient says she feels cold. Appears to be shivering. A temperature is 99. He still has some pain in the face of the chin. Her left eye swelling is decreased and she is able to open the left eye without difficulty. Wound culture from the face chin wound has staph aureus. 41-year-old white female who is known HIV positive. The patient presented to the emergency department after she developed pain in the face, as well as swelling of the face, fever, chills, nausea and vomiting and joint aches and pains. The patient notes that she popped a pimple at the mid lower chin a couple days ago and then she had spread of erythema and swelling of the face. She used a needle to break the pimple. She presented to the emergency department and was noted to have an excoriated area at the anterior chin and a small amount of purulent drainage. The patient has HIV disease and had been on HIV medications up until 03/2017. She was incarcerated and was found to have renal failure and her HIV medications were stopped in March. She is due to follow up with the [facility] for HIV management. PAST MEDICAL HISTORY: HIV, IV drug use in the past. The patient notes that she has not used drugs in 5 years. History of clavicle osteomyelitis, hysterectomy, cholecystectomy, hepatitis C. ALLERGIES: LEVAQUIN, AZTREONAM, EFAVIRENZ, EMTRICITABINE, TENOFOVIR. MEDICATIONS: Current Medications Medications (Trade) Dose Ordered Sig/Yolande Route PRN Reason Start Time Stop Time Status Last Admin Dose Admin Sodium Chloride (NS Flush) 2 ml UNSCH PRN IV FLUSH FLUSH AFTER USING IV ACCESS 08/22/17 09:45 Sodium Chloride (NS Flush) 2 ml BID IV FLUSH 08/22/17 21:00 08/22/17 23:52 Acetaminophen (Tylenol) 650 mg Q4H PRN PO TEMP > 100.4 08/22/17 09:45 08/23/17 04:26 Naloxone HCl (Narcan Inj) 0.4 mg UNSCH PRN IV PUSH SEE LABEL COMMENTS 08/22/17 09:45 Magnesium Hydroxide (Milk Of Magnesia Liq) 30 ml Q12H PRN PO Mild constipation 08/22/17 09:45 Sennosides (Senokot) 17.2 mg Q12H PRN PO Moderate constipation 08/22/17 09:45 Bisacodyl (Dulcolax Supp) 10 mg DAILY PRN RECTAL SEVERE CONSITIPATION 08/22/17 09:45 Lactulose (Lactulose Liq) 30 ml DAILY PRN PO SEVERE CONSITIPATION 08/22/17 09:45 Piperacillin Sod/ Tazobactam Sod 50 ml @ 100 mls/hr Q6H IV 08/22/17 12:00 08/23/17 16:44 Sodium Chloride 1,000 ml @ 115 mls/hr Q8H42M IV 08/22/17 17:30 08/23/17 08:35 Clonidine (Catapres) 0.1 mg Q6H PRN PO AGITATION 08/23/17 07:15 Ondansetron HCl (Zofran Inj) 4 mg Q6H PRN IV PUSH NAUSEA 08/23/17 10:15 08/23/17 11:31 Acetaminophen/ Hydrocodone Bitart ([place] 7.5-325 Mg) 1 tab Q4H PRN PO PAIN SCALE 1 TO 5 08/23/17 14:45 Acetaminophen/ Hydrocodone Bitart ([place] 10-325 Mg) 1 tab Q4H PRN PO PAIN SCALE 6 TO 10 08/23/17 14:45 08/23/17 16:42 Linezolid 300 ml @ 300 mls/hr Q12H IV 08/24/17 09:00 UNV SOCIAL HISTORY: No tobacco, no alcohol. The patient denied IV drug use to me. However, it is reported that she uses IV Dilaudid, occasional and that she used some time last week per the medical record. Objective: Vital Signs Date Time Temp Pulse Resp B/P (MAP) Pulse Ox O2 Delivery O2 Flow Rate FiO2 08/23/17 16:52 98.2 108 18 109/68 (82) 98 08/23/17 12:00 99.4 107 18 102/64 (77) 99 08/23/17 08:00 98.4 104 18 113/57 (75) 96 08/23/17 06:26 97 08/23/17 06:06 98.3 08/23/17 05:01 100.4 92 18 107/56 (73) 97 08/23/17 01:13 100.2 88 18 98/55 (69) 98 08/22/17 20:50 100.1 107 18 111/68 (82) 98 08/22/17 18:35 109 111/55 (73) 97 08/22/17 18:34 16 08/22/17 18:34 16 Laboratory Tests Test 08/22/17 21:50 08/23/17 00:00 08/23/17 06:25 Hepatitis A IgM Antibody NONREACTIVE Hepatitis B Surface Antigen NONREACTIVE Hepatitis B Core IgM Antibody NONREACTIVE Hepatitis C IgG Antibody REACTIVE Urine Opiates Screen POS Urine Barbiturates Screen NEG Urine Amphetamines Screen NEG Urine Benzodiazepines Screen NEG Urine Cocaine Screen POS Urine Cannabinoids Screen NEG White Blood Count 9.5 TH/MM3 Red Blood Count 3.59 MIL/MM3 Hemoglobin 11.1 GM/DL Hematocrit 32.4 % Mean Corpuscular Volume 90.2 FL Mean Corpuscular Hemoglobin 31.0 PG Mean Corpuscular Hemoglobin Concent 34.3 % Red Cell Distribution Width 14.7 % Platelet Count 146 TH/MM3 Mean Platelet Volume 10.9 FL Neutrophils (%) (Auto) 83.8 % Lymphocytes (%) (Auto) 9.9 % Monocytes (%) (Auto) 2.6 % Eosinophils (%) (Auto) 3.5 % Basophils (%) (Auto) 0.2 % Neutrophils # (Auto) 7.9 TH/MM3 Lymphocytes # (Auto) 0.9 TH/MM3 Monocytes # (Auto) 0.2 TH/MM3 Eosinophils # (Auto) 0.3 TH/MM3 Basophils # (Auto) 0.0 TH/MM3 CBC Comment DIFF FINAL Differential Comment Erythrocyte Sedimentation Rate 42 mm/hr Blood Urea Nitrogen 14 MG/DL Creatinine 1.19 MG/DL Random Glucose 93 MG/DL Total Protein 5.5 GM/DL Albumin 2.4 GM/DL Calcium Level 7.7 MG/DL Alkaline Phosphatase 65 U/L Aspartate Amino Transf (AST/SGOT) 22 U/L Alanine Aminotransferase (ALT/SGPT) 33 U/L Total Bilirubin 1.2 MG/DL Sodium Level 142 MEQ/L Potassium Level 3.4 MEQ/L Chloride Level 111 MEQ/L Carbon Dioxide Level 22.9 MEQ/L Anion Gap 8 MEQ/L Estimat Glomerular Filtration Rate 50 ML/MIN Total Creatine Kinase 61 U/L C-Reactive Protein 8.15 MG/DL PHYSICAL EXAMINATION: GENERAL: Awake and alert. HEENT: Head is atraumatic. The face is swollen. There is decreased edema of the left eyelid. There is decreased erythema and edema of the face and the chin has a rounded area of swelling and central aspect has a tiny dark punctate lesion. No palpable induration. The sclerae have no icterus. Pupils reactive. Oropharynx has moist mucosa. NECK: Supple without adenopathy. LYMPH NODES: Left axillary nodule, which is tender. LUNGS: Clear to auscultation. HEART: Regular rate and rhythm without murmurs, rubs or gallops. ABDOMEN: Bowel sounds present. Soft, less tenderness at the epigastric area. EXTREMITIES: No clubbing, cyanosis or edema. SKIN: No diffuse rash. NEUROLOGIC: Nonfocal. PSYCHIATRIC: Calm and cooperative. IMPRESSION: 1. Sepsis in patient with elevated heart rate, fever, tachycardia. Source likely facial cellulitis. 2. Facial cellulitis. Staph aureus the patient who broke a pustule from the chin. 3. 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 4. Chronic kidney disease. RECOMMENDATIONS: 1. Continue vancomycin. 2. Continue piperacillin/tazobactam. 3. Monitor the blood cultures. 4. Monitor wound culture. 5. Monitor renal function. 6. Hold off on any HIV medications since the patient has had ADVERSE EFFECTS FROM THE HIV TREATMENT. 7. Continue to treat for infection and monitor the cultures and clinical status. 8. Treatment for HIV should be considered as an outpatient. She should follow up with the Health Department to have medicines for HIV reinstated. There is no need to initiate HIV medications at this time. Whenever she started on HIV medications she will need to be observed for reaction. Simon Gonzalez MD Aug 23, 2017 17:53
[2017-08-23] MEDS ORDERED: BACLOFEN 10 MG TAB PO ONE (19:00)
[2017-08-23] MEDS ORDERED: diphenhydrAMINE HCL 25 MG CAP PO PRN ×2 (19:00→22:45)
[2017-08-23 19:09] LABS: BILIRUBIN, URINE NEG (NEG); BLOOD, URINE SMALL (NEG); GLUCOSE,URINE NEG (NEG); KETONE, URINE NEG (NEG); NITRITE,URINE NEG (NEG); PH, URINE 6.5 (5.0-8.5); SQUAMOUS EPITHELIAL CELL URINE 2 /hpf (0-5); URINE COLOR YELLOW (YELLW/STRAW); URINE LEUKOCYTE ESTERASE MOD (NEG)
[2017-08-23] MEDS ORDERED: LINEZOLID 600 MG TAB PO SCH (21:00)
[2017-08-23] MEDS ORDERED: VANCOMYCIN INJ 1,500 MG in SODIUM CHLORID 0.9% 500 ML INJ 500 ML IV SCH (21:00)
[2017-08-23] MEDS ORDERED: diphenhydrAMINE HCL 50 MG CAP PO ONE (22:30)
[2017-08-24] VITALS (7 sets, daily range): BP systolic 97–126; BP diastolic 55–73; PULSE 69–98; RESP 17–20; TEMP 97.4–101.7; O2SAT 97–99
[2017-08-24] MEDS ORDERED: ACETAMINOPHEN 1000 MG/100 ML 100 ML IV ONE (01:00)
[2017-08-24] MEDS: PIPERACIL-TAZO 3.375 GM PREMIX 50 ML IV SCH ×2 (01:30→07:09)
[2017-08-24] MEDS ORDERED: BACITRACIN TOP OINT 15 GM TUBE TOPICAL PRN (03:45)
[2017-08-24] MEDS: SODIUM CHLOR 0.9% 1000 ML INJ 1,000 ML IV SCH ×3 (06:22→23:09)
[2017-08-24] MEDS ORDERED: POTASSIUM CHLORIDE 10 MEQ CONTROLLED RELEASE TAB PO ONE (07:30)
[2017-08-24] MEDS: ACETAMINOPHEN/HYDROcodone 325 MG/10 MG TAB PO PRN ×2 (07:56→16:04)
[2017-08-24] MEDS: SODIUM CHLORIDE 0.9% FLUSH 10 ML FLUSH IV FLUSH SCH ×2 (07:57→20:55)
--- NOTE | 2017-08-24 08:40 | HHI.FPPN ---
Subjective Remarks Patient states is feeling better than yesterday. However, last night, had severe muscle spasms that made it difficult to walk - almost needed assistance leaving the bathroom. Given baclofen x1, which improved her symptoms. Also complained of itchiness, hives, and reddened skin. Vanc was replaced w/ Linezolid yesterday. Patient also received Benadryl x2. Abdominal pain has resolved. Patient is eating and drinking, however less than usual. 2 bowel movements yesterday. Thinks the abscess in her left axilla is getting bigger, states that it is tender. (Nataliya Balderas MD R1) Objective Vitals Vital Signs Date Time Temp Pulse Resp B/P (MAP) Pulse Ox O2 Delivery O2 Flow Rate FiO2 08/24/17 07:58 99.2 91 20 101/61 (74) 97 08/24/17 04:29 99.2 91 17 108/72 (84) 98 08/24/17 00:01 101.7 98 17 119/66 (83) 97 08/23/17 20:34 100.2 103 17 100/61 (74) 99 08/23/17 16:52 98.2 108 18 109/68 (82) 98 08/23/17 12:00 99.4 107 18 102/64 (77) 99 I/O 08/23/17 08/23/17 08/23/17 08/24/17 08/24/17 08/24/17 07:00 15:00 23:00 07:00 15:00 23:00 Intake Total 1112 ml 849 ml 1375 ml Balance 1112 ml 849 ml 1375 ml Intake Oral 120 ml IV Total 1112 ml 849 ml 1255 ml # Voids 2 2 2 # Bowel Movements 1 (Nataliya Balderas MD R1) Result Diagram: 08/23/17 0625 08/23/17 0625 Objective Remarks GENERAL: This is a disheveled, flushed, tanned woman who appears older than her age. His scratching at her skin, complains of itchiness. Multiple hives are seen on the arms and legs. SKIN: 3x3 cm site of a healing lesion draining minimal amounts of serous fluid from chin. Swelling of the chin and jaw area has significantly decreased since previous exam. 5 x 4 cm indurated, red, warm site at the left axilla. Redness of the face, neck, upper chest and arms, and belly. No rash. Blanches to touch. HEAD: Atraumatic. Normocephalic. EYES: Extraocular motions intact. No scleral icterus. No injection or drainage. Swelling and redness of the upper left eyelid has improved significantly. ENT: Throat without erythema, tonsillar hypertrophy or exudate. Uvula midline. Airway patent. No oral ulcerations or growths. NECK: Trachea midline. No JVD or lymphadenopathy. CARDIOVASCULAR: Regular rate and rhythm without murmurs, gallops, or rubs. RESPIRATORY: Clear to auscultation. GASTROINTESTINAL: Abdomen soft, nondistended. No tenderness to palpation. No guarding. MUSCULOSKELETAL: Mild edema at the ankles, nonpitting. NEUROLOGICAL: Awake and alert. No focal deficits. Motor and sensory grossly within normal limits. Normal speech. (Nataliya Balderas MD R1) A/P Assessment and Plan Patient is a 41-year-old female with a history of HIV who presents with facial cellulitis of her chin, left eye hordeolum, and left axillary abscess. White count within normal limits, patient received Vanco and Zosyn 1 in the ED. Wound culture obtained from pustulant fluid from chin. Blood culture also obtained. IV vancomycin and Zosyn, consult ID, pain control, warm washcloth to apply to stye, and monitoring of symptoms initiated. Patient endorsed increased abdominal pain and lower extremity muscle pain. Abscess and facial cellulitis had significantly improved while on Vanco and Zosyn. However, skin appeared more reddened and patient was more uncomfortable. Vancomycin was replaced w/ Linezolid and benadryl was given due to suspicion of vancomycin allergy. Improvement in hordeolum improved. Continued to have fevers and complained of increased muscle spasms, was given baclofen once, which improved symptoms and continued to receive benadryl for redness of skin, hives, and itching. L axillary abscess site has become more swollen - larger size of induration, however it is softer. Advise to apply warm compresses 2-3 hours to encourage fluctuance and drainage. Plan to continue Abx and monitor. (Nataliya Balderas MD R1) Attending Attestation Patient seen and examined. Case reviewed and discussed with the resident team. Agree with plan of care as discussed with me and documented in the resident note. Patient clinically much improved, chin abcess actively draining. Patient reports right axilla a little worse with pain today. Redness and skin better with the Benadryl. ID recs seen and antibiotics now adjusted based on the sensitivities. Continue IV antibiotics and would anticipate 2-3 more days of IV coverage needed in this patient. (Alma Davis MD) Problem List: (1) Sepsis ICD Codes: A41.9 - Sepsis, unspecified organism Status: Acute Plan: Febrile to Tmax 101.7 overnight HR 91-103 BP 100/61-108/72 s/p Vanc for 2 days (08/22-08/23) Wound cx Staph + positive, sensitive to linezolid Receiving maintenance IVF Linezolid started today 300 Q12H (08/24-) Zosyn Day#3 (08/22-) Blood cx 08/24 pending; blood cx from 08/22 pending consider fluid bolus if SBP<100 (2) Lower extremity pain, bilateral ICD Codes: M79.604 - Pain in right leg; M79.605 - Pain in left leg Status: Acute Plan: Patient endorses diffuse musculoskeletal pain No significant tenderness to palpation, no swelling History of IV drug use Differential: withdrawal versus muscle spasm versus myositis Pending CK, ESR, CRP Continue IV maintenance fluids [place] PRN for pain control Give baclofen as needed for severe muscle spasm. However it is explained to patient that this will be only used temporarily and as needed (3) Abdominal pain ICD Codes: R10.9 - Unspecified abdominal pain Status: Resolved Plan: Pain is resolved today. Only endorses minimal upper right upper quadrant pain that has been constant since admission. (4) Abscess of left axilla ICD Codes: L02.412 - Cutaneous abscess of left axilla Plan: Has worsened 5 x 4 mm indurated, warm, red site at the skin in the left axilla on admission Apply warm compresses q2-3 hrs to encourage formation of fluctuance (5) Facial cellulitis ICD Codes: L03.211 - Cellulitis of face Status: Acute Plan: Swelling and purulent drainage from the chin Wound culture obtained Blood cultures pending Patient may be having allergic reaction to vancomycin, she appeared significantly flushed and had redness of her upper chest, and upper arms Linezolid 300 Q12 IV Zosyn 3.375 IV every 6 hours Bacitracin ointment for chin (6) Hordeolum externum left eye, unspecified eyelid ICD Codes: H00.016 - Hordeolum externum left eye, unspecified eyelid Plan: Significantly improved Apply warm, moist compresses to eye (7) Lower back pain ICD Codes: M54.5 - Low back pain Status: Chronic Plan: Improved Likely musculoskeletal and secondary to lower back strain (8) Hepatitis C ICD Codes: B19.20 - Unspecified viral hepatitis C without hepatic coma Plan: Patient has history per documentation of hepatitis C Patient visit hep C positive per viral panel Await HCV RNA PCR patient will need to follow up with health Department for outpatient treatment (9) HIV (human immunodeficiency virus infection) ICD Codes: Z21 - Asymptomatic human immunodeficiency virus [HIV] infection status Status: Chronic Plan: Patient states that she was taking 4-5 HIV medications chronically before she was incarcerated, this occurred around April Patient has been off HIV medications since April, has not followed up with any doctor since then ID consulted for treatment recommendations (10) IVDU (intravenous drug user) ICD Codes: F19.90 - Other psychoactive substance use, unspecified, uncomplicated Status: Chronic Plan: History of IV drug use with Dilaudid Last use 5 years ago; however, drug screens from hospitalization in 2017 were + for opiates and amphetamines Drug screen positive for opiates and cocaine Clonidine ordered 0.1 mg every 6 hours when necessary for agitation Hepatitis profile pending (11) FEN Plan: Fluid: Maintenance IV fluids Electrolytes: as needed Nutrition: Regular DVT prophy: not indicated (Nataliya Balderas MD R1) Problem Qualifiers (1) Sepsis: Qualified Codes: A41.9 - Sepsis, unspecified organism (2) Hordeolum externum left eye, unspecified eyelid: Qualified Codes: H00.016 - Hordeolum externum left eye, unspecified eyelid Nataliya Balderas MD R1 Aug 24, 2017 08:40 Alma Davis MD Aug 24, 2017 15:45
[2017-08-24] MEDS ORDERED: BACLOFEN 10 MG TAB PO PRN (08:45)
[2017-08-24] MEDS ORDERED: LINEZOLID 600 MG PREMIX 300 ML IV SCH (09:00)
[2017-08-24] MEDS ORDERED: LINEZOLID 600 MG TAB PO SCH (09:00)
[2017-08-24 09:38] LABS: HEMATOCRIT 30.1 % (35.0-46.0); HEMOGLOBIN 10.1 GM/DL (11.6-15.3); MEAN CELL VOLUME 90.5 FL (80.0-100.0); MEAN CORPUSCULAR HEMOGLOBIN 30.5 PG (27.0-34.0); MEAN CORPUSCULAR HGB CONC 33.7 % (32.0-36.0); MEAN PLATELET VOLUME 10.5 FL (7.0-11.0); PLATELET COUNT 156 TH/MM3 (150-450); RED BLOOD COUNT 3.32 MIL/MM3 (4.00-5.30); RED CELL DISTRIBUTION WIDTH 14.6 % (11.6-17.2); WHITE BLOOD COUNT 6.8 TH/MM3 (4.0-11.0)
[2017-08-24 10:32] LABS: ALBUMIN 2.3 GM/DL (3.4-5.0); BICARBONATE 20.8 MEQ/L (21.0-32.0); BLOOD UREA NITROGEN 10 MG/DL (7-18); CHLORIDE 111 MEQ/L (98-107); CREATININE 1.12 MG/DL (0.50-1.00); GLOMERULAR FILTRATION RATE 53 ML/MIN (>89); GLUCOSE,RANDOM 137 MG/DL (74-106); SODIUM (NA) 140 MEQ/L (136-145)
[2017-08-24 10:34] LABS: ALT (GPT) 36 U/L (10-53); AST (GOT) 25 U/L (15-37)
[2017-08-24 10:36] LABS: ALKALINE PHOSPHATASE 61 U/L (45-117); TOTAL BILIRUBIN ADULT 0.5 MG/DL (0.2-1.0); TOTAL PROTEIN 5.3 GM/DL (6.4-8.2)
[2017-08-24] MEDS: diphenhydrAMINE HCL 25 MG CAP PO PRN ×2 (10:39→20:53)
--- NOTE | 2017-08-24 12:10 | HHI.IDPN ---
Note Infectious Disease Note Patient is feeling better. She developed a rash yesterday evening. She has diffuse macular erythema over the entire body. Notes itching of the skin. Temperature is lower. She notes that a lesion at the lower gum broke and she is spat out some purulent material. Rest pain in the face. Left eye no completely opened and decreased edema and erythema.. Wound culture from the face chin wound has staph aureus. MSSA. 41-year-old white female who is known HIV positive. The patient presented to the emergency department after she developed pain in the face, as well as swelling of the face, fever, chills, nausea and vomiting and joint aches and pains. The patient notes that she popped a pimple at the mid lower chin a couple days ago and then she had spread of erythema and swelling of the face. She used a needle to break the pimple. She presented to the emergency department and was noted to have an excoriated area at the anterior chin and a small amount of purulent drainage. The patient has HIV disease and had been on HIV medications up until 03/2017. She was incarcerated and was found to have renal failure and her HIV medications were stopped in March. She is due to follow up with the [facility] for HIV management. PAST MEDICAL HISTORY: HIV, IV drug use in the past. The patient notes that she has not used drugs in 5 years. History of clavicle osteomyelitis, hysterectomy, cholecystectomy, hepatitis C. ALLERGIES: LEVAQUIN, AZTREONAM, EFAVIRENZ, EMTRICITABINE, TENOFOVIR. MEDICATIONS: Current Medications Medications (Trade) Dose Ordered Sig/Yolande Route PRN Reason Start Time Stop Time Status Last Admin Dose Admin Sodium Chloride (NS Flush) 2 ml UNSCH PRN IV FLUSH FLUSH AFTER USING IV ACCESS 08/22/17 09:45 Sodium Chloride (NS Flush) 2 ml BID IV FLUSH 08/22/17 21:00 08/23/17 22:08 Acetaminophen (Tylenol) 650 mg Q4H PRN PO TEMP > 100.4 08/22/17 09:45 08/23/17 22:45 Naloxone HCl (Narcan Inj) 0.4 mg UNSCH PRN IV PUSH SEE LABEL COMMENTS 08/22/17 09:45 Magnesium Hydroxide (Milk Of Magnesia Liq) 30 ml Q12H PRN PO Mild constipation 08/22/17 09:45 Sennosides (Senokot) 17.2 mg Q12H PRN PO Moderate constipation 08/22/17 09:45 Bisacodyl (Dulcolax Supp) 10 mg DAILY PRN RECTAL SEVERE CONSITIPATION 08/22/17 09:45 Lactulose (Lactulose Liq) 30 ml DAILY PRN PO SEVERE CONSITIPATION 08/22/17 09:45 Piperacillin Sod/ Tazobactam Sod 50 ml @ 100 mls/hr Q6H IV 08/22/17 12:00 08/24/17 07:09 Sodium Chloride 1,000 ml @ 115 mls/hr Q8H42M IV 08/22/17 17:30 08/23/17 19:32 Clonidine (Catapres) 0.1 mg Q6H PRN PO AGITATION 08/23/17 07:15 Ondansetron HCl (Zofran Inj) 4 mg Q6H PRN IV PUSH NAUSEA 08/23/17 10:15 08/23/17 11:31 Acetaminophen/ Hydrocodone Bitart ([place] 7.5-325 Mg) 1 tab Q4H PRN PO PAIN SCALE 1 TO 5 08/23/17 14:45 Acetaminophen/ Hydrocodone Bitart ([place] 10-325 Mg) 1 tab Q4H PRN PO PAIN SCALE 6 TO 10 08/23/17 14:45 08/24/17 07:56 Linezolid 300 ml @ 300 mls/hr Q12H IV 08/24/17 09:00 08/24/17 07:57 Bacitracin (Baciguent Oint) 1 applic Q12HR PRN TOPICAL CELLULITIS 08/24/17 03:45 08/24/17 07:58 Diphenhydramine HCl (Benadryl) 25 mg Q4H PRN PO ITCHING 08/24/17 08:30 08/24/17 10:39 Baclofen (Lioresal) 10 mg ONCE PRN PO SPASM 08/24/17 08:45 08/24/17 23:00 SOCIAL HISTORY: No tobacco, no alcohol. The patient denied IV drug use to me. However, it is reported that she uses IV Dilaudid, occasional and that she used some time last week per the medical record. Objective: Vital Signs Date Time Temp Pulse Resp B/P (MAP) Pulse Ox O2 Delivery O2 Flow Rate FiO2 3/20/18 11:42 97.4 84 20 126/73 (90) 99 08/24/17 09:57 97 08/24/17 07:58 99.2 91 20 101/61 (74) 97 08/24/17 04:29 99.2 91 17 108/72 (84) 98 08/24/17 00:01 101.7 98 17 119/66 (83) 97 08/23/17 20:34 100.2 103 17 100/61 (74) 99 08/23/17 16:52 98.2 108 18 109/68 (82) 98 Laboratory Tests Test 08/23/17 06:25 08/24/17 09:02 White Blood Count 9.5 TH/MM3 6.8 TH/MM3 Red Blood Count 3.59 MIL/MM3 3.32 MIL/MM3 Hemoglobin 11.1 GM/DL 10.1 GM/DL Hematocrit 32.4 % 30.1 % Mean Corpuscular Volume 90.2 FL 90.5 FL Mean Corpuscular Hemoglobin 31.0 PG 30.5 PG Mean Corpuscular Hemoglobin Concent 34.3 % 33.7 % Red Cell Distribution Width 14.7 % 14.6 % Platelet Count 146 TH/MM3 156 TH/MM3 Mean Platelet Volume 10.9 FL 10.5 FL Neutrophils (%) (Auto) 83.8 % Lymphocytes (%) (Auto) 9.9 % Monocytes (%) (Auto) 2.6 % Eosinophils (%) (Auto) 3.5 % Basophils (%) (Auto) 0.2 % Neutrophils # (Auto) 7.9 TH/MM3 Lymphocytes # (Auto) 0.9 TH/MM3 Monocytes # (Auto) 0.2 TH/MM3 Eosinophils # (Auto) 0.3 TH/MM3 Basophils # (Auto) 0.0 TH/MM3 CBC Comment DIFF FINAL Differential Comment Erythrocyte Sedimentation Rate 42 mm/hr Laboratory Tests Test 08/23/17 06:25 08/24/17 08:36 Blood Urea Nitrogen 14 MG/DL 10 MG/DL Creatinine 1.19 MG/DL 1.12 MG/DL Random Glucose 93 MG/DL 137 MG/DL Total Protein 5.5 GM/DL 5.3 GM/DL Albumin 2.4 GM/DL 2.3 GM/DL Calcium Level 7.7 MG/DL 8.0 MG/DL Alkaline Phosphatase 65 U/L 61 U/L Aspartate Amino Transf (AST/SGOT) 22 U/L 25 U/L Alanine Aminotransferase (ALT/SGPT) 33 U/L 36 U/L Total Bilirubin 1.2 MG/DL 0.5 MG/DL Sodium Level 142 MEQ/L 140 MEQ/L Potassium Level 3.4 MEQ/L 3.8 MEQ/L Chloride Level 111 MEQ/L 111 MEQ/L Carbon Dioxide Level 22.9 MEQ/L 20.8 MEQ/L Anion Gap 8 MEQ/L 8 MEQ/L Estimat Glomerular Filtration Rate 50 ML/MIN 53 ML/MIN Total Creatine Kinase 61 U/L C-Reactive Protein 8.15 MG/DL 5.00 MG/DL Microbiology Date/Time Source Procedure Growth Status 08/24/17 08:56 Blood Peripheral Aerobic Blood Culture Pending Received 08/24/17 08:56 Blood Peripheral Anaerobic Blood Culture Pending Received 08/24/17 08:50 Blood Peripheral Aerobic Blood Culture Pending Received 08/24/17 08:50 Blood Peripheral Anaerobic Blood Culture Pending Received 08/22/17 05:50 Blood Peripheral Aerobic Blood Culture - Preliminary NO GROWTH IN 2 DAYS Resulted 08/22/17 05:50 Blood Peripheral Anaerobic Blood Culture - Preliminary NO GROWTH IN 2 DAYS Resulted 08/22/17 05:45 Blood Peripheral Aerobic Blood Culture - Preliminary NO GROWTH IN 2 DAYS Resulted 08/22/17 05:45 Blood Peripheral Anaerobic Blood Culture - Preliminary NO GROWTH IN 2 DAYS Resulted 08/23/17 18:53 Urine Clean Catch Urine Culture Pending Received 08/22/17 05:55 Wound Face Gram Stain - Final Complete 08/22/17 05:55 Wound Culture - Final Staphylococcus Aureus Complete PHYSICAL EXAMINATION: GENERAL: Awake and alert. HEENT: Head is atraumatic. The face swelling is resolved. There is decreased edema of the left eyelid. There is decreased erythema and edema of the face and the chin has a rounded area of swelling and central aspect has a tiny dark punctate lesion. No palpable induration. The sclerae have no icterus. Pupils reactive. Oropharynx has moist mucosa. NECK: Supple without adenopathy. LYMPH NODES: Left axillary nodule, which is tender. LUNGS: Clear to auscultation. HEART: Regular rate and rhythm without murmurs, rubs or gallops. ABDOMEN: Bowel sounds present. Soft, less tenderness at the epigastric area. EXTREMITIES: No clubbing, cyanosis or edema. SKIN: No diffuse rash. NEUROLOGIC: Nonfocal. PSYCHIATRIC: Calm and cooperative. IMPRESSION: 1. Sepsis in patient with elevated heart rate, fever, tachycardia. Source likely facial cellulitis. 2. Facial cellulitis. MSSA. 3. Abscess of the chin. 4. 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 5. Chronic kidney disease. 6. Skin rash. Allergic drug reaction. Possibly vancomycin but could also be due to Zosyn. RECOMMENDATIONS: 1. Stop vancomycin. 2. Stop piperacillin/tazobactam. 3. Begin intravenous Ancef. Monitor the rash for resolution. 4. Monitor renal function. 5. Hold off on any HIV medications since the patient has had ADVERSE EFFECTS FROM THE HIV TREATMENT. 6. Monitor clinical status. If she continues to improve she may be able to be switched to oral antibiotic in a couple of days. 7. Monitor temperature. Treatment for HIV should be considered as an outpatient. She should follow up with the Health Department to have medicines for HIV reinstated. There is no need to initiate HIV medications at this time. Whenever she started on HIV medications she will need to be observed for reaction. Simon Gonzalez MD Aug 24, 2017 12:10
[2017-08-25 00:40] VITALS: BP 128/80; PULSE 64; RESP 20; TEMP 98.1; O2SAT 96
[2017-08-25 04:41] VITALS: BP 114/74; PULSE 80; RESP 18; TEMP 98.5; O2SAT 99
[2017-08-25] MEDS ORDERED: PHARMACY ORDERED LAB ONE ×2 (04:45→08:45)
[2017-08-25 08:09] VITALS: BP 123/98; PULSE 77; RESP 20; TEMP 97.7; O2SAT 98
[2017-08-25] MEDS: diphenhydrAMINE HCL 25 MG CAP PO PRN (08:35)
[2017-08-25] MEDS: ACETAMINOPHEN/HYDROcodone 325 MG/10 MG TAB PO PRN (08:36)
[2017-08-25] MEDS: SODIUM CHLORIDE 0.9% FLUSH 10 ML FLUSH IV FLUSH SCH ×2 (08:36→22:07)
[2017-08-25] MEDS ORDERED: BACLOFEN 10 MG TAB PO PRN (08:45)
[2017-08-25] MEDS ORDERED: ACETAMINOPHEN/HYDROcodone 325 MG/5 MG TAB PO PRN (08:45)
[2017-08-25 09:55] LABS: HEMATOCRIT 36.3 % (35.0-46.0); HEMOGLOBIN 12.4 GM/DL (11.6-15.3); MEAN CELL VOLUME 90.2 FL (80.0-100.0); MEAN CORPUSCULAR HEMOGLOBIN 30.8 PG (27.0-34.0); MEAN CORPUSCULAR HGB CONC 34.1 % (32.0-36.0); RED BLOOD COUNT 4.03 MIL/MM3 (4.00-5.30); RED CELL DISTRIBUTION WIDTH 14.6 % (11.6-17.2); WHITE BLOOD COUNT 5.2 TH/MM3 (4.0-11.0)
[2017-08-25 10:20] LABS: ALBUMIN 2.9 GM/DL (3.4-5.0); ALT (GPT) 36 U/L (10-53); AST (GOT) 21 U/L (15-37); BICARBONATE 24.7 MEQ/L (21.0-32.0); BLOOD UREA NITROGEN 6 MG/DL (7-18); CALCIUM 8.8 MG/DL (8.5-10.1); CHLORIDE 107 MEQ/L (98-107); CREATININE 0.98 MG/DL (0.50-1.00); GLOMERULAR FILTRATION RATE 62 ML/MIN (>89); GLUCOSE,RANDOM 93 MG/DL (74-106); SODIUM (NA) 140 MEQ/L (136-145)
[2017-08-25 10:23] LABS: ALKALINE PHOSPHATASE 72 U/L (45-117); TOTAL BILIRUBIN ADULT 0.4 MG/DL (0.2-1.0); TOTAL PROTEIN 6.7 GM/DL (6.4-8.2)
[2017-08-25 10:46] LABS: PLATELET COUNT 160 TH/MM3 (150-450)
--- NOTE | 2017-08-25 11:12 | HHI.FPPN ---
Subjective Remarks Patient states she is feeling better today. Pain is well controlled, eating and drinking, redness of skin and itchiness has improved. Reports itchiness and rash under chin. Only received diphenhydramine once last night. Complains of continued muscle spasms - had to hold onto sink when brushing teeth. Worse w/ walking. Baclofen helped, received once yesterday. Wt gain from 75.6 kg to 78.5 over course of hospitalization. Weight stable from yesterday, no weight gain. Good output: 0.5/0.8 in last 12 hours, 2.7/2.8 yesterday. Vitals were stable overnight, afebrile. Patient has been applying warm compresses to left axilla. (Nataliya Balderas MD R1) Objective Vitals Vital Signs Date Time Temp Pulse Resp B/P (MAP) Pulse Ox O2 Delivery O2 Flow Rate FiO2 08/25/17 08:09 97.7 77 20 123/98 (106) 98 08/25/17 04:41 98.5 80 18 114/74 (87) 99 08/25/17 00:40 98.1 64 20 128/80 (96) 96 08/24/17 21:00 98.4 69 18 116/72 (87) 99 08/24/17 16:45 98.7 82 20 97/55 (69) 99 08/24/17 11:42 97.4 84 20 126/73 (90) 99 I/O 08/24/17 08/24/17 08/24/17 08/25/17 08/25/17 08/25/17 07:00 15:00 23:00 07:00 15:00 23:00 Intake Total 1375 ml 1820 ml 1852 ml 542 ml Output Total 700 ml 3100 ml 800 ml Balance 1375 ml 1120 ml -1248 ml -258 ml Intake Oral 120 ml 820 ml 900 ml IV Total 1255 ml 1000 ml 952 ml 542 ml Output Urine Total 700 ml 3100 ml 800 ml # Voids 2 2 # Bowel Movements 1 0 (Nataliya Balderas MD R1) Result Diagram: 08/25/1792708/25/17927 Objective Remarks GENERAL: This is a tanned woman who appears older than her age sitting comfortably in bed, eating breakfast. SKIN: 3x3 cm site of a healing lesion draining minimal amounts of serous fluid from chin. No associated swelling (significant improvement from previous exam). Maculopapular rash along jaw line, patient is scratching it. 5x3 cm site of induration and faint erythema. Tender to palpation. No significant change from previous exam other than less induration. HEAD: Atraumatic. Normocephalic. EYES: Extraocular motions intact.No injection or drainage. Swelling and redness of the upper left eyelid has improved significantly. ENT: Airway patent. NECK: Trachea midline. CARDIOVASCULAR: Regular rate and rhythm without murmurs, gallops, or rubs. RESPIRATORY: Faint crackles heard in lower lobes. Good airflow. Satting well on room air, breathing comfortably. GASTROINTESTINAL: Abdomen soft, nondistended. No tenderness to palpation. No guarding. MUSCULOSKELETAL: No edema or ulcerations at extremities. NEUROLOGICAL: Awake and alert. No focal deficits. Motor and sensory grossly within normal limits. Normal speech. (Nataliya Balderas MD R1) A/P Assessment and Plan Patient is a 41-year-old female with a history of HIV who presents with facial cellulitis of her chin, left eye hordeolum, and left axillary abscess. White count within normal limits, patient received Vanco and Zosyn 1 in the ED. Wound culture obtained from pustulant fluid from chin. Blood culture also obtained. IV vancomycin and Zosyn, consult ID, pain control, warm washcloth to apply to stye, and monitoring of symptoms initiated. Patient endorsed increased abdominal pain and lower extremity muscle pain. Abscess and facial cellulitis had significantly improved while on Vanco and Zosyn. However, skin appeared more reddened and patient was more uncomfortable. Vancomycin was replaced w/ Linezolid and benadryl was given due to suspicion of vancomycin allergy. Improvement in hordeolum improved. Continued to have fevers and complained of increased muscle spasms, was given baclofen once, which improved symptoms and continued to receive benadryl for redness of skin, hives, and itching. L axillary abscess site became more swollen - larger size of induration, however it is softer. Advised to apply warm compresses 2-3 hours to encourage fluctuance and drainage. Per ID recs, patient switched to IV Ancef. Today, improvement in itching, redness, and all pain. Fluids discontinued, pain meds scaled back. Plan to transition to oral and consider D/C for tomorrow. Discharge Planning D/C likely tomorrow. Contacted CM about helping patient affording antibiotics on discharge as her social situation is tenuous. (Nataliya Balderas MD R1) Attending Attestation Patient seen and examined. Case reviewed and discussed with the resident team. Agree with plan of care as discussed with me and documented in the resident note. (Alma Davis MD) Problem List: (1) Lower extremity pain, bilateral ICD Codes: M79.604 - Pain in right leg; M79.605 - Pain in left leg Status: Resolved Plan: Patient endorsed diffuse musculoskeletal pain History of IV drug use Differential: withdrawal versus muscle spasm versus myositis D/C fluids [place] PRN for pain control baclofen as needed for severe muscle spasm x1 PRN today (2) Facial cellulitis ICD Codes: L03.211 - Cellulitis of face Status: Acute Plan: Swelling and purulent drainage from the chin on admission Wound culture Staph A + sensitive to Bactrim and Clinda Blood cultures pending Allergic reaction to vancomycin, she appeared significantly flushed and had redness of her upper chest, and upper arms Improved IV Ancef Bacitracin ointment for chin Appreciate ID recs (3) Abscess of left axilla ICD Codes: L02.412 - Cutaneous abscess of left axilla Plan: Stable 5 x 4 mm indurated, warm, red site at the skin in the left axilla Apply warm compresses q2-3 hrs to encourage formation of fluctuance Consider drainage (4) Hordeolum externum left eye, unspecified eyelid ICD Codes: H00.016 - Hordeolum externum left eye, unspecified eyelid Status: Resolved Plan: Significantly improved Apply warm, moist compresses to eye (5) Lower back pain ICD Codes: M54.5 - Low back pain Status: Chronic Plan: Likely musculoskeletal and secondary to lower back strain (6) Hepatitis C ICD Codes: B19.20 - Unspecified viral hepatitis C without hepatic coma Plan: Patient has history per documentation of hepatitis C Patient visit hep C positive per viral panel Await HCV RNA PCR patient will need to follow up with health Department for outpatient treatment (7) HIV (human immunodeficiency virus infection) ICD Codes: Z21 - Asymptomatic human immunodeficiency virus [HIV] infection status Status: Chronic Plan: Patient states that she was taking 4-5 HIV medications chronically before she was incarcerated, this occurred around April Patient has been off HIV medications since April, has not followed up with any doctor since then ID consulted for treatment recommendations (8) IVDU (intravenous drug user) ICD Codes: F19.90 - Other psychoactive substance use, unspecified, uncomplicated Status: Chronic Plan: History of IV drug use with Dilaudid Last use 5 years ago; however, drug screens from hospitalization in 2017 were + for opiates and amphetamines Drug screen positive for opiates and cocaine Clonidine ordered 0.1 mg every 6 hours when necessary for agitation Hepatitis profile pending (9) FEN Plan: Fluid: None Electrolytes: as needed Nutrition: Regular DVT prophy: not indicated (Nataliya Balderas MD R1) Problem Qualifiers (1) Hordeolum externum left eye, unspecified eyelid: Qualified Codes: H00.016 - Hordeolum externum left eye, unspecified eyelid Nataliya Balderas MD R1 Aug 25, 2017 11:12 Alma Davis MD Aug 26, 2017 08:06
[2017-08-25 12:06] VITALS: BP 120/78; PULSE 70; RESP 20; TEMP 97.7; O2SAT 97
[2017-08-25 16:00] VITALS: BP 127/93; PULSE 77; RESP 20; TEMP 98.5; O2SAT 99
--- NOTE | 2017-08-25 18:24 | HHI.IDPN ---
Note Infectious Disease Note Patient is feeling a lot better. She is sitting up in the bed. Only complaint is pain at the calf muscles when she walks. She denies chills or nausea or vomiting. Facial redness and swelling has markedly improved. She still has an area of erythema around the mid chin. 41-year-old white female who is known HIV positive. The patient presented to the emergency department after she developed pain in the face, as well as swelling of the face, fever, chills, nausea and vomiting and joint aches and pains. The patient notes that she popped a pimple at the mid lower chin a couple days ago and then she had spread of erythema and swelling of the face. She used a needle to break the pimple. She presented to the emergency department and was noted to have an excoriated area at the anterior chin and a small amount of purulent drainage. The patient has HIV disease and had been on HIV medications up until 03/2017. She was incarcerated and was found to have renal failure and her HIV medications were stopped in March. She is due to follow up with the [facility] for HIV management. PAST MEDICAL HISTORY: HIV, IV drug use in the past. The patient notes that she has not used drugs in 5 years. History of clavicle osteomyelitis, hysterectomy, cholecystectomy, hepatitis C. ALLERGIES: LEVAQUIN, AZTREONAM, EFAVIRENZ, EMTRICITABINE, TENOFOVIR. MEDICATIONS: Current Medications Medications (Trade) Dose Ordered Sig/Yolande Route PRN Reason Start Time Stop Time Status Last Admin Dose Admin Sodium Chloride (NS Flush) 2 ml UNSCH PRN IV FLUSH FLUSH AFTER USING IV ACCESS 08/22/17 09:45 Sodium Chloride (NS Flush) 2 ml BID IV FLUSH 08/22/17 21:00 08/25/17 08:36 Acetaminophen (Tylenol) 650 mg Q4H PRN PO TEMP > 100.4 08/22/17 09:45 08/23/17 22:45 Naloxone HCl (Narcan Inj) 0.4 mg UNSCH PRN IV PUSH SEE LABEL COMMENTS 08/22/17 09:45 Magnesium Hydroxide (Milk Of Magnesia Liq) 30 ml Q12H PRN PO Mild constipation 08/22/17 09:45 Sennosides (Senokot) 17.2 mg Q12H PRN PO Moderate constipation 08/22/17 09:45 Bisacodyl (Dulcolax Supp) 10 mg DAILY PRN RECTAL SEVERE CONSITIPATION 08/22/17 09:45 Lactulose (Lactulose Liq) 30 ml DAILY PRN PO SEVERE CONSITIPATION 08/22/17 09:45 Clonidine (Catapres) 0.1 mg Q6H PRN PO AGITATION 08/23/17 07:15 Ondansetron HCl (Zofran Inj) 4 mg Q6H PRN IV PUSH NAUSEA 08/23/17 10:15 08/23/17 11:31 Acetaminophen/ Hydrocodone Bitart ([place]ana 7.5-325 Mg) 1 tab Q4H PRN PO PAIN SCALE 6 TO 10 08/23/17 14:45 Acetaminophen/ Hydrocodone Bitart ([place] 10-325 Mg) 1 tab Q4H PRN PO PAIN SCALE 6 TO 10 08/23/17 14:45 Future Hold 08/25/17 08:36 Bacitracin (Baciguent Oint) 1 applic Q12HR PRN TOPICAL CELLULITIS 08/24/17 03:45 08/24/17 07:58 Diphenhydramine HCl (Benadryl) 25 mg Q4H PRN PO ITCHING 08/24/17 08:30 08/25/17 08:35 Cefazolin Sodium 1000 mg/Sodium Chloride 100 ml @ 200 mls/hr Q8H IV 08/24/17 13:00 08/25/17 14:07 Baclofen (Lioresal) 10 mg ONCE PRN PO SPASM 08/25/17 08:45 08/25/17 23:59 08/25/17 09:46 Acetaminophen/ Hydrocodone Bitart ([place]avana 5-325 Mg) 1 tab Q4H PRN PO PAIN SCALE 1 TO 5 08/25/17 08:45 SOCIAL HISTORY: No tobacco, no alcohol. The patient denied IV drug use to me. However, it is reported that she uses IV Dilaudid, occasional and that she used some time last week per the medical record. Objective: Vital Signs Date Time Temp Pulse Resp B/P (MAP) Pulse Ox O2 Delivery O2 Flow Rate FiO2 08/25/17 16:00 98.5 77 20 127/93 (104) 99 08/25/17 12:06 97.7 70 20 120/78 (92) 97 08/25/17 08:09 97.7 77 20 123/98 (106) 98 08/25/17 04:41 98.5 80 18 114/74 (87) 99 08/25/17 00:40 98.1 64 20 128/80 (96) 96 08/24/17 21:00 98.4 69 18 116/72 (87) 99 Laboratory Tests Test 08/24/17 09:02 08/25/17 09:28 White Blood Count 6.8 TH/MM3 5.2 TH/MM3 Red Blood Count 3.32 MIL/MM3 4.03 MIL/MM3 Hemoglobin 10.1 GM/DL 12.4 GM/DL Hematocrit 30.1 % 36.3 % Mean Corpuscular Volume 90.5 FL 90.2 FL Mean Corpuscular Hemoglobin 30.5 PG 30.8 PG Mean Corpuscular Hemoglobin Concent 33.7 % 34.1 % Red Cell Distribution Width 14.6 % 14.6 % Platelet Count 156 TH/MM3 160 TH/MM3 Mean Platelet Volume 10.5 FL 10.0 FL Laboratory Tests Test 08/24/17 08:36 08/25/17 09:28 Blood Urea Nitrogen 10 MG/DL 6 MG/DL Creatinine 1.12 MG/DL 0.98 MG/DL Random Glucose 137 MG/DL 93 MG/DL Total Protein 5.3 GM/DL 6.7 GM/DL Albumin 2.3 GM/DL 2.9 GM/DL Calcium Level 8.0 MG/DL 8.8 MG/DL Alkaline Phosphatase 61 U/L 72 U/L Aspartate Amino Transf (AST/SGOT) 25 U/L 21 U/L Alanine Aminotransferase (ALT/SGPT) 36 U/L 36 U/L Total Bilirubin 0.5 MG/DL 0.4 MG/DL Sodium Level 140 MEQ/L 140 MEQ/L Potassium Level 3.8 MEQ/L 3.8 MEQ/L Chloride Level 111 MEQ/L 107 MEQ/L Carbon Dioxide Level 20.8 MEQ/L 24.7 MEQ/L Anion Gap 8 MEQ/L 8 MEQ/L Estimat Glomerular Filtration Rate 53 ML/MIN 62 ML/MIN C-Reactive Protein 5.00 MG/DL Microbiology Date/Time Source Procedure Growth Status 08/24/17 08:56 Blood Peripheral Aerobic Blood Culture - Preliminary NO GROWTH IN 1 DAY Resulted 08/24/17 08:56 Blood Peripheral Anaerobic Blood Culture - Preliminary NO GROWTH IN 1 DAY Resulted 08/24/17 08:50 Blood Peripheral Aerobic Blood Culture - Preliminary NO GROWTH IN 1 DAY Resulted 08/24/17 08:50 Blood Peripheral Anaerobic Blood Culture - Preliminary NO GROWTH IN 1 DAY Resulted 08/23/17 18:53 Urine Clean Catch Urine Culture - Final NO GROWTH IN 48 HOURS. Complete Microbiology Date/Time Source Procedure Growth Status 08/24/17 08:56 Blood Peripheral Aerobic Blood Culture Pending Received 08/24/17 08:56 Blood Peripheral Anaerobic Blood Culture Pending Received 08/24/17 08:50 Blood Peripheral Aerobic Blood Culture Pending Received 08/24/17 08:50 Blood Peripheral Anaerobic Blood Culture Pending Received 08/22/17 05:50 Blood Peripheral Aerobic Blood Culture - Preliminary NO GROWTH IN 2 DAYS Resulted 08/22/17 05:50 Blood Peripheral Anaerobic Blood Culture - Preliminary NO GROWTH IN 2 DAYS Resulted 08/22/17 05:45 Blood Peripheral Aerobic Blood Culture - Preliminary NO GROWTH IN 2 DAYS Resulted 08/22/17 05:45 Blood Peripheral Anaerobic Blood Culture - Preliminary NO GROWTH IN 2 DAYS Resulted 08/23/17 18:53 Urine Clean Catch Urine Culture Pending Received 08/22/17 05:55 Wound Face Gram Stain - Final Complete 08/22/17 05:55 Wound Culture - Final Staphylococcus Aureus Complete PHYSICAL EXAMINATION: GENERAL: Awake and alert. HEENT: Head is atraumatic. The face swelling is resolved. Left eyelid edema is almost completely resolved. The erythema of the face has resolved. No icterus. Pupils reactive. Oropharynx has moist mucosa. NECK: Supple without adenopathy. LUNGS: Clear to auscultation. HEART: Regular rate and rhythm without murmurs, rubs or gallops. ABDOMEN: Bowel sounds present. Soft, nontender. EXTREMITIES: No clubbing, cyanosis or edema. SKIN: No diffuse rash. NEUROLOGIC: Nonfocal. PSYCHIATRIC: Calm and cooperative. IMPRESSION: 1. Sepsis in patient with elevated heart rate, fever, tachycardia. Source likely facial cellulitis. 2. Facial cellulitis. MSSA. Improved. 3. Abscess of the chin. Improved. 4. 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 5. Chronic kidney disease. 6. Skin rash. Allergic drug reaction. Possibly vancomycin but could also be due to Zosyn. RECOMMENDATIONS: Change Ancef to p.o. Keflex tomorrow. Patient is stable from my standpoint and can be discharged on p.o. Keflex for another 7-10 days. Hold off on any HIV medications since the patient has had ADVERSE EFFECTS FROM THE HIV TREATMENT. Patient has appointment for follow-up for [facility] at [facility]. She also has arrangements made for her to get lab work for that appointment as outpatient. Simon Gonzalez MD Aug 25, 2017 18:24
[2017-08-25 20:00] VITALS: BP 126/95; PULSE 79; RESP 18; TEMP 98.3; O2SAT 97
[2017-08-26] VITALS: BP 129/87; PULSE 76; RESP 18; TEMP 98.1; O2SAT 97
[2017-08-26] MEDS: diphenhydrAMINE HCL 25 MG CAP PO PRN ×2 (03:04→09:21)
[2017-08-26 04:00] VITALS: BP 124/85; PULSE 70; RESP 18; TEMP 98.9; O2SAT 98
[2017-08-26 05:06] LABS: HEMATOCRIT 39.9 % (35.0-46.0); HEMOGLOBIN 13.4 GM/DL (11.6-15.3); MEAN CELL VOLUME 90.4 FL (80.0-100.0); MEAN CORPUSCULAR HEMOGLOBIN 30.4 PG (27.0-34.0); MEAN CORPUSCULAR HGB CONC 33.7 % (32.0-36.0); MEAN PLATELET VOLUME 9.5 FL (7.0-11.0); RED BLOOD COUNT 4.42 MIL/MM3 (4.00-5.30); RED CELL DISTRIBUTION WIDTH 14.6 % (11.6-17.2); WHITE BLOOD COUNT 7.1 TH/MM3 (4.0-11.0)
[2017-08-26 05:15] LABS: PLATELET COUNT 183 TH/MM3 (150-450)
--- NOTE | 2017-08-26 07:21 | HHI.FPPN ---
Subjective Remarks Patient has no acute complaints. Had some nausea this morning and received Zofran x1. However, does not feel that she will need more. Vitals have been stable. (Nataliya Balderas MD R1) Objective Vitals Vital Signs Date Time Temp Pulse Resp B/P (MAP) Pulse Ox O2 Delivery O2 Flow Rate FiO2 08/26/17 00:00 98.1 76 18 129/87 (101) 97 08/25/17 20:00 98.3 79 18 126/95 (105) 97 08/25/17 16:00 98.5 77 20 127/93 (104) 99 08/25/17 12:06 97.7 70 20 120/78 (92) 97 08/25/17 08:09 97.7 77 20 123/98 (106) 98 I/O 08/25/17 08/25/17 08/25/17 08/26/17 08/26/17 08/26/17 07:00 15:00 23:00 07:00 15:00 23:00 Intake Total 1852 ml 542 ml 600 ml 480 ml Output Total 3100 ml 800 ml 1600 ml 1800 ml Balance -1248 ml -258 ml -1000 ml -1320 ml Intake Oral 900 ml 600 ml 480 ml IV Total 952 ml 542 ml Output Urine Total 3100 ml 800 ml 1600 ml 1800 ml # Bowel Movements 0 1 (Nataliya Balderas MD R1) Result Diagram: 08/26/17 0335 08/25/17 0928 Objective Remarks GENERAL: This is a tanned woman who appears older than her age sitting comfortably in bed, eating breakfast. SKIN: 3x3 cm dry,healing site. Left axilla shows 5x4 mm soft, slightly fluctuant abscess. HEAD: Atraumatic. Normocephalic. EYES: Extraocular motions intact.No injection or drainage. Swelling and redness of the upper left eyelid has improved significantly. ENT: Airway patent. NECK: Trachea midline. CARDIOVASCULAR: Regular rate and rhythm without murmurs, gallops, or rubs. RESPIRATORY: Clear to auscultation. GASTROINTESTINAL: Abdomen soft, nondistended. No tenderness to palpation. No guarding. MUSCULOSKELETAL: No edema or ulcerations at extremities. NEUROLOGICAL: Awake and alert. No focal deficits. Motor and sensory grossly within normal limits. Normal speech. (Nataliya aBlderas MD R1) A/P Assessment and Plan Patient is a 41-year-old female with a history of HIV who presents with facial cellulitis of her chin, left eye hordeolum, and left axillary abscess. White count within normal limits, patient received Vanco and Zosyn 1 in the ED. Wound culture obtained from pustulant fluid from chin. Blood culture also obtained. IV vancomycin and Zosyn, consult ID, pain control, warm washcloth to apply to stye, and monitoring of symptoms initiated. Patient endorsed increased abdominal pain and lower extremity muscle pain. Abscess and facial cellulitis had significantly improved while on Vanco and Zosyn. However, skin appeared more reddened and patient was more uncomfortable. Vancomycin was replaced w/ Linezolid and benadryl was given due to suspicion of vancomycin allergy. Improvement in hordeolum improved. Continued to have fevers and complained of increased muscle spasms, was given baclofen once, which improved symptoms and continued to receive benadryl for redness of skin, hives, and itching. L axillary abscess site became more swollen - larger size of induration, however it is softer. Advised to apply warm compresses 2-3 hours to encourage fluctuance and drainage. Per ID recs, patient switched to IV Ancef. Today, improvement in itching, redness, and all pain. Fluids discontinued, pain meds scaled back. Facial cellulitis vastly improved, left axillary abscess soft and becoming fluctuant - can be drained outpatient. Eye stye resolved. Per ID recs and culture sensitivites, patient will take Keflex for 7-10 days upon d/c. Patient had some nausea on d/c day. Took zofran x1. CM set up transportation to [facility] Discharge Planning D/C today back to [facility] w/Keflex for 7-10 days (Nataliya Balderas MD R1) Attending Attestation The exam, history, and the medical decision-making described in the above note were completed with the assistance of the resident physician. I reviewed and agree with the findings presented. I attest that I had a [id number] encounter with the patient on the same day, and personally performed the exam. The patient is much improved since admission and she is awake and alert. Her labs and vitals are stable. She does have problematic social situation but appropriate follow-up has already been set up for this patient. She is stable to dc from the hospital (Alma Davis MD) Problem List: (1) Lower extremity pain, bilateral ICD Codes: M79.604 - Pain in right leg; M79.605 - Pain in left leg Status: Resolved Plan: Patient endorsed diffuse musculoskeletal pain History of IV drug use Differential: withdrawal versus muscle spasm versus myositis D/C fluids [place] PRN for pain control baclofen as needed for severe muscle spasm x1 PRN today (2) Facial cellulitis ICD Codes: L03.211 - Cellulitis of face Status: Acute Plan: Swelling and purulent drainage from the chin on admission Wound culture Staph A + sensitive to Bactrim and Clinda Blood cultures pending Allergic reaction to vancomycin, she appeared significantly flushed and had redness of her upper chest, and upper arms Improved D/C IV Ancef, continue Keflex outpatient for 7-10 days total Appreciate ID recs (3) Abscess of left axilla ICD Codes: L02.412 - Cutaneous abscess of left axilla Plan: Improved 5 x 4 mm soft, fluctuant abscess under the skin in the left axilla Consider drainage procedure outpatient (4) Lower back pain ICD Codes: M54.5 - Low back pain Status: Chronic Plan: Likely musculoskeletal and secondary to lower back strain (5) Hepatitis C ICD Codes: B19.20 - Unspecified viral hepatitis C without hepatic coma Plan: Patient has history per documentation of hepatitis C Patient visit hep C positive per viral panel patient will need to follow up with health Department for outpatient treatment (6) HIV (human immunodeficiency virus infection) ICD Codes: Z21 - Asymptomatic human immunodeficiency virus [HIV] infection status Status: Chronic Plan: Patient states that she was taking 4-5 HIV medications chronically before she was incarcerated, this occurred around April Patient has been off HIV medications since April, has not followed up with any doctor since then ID consulted for treatment recommendations (7) IVDU (intravenous drug user) ICD Codes: F19.90 - Other psychoactive substance use, unspecified, uncomplicated Status: Chronic Plan: History of IV drug use with Dilaudid Last use 5 years ago; however, drug screens from hospitalization in 2017 were + for opiates and amphetamines Drug screen positive for opiates and cocaine Clonidine ordered 0.1 mg every 6 hours when necessary for agitation (8) FEN Plan: Fluid: None Electrolytes: as needed Nutrition: Regular DVT prophy: not indicated (Nataliya Balderas MD R1) Nataliya Balderas MD R1 Aug 26, 2017 07:21 Alma Davis MD Aug 26, 2017 15:47
[2017-08-26] MEDS: SODIUM CHLORIDE 0.9% FLUSH 10 ML FLUSH IV FLUSH SCH (08:23)
[2017-08-26 08:52] VITALS: BP 120/77; PULSE 78; RESP 16; TEMP 97.9; O2SAT 98
--- NOTE | 2017-08-26 09:47 | HHI.DCPOC ---
Discharge Care Plan Diagnosis: (1) Facial cellulitis (2) HIV (human immunodeficiency virus infection) Goals to Promote Your Health * To prevent worsening of your condition and complications * To maintain your health at the optimal level Directions to Meet Your Goals Take your medications as prescribed Follow your dietary instruction Follow activity as directed Keep your appointments as scheduled Take your immunizations and boosters as scheduled If your symptoms worsen call your PCP, if no PCP go to Urgent Care Center or Emergency Room Smoking is Dangerous to Your Health. Avoid second hand smoke Call the 24-hour hour crisis hotline for domestic abuse at Jennifer Winston MD, R3 Aug 26, 2017 09:47
[2017-08-26] MEDS ORDERED: QC B500O TOPICAL (09:51)
[2017-08-26] MEDS ORDERED: CEPH500T PO (09:51)
[2017-08-26] MEDS ORDERED: ONDANSETRON HCL 4 MG/2 ML VIAL IV PUSH ONE (10:30)
[2017-08-26 12:02] VITALS: BP 110/68; PULSE 71; RESP 17; TEMP 97.9; O2SAT 97
== END 2017-08-26 15:02 | disposition home or self-care (01) | DRG 602 ==
LOC: NEPD 05:24 → NEDA 09:30 → N05A 16:17 → UNDODISIN 08-26 12:18
PROVIDERS: ADMIT Family Medicine; ATTEND Family Medicine
DX: L03.211 Cellulitis of face (principal); B20 Human immunodeficiency virus [HIV] disease; L02.01 Cutaneous abscess of face; I12.9 Hypertensive chronic kidney disease with stage 1 through stage 4 chronic kidney disease, or unspecified chronic kidney disease; L02.412 Cutaneous abscess of left axilla; H00.016 Hordeolum externum left eye, unspecified eyelid; F43.10 Post-traumatic stress disorder, unspecified; R51 Headache; B19.20 Unspecified viral hepatitis C without hepatic coma; N18.9 Chronic kidney disease, unspecified; M79.605 Pain in left leg; M79.604 Pain in right leg; R60.9 Edema, unspecified; R10.9 Unspecified abdominal pain; M62.838 Other muscle spasm; L50.0 Allergic urticaria; T36.8X5A Adverse effect of other systemic antibiotics, initial encounter; R11.0 Nausea; F19.90 Other psychoactive substance use, unspecified, uncomplicated; F32.9 Major depressive disorder, single episode, unspecified; F41.9 Anxiety disorder, unspecified; M19.90 Unspecified osteoarthritis, unspecified site; S39.012A Strain of muscle, fascia and tendon of lower back, initial encounter; X50.0XXA Overexertion from strenuous movement or load, initial encounter; Z59.0 Homelessness
CPT/HCPCS: 70487; 76937; 80053; 80074; 80307; 81001; 82550; 83605; 85025; 85027; 85652; 86140; 86355; 86357; 86359; 86360; 86403; 87040; 87070; 87086; 87147; 87186; 87522; 87536; 94150; 96365; 96366; 96368; 96375; J0131; J0690; J1885; J2020; J2405; J2543; J3370; J7030; J7050; Q0163; Q9967

== ENCOUNTER 2017-10-16 07:32 | Emergency (ER) | payer SELFPAY ==
[~2017-10-16 07:32] MED LIST changes: +CEPH500T PO; -DARU800T2 PO; -DOLU1TAB PO; -EPZITAB3 PO; -HYDR-3516 PO; +QC B500O TOPICAL; -RITO100 PO; -ZIAG300T3 PO
[2017-10-16 07:34] VITALS: BP 122/81; PULSE 82; RESP 20; TEMP 97.5; O2SAT 99
--- NOTE | 2017-10-16 07:54 | PD ---
HPI . Cold symptoms Chief Complaint: Respiratory Symptoms Time Seen by Provider: 07:48 Travel History International Travel<30 days: No Contact w/Intl Traveler<30days: No Traveled to known affect area: No History of Present Illness HPI This patient presents with a 2 day history of nasal congestion and cough. She has not taken anything for prior to presentation. Symptoms are mild continuous. No modifying factors. Pertinent history is that she is HIV positive and hepatitis C positive. Associated symptom includes right-sided abdominal wall discomfort. PFSH Past Medical History Arthritis: Yes (knees and hands, HX of carpal tunnel) Asthma: No Autoimmune Disease: No Blood Disorders: Yes (HIV+ and Hep C+) Anxiety: Yes Depression: Yes Heart Rhythm Problems: No Cancer: No Cardiovascular Problems: Yes (HTN) High Cholesterol: Yes Chemotherapy: No Chest Pain: No Congestive Heart Failure: No COPD: Yes (Chronic BRONCHITIS) Cerebrovascular Accident: No Diabetes: No Diminished Hearing: No Endocrine: No Gastrointestinal Disorders: No GERD: No Genitourinary: No Headaches: No Hiatal Hernia: No Hypertension: Yes Immune Disorder: Yes (HIV) Implanted Vascular Access Dvce: No Kidney Stones: No Musculoskeletal: Yes (osteomyelites clavicle ) Neurologic: No Psychiatric: Yes (PTSD) Respiratory: Yes (Chronic BRONCHITIS) Immunizations Current: Yes Migraines: No Radiation Therapy: No Renal Failure: No Seizures: No Sickle Cell Disease: No Sleep Apnea: No Thyroid Disease: No Ulcer: No : 5 Para: 3 Miscarriage: 1 : 1 Past Surgical History Abdominal Surgery: Yes (colycystectomy ) AICD: No Arteriovenous Shunt: No Cardiac Surgery: No Cholecystectomy: Yes Ear Surgery: No Endocrine Surgery: No Eye Surgery: Yes (orbital sx (dr. anthony)) Genitourinary Surgery: No Gynecologic Surgery: Yes (HYSTERECTOMY) Hysterectomy: Yes Insulin Pump: No Joint Replacement: No Oral Surgery: Yes (PARTIAL UPPER PLACED) Pacemaker: No Thoracic Surgery: No Other Surgery: Yes (full hx, colecystectomy, sx for bone biopsy) Social History Alcohol Use: No Tobacco Use: No Substance Use: Yes (IVDU-dilaudid "2mg" every once in a while; last time- "sometime last week") Allergies-Medications (Allergen,Severity, Reaction): Coded Allergies: efavirenz (Verified Allergy, Severe, angioedema, 08/22/17) hives and angioedema "all over" emtricitabine (Verified Allergy, Severe, angioedema, 08/22/17) hives and angioedema "all over" tenofovir (Verified Allergy, Severe, angioedema, 08/22/17) hives and angioedema "all over" aztreonam (Unverified Allergy, Intermediate, RASH, 08/22/17) levofloxacin (Unverified Allergy, Intermediate, RASH, 08/22/17) vancomycin (Verified Allergy, Intermediate, Rash, 08/24/17) Santino syndrome Reported Meds & Prescriptions Reported Meds & Active Scripts Active Cephalexin 500 Mg Tab 500 Mg PO Q12H Qc Bacitracin (Bacitracin (Topical)) 500 Unit/Gram Oin 1 Applic TOPICAL Q12HR PRN Diphenhydramine (Diphenhydramine HCl) 25 Mg Cap 25 Mg PO Q6H PRN Proventil Hfa 6.7 GM Inh (Albuterol Sulfate) 90 Mcg/Act Aer 2 Puff INH Q4-6H PRN Review of Systems Except as stated in HPI: all other systems reviewed are Neg General / Constitutional: No: Fever, Chills HENT: Positive: Rhinorrhea, Congestion Respiratory: Positive: Cough Physical Exam Narrative Vital Signs Date Time Temp Pulse Resp B/P (MAP) Pulse Ox O2 Delivery O2 Flow Rate FiO2 10/16/17 07:34 97.5 82 20 122/81 (95) 99 GENERAL: Awake and alert and in no acute distress. SKIN: Warm and dry. HEAD: Normocephalic/atraumatic. EYES: Pupils are equal. Extraocular movements are intact. ENT: Edema of the nasal turbinates. Scant mucopurulent drainage from the nose. Oropharynx is clear. NECK: Normal range of motion. No cervical lymphadenopathy. CARDIOVASCULAR: Regular rate and rhythm. Heart sounds are normal. RESPIRATORY: Nonlabored respirations. Lungs are clear with good air movement throughout. ABDOMEN: Soft with some tenderness just below the right anterior rib cage. MUSCULOSKELETAL: Atraumatic. NEUROLOGICAL: Nonfocal. PSYCHIATRIC: Appropriate mood and affect. Data Data Last Documented VS Vital Signs Date Time Temp Pulse Resp B/P (MAP) Pulse Ox O2 Delivery O2 Flow Rate FiO2 10/16/17 07:34 97.5 82 20 122/81 (95) 99 Orders Orders Ed Discharge Order (10/16/17 07:49) MDM Medical Decision Making Medical Screen Exam Complete: Yes Emergency Medical Condition: Yes Differential Diagnosis Differential diagnosis includes but is not limited to influenza, upper respiratory infection, bronchitis, pneumonia Narrative Course This patient presents with a 2 day history of cold symptoms. Her physical exam is compatible with a cold and that she has nasal congestion, edema of her turbinates and a mucopurulent nasal discharge. Her lungs are clear with good air movement throughout. Her sats are 99% on room air. She is not tachypneic. She will be discharged home with instructions and symptomatic care. Diagnosis Primary Impression: Acute upper respiratory infection Patient Instructions: General Instructions Departure Forms: Work Release, Tests/Procedures Additional Instructions: I recommend the use of a Neti Pot. You may use a nasal spray such as Afrin for up to 3 days as needed for nasal congestion. You may take an [id number] antihistamine such as Zyrtec, Ara or Claritin as needed for runny secretions. You may take pseudoephedrine as needed for congestion. You will need to sign for this at the pharmacy. You may take plain Mucinex, 1200 mg twice a day as needed for thick secretions. You may take a cough syrup such as Delsym as needed for cough. Motrin as needed for fever and body aches. Throat lozenges/sprays as needed for sore throat. Warm salt water gargles for sore throat. Hot tea with lemon and honey also helps soothe a sore throat. Disposition: 01 DISCHARGE HOME Condition: Stable Mariel Villaseñor MD October 16, 2017 07:54
== END 2017-10-16 08:04 | disposition home or self-care (01) ==
LOC: NEPC 07:32
DX: J06.9 Acute upper respiratory infection, unspecified (principal); R09.81 Nasal congestion; B19.20 Unspecified viral hepatitis C without hepatic coma; B20 Human immunodeficiency virus [HIV] disease; I10 Essential (primary) hypertension; F11.90 Opioid use, unspecified, uncomplicated
CPT/HCPCS: 99282